=== PATIENT | male | born 1955 | race Caucasian/White ===

== ENCOUNTER 2021-11-05 08:13 | Outpatient (CLI) | payer MEDICARE, SELFPAY ==
--- NOTE | ~2021-11-05 | CT_ITS ---
EXAMINATION: CT foot LT wo con DATE: 11/05/2021 08:52 INDICATION: Subacute osteomyelitis, right foot and ankle. TECHNIQUE: Computed tomography (CT) of the right foot and ankle was performed without intravenous con trast. Automated exposure control and iterative reconstruction technique were employed. The dose-dorys th product was 450.98 mGy-cm. COMPARISON: Right foot and ankle radiographs 11/02/2011 FINDINGS: Pes planus and hindfoot valgus are noted. No acute fracture. There is an ulcer lateral to h ead of fifth metatarsal. There is an erosion of head of fifth metatarsal, consistent with osteomyelit is. There is severe osteoarthritis of tibiotalar joint, subtalar joint, and talonavicular joint with loose bodies. There is mild to moderate osteoarthritis of the other midfoot joints. There is severe o steoarthritis of first metatarsophalangeal joint and mild osteoarthritis of second metatarsophalangea l joint and many of the interphalangeal joints. There are enthesophytes at the posterior and plantar aspects of calcaneal tuberosity. IMPRESSION: 1. Osteomyelitis involving head of fifth metatarsal. 2. Polyarticular osteoarthritis. 3. Pes planus and hindfoot valgus. Reviewed, dictated and finalized at location A.
== END 2021-11-05 08:14 | disposition home or self-care (01) ==
PROVIDERS: PCP Internal Medicine; Visit Provider Internal Medicine
DX: J96.01 Acute respiratory failure with hypoxia (principal); E11.610 Type 2 diabetes mellitus with diabetic neuropathic arthropathy; E66.01 Morbid (severe) obesity due to excess calories; R41.0 Disorientation, unspecified; M19.072 Primary osteoarthritis, left ankle and foot
CPT/HCPCS: 73700

== ENCOUNTER 2022-06-18 07:21 | Outpatient (RCR) | payer MEDICARE, SELFPAY ==
[2022-04-23 09:30] VITALS: BMI 38.5
== END 2022-07-22 23:59 | disposition home or self-care (01) ==
LOC: ANHWOC 07:21
PROVIDERS: PCP Internal Medicine; Visit Provider Podiatrist Foot & Ankle Surgery
DX: E11.40 Type 2 diabetes mellitus with diabetic neuropathy, unspecified (principal); E11.59 Type 2 diabetes mellitus with other circulatory complications; I87.311 Chronic venous hypertension (idiopathic) with ulcer of right lower extremity
CPT/HCPCS: 99213; 99214; A9270; G0463

== ENCOUNTER 2022-10-23 10:26 | Inpatient (IN) | payer MEDICARE, SELFPAY ==
[2022-10-23] VITALS (22 sets, daily range): BP systolic 89–140; BP diastolic 57–112; PULSE 114–164; RESP 13–20; TEMP 36.4–38.2; O2SAT 96–100
--- NOTE | ~2022-10-23 | XR_ITS ---
XR chest 1V portable 10/23/2022 11:32 Indication: Shortness of breath and vomiting Procedure: AP portable chest Comparison: 12/10/2013 Findings: Borderline heart size. There are bilateral interstitial infiltrates. No pleural effusion or pneumothorax. No acute osseous abnormality. Impression: 1: Diffuse bilateral interstitial infiltrates which may represent mild edema or pneumonia. Reviewed, dictated and finalized at location B. R ENERGY ENGINEER Impression: 1: Diffuse bilateral interstitial infiltrates which may represent mild edema or pneumonia.
--- NOTE | 2022-10-23 10:38 | ECG_ITS ---
Measurements Intervals [place] Rate: 146 P: HI: 0 QRS: 17 QRSD: 97 T: 31 QT: 268 QTc: 418 Interpretive Statements ATRIAL FIBRILLATION WITH RAPID VENTRICULAR RESPONSE DELAYED PRECORDIAL R/S TRANSITION ABNORMAL ECG NO PREVIOUS ECG AVAILABLE FOR COMPARISON Electronically Signed On 10-23-2022 16:48:41 RETAIL SALES SPECIALIST by Jonn Figueredo D.O.
--- NOTE | 2022-10-23 10:56 | ED.GENADULT ---
HPI - General Adult General Chief complaint: Unspecified Stated complaint: weakness Time Seen by Provider: 10/23/22 10:32 History of Present Illness HPI narrative: 66-year-old male presenting to the emergency department for evaluation of not feeling well over the last 2 days. Patient does report intermittent headache and nausea with emesis. Patient is a very poor historian and is unsure of what his past medical history is. Patient states that he does not know any of his medications but that a nurse comes to the house to give him his meds. Patient also reports he has had increased lower extremity edema primarily on the right. Patient he has had multiple surgeries by Dr. Conner on the right ankle. Patient states he has been unable to bear weight for the last few weeks and has been bedbound. Patient states previously he was able to transfer to his scooter but has not been able to do that for the last 2 weeks. Patient also has skin breakdown under his pannus that he was aware of Patient denies any abdominal pain. Patient denies any chest pain or shortness of breath. Patient does not feel that his heart is racing. Patient does have current nausea. Related Data Home Medications Medication Instructions Recorded Confirmed atorvastatin 40 mg tablet 40 mg PO HS 02/13/20 10/23/22 bumetanide 2 mg tablet 1 mg PO BID 02/13/20 10/23/22 diclofenac sodium 75 mg 75 mg PO Q12H 02/13/20 10/23/22 tablet,delayed release dorzolamide 22.3 mg-timolol 6.8 1 drop ophthalmic (eye) Q12H 02/13/20 10/23/22 mg/mL eye drops esomeprazole magnesium 40 mg 40 mg PO DAILY 02/13/20 10/23/22 capsule,delayed release gabapentin 300 mg capsule 300 mg PO TID 02/13/20 10/23/22 insulin regular hum U-500 conc 500 25 unit subcut ONCE 02/13/20 04/25/21 unit/mL subcutaneous soln levothyroxine 112 mcg capsule 112 mcg PO DAILY 02/13/20 10/23/22 potassium chloride 20 mEq oral 20 meq PO DAILY 02/13/20 10/23/22 packet tamsulosin 0.4 mg capsule 0.4 mg PO DAILY 02/13/20 10/23/22 apixaban 5 mg tablet (Eliquis) 5 mg PO BID 04/23/22 10/23/22 brimonidine 0.2 % eye drops 1 drp EACH EYE Q12H 04/23/22 10/23/22 diltiazem HCl 30 mg tablet 30 mg PO TID 04/23/22 10/23/22 famotidine 20 mg tablet 20 mg PO BID 04/23/22 10/23/22 fluticasone propionate 220 2 puff inhalation Q12H 04/23/22 10/23/22 mcg/actuation HFA aerosol inhaler (Flovent HFA) pentoxifylline 400 mg 400 mg PO TID 04/23/22 10/23/22 tablet,extended release tramadol 50 mg tablet 50 mg PO TID PRN Pain 04/23/22 10/23/22 metoprolol succinate 50 mg 50 mg PO DAILY 10/23/22 10/23/22 tablet,extended release 24 hr Allergies Allergy/AdvReac Type Severity Reaction Status Date / Time morphine AdvReac Unknown CONFUSION Verified 09/03/22 08:39 Review of Systems Review of Systems: All systems reviewed & are unremarkable except as noted in HPI and below PMFSH Past Medical History Medical History (Updated 10/23/22 @ 18:30 by Olivia Teixeira NP) BMI greater than 40 BPH (benign prostatic hyperplasia) Chronic a-fib 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, managed as type 2 Glaucoma Left knee DJD Left knee pain Obstructive sleep apnea Pneumonia Right knee DJD Type 2 diabetes mellitus with diabetic neuropathy, unspecified Venous stasis of both lower extremities Vision abnormalities Surgical History Surgical History (Updated 10/23/22 @ 18:20 by Olivia Teixeira NP) H/O cataract extraction History of arthroplasty of left knee History of foot surgery History of skin graft Hx of cholecystectomy Family History Family History (Updated 10/23/22 @ 18:21 by Olivia Teixeira NP) Mother Breast cancer Dementia Father Diabetes mellitus Malignant neoplasm of prostate Dementia Other Family history of malignant neoplasm Social History Social History (Updated 10/23/22 @ 18:22 by Olivia Teixeira NP) Social History: the patient lives with his and they have no children. He is reti
[2022-10-23] MEDS: dilTIAZem HCl INJ 25 MG/5 ML VIAL 10 MG IV PUSH ×2 (10:57→14:46)
[2022-10-23] MEDS: dilTIAZem 100 MG/100 ML 100 MG/100 ML BAG IV CONT (10:58)
[2022-10-23] MEDS: ONDANSETRON INJ 4 MG/2 ML VIAL IV PUSH ×2 (11:01→17:38)
[2022-10-23 11:09] LABS: Basophils Percent Auto 0.2 % (0.2-1.2); Eosinophils Absolute Auto 0.1 K/mm3 (0-0.3); Eosinophils Percent Auto 0.9 % (0-4.4); Hematocrit 29.2 % (42.0-52.0); Hemoglobin 9.2 g/dL (14.0-18.0); Immature Granulocyte Absolute 0.06 K/mm3 (0.00-0.031); Immature Granulocyte Percent A 0.5 % (0-0.5); Lymphocytes Absolute Auto 0.99 K/mm3 (0.9-3.2); Mean Corpuscular HGB Conc 31.5 g/dl (32-36); Mean Corpuscular Hemoglobin 28.4 pg (26-34); Mean Corpuscular Volume 90.1 fl (80-100); Mean Platelet Volume 9.8 fl (7.4-10.4); Monocytes Absolute Auto 0.6 K/mm3 (0.1-0.6); Monocytes Percent Auto 5.3 % (2.6-8.5); Neutrophils Absolute Auto 9.3 K/mm3 (1.3-6.7); Neutrophils Percent Auto 84.1 % (45.5-73.1); Platelet Count Result 210 k/mm3 (150-375); Red Blood Count 3.24 M/mm3 (4.6-6.20); Red Cell Distribution Width 17.3 % (11.5-14.5)
[2022-10-23 11:15] LABS: Appearance Urine Clear (Clear); Bacteria Urine None Seen /hpf; Bilirubin Urine Negative (Negative); Blood Urine Negative (Negative); Color Urine Yellow (Yellow); Glucose Urine UA Negative (Negative); Ketones Urine 2+ mg/dL (Negative); Leukocyte Esterase Ur Trace LEU/UL (Negative); Nitrate Urine Negative (Negative); Non Pathogenic Casts 0-2; Protein Urine 2+ mg/dL (Negative); RBC Urine 0-2 /hpf (0-2); Specific Grav Ur 1.017 (1.001-1.035); Squamous Epithelial Cell Urine None seen /hpf (Few); WBC Urine 0-5 /hpf
[2022-10-23 11:20] LABS: Lactic Acid Reflex 1.3 mmol/L (0.7-2.0)
[2022-10-23 11:22] LABS: INR 1.3; Prothrombin Time 16.1 Seconds (11.1-14.7)
[2022-10-23 11:22] LABS: Add Urine Microscopic? YES
[2022-10-23 11:23] LABS: Partial Thromboplastin Time 38.6 SECONDS (22.3-36.8)
[2022-10-23 11:28] LABS: Alanine Aminotransferase 20 U/L (6-50); Albumin Level 3.9 g/dL (3.5-5.1); Alkaline Phosphatase 86 U/L (38-126); Anion Gap 8 mmol/L (8-16); Aspartate Amino Transferase 27 U/L (17-59); Bilirubin,Total 1.1 mg/dL (0.2-1.3); Blood Urea Nitrogen 10 mg/dL (9-20); Calcium 8.9 mg/dL (8.4-10.2); Carbon Dioxide 24 mmol/L (22-30); Chloride 99 mmol/L (98-107); Estimated CRCL calculation 110 ml/min; Estimated Glomerular Filt Rate > 60; Glucose 91 mg/dL (65-110); Sodium 131 mmol/L (137-145)
[2022-10-23 11:37] LABS: NT Pro B Type Natriuretic Pept 3020 pg/mL (19.9-100)
[2022-10-23] MEDS: fentaNYL CITRATE INJ (*CRX) 100 MCG/2 ML VIAL 50 MCG IV PUSH ×4 (12:33→21:28)
[2022-10-23] MEDS: FUROSEMIDE INJ 40 MG/4 ML VIAL IV PUSH ×2 (12:34→21:22)
--- NOTE | 2022-10-23 12:52 | PC.NURSE ---
pt refusing ultrasound. pt educated pt on the importance of it. pt still refusing.
[2022-10-23] MEDS: ceFAZolin 1 GM/NS 50 ML 1 GM/50 ML BAG IVPB ×2 (13:10→23:00)
--- NOTE | 2022-10-23 14:17 | PM.IMHP ---
H&P: HPI History of Present Illness Date/Time: 10/23/22 14:17 Chief Complaint: weakness Narrative: this is a 66-year-old male patient who has a history of insulin-dependent diabetes with an insulin pump, atrial fibrillation, lymphedema, hypothyroidism, and chronic atrial fibrillation on anticoagulation. The patient stated he has not been feeling very well over last 2 days. The patient stated that his lower extremities are redder than normal. He does have lymphedema to his lower extremities. I am trying to get history from the patient and he is referring to talk to his who is at home. He states that a nurse comes over and get some his medications so he does not really know when he is taking. The patient has had multiple surgeries to his right ankle and complains of discomfort to the right ankle as well as the right hip. The patient is not been able to bear weight for least the last few weeks and has been bed-bound. The patient is on Eliquis for his AFib. The patient typically is able to transfer to his scooter from his bed but has not been able to do so for the last 2 weeks. The patient has a severe fungal infection under his large pannus. His chest x-ray shows diffuse bilateral interstitial infiltrates which may represent mild edema or pneumonia. His white count 11.0. His H&H is 9.2 and 29.2. Which appears to be his baseline from previous labs from years ago. BNP is 3020. The patient is being admitted to inpatient on the date of service 10/23/2022 Review of Systems Review of Systems: see HPI All systems reviewed & are unremarkable except as noted in HPI and below Constitutional: Constitutional: Reports as per HPI and Reports no additional constitutional complaints Eyes: Eyes: Reports as per HPI and Reports no additional eye complaints ENT: Reports system reviewed and no additional complaints, except as documented and Reports Normal hearing present Cardiovascular: Cardiovascular: Reports no additional cardiovascular complaints Respiratory: Respiratory: Reports no additional respiratory complaints and Reports no additional respiratory complaints Gastrointestinal: Gastrointestinal: Reports as per HPI and Reports no additional gastrointestinal complaints Musculoskeletal: Musculoskeletal: Reports no additional musculoskeletal complaints Integumentary/Breasts: Skin/Breast: Reports system reviewed and no additional complaints, except as docu and Reports as per HPI Neurologic: Reports system reviewed and no additional complaints, except as documented, Reports as per HPI and Reports Normal hearing present Psychiatric: Psychiatric: Reports no additional psychiatric complaints and Reports as per HPI Endocrine: Endocrine: Reports no additional endocrine complaints Hematologic/Lymphatic: Hematologic/Lymphatic: Reports no additional hematologic/lymphatic complaints Allergic/Immunologic: Allergic/Immunologic: Reports no additional allergic/immunologic complaints [facility] Past Medical History Medical History (Updated 10/23/22 @ 18:30 by Olivia Teixeira NP) BMI greater than 40 BPH (benign prostatic hyperplasia) Chronic a-fib 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, managed as type 2 Glaucoma Left knee DJD Left knee pain Obstructive sleep apnea Pneumonia Right knee DJD Type 2 diabetes mellitus with diabetic neuropathy, unspecified Venous stasis of both lower extremities Vision abnormalities Surgical History Surgical History (Updated 10/23/22 @ 18:20 by Olivia Teixeira NP) H/O cataract extraction History of arthroplasty of left knee History of foot surgery History of skin graft Hx of cholecystectomy Family History Family History (Updated 10/23/22 @ 18:21 by Olivia Teixeira NP) Mother Breast cancer Dementia Father Diabetes mellitus Malignant neoplasm of prostate Dementia Other Family history of malignant neoplasm Social History Social History (Updated 10/23/22 @ 18:22 by Olivia Esteban
--- NOTE | 2022-10-23 15:00 | PC.NURSE ---
EDP Kamlesh made aware of pt's BP. paused Diltiazem at this time per EDP.
--- NOTE | 2022-10-23 15:16 | PC.NURSE ---
BP now at 130/63. EDP made aware. Diltiazem started again at 15mg/hr.
[2022-10-23 15:48] LABS: Glucose Point of Care 96 mg/dl (65-105)
--- NOTE | 2022-10-23 15:50 | ADMGEN ---
This patient, Suleiman Hoang, was admitted to IMU Room 206-01. Patient/family oriented to hospital policies and general routines including ID bracelet, bed and alarms, visiting hours, pain management, procedures, bathroom and other care routines, personal items, smoking policy, room service/diet, and visiting hours. Information on how to activate the Rapid Response Team has been discussed. Patient/Family are encouraged to report perceived risks to care and to ask questions if they do not understand what they are told or what they should do.
[2022-10-23 16:49] LABS: Glucose Point of Care 89 mg/dl (65-105)
[2022-10-23 19:32] LABS: Glucose Point of Care 114 mg/dl (65-105)
[2022-10-23] MEDS: dilTIAZem 100 MG/100 ML 100 MG/100 ML BAG 15 MG IV CONT (21:12)
[2022-10-23] MEDS: ALBUTEROL SULFATE NEB 2.5 MG/3 ML INH INHALATION (21:13)
[2022-10-23] MEDS: FLUTICASONE PROP 220 MCG (*SP) 12 GM INHALER 2 PUFF INHALATION (21:13)
[2022-10-23] MEDS: IPRATROPIUM BR 0.02% INH SOLN 0.5 MG/2.5 ML VIAL INHALATION (21:13)
[2022-10-23] MEDS: BRIMONIDINE TARTRATE 0.2% OP SOLN 5 ML BTL 1 DROP EACH EYE (21:18)
[2022-10-23] MEDS: DORZOLAMIDE/TIMOLOL OPHTH SOL 10 ML BOTTLE 1 DROP EACH EYE (21:19)
[2022-10-23] MEDS: DICLOFENAC SOD 75 MG TABLET.EC PO (21:20)
[2022-10-23] MEDS: GABAPENTIN 300 MG CAPSULE PO (21:21)
[2022-10-23] MEDS: PENTOXIFYLLINE 400 MG TABCR PO (21:21)
[2022-10-23] MEDS: ATORVASTATIN 40 MG TABLET PO (21:22)
[2022-10-23] MEDS: FAMOTIDINE 20 MG TABLET PO (21:22)
[2022-10-23] MEDS: DIGOXIN INJ 250 MCG/ML 2 ML AMP (*BKC) IV PUSH (21:24)
--- NOTE | 2022-10-23 21:53 | PCRCNOTE ---
pt stating that UPD gave him indigestion. RT informed pt that this is not normally a side effect of albuterol or ipatropium. pt stated well it is one for me.
[2022-10-24] VITALS (25 sets, daily range): BP systolic 107–144; BP diastolic 51–63; PULSE 76–126; RESP 16–22; TEMP 36.2–36.7; O2SAT 95–100
[2022-10-24] MEDS: METOPROLOL TARTRATE INJ 5 MG/5 ML VIAL IV PUSH (00:21)
[2022-10-24] MEDS: IPRATROPIUM BR 0.02% INH SOLN 0.5 MG/2.5 ML VIAL INHALATION ×4 (02:28→21:15)
[2022-10-24] MEDS: ALBUTEROL SULFATE NEB 2.5 MG/3 ML INH INHALATION ×4 (02:28→21:15)
[2022-10-24 04:31] LABS: Basophils Percent Auto 0.2 % (0.2-1.2); Eosinophils Absolute Auto 0.2 K/mm3 (0-0.3); Eosinophils Percent Auto 2.3 % (0-4.4); Hematocrit 29.4 % (42.0-52.0); Hemoglobin 9.2 g/dL (14.0-18.0); Immature Granulocyte Absolute 0.05 K/mm3 (0.00-0.031); Immature Granulocyte Percent A 0.6 % (0-0.5); Lymphocytes Absolute Auto 1.27 K/mm3 (0.9-3.2); Lymphocytes Percent Auto 15.1 % (18.3-44.2); Mean Corpuscular HGB Conc 31.3 g/dl (32-36); Mean Corpuscular Hemoglobin 28.6 pg (26-34); Mean Corpuscular Volume 91.3 fl (80-100); Mean Platelet Volume 9.3 fl (7.4-10.4); Monocytes Absolute Auto 0.6 K/mm3 (0.1-0.6); Monocytes Percent Auto 6.9 % (2.6-8.5); Neutrophils Absolute Auto 6.3 K/mm3 (1.3-6.7); Neutrophils Percent Auto 74.9 % (45.5-73.1); Platelet Count Result 184 k/mm3 (150-375); Red Blood Count 3.22 M/mm3 (4.6-6.20); Red Cell Distribution Width 17.3 % (11.5-14.5); White Blood Count 8.4 K/mm3 (4.5-10.0)
[2022-10-24 04:47] LABS: Alanine Aminotransferase 22 U/L (6-50); Albumin Level 3.7 g/dL (3.5-5.1); Alkaline Phosphatase 88 U/L (38-126); Anion Gap 8 mmol/L (8-16); Aspartate Amino Transferase 30 U/L (17-59); Bilirubin,Total 0.8 mg/dL (0.2-1.3); Blood Urea Nitrogen 16 mg/dL (9-20); Calcium 8.8 mg/dL (8.4-10.2); Carbon Dioxide 26 mmol/L (22-30); Chloride 97 mmol/L (98-107); Estimated CRCL calculation 91 ml/min; Estimated Glomerular Filt Rate > 60; Glucose 149 mg/dL (65-110); Lactic Acid Reflex 1.3 mmol/L (0.7-2.0); Lipase 33 U/L (23-300); Magnesium 1.9 mg/dL (1.6-2.3); Potassium 3.5 mmol/L (3.4-5.0); Sodium 131 mmol/L (137-145)
[2022-10-24] MEDS: dilTIAZem 100 MG/100 ML 100 MG/100 ML BAG 15 MG IV CONT (04:56)
[2022-10-24 04:58] LABS: Hemoglobin A1C 5.7 % (<5.7)
--- NOTE | 2022-10-24 05:59 | ECG_ITS ---
Measurements Intervals [place] Rate: 82 P: 21 RI: 186 QRS: 16 QRSD: 110 T: 31 QT: 374 QTc: 439 Interpretive Statements SINUS RHYTHM BASELINE ARTIFACT- I, II, III, AVR, AVL, AVF NORMAL ECG COMPARED TO ECG 10/23/2022 10:38:56 SINUS RHYTHM NOW PRESENT Electronically Signed On 10-24-2022 6:54:53 RETAIL RESET MERCHANDISER by Jonn Figueredo D.O.
[2022-10-24] MEDS: BRIMONIDINE TARTRATE 0.2% OP SOLN 5 ML BTL 1 DROP EACH EYE ×2 (06:29→17:19)
[2022-10-24] MEDS: DICLOFENAC SOD 75 MG TABLET.EC PO ×2 (06:30→17:20)
[2022-10-24] MEDS: ceFAZolin 1 GM/NS 50 ML 1 GM/50 ML BAG IVPB ×3 (06:30→21:29)
[2022-10-24] MEDS: LEVOTHYROXINE SODIUM 112 MCG TABLET PO (06:30)
[2022-10-24 08:24] LABS: Glucose Point of Care 178 mg/dl (65-105)
[2022-10-24] MEDS: DORZOLAMIDE/TIMOLOL OPHTH SOL 10 ML BOTTLE 1 DROP EACH EYE ×2 (08:41→21:25)
[2022-10-24] MEDS: APIXABAN 5 MG TABLET PO ×2 (08:42→17:18)
[2022-10-24] MEDS: METOPROLOL SUCCINATE EXT REL 50 MG TABCR PO (08:43)
[2022-10-24] MEDS: TAMSULOSIN HCL 0.4 MG CAPSULE PO (08:44)
[2022-10-24] MEDS: PENTOXIFYLLINE 400 MG TABCR PO ×3 (08:44→17:19)
[2022-10-24] MEDS: PANTOPRAZOLE 40 MG TABLET PO (08:44)
[2022-10-24] MEDS: GABAPENTIN 300 MG CAPSULE PO ×3 (08:44→17:18)
[2022-10-24] MEDS: POTASSIUM CHLORIDE 20 MEQ PACKET (FOR LIQUID) PO (08:44)
[2022-10-24] MEDS: FAMOTIDINE 20 MG TABLET PO ×2 (08:45→21:25)
[2022-10-24] MEDS: FUROSEMIDE INJ 40 MG/4 ML VIAL IV PUSH ×2 (08:45→21:26)
[2022-10-24] MEDS: FLUTICASONE PROP 220 MCG (*SP) 12 GM INHALER 2 PUFF INHALATION ×2 (09:10→21:15)
[2022-10-24] MEDS: EUCERIN CREAM 454 GM JAR 1 APPLIC TOPICAL (10:04)
--- NOTE | 2022-10-24 10:24 | PM.CNCAR ---
Assessment and Plan Assessment and plan (1) Paroxysmal atrial fibrillation: Code(s): I48.0 - Paroxysmal atrial fibrillation Status: Acute Assessment and Plan: Will DC diltiazem drip. Continue metoprolol. Restart short-acting diltiazem 30 mg p.o. t.i.d.. Continue anticoagulation with Eliquis. Will order 2D echocardiogram Doppler to establish ejection fraction. He is otherwise stable agree with treatment of his underlying infection with antibiotics per hospitalist. (2) Pneumonia: Code(s): J18.9 - Pneumonia, unspecified organism Status: Acute Assessment and Plan: On antibiotics (3) Obstructive sleep apnea: Code(s): G47.33 - Obstructive sleep apnea (adult) (pediatric) Status: Acute Assessment and Plan: CPAP use (4) Cellulitis: Qualifiers: Laterality: right Site of cellulitis: extremity Site of cellulitis of extremity: lower extremity Qualified Code(s): L03.115 - Cellulitis of right lower limb Code(s): L03.90 - Cellulitis, unspecified Status: Acute History of Present Illness History of Present Illness Consult date/time: 10/24/22 10:24 Requesting physician: Olivia Francis MEDICAL IMAGING TECHNOLOGIST Consult reason: atrial fibrillation Reason For Visit: Afib w RVR/Cellulitis/CHF Narrative: Date of service 10/24/2022 Reason consultation: Atrial fibrillation Requesting provider: Olivia francis History patient is a 66-year-old male has history of atrial fibrillation, diabetes, chronic anticoagulation came to the hospital because of weakness and some lower extremity redness. Reportedly had some lymphedema is right leg and he keeps referring to a short now Charcot foot involving the right side. He is essentially in mobile in cannot get himself mobilized yesterday and so he came to the hospital for further workup evaluation. He was found to be in atrial fibrillation with rapid ventricular response. Chest x-ray shows bilateral diffuse infiltrates consistent with edema or pneumonia. White count was elevated. He is being treated for combination of atrial fibrillation with rapid ventricular response as well as cellulitis/pneumonia. He denies any chest pain, shortness breath, syncope, presyncope, paroxysmal nocturnal dyspnea, orthopnea, palpitations or bleeding problems. He is now on diltiazem drip and has reverted back into sinus rhythm Review of Systems Review of Systems: All systems reviewed & are unremarkable except as noted in HPI and below Constitutional: Constitutional: Denies body ache(s) Eyes: Eyes: Denies blurry vision ENT: Reports Normal hearing present Cardiovascular: Cardiovascular: Denies chest pain and Reports pedal edema Respiratory: Respiratory: Denies chest congestion Gastrointestinal: Gastrointestinal: Denies abdominal pain Genitourinary: Genitourinary: Denies hematuria Musculoskeletal: Musculoskeletal: Denies back pain Integumentary/Breasts: Skin/Breast: Denies skin pain Neurologic: Denies confusion Psychiatric: Psychiatric: Denies anxiety Endocrine: Endocrine: Denies excessive sweating Hematologic/Lymphatic: Hematologic/Lymphatic: Denies easy bleeding Allergic/Immunologic: Allergic/Immunologic: Denies lip swelling PMFSH Past Medical History Medical History BMI greater than 40 BPH (benign prostatic hyperplasia) Chronic a-fib 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
--- NOTE | 2022-10-24 12:08 | PCOTNOTE ---
Spoke with hospitalist Dr. Kilgore who reports bedrest orders are ok to be removed at this time. Dr. Kilgore requested for RN to remove orders, will follow up with RN.
[2022-10-24] MEDS: INSULIN ASPART (*BKC) 100 UNITS/ML SUB-Q ×2 (12:09→17:23)
[2022-10-24] MEDS: dilTIAZem HCL 30 MG TABLET PO ×2 (12:18→21:25)
[2022-10-24 12:40] LABS: Glucose Point of Care 205 mg/dl (65-105)
--- NOTE | 2022-10-24 14:12 | PM.IMPN ---
Progress Note: A&P Assessment and Plan (1) Pneumonia: Code(s): J18.9 - Pneumonia, unspecified organism Status: Acute Assessment and Plan: his chest x-ray was read1: Diffuse bilateral interstitial infiltrates which may represent mild edema or pneumonia the patient is already on cefazolin for cellulitis add azithromycin sputum and blood cultures are pending nebulizer treatments (2) Atrial fibrillation with rapid ventricular response: Code(s): I48.91 - Unspecified atrial fibrillation Status: Acute Assessment and Plan: the patient was given IV Cardizem prn with parameters Resume his p.o. diltiazem continue with Eliquis Current patient has a sinus rhythm Patient denies history of AFib Patient has new onset AFib, unclear etiologies. Patient had sleeping study, no SILVIA was diagnosed Follow-up echocardiogram, TSH (3) BPH (benign prostatic hyperplasia): Code(s): N40.0 - Benign prostatic hyperplasia without lower urinary tract symptoms Status: Acute Assessment and Plan: continue with Flomax I helped assist the patient with his urinal and he has difficulty starting urination and has a low stream. he may need to follow-up with urology. (4) Obstructive sleep apnea: Code(s): G47.33 - Obstructive sleep apnea (adult) (pediatric) Status: Acute Assessment and Plan: (5) Venous stasis of both lower extremities: Code(s): I87.8 - Other specified disorders of veins Status: Acute Assessment and Plan: lower extremity redness and edema patient is also being treated for cellulitis with Ancef venous Dopplers have been ordered although the patient is on Eliquis. (6) Type 2 diabetes mellitus with diabetic neuropathy, unspecified: Qualifiers: Diabetes mellitus skilled nursing insulin use: with skilled nursing use Qualified Code(s): E11.40 - Type 2 diabetes mellitus with diabetic neuropathy, unspecified; Z79.4 - longterm (current) use of insulin Code(s): E11.40 - Type 2 diabetes mellitus with diabetic neuropathy, unspecified Status: Acute Assessment and Plan: Accu-Cheks AC and HS with sliding scale insulin and hypoglycemic protocol -check A1c - the patient has an insulin pump however his DEXAcom, cannot be accessed is his battery is and his phone. His insulin pump has been removed will just do Accu-Cheks AC and HS. (7) Glaucoma: Code(s): H40.9 - Unspecified glaucoma Status: Acute Assessment and Plan: Continue with eyedrops from home (8) CHF (congestive heart failure): Code(s): I50.9 - Heart failure, unspecified Status: Acute Assessment and Plan: Suspecting CHF echo has been ordered continue with IV Lasix (9) Cellulitis: Qualifiers: Laterality: right Site of cellulitis: extremity Site of cellulitis of extremity: lower extremity Qualified Code(s): L03.115 - Cellulitis of right lower limb Code(s): L03.90 - Cellulitis, unspecified Status: Acute Assessment and Plan: continue with Ancef add doxy check venous Dopplers although the patient is on Eliquis patient has chronic venous stasis Subjective Date/time seen: 10/24/22 14:12 Interval history: Patient feels better today, denies palpitation, chest pain. Shortness breath is improving Telemetry shows sinus rhythm now Exam Narrative: GENERAL: Pleasant, in no acute distress. Well-nourished. Morbid obesity - EYES: EOMI. Anicteric. - HENT: Moist mucous membranes. - LUNGS: Coarse breath sounds bilateral lungs, no wheezing, rhonchi, or rales. - CARDIOVASCULAR: Regular rate and rhythm. No murmur. No JVD. - ABDOMEN: Soft, non-tender and non-distended. No palpable masses. - EXTREMITIES: No edema. Peripheral pulses 2+. Non-tender. - NEUROLOGIC: No focal neurological deficits. CN II-XII grossly intact. - PSYCHIATRIC: Awake, Alert and oriented x 3. Appropriate mood
[2022-10-24] MEDS: ACETAMINOPHEN 325 MG TABLET 650 MG PO (14:43)
[2022-10-24 16:29] LABS: Glucose Point of Care 215 mg/dl (65-105)
[2022-10-24] MEDS: traMADol HCL (*CRX) 50 MG TABLET PO (17:15)
[2022-10-24] MEDS: DOXYCYCLINE 100 MG/NS 100 ML 100 MG/100 ML BAG IVPB (17:22)
[2022-10-24 19:48] LABS: Glucose Point of Care 313 mg/dl (65-105)
[2022-10-24] MEDS: ATORVASTATIN 40 MG TABLET PO (21:25)
[2022-10-24] MEDS: fentaNYL CITRATE INJ (*CRX) 100 MCG/2 ML VIAL 50 MCG IV PUSH (21:31)
[2022-10-25] VITALS (19 sets, daily range): BP systolic 111–136; BP diastolic 52–63; PULSE 70–103; RESP 16–20; TEMP 36.3–36.6; O2SAT 94–100
[2022-10-25] MEDS: dilTIAZem HCL 30 MG TABLET PO ×3 (05:54→20:07)
[2022-10-25] MEDS: ceFAZolin 1 GM/NS 50 ML 1 GM/50 ML BAG IVPB ×3 (05:54→21:25)
[2022-10-25] MEDS: BRIMONIDINE TARTRATE 0.2% OP SOLN 5 ML BTL 1 DROP EACH EYE ×2 (05:54→18:20)
[2022-10-25] MEDS: DICLOFENAC SOD 75 MG TABLET.EC PO ×2 (05:54→17:11)
[2022-10-25] MEDS: LEVOTHYROXINE SODIUM 112 MCG TABLET PO (05:54)
[2022-10-25] MEDS: ALBUTEROL SULFATE NEB 2.5 MG/3 ML INH INHALATION ×3 (07:33→20:30)
[2022-10-25] MEDS: IPRATROPIUM BR 0.02% INH SOLN 0.5 MG/2.5 ML VIAL INHALATION ×3 (07:33→20:30)
[2022-10-25] MEDS: FLUTICASONE PROP 220 MCG (*SP) 12 GM INHALER 2 PUFF INHALATION ×2 (07:34→20:31)
[2022-10-25 08:15] LABS: Glucose Point of Care 242 mg/dl (65-105)
[2022-10-25] MEDS: DOXYCYCLINE 100 MG/NS 100 ML 100 MG/100 ML BAG IVPB ×2 (08:21→20:06)
[2022-10-25] MEDS: INSULIN ASPART (*BKC) 100 UNITS/ML SUB-Q ×3 (08:22→16:36)
[2022-10-25] MEDS: POTASSIUM CHLORIDE 20 MEQ PACKET (FOR LIQUID) PO (08:24)
[2022-10-25] MEDS: APIXABAN 5 MG TABLET PO ×2 (08:24→17:11)
[2022-10-25] MEDS: GABAPENTIN 300 MG CAPSULE PO ×3 (08:24→17:12)
[2022-10-25] MEDS: FAMOTIDINE 20 MG TABLET PO ×2 (08:25→20:08)
[2022-10-25] MEDS: FUROSEMIDE INJ 40 MG/4 ML VIAL IV PUSH (08:25)
[2022-10-25] MEDS: PANTOPRAZOLE 40 MG TABLET PO (08:25)
[2022-10-25] MEDS: DORZOLAMIDE/TIMOLOL OPHTH SOL 10 ML BOTTLE 1 DROP EACH EYE ×2 (08:25→20:08)
[2022-10-25] MEDS: PENTOXIFYLLINE 400 MG TABCR PO ×3 (08:26→17:12)
[2022-10-25] MEDS: METOPROLOL SUCCINATE EXT REL 50 MG TABCR PO (08:26)
[2022-10-25] MEDS: TAMSULOSIN HCL 0.4 MG CAPSULE PO (08:26)
--- NOTE | 2022-10-25 08:35 | PM.PNCARD ---
Progress Note: A&P Assessment and Plan (1) Paroxysmal atrial fibrillation: Code(s): I48.0 - Paroxysmal atrial fibrillation Status: Acute Assessment and Plan: Will DC diltiazem drip. Continue metoprolol. Restart short-acting diltiazem 30 mg p.o. t.i.d.. Continue anticoagulation with Eliquis. Echo pending. He is otherwise stable agree with treatment of his underlying infection with antibiotics per hospitalist. Will reduce his furosemide down to 20 mg IV q.12 hours (2) Pneumonia: Code(s): J18.9 - Pneumonia, unspecified organism Status: Acute Assessment and Plan: On antibiotics (3) Obstructive sleep apnea: Code(s): G47.33 - Obstructive sleep apnea (adult) (pediatric) Status: Acute Assessment and Plan: CPAP use (4) Cellulitis: Qualifiers: Laterality: right Site of cellulitis: extremity Site of cellulitis of extremity: lower extremity Qualified Code(s): L03.115 - Cellulitis of right lower limb Code(s): L03.90 - Cellulitis, unspecified Status: Acute Subjective Date/time seen: 10/25/22 08:35 Interval history: 66-year-old admitted with cellulitis, possible pneumonia in atrial fibrillation with rapid ventricular response Date of service 10/25/2021: Feels well. No chest pain or shortness of breath today. Review of Systems Review of Systems: All systems reviewed & are unremarkable except as noted in HPI and below Constitutional: Constitutional: Denies body ache(s) and Denies excessive sweating Eyes: Eyes: Denies blurry vision ENT: Reports Normal hearing present and Denies lip swelling Cardiovascular: Cardiovascular: Denies chest pain and Reports pedal edema Respiratory: Respiratory: Denies chest congestion Gastrointestinal: Gastrointestinal: Denies abdominal pain Genitourinary: Genitourinary: Denies hematuria Musculoskeletal: Musculoskeletal: Denies back pain Integumentary/Breasts: Skin/Breast: Denies skin pain Neurologic: Reports Normal hearing present and Denies confusion Psychiatric: Psychiatric: Denies anxiety and Denies confusion Endocrine: Endocrine: Denies excessive sweating Hematologic/Lymphatic: Hematologic/Lymphatic: Denies easy bleeding Allergic/Immunologic: Allergic/Immunologic: Denies lip swelling Exam Narrative: Pleasant alert oriented appears stated age Const: General: comfortable and no acute distress; No confusion Orientation/consciousness: No confusion HENMT: Face/Nose/Sinus: Normal nares present Mouth: Yes moist mucous membranes Eyes: Sclera: sclerae normal Pupils: Equal, round and reactive pupils present EOM: EOMs intact bilaterally Neck: Neck: supple Thyroid: abnormal thyroid Chest: Other: No reproducible chest wall pain to palpation Resp: Effort & Inspection: normal respiratory effort Auscultation: clear to auscultation bilaterally Cardio: Rate: regular rate Rhythm: regular rhythm Heart sounds: no murmurs GI: Inspection: non-distended Skin: General skin exam: erythema and No lesion Lesions: no lesions noted Neuro: General: No gait normal and No confusion Cranial nerves: Yes Equal, round and reactive pupils present and Yes Normal hearing present Speech: normal speech Sensory Exam: normal sensation Extrem: General: edema Psych: Mental Status: mental status grossly normal Affect: normal affect Objective Data Vital Signs Vital Signs: Vital Signs - 24 hr 10/24/22 08:43 10/24/22 09:11 10/24/22 09:11 Temperature Pulse Rate 83 81 Respiratory Rate 18 Blood Pressure Pulse Oximetry 98 Oxygen Delivery Room Air Fraction of Inspired Oxygen 10/24/22 09:28 10/24/22 12:00 10/24/22 12:57 Temperature 36.6 C Pulse Rate 81 83 Respiratory Rate 18 18 Blood Pressure 125/57 L Pulse Oximetry 98 Oxygen Delivery Room Air Fraction of Inspired Oxygen 10/24/22 13:18 10/24/22 14:07 10/24/22 14:27 Temperature Pulse Rate 87 82 Re
[2022-10-25] MEDS: EUCERIN CREAM 454 GM JAR 1 APPLIC TOPICAL (08:44)
--- NOTE | 2022-10-25 10:13 | PM.IMPN ---
Progress Note: A&P Assessment and Plan (1) Pneumonia: Code(s): J18.9 - Pneumonia, unspecified organism Status: Acute Assessment and Plan: his chest x-ray was read1: Diffuse bilateral interstitial infiltrates which may represent mild edema or pneumonia the patient is already on cefazolin for cellulitis add doxycycline sputum and blood cultures are pending nebulizer treatments (2) Atrial fibrillation with rapid ventricular response: Code(s): I48.91 - Unspecified atrial fibrillation Status: Acute Assessment and Plan: the patient was given IV Cardizem prn with parameters, it is stopped Current patient has a sinus rhythm Patient denies history of AFib Patient has new onset AFib, unclear etiologies. Patient had sleeping study, no SILVIA was diagnosed Follow-up echocardiogram, TSH continue metoprolol.? Restart short-acting diltiazem 30 mg p.o. t.i.d..? Continue anticoagulation with Eliquis per Cardiology recommendation (3) BPH (benign prostatic hyperplasia): Code(s): N40.0 - Benign prostatic hyperplasia without lower urinary tract symptoms Status: Acute Assessment and Plan: continue with Flomax he may need to follow-up with urology. (4) Obstructive sleep apnea: Code(s): G47.33 - Obstructive sleep apnea (adult) (pediatric) Status: Acute Assessment and Plan: (5) Venous stasis of both lower extremities: Code(s): I87.8 - Other specified disorders of veins Status: Acute Assessment and Plan: lower extremity redness and edema patient is also being treated for cellulitis with Ancef venous Dopplers have been ordered although the patient is on Eliquis. (6) Type 2 diabetes mellitus with diabetic neuropathy, unspecified: Qualifiers: Diabetes mellitus prison insulin use: with prison use Qualified Code(s): E11.40 - Type 2 diabetes mellitus with diabetic neuropathy, unspecified; Z79.4 - care home (current) use of insulin Code(s): E11.40 - Type 2 diabetes mellitus with diabetic neuropathy, unspecified Status: Acute Assessment and Plan: Accu-Cheks AC and HS with sliding scale insulin and hypoglycemic protocol -check A1c - the patient has an insulin pump however his DEXAcom, cannot be accessed is his battery is and his phone. His insulin pump has been removed will just do Accu-Cheks AC and HS. (7) Glaucoma: Code(s): H40.9 - Unspecified glaucoma Status: Acute Assessment and Plan: Continue with eyedrops from home (8) CHF (congestive heart failure): Code(s): I50.9 - Heart failure, unspecified Status: Acute Assessment and Plan: Suspecting CHF echo has been ordered, pending continue with IV Lasix 20 mg b.i.d. per cardiology's recommendation (9) Cellulitis: Qualifiers: Laterality: right Site of cellulitis: extremity Site of cellulitis of extremity: lower extremity Qualified Code(s): L03.115 - Cellulitis of right lower limb Code(s): L03.90 - Cellulitis, unspecified Status: Acute Assessment and Plan: continue with Ancef add doxy check venous Dopplers although the patient is on Eliquis patient has chronic venous stasis Cellulitis is improving, Subjective Date/time seen: 10/25/22 10:13 Interval history: I saw examined patient today, patient feels better today, denies chest pain, shortness of breath, palpitation. No new issues events over the night Exam Narrative: GENERAL: Pleasant, in no acute distress. Well-nourished. Morbid obesity - EYES: EOMI. Anicteric. - HENT: Moist mucous membranes. - LUNGS: Coarse breath sounds bilateral lungs, no wheezing, rhonchi, or rales. - CARDIOVASCULAR: Regular rate and rhythm. No murmur. No JVD. - ABDOMEN: Soft, non-tender and non-distended. No palpable masses. - EXTREMITIES: No edema. Peripheral pulses 2+. Non-tender. - NEUROLOGIC: No focal neurological defici
[2022-10-25 12:02] LABS: Glucose Point of Care 278 mg/dl (65-105)
[2022-10-25 16:57] LABS: Glucose Point of Care 236 mg/dl (65-105)
[2022-10-25] MEDS: FUROSEMIDE INJ 40 MG/4 ML VIAL 20 MG IV PUSH (20:07)
[2022-10-25] MEDS: ATORVASTATIN 40 MG TABLET PO (20:08)
[2022-10-25] MEDS: traMADol HCL (*CRX) 50 MG TABLET PO (20:13)
[2022-10-25] MEDS: diphenhydrAMINE HCl CAP 25 MG CAPSULE PO (20:14)
[2022-10-25 20:25] LABS: Glucose Point of Care 328 mg/dl (65-105)
[2022-10-26] VITALS (13 sets, daily range): BP systolic 127–154; BP diastolic 55–67; PULSE 74–90; RESP 17–24; TEMP 36.2–36.8; O2SAT 96–100
--- NOTE | 2022-10-26 | ECHO_ITS ---
Patient Info Name: Suleiman Hoang Age: 66 years : 1955 Gender: Male Ht: 74 in Wt: 350 lbs BSA: 2.95 m2 HR: 81 bpm BP: 151 / 61 mmHg Heart Rhythm: Sinus Rhythm Exam Date: 10/26/2022 8:31 AM Exam Location: [facility] Pulmonary Patient Status: Inpatient Admit Date: 10/23/2022 Staff Ordering Physician: David Frank MD Factory Expert: Jose Hunt, [place], RT Attending Provider: Staci Kilgore MD Referring Physician: Monika COL[place]; Exam Type: CA echo doppler color flow Study Info Indications I48.1 - Persistent atrial fibrillation Complete two-dimensional, color flow and Doppler transthoracic echocardiogram is performed. Summary 1. Complete two-dimensional, color flow and Doppler transthoracic echocardiogram is performed. 2. Left ventricular chamber dimension is normal. 3. Left ventricular systolic function is normal, estimated at 60-65%. 4. There is mildly increased left ventricular wall thickness. 5. The left ventricular diastolic function is grade I diastolic dysfunction. 6. Right ventricular systolic function is normal. 7. No significant valvular disease. Left Ventricle Left ventricular chamber dimension is normal. Left ventricular systolic function is normal, estimated at 60-65%. There is mildly increased left ventricular wall thickness. The left ventricular diastolic function is grade I diastolic dysfunction. Right Ventricle Right ventricular chamber dimension is not well visualized. Right ventricular systolic function is normal. Left Atria Left atrial chamber dimension is normal. Right Atria Right atrial chamber dimension is normal. Atrial Septum Intact interatrial septum visualized by color flow imaging. Aortic Valve The aortic valve is trileaflet. There is no aortic valve stenosis. There is no aortic valve regurgitation. There is mild aortic valve calcification. Pulmonic Valve The pulmonic valve is not well visualized. Mitral Valve The mitral valve has normal leaflets. There is no mitral valve stenosis. There is trace mitral valve regurgitation. The mitral valve annulus is mildly calcified. Tricuspid Valve There is trace tricuspid valve regurgitation. Pericardium/Pleural The pericardium appears epicardial fat pad. There is no pericardial effusion. Inferior Vena Cava Normal inferior vena cava with >50% collapse upon inspiration consistent with normal right atrial pressure, 3 mmHg. Aorta The aortic root size at the sinus of Valsalva is normal. Left Ventricular Outflow Tract Name Value Normal LVOT 2D LVOT Diameter 2.3 cm LVOT Doppler LVOT Peak Gradient 3 mmHg LVOT Mean Gradient 2 mmHg LVOT VTI 21 cm LVOT VTI/AV VTI Ratio 0.6 LVOT Stroke Volume 85 ml LVOT CO 7.7 l/min LVOT CI 2.6 l/min/m2 Mitral Valve Name Value Normal -----
[2022-10-26] MEDS: DICLOFENAC SOD 75 MG TABLET.EC PO ×2 (05:19→17:12)
[2022-10-26] MEDS: ceFAZolin 1 GM/NS 50 ML 1 GM/50 ML BAG IVPB ×3 (05:19→21:21)
[2022-10-26] MEDS: dilTIAZem HCL 30 MG TABLET PO ×3 (05:19→22:15)
[2022-10-26] MEDS: LEVOTHYROXINE SODIUM 112 MCG TABLET PO (05:19)
[2022-10-26] MEDS: BRIMONIDINE TARTRATE 0.2% OP SOLN 5 ML BTL 1 DROP EACH EYE ×2 (05:19→17:12)
[2022-10-26] MEDS: APIXABAN 5 MG TABLET PO ×2 (08:08→17:12)
[2022-10-26] MEDS: DOXYCYCLINE 100 MG/NS 100 ML 100 MG/100 ML BAG IVPB ×2 (08:08→20:04)
[2022-10-26] MEDS: FUROSEMIDE INJ 40 MG/4 ML VIAL 20 MG IV PUSH ×2 (08:09→20:05)
[2022-10-26] MEDS: METOPROLOL SUCCINATE EXT REL 50 MG TABCR PO (08:09)
[2022-10-26] MEDS: PENTOXIFYLLINE 400 MG TABCR PO ×3 (08:09→17:12)
[2022-10-26] MEDS: PANTOPRAZOLE 40 MG TABLET PO (08:09)
[2022-10-26] MEDS: FAMOTIDINE 20 MG TABLET PO ×2 (08:09→20:05)
[2022-10-26] MEDS: DORZOLAMIDE/TIMOLOL OPHTH SOL 10 ML BOTTLE 1 DROP EACH EYE ×2 (08:09→20:05)
[2022-10-26] MEDS: GABAPENTIN 300 MG CAPSULE PO ×3 (08:09→17:12)
[2022-10-26] MEDS: TAMSULOSIN HCL 0.4 MG CAPSULE PO (08:10)
[2022-10-26] MEDS: POTASSIUM CHLORIDE 20 MEQ PACKET (FOR LIQUID) PO (08:10)
[2022-10-26] MEDS: EUCERIN CREAM 454 GM JAR 1 APPLIC TOPICAL (08:10)
[2022-10-26] MEDS: INSULIN ASPART (*BKC) 100 UNITS/ML SUB-Q ×3 (08:11→17:14)
[2022-10-26] MEDS: INSULIN ASPART (*BKC) 100 UNITS/ML 6 UNITS SUB-Q ×2 (08:11→12:59)
[2022-10-26 08:18] LABS: Glucose Point of Care 248 mg/dl (65-105)
[2022-10-26 08:31] LABS: Basophils Percent Auto 0.6 % (0.2-1.2); Eosinophils Absolute Auto 0.2 K/mm3 (0-0.3); Hemoglobin 9.1 g/dL (14.0-18.0); Immature Granulocyte Percent A 1.9 % (0-0.5); Mean Corpuscular HGB Conc 31.4 g/dl (32-36); Mean Corpuscular Hemoglobin 28.6 pg (26-34); Mean Corpuscular Volume 91.2 fl (80-100); Mean Platelet Volume 9.5 fl (7.4-10.4); Monocytes Absolute Auto 0.3 K/mm3 (0.1-0.6); Monocytes Percent Auto 4.9 % (2.6-8.5); Neutrophils Absolute Auto 3.8 K/mm3 (1.3-6.7); Neutrophils Percent Auto 72.6 % (45.5-73.1); Platelet Count Result 216 k/mm3 (150-375); Red Blood Count 3.18 M/mm3 (4.6-6.20); Red Cell Distribution Width 16.7 % (11.5-14.5); White Blood Count 5.3 K/mm3 (4.5-10.0)
[2022-10-26 08:41] LABS: Alanine Aminotransferase 26 U/L (6-50); Albumin Level 3.6 g/dL (3.5-5.1); Alkaline Phosphatase 90 U/L (38-126); Anion Gap 6 mmol/L (8-16); Aspartate Amino Transferase 27 U/L (17-59); Bilirubin,Total 0.4 mg/dL (0.2-1.3); Blood Urea Nitrogen 17 mg/dL (9-20); Calcium 8.5 mg/dL (8.4-10.2); Carbon Dioxide 30 mmol/L (22-30); Chloride 101 mmol/L (98-107); Estimated CRCL calculation 128 ml/min; Estimated Glomerular Filt Rate > 60; Glucose 253 mg/dL (65-110); Magnesium 1.9 mg/dL (1.6-2.3); Sodium 137 mmol/L (137-145)
[2022-10-26] MEDS: ALBUTEROL SULFATE NEB 2.5 MG/3 ML INH INHALATION ×3 (09:21→21:19)
[2022-10-26] MEDS: IPRATROPIUM BR 0.02% INH SOLN 0.5 MG/2.5 ML VIAL INHALATION ×3 (09:21→21:19)
[2022-10-26] MEDS: FLUTICASONE PROP 220 MCG (*SP) 12 GM INHALER 2 PUFF INHALATION ×2 (09:21→21:28)
[2022-10-26 11:40] LABS: Glucose Point of Care 253 mg/dl (65-105)
--- NOTE | 2022-10-26 14:07 | PCOTNOTE ---
Patient refused treatment this session due to stating, I'm ready to get out of here, I need to get home to assist my . Therapist verbalized, that he had therapy orders and if he would to get up and show his progression, I could ask the doctor for discharge orders. Patient verbalized, I'm not doing anything, I don't need any assistance, and I'll let the doctor know. I will be leaving soon .
[2022-10-26] MEDS: TOLNAFTATE 1% POWDER 45 GM BTL 1 APPLIC TOPICAL ×2 (14:17→20:06)
[2022-10-26] MEDS: SILVERGEL (ELTA) 45 ML 1 APPLIC TOPICAL (14:17)
--- NOTE | 2022-10-26 14:56 | PM.PNCARD ---
Progress Note: A&P Assessment and Plan (1) Paroxysmal atrial fibrillation: Code(s): I48.0 - Paroxysmal atrial fibrillation Status: Acute Assessment and Plan: In sinus rhythm. Continue metoprolol and diltiazem (can shift to long acting at discharge for dosing convenience). Continue a/c with apixaban. Echo showed normal LVSF, EF 60-65, grade I diastolic dysfunction. Somewhat difficult to assess volume status as he has chronic lower extremity swelling and pulmonary exam is difficult due to his body habitus. Would continue 20mg IV furosemide b.i.d. for now. Cardiology will sign off please do not hesitate to contact us with any questions (2) Pneumonia: Code(s): J18.9 - Pneumonia, unspecified organism Status: Acute (3) Obstructive sleep apnea: Code(s): G47.33 - Obstructive sleep apnea (adult) (pediatric) Status: Acute Assessment and Plan: Compliance with CPAP (4) Cellulitis: Qualifiers: Laterality: right Site of cellulitis: extremity Site of cellulitis of extremity: lower extremity Qualified Code(s): L03.115 - Cellulitis of right lower limb Code(s): L03.90 - Cellulitis, unspecified Status: Acute Assessment and Plan: On abx. Treatment per hospitalist. Subjective Date/time seen: 10/26/22 14:56 Cardiology follow up for atrial fibrillation He remains in sinus rhythm today. I am being told by the nursing staff that he wants to leave the hospital AMA. Review of Systems Review of Systems: All systems reviewed & are unremarkable except as noted in HPI and below Exam Const: General: comfortable, no acute distress, alert and awake Orientation/consciousness: patient oriented x3 Other: Morbidly obese HENMT: Head: normal to inspection Eyes: General: appearance normal, both eyes and all related structures Pupils: Equal, round and reactive pupils present Neck: Neck: normal visual inspection, supple and no JVD Carotids: normal carotid upstroke Resp: Effort & Inspection: normal respiratory effort Auscultation: clear to auscultation bilaterally Cardio: Rate: regular rate Rhythm: regular rhythm Heart sounds: S1 normal heart sound present, S2 normal heart sound present and no murmurs GI: Auscultation: normal bowel sounds Skin: General skin exam: normal color Neuro: General: patient oriented x3 Cranial nerves: Yes Equal, round and reactive pupils present Extrem: General: abnormal to inspection Psych: Appearance: grossly normal Mental Status: mental status grossly normal Objective Data Vital Signs Vital Signs: Vital Signs - 24 hr 10/25/22 16:00 10/25/22 16:00 10/25/22 20:00 Temperature 36.5 C Pulse Rate 81 81 81 Respiratory Rate 16 16 Blood Pressure 123/59 L Pulse Oximetry 100 100 Oxygen Delivery Room Air Fraction of Inspired Oxygen 21 10/25/22 20:00 10/25/22 20:31 10/25/22 20:37 Temperature 36.5 C Pulse Rate 87 85 85 Respiratory Rate 20 18 Blood Pressure 126/56 L Pulse Oximetry 98 97 Oxygen Delivery Room Air Fraction of Inspired Oxygen 10/25/22 20:40 10/25/22 20:00 10/25/22 23:05 Temperature Pulse Rate 80 88 82 Respiratory Rate 18 Blood Pressure Pulse Oximetry Oxygen Delivery Fraction of Inspired Oxygen 10/26/22 00:00 10/26/22 04:00 10/26/22 04:00 Temperature 36.6 C Pulse Rate 79 74 80 Respiratory Rate 20 Blood Pressure 151/61 H Pulse Oximetry 97 Oxygen Delivery Fraction of Inspired Oxygen 10/26/22 08:00 10/26/22 09:15 10/26/22 09:23 Temperature 36.8 C Pulse Rate 78 78 78 Respiratory Rate 17 18 Blood Pressure 127/63 Pulse Oximetry 99 96 Oxygen Delivery Room Air Fraction of Inspired Oxygen 10/26/22 09:41 10/26/22 08:00 10/26/22 12:00 Temperature Pulse Rate 81 82 88 Respiratory Rate 18 Blood Pressure Pulse Oximetry Oxygen Delivery Fraction of Inspired Oxygen 10/26/22 12:00 Temperature 36
--- NOTE | 2022-10-26 15:27 | PM.IMPN ---
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: with halfway use Qualified Code(s): E11.40 - Type 2 diabetes mellitus with diabetic neuropathy, unspecified; Z79.4 - moth exterminator (current) use of insulin Code(s): E11.40 - Type 2 diabetes mellitus with diabetic neuropathy, unspecified Status: Acute Plan 66-year-old male patient who has a history of insulin-dependent diabetes with an insulin pump, atrial fibrillation, lymphedema, hypothyroidism,presented with worsening redness of his lower extremity 1)lower Extremity Cellulitis: c/w Cefazolin, Doxycycline Elevate leg c/w IV lasix 2)New Onset Afibb with RVR: c/w Eliquis Rate controlled c/w Cardizem, metoprolol 3)PNA: c/w Ancef+doxycyline D/c Azitrhomycin 4)Diabetes Mellitus: Off insulin pump BG check TID AC and HS c/w SS high dose Add Scheduled meal time insulin Will add lantus as well 5)DVT ppx:ELiquis 6)Code:Full 7)Dispo:pending improvement Time Spent With Patient Time with patient: 25 - 35 minutes Subjective Date/time seen: 10/26/22 15:27 Interval history: patient upset, he wants to go home Review of Systems Review of Systems: All systems reviewed & are unremarkable except as noted in HPI and below Exam Narrative: GENERAL:? Pleasant,? in no acute distress. Well-nourished.? Morbid obesity - EYES: EOMI. Anicteric. - HENT: Moist mucous membranes. - LUNGS:? Coarse breath sounds bilateral lungs, no wheezing, rhonchi, or rales. - CARDIOVASCULAR: Regular rate and rhythm. No murmur. No JVD. - ABDOMEN: Soft, non-tender and non-distended. No palpable masses. - EXTREMITIES: redness+. - NEUROLOGIC: No focal neurological deficits. CN II-XII grossly intact. - PSYCHIATRIC: Awake, Alert and oriented x 3. Appropriate mood and affect. - SKIN: No rashes or lesions. Warm. - LYMPH: No cervical lymphadenopathy. Objective Data Vital Signs Vital Signs: Vital Signs - 24 hr 10/25/22 16:00 10/25/22 16:00 10/25/22 20:00 Temperature 97.7 F Pulse Rate 81 81 81 Respiratory Rate 16 16 Blood Pressure 123/59 L Pulse Oximetry 100 100 Oxygen Delivery Room Air Fraction of Inspired Oxygen 21 10/25/22 20:00 10/25/22 20:31 10/25/22 20:37 Temperature 97.7 F Pulse Rate 87 85 85 Respiratory Rate 20 18 Blood Pressure 126/56 L Pulse Oximetry 98 97 Oxygen Delivery Room Air Fraction of Inspired Oxygen 10/25/22 20:40 10/25/22 20:00 10/25/22 23:05 Temperature Pulse Rate 80 88 82 Respiratory Rate 18 Blood Pressure Pulse Oximetry Oxygen Delivery Fraction of Inspired Oxygen 10/26/22 00:00 10/26/22 04:00 10/26/22 04:00 Temperature 97.9 F Pulse Rate 79 74 80 Respiratory Rate 20 Blood Pressure 151/61 H Pulse Oximetry 97 Oxygen Delivery Fraction of Inspired Oxygen 10/26/22 08:00 10/26/22 09:15 10/26/22 09:23 Temperature 98.3 F Pulse Rate 78 78 78 Respiratory Rate 17 18 Blood Pressure 127/63 Pulse Oximetry 99 96 Oxygen Delivery Room Air Fraction of Inspired Oxygen 10/26/22 09:41 10/26/22 08:00 10/26/22 12:00 Temperature Pulse Rate 81 82 88 Respiratory Rate 18 Blood Pressure Pulse Oximetry Oxygen Delivery Fraction of Inspired Oxygen 10/26/22 12:00 Temperature 98.1 F Pulse Rate 90 Respiratory Rate 19 Blood Pressure 131/55 L Pulse Oximetry 100 Oxygen Delivery Fraction of Inspired Oxygen Intake/Output Intake/Output: Intake & Output 10/23/22 10/24/22 10/25/22 10/26/22 23:59 23:59 23:59 23:59 I
[2022-10-26 16:49] LABS: Glucose Point of Care 219 mg/dl (65-105)
[2022-10-26] MEDS: INSULIN ASPART (*BKC) 100 UNITS/ML 10 UNITS SUB-Q (17:14)
[2022-10-26] MEDS: INSULIN GLARGINE (*BKC) 100 UNITS/ML 15 UNITS SUB-Q (20:04)
[2022-10-26] MEDS: ATORVASTATIN 40 MG TABLET PO (20:05)
[2022-10-26 20:15] LABS: Glucose Point of Care 215 mg/dl (65-105)
[2022-10-26] MEDS: traMADol HCL (*CRX) 50 MG TABLET PO (20:15)
[2022-10-26] MEDS: diphenhydrAMINE HCl CAP 25 MG CAPSULE PO (20:16)
[2022-10-27] VITALS (9 sets, daily range): BP systolic 108–143; BP diastolic 60–70; PULSE 73–95; RESP 14–20; TEMP 35.7–36.4; O2SAT 98–100
--- NOTE | 2022-10-27 03:15 | PC.NURSE ---
This patient, Suleiman Hoang, was transferred to [[id number]] on 10/27/22 at 0324. Personal belongings sent with patient. Report given to [YESENIA Beasley]. Appropriate documentation sent with patient.
--- NOTE | 2022-10-27 04:08 | PC.NURSE ---
Pt arrived from [facility] @0345 and received report prior to arrival. Pt oriented to floor, repositioned, assessed, and made comfortable. Bedside table in reach and call light in hand. No needs stated at this time.
[2022-10-27] MEDS: BRIMONIDINE TARTRATE 0.2% OP SOLN 5 ML BTL 1 DROP EACH EYE (05:56)
[2022-10-27] MEDS: DICLOFENAC SOD 75 MG TABLET.EC PO (05:56)
[2022-10-27] MEDS: dilTIAZem HCL 30 MG TABLET PO (05:56)
[2022-10-27] MEDS: ceFAZolin 1 GM/NS 50 ML 1 GM/50 ML BAG IVPB (05:56)
[2022-10-27] MEDS: LEVOTHYROXINE SODIUM 112 MCG TABLET PO (05:56)
[2022-10-27] MEDS: traMADol HCL (*CRX) 50 MG TABLET PO (06:10)
[2022-10-27 06:11] LABS: Basophils Percent Auto 0.7 % (0.2-1.2); Eosinophils Absolute Auto 0.2 K/mm3 (0-0.3); Eosinophils Percent Auto 3.1 % (0-4.4); Hematocrit 29.8 % (42.0-52.0); Hemoglobin 9.3 g/dL (14.0-18.0); Immature Granulocyte Absolute 0.12 K/mm3 (0.00-0.031); Lymphocytes Absolute Auto 1.21 K/mm3 (0.9-3.2); Lymphocytes Percent Auto 19.7 % (18.3-44.2); Mean Corpuscular HGB Conc 31.2 g/dl (32-36); Mean Corpuscular Hemoglobin 28.7 pg (26-34); Mean Platelet Volume 9.7 fl (7.4-10.4); Monocytes Absolute Auto 0.3 K/mm3 (0.1-0.6); Monocytes Percent Auto 5.2 % (2.6-8.5); Neutrophils Absolute Auto 4.3 K/mm3 (1.3-6.7); Neutrophils Percent Auto 69.3 % (45.5-73.1); Platelet Count Result 225 k/mm3 (150-375); Red Blood Count 3.24 M/mm3 (4.6-6.20); Red Cell Distribution Width 16.8 % (11.5-14.5); White Blood Count 6.1 K/mm3 (4.5-10.0)
[2022-10-27 06:24] LABS: Alanine Aminotransferase 26 U/L (6-50); Albumin Level 3.7 g/dL (3.5-5.1); Alkaline Phosphatase 80 U/L (38-126); Anion Gap 7 mmol/L (8-16); Aspartate Amino Transferase 36 U/L (17-59); Bilirubin,Total 0.6 mg/dL (0.2-1.3); Blood Urea Nitrogen 14 mg/dL (9-20); Calcium 8.8 mg/dL (8.4-10.2); Carbon Dioxide 29 mmol/L (22-30); Chloride 101 mmol/L (98-107); Estimated CRCL calculation 145 ml/min; Estimated Glomerular Filt Rate > 60; Glucose 209 mg/dL (65-110); Potassium 4.4 mmol/L (3.4-5.0); Sodium 137 mmol/L (137-145)
[2022-10-27 07:52] LABS: Glucose Point of Care 198 mg/dl (65-105)
[2022-10-27] MEDS: DOXYCYCLINE 100 MG/NS 100 ML 100 MG/100 ML BAG IVPB (08:38)
[2022-10-27] MEDS: DORZOLAMIDE/TIMOLOL OPHTH SOL 10 ML BOTTLE 1 DROP EACH EYE (08:40)
[2022-10-27] MEDS: POTASSIUM CHLORIDE 20 MEQ PACKET (FOR LIQUID) PO (08:40)
[2022-10-27] MEDS: FUROSEMIDE INJ 40 MG/4 ML VIAL 20 MG IV PUSH (08:40)
[2022-10-27] MEDS: TAMSULOSIN HCL 0.4 MG CAPSULE PO (08:40)
[2022-10-27] MEDS: PENTOXIFYLLINE 400 MG TABCR PO (08:40)
[2022-10-27] MEDS: GABAPENTIN 300 MG CAPSULE PO (08:41)
[2022-10-27] MEDS: METOPROLOL SUCCINATE EXT REL 50 MG TABCR PO (08:41)
[2022-10-27] MEDS: FAMOTIDINE 20 MG TABLET PO (08:42)
[2022-10-27] MEDS: PANTOPRAZOLE 40 MG TABLET PO (08:42)
[2022-10-27] MEDS: APIXABAN 5 MG TABLET PO (08:42)
[2022-10-27] MEDS: TOLNAFTATE 1% POWDER 45 GM BTL 1 APPLIC TOPICAL (08:44)
[2022-10-27] MEDS: EUCERIN CREAM 454 GM JAR 1 APPLIC TOPICAL (08:44)
[2022-10-27] MEDS: SILVERGEL (ELTA) 45 ML 1 APPLIC TOPICAL (08:44)
[2022-10-27] MEDS: INSULIN ASPART (*BKC) 100 UNITS/ML 12 UNITS SUB-Q (08:47)
[2022-10-27] MEDS: IPRATROPIUM BR 0.02% INH SOLN 0.5 MG/2.5 ML VIAL INHALATION (09:03)
[2022-10-27] MEDS: ALBUTEROL SULFATE NEB 2.5 MG/3 ML INH INHALATION (09:03)
[2022-10-27] MEDS: FLUTICASONE PROP 220 MCG (*SP) 12 GM INHALER 2 PUFF INHALATION (09:13)
--- NOTE | 2022-10-27 10:05 | P.CDI_ITS ---
CDI Query Clarification Request Unknown if there is a relationship between celluliti <Yvonne Cleaning MD - Last Filed: 10/30/22 19:48> Clarified Diagnosis Clarified Diagnosis: Please clarify if there is a cause and effect relationship between cellulitis and Diabetes Mellitus. * There is not a relationship between cellulitis and Diabetes Mellitus. * There is a relationship between cellulitis and Diabetes Mellitus. * Unknown if there is a relationship between cellulitis and Diabetes Mellitus. <Veronique Kasper RN - Last Filed: 10/27/22 10:09>
--- NOTE | 2022-10-27 10:14 | P.CDI_ITS ---
CDI Query Clarification Request acute on chronic diastolic HF <Yvonne Cleaning MD - Last Filed: 10/30/22 19:48> Clarified Diagnosis Clarified Diagnosis: Elevated BNP on 10/23/22 lab work. CHF noted on the assessment and plan. Pt receiving Lasix IV. Bumex listed as a home medication. Edema noted in the documentation. Please specify type and acuity of heart failure if known. * Acute * Chronic * Acute on Chronic * Unknown * Systolic * Diastolic * Combined Systolic and Diastolic * Unknown <Veronique Kasper RN - Last Filed: 10/27/22 10:17>
--- NOTE | 2022-10-27 11:42 | PCOTNOTE ---
Attempted OT treatment, despite encouragement to participate and benefits of occupational therapy, patient refused, stating I do not want to do anything right now . Will follow.
[2022-10-27 11:46] LABS: Glucose Point of Care 179 mg/dl (65-105)
--- NOTE | 2022-10-27 12:12 | PM.DS ---
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: with [facility] use Qualified Code(s): E11.40 - Type 2 diabetes mellitus with diabetic neuropathy, unspecified; Z79.4 - correction (current) use of insulin Code(s): E11.40 - Type 2 diabetes mellitus with diabetic neuropathy, unspecified Status: Acute (3) Venous stasis of both lower extremities: Code(s): I87.8 - Other specified disorders of veins Status: Acute (4) Cellulitis: Qualifiers: Laterality: right Site of cellulitis: extremity Site of cellulitis of extremity: lower extremity Qualified Code(s): L03.115 - Cellulitis of right lower limb Code(s): L03.90 - Cellulitis, unspecified Status: Acute DS: Summary Hospital Course Reason for hospitalization: leg Cellulitis Hospital Course: 66-year-old male patient who has a history of insulin-dependent diabetes with an insulin pump, atrial fibrillation, lymphedema, hypothyroidism,presented with worsening redness of his lower extremity. treated with Cefzolin and doxycycline. Found to be in afibb, treated with metoprolol and cardizem, eliquis. was started back on insulin pump, discharged home in stable condition. Time Spent with Patient Time attestation: Total time spent providing and/or coordinating discharge services: Exam Narrative: GENERAL:? Pleasant,? in no acute distress. Well-nourished.? Morbid obesity - EYES: EOMI. Anicteric. - HENT: Moist mucous membranes. - LUNGS:? Coarse breath sounds bilateral lungs, no wheezing, rhonchi, or rales. - CARDIOVASCULAR: Regular rate and rhythm. No murmur. No JVD. - ABDOMEN: Soft, non-tender and non-distended. No palpable masses. - EXTREMITIES: redness+. - NEUROLOGIC: No focal neurological deficits. CN II-XII grossly intact. - PSYCHIATRIC: Awake, Alert and oriented x 3. Appropriate mood and affect. - SKIN: No rashes or lesions. Warm. - LYMPH: No cervical lymphadenopathy. DS: Data Data Completed and Pending Labs on day of discharge: Labs from last 24 hours 10/27/22 10/27/22 10/27/22 11:24 07:44 05:43 WBC RBC Hgb Hct MCV MCH MCHC RDW Plt Count MPV Immature Gran % (Auto) Neut % (Auto) Lymph % (Auto) [place] % (Auto) Eos % (Auto) Baso % (Auto) Lymph # (Auto) [place] # (Auto) Eos # (Auto) Baso # (Auto) Abs Immat Gran (auto) Absolute Neuts (auto) Absolute Nucleated RBC Nucleated RBC % Sodium 137 Potassium 4.4 Chloride 101 Carbon Dioxide 29 Anion Gap 7 L BUN 14 Creatinine 0.70 Estim Creat Clear Calc 145 Estimated GFR > 60 Glucose 209 H POC Capillary Glucose 179 H 198 H Calcium 8.8 Total Bilirubin 0.6 AST 36 ALT 26 Alkaline Phosphatase 80 Total Protein 8.0 Albumin 3.7 10/27/22 10/26/22 10/26/22 05:43 20:03 16:04 WBC 6.1 RBC 3.24 L Hgb 9.3 L Hct 29.8 L MCV 92.0 MCH 28.7 MCHC 31.2 L RDW 16.8 H Plt Count 225 MPV 9.7 Immature Gran % (Auto) 2.0 H Neut % (Auto) 69.3 Lymph % (Auto) 19.7 [place] % (Auto) 5.2 Eos % (Auto) 3.1 Baso % (Auto) 0.7 Lymph # (Auto) 1.21 [place] # (Auto) 0.3 Eos # (Auto) 0.2 Baso # (Auto) 0.0 Abs Immat Gran (auto) 0.12 H Absolute Neuts (auto) 4.3 Absolute Nucleated RBC 0.0 Nucleated RBC % 0.0 Sodium Potassium Chloride Carbon Dioxide Anion Gap BUN Creatinine Estim Creat Clear Calc Estimated GFR Glucose POC Capillary Glucose 215 H 219 H Calcium Total Bilirubin AST ALT Alkaline Phosphatase Total Protein Albumin Pr
--- NOTE | 2022-10-27 13:36 | PCPTNOTE ---
Attempted to see patient for PT, however patient refused due to anticipated discharge.
--- NOTE | 2022-10-27 17:23 | PC.NURSE ---
Pt discharged home and was transported by EMS. Pt had no complaints of pain and expressed no needs at that time. Pt was monitored for any changes in status.
== END 2022-10-27 15:00 | disposition home health service (06) | DRG 602 ==
LOC: ANHED 13:01 → ANHIMU 16:00 → ANH3MEDSUR 10-25 12:48 → ANHIMU 10-25 13:04 → ANH3MEDSUR 10-27 12:12 → ANHIMU 10-28 13:45
PROVIDERS: Nurse Practitioner; Admitting Provider Hospitalist; Emergency Provider Emergency Medicine; PCP Internal Medicine; Visit Provider Internal Medicine
DX: L03.115 Cellulitis of right lower limb (principal); J18.9 Pneumonia, unspecified organism; I48.0 Paroxysmal atrial fibrillation; I87.8 Other specified disorders of veins; E11.40 Type 2 diabetes mellitus with diabetic neuropathy, unspecified; N40.0 Benign prostatic hyperplasia without lower urinary tract symptoms; G47.33 Obstructive sleep apnea (adult) (pediatric); H40.9 Unspecified glaucoma; I50.9 Heart failure, unspecified; E03.9 Hypothyroidism, unspecified; Z79.01 Long term (current) use of anticoagulants; Z96.652 Presence of left artificial knee joint; Z88.5 Allergy status to narcotic agent
CPT/HCPCS: 36415; 71045; 80053; 81001; 82948; 83036; 83605; 83690; 83735; 83880; 84443; 85025; 85610; 85730; 87040; 93005; 93306; 94640; 96365; 96366; 96375; 96376; 97110; 97161; 97165; 97530; 99285; A9270; J0456; J0690; J1160; J1815; J1940; J2405; J3010; J7060

== ENCOUNTER 2023-01-26 11:47 | Observation (INO) | payer MEDICARE, SELFPAY ==
[2023-01-26] VITALS (19 sets, daily range): BP systolic 127–195; BP diastolic 48–75; PULSE 86–115; RESP 12–22; TEMP 36.1–37.4; O2SAT 97–100; BMI 55.2
--- NOTE | ~2023-01-26 | XR_ITS ---
EXAMINATION: XR chest 1V portable DATE: 01/26/2023 12:10 INDICATION: Weakness. TECHNIQUE: A single frontal view of the chest was obtained on 2 radiographs. COMPARISON: Chest single view 10/23/2022 FINDINGS: The chest demonstrates clear lungs without pneumonia, pleural effusion, or pneumothorax. Th e heart size is normal. IMPRESSION: 1. No acute cardiopulmonary disease. Reviewed, dictated and finalized at location A.
--- NOTE | ~2023-01-26 | XR_ITS ---
XR_[id number]_CR DATE: 01/27/2023 16:02 INDICATION: Left anterior knee pain. No injury. TECHNIQUE: Portable AP and crosstable lateral views COMPARISON: None FINDINGS: There is prominent tricompartment osteoarthritis, particularly severe at the patellofemoral compartment where there is extremely prominent particular spurring in addition to joint space narrow ing. There is loss of height of medial and to a lesser extent lateral compartment joint space. Osteopenia. No fracture or dislocation, periosteal reaction or bone destruction. Mild suprapatellar knee joint ef fusion. IMPRESSION: Tricompartment osteophytosis, particularly severe at the patellofemoral compartment Osteopenia No fracture or dislocation is detected. Mild joint effusion Reviewed, dictated and finalized at Location A. Reviewed, dictated and finalized at location [] IMPRESSION: Tricompartment osteophytosis, particularly severe at the patellofem oral compartment Osteopenia No fracture or dislocation is detected. Mild joint effusion
--- NOTE | 2023-01-26 11:52 | ECG_ITS ---
Measurements Intervals [place] Rate: 114 P: 52 FL: 181 QRS: 20 QRSD: 93 T: 34 QT: 312 QTc: 431 Interpretive Statements SINUS TACHYCARDIA MINIMAL ST DEPRESSION [0.025+ mV ST DEPRESSION] ABNORMAL RHYTHM ECG COMPARED TO ECG 10/24/2022 06:12:28 SINUS TACHYCARDIA NOW PRESENT Electronically Signed On 01-26-2023 14:17:36 CDT by Heather Madrid M.D.
--- NOTE | 2023-01-26 12:10 | PC.NURSE ---
Pt states that he attempted to get out of bed, but was unable to. States he called 911 because of the weakness. States he has been feeling weak for 'a while.' States he has a sore spot on his butt has started to become sore. Pt has neuropathy in his lower extremities. On pt's right lateral foot, pt has a wound that is wrapped at this time with kerlex. There is bloody red discharge on the bandage. Pt has bilateral lower extremity swelling and redness. Swelling and redness worse on the right leg.
[2023-01-26 12:20] LABS: Basophils Percent Auto 0.3 % (0.2-1.2); Eosinophils Absolute Auto 0.2 K/mm3 (0-0.3); Eosinophils Percent Auto 3.5 % (0-4.4); Hematocrit 25.3 % (42.0-52.0); Hemoglobin 7.9 g/dL (14.0-18.0); Immature Granulocyte Absolute 0.02 K/mm3 (0.00-0.031); Immature Granulocyte Percent A 0.3 % (0-0.5); Lymphocytes Absolute Auto 1.01 K/mm3 (0.9-3.2); Lymphocytes Percent Auto 16.7 % (18.3-44.2); Mean Corpuscular HGB Conc 31.2 g/dl (32-36); Mean Corpuscular Hemoglobin 27.3 pg (26-34); Mean Corpuscular Volume 87.5 fl (80-100); Monocytes Absolute Auto 0.4 K/mm3 (0.1-0.6); Monocytes Percent Auto 6.6 % (2.6-8.5); Neutrophils Absolute Auto 4.4 K/mm3 (1.3-6.7); Neutrophils Percent Auto 72.6 % (45.5-73.1); Platelet Count Result 206 k/mm3 (150-375); Red Blood Count 2.89 M/mm3 (4.6-6.20); Red Cell Distribution Width 18.6 % (11.5-14.5); White Blood Count 6.1 K/mm3 (4.5-10.0)
[2023-01-26 12:34] LABS: Alanine Aminotransferase 39 U/L (6-50); Alkaline Phosphatase 89 U/L (38-126); Anion Gap 10 mmol/L (8-16); Aspartate Amino Transferase 39 U/L (17-59); Bilirubin,Total 0.8 mg/dL (0.2-1.3); Blood Urea Nitrogen 21 mg/dL (9-20); Calcium 9.1 mg/dL (8.4-10.2); Carbon Dioxide 27 mmol/L (22-30); Chloride 98 mmol/L (98-107); Estimated CRCL calculation 102 ml/min; Estimated Glomerular Filt Rate > 60; Glucose 127 mg/dL (65-110); Lactic Acid Reflex 1.3 mmol/L (0.7-2.0); Potassium 4.1 mmol/L (3.4-5.0); Sodium 135 mmol/L (137-145)
--- NOTE | 2023-01-26 13:04 | ED.GENADULT ---
HPI - General Adult General Chief complaint: Weakness Stated complaint: weakness, unable to bear wt Time Seen by Provider: 01/26/23 12:39 History of Present Illness HPI narrative: 67-year-old male presented to the emergency department for evaluation of increased generalized weakness. Patient states he is normally bedbound but is able to transition to his scooter. Patient states that over the last few days he has had increased weakness, particularly worsening last night he had increased difficulty with transitioning. Patient does not know if his leg swelling is worsened. Patient denies any associated chest pain or shortness of breath. Patient denies any nausea vomiting or diarrhea. Patient denies any falls or injuries. Patient does live at home but states that he was afraid of falling and states his was not able to help him transition. Patient has history of chronic anemia, hyperlipidemia, obstructive sleep apnea, venous stasis of both lower extremities, type 2 diabetes, CHF, A-fib with RVR Related Data Home Medications Medication Instructions Recorded Confirmed atorvastatin 40 mg tablet 40 mg PO HS 02/13/20 01/26/23 diclofenac sodium 75 mg 75 mg PO DAILY 02/13/20 01/26/23 tablet,delayed release esomeprazole magnesium 40 mg 40 mg PO DAILY 02/13/20 01/26/23 capsule,delayed release gabapentin 300 mg capsule 600 mg PO TID 02/13/20 01/26/23 levothyroxine 112 mcg capsule 112 mcg PO DAILY 02/13/20 01/26/23 potassium chloride 20 mEq oral 20 meq PO DAILY 02/13/20 01/26/23 packet tamsulosin 0.4 mg capsule 0.4 mg PO DAILY 02/13/20 01/26/23 apixaban 5 mg tablet (Eliquis) 5 mg PO BID 04/23/22 01/26/23 brimonidine 0.2 % eye drops 1 drp EACH EYE Q12H 04/23/22 01/26/23 diltiazem HCl 30 mg tablet 30 mg PO TID 04/23/22 01/26/23 famotidine 20 mg tablet 20 mg PO BID 04/23/22 01/26/23 fluticasone propionate 220 2 puff inhalation Q12H 04/23/22 01/26/23 mcg/actuation HFA aerosol inhaler (Flovent HFA) pentoxifylline 400 mg 400 mg PO TID 04/23/22 01/26/23 tablet,extended release metoprolol succinate 50 mg 50 mg PO DAILY 10/23/22 01/26/23 tablet,extended release 24 hr multivit with minerals-iron 18 1 tablet PO DAILY 01/26/23 01/26/23 mg-folic ac 400 mcg-vit K 25 mcg tablet (Adults Multivitamin) vitamin B complex (B 1 tablet PO DAILY 01/26/23 01/26/23 Complex-Vitamin B12 tablet) Allergies Allergy/AdvReac Type Severity Reaction Status Date / Time morphine AdvReac Unknown CONFUSION Verified 01/26/23 12:08 Review of Systems Review of Systems: All systems reviewed & are unremarkable except as noted in HPI and below PMFSH Past Medical History Medical History (Updated 01/26/23 @ 18:20 by Olivia Teixeira NP) BMI greater than 40 BPH (benign prostatic hyperplasia) Chronic a-fib Chronic anemia 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, managed as type 2 Glaucoma Hyperlipidemia Left knee DJD Left knee pain Obstructive sleep apnea Pneumonia Right knee DJD Type 2 diabetes mellitus with diabetic neuropathy, unspecified Venous stasis of both lower extremities Vision abnormalities Surgical History Surgical History H/O cataract extraction History of arthroplasty of left knee History of foot surgery History of skin graft Hx of cholecystectomy Family History Family History Mother Breast cancer Dementia Father Diabetes mellitus Malignant neoplasm of prostate Dementia Other Family history of malignant neoplasm Social History Social History Social History: the patient lives with his and they have no children. He is retired from [employer]. Code status full code Smoking status: Never smoker Alcohol intake: never Substance use: never Substance use type: does not use Lack of Transportation: No Lack of Food: Never
[2023-01-26 13:17] LABS: Appearance Urine Clear (Clear); Bacteria Urine None Seen /hpf; Bilirubin Urine Negative (Negative); Blood Urine Negative (Negative); Color Urine Yellow (Yellow); Glucose Urine UA Negative (Negative); Ketones Urine 1+ mg/dL (Negative); Leukocyte Esterase Ur Negative LEU/UL (Negative); Nitrate Urine Negative (Negative); Non Pathogenic Casts 0-2; Protein Urine 1+ mg/dL (Negative); RBC Urine 0-2 /hpf (0-2); Specific Grav Ur 1.024 (1.001-1.035); Squamous Epithelial Cell Urine None seen /hpf (Few); Urobilinogen Urine 0.2 mg/dL (<2.0); WBC Urine 0-5 /hpf; pH Urine 5.5 (5.0-9.0)
--- NOTE | 2023-01-26 13:22 | PC.NURSE ---
Pt is c/o pain from a bed sore on his coccyx. RN with assistance is able to turn pt to his side and see blanching redness around his coccyx area. Pt is requesting for a barrier cream.
[2023-01-26 13:46] LABS: Add Urine Microscopic? YES
--- NOTE | 2023-01-26 13:50 | PC.NURSE ---
Pt is asking for his bag with his belongings that he brought with him from the ambulance. Staff helping check in states no bag was brought in with pt. RN calls [facility] dispatch to ensure the bag was not left in the ambulance. After talking with the EMS crew who brought pt in, dispatcher stated that a bag was never handed to EMS crew and that the belongings are left at his house.
--- NOTE | 2023-01-26 14:04 | PC.NURSE ---
Pt is refusing ultrasound to home theatre technician and RN. States he does not want to be pushed on and cause more pain. ERP alerted.
--- NOTE | 2023-01-26 14:08 | PM.IMHP ---
H&P: HPI History of Present Illness Date/Time: 01/26/23 14:08 Chief Complaint: Weakness Narrative: this is a 67-year-old male patient who has a history of obesity, hypertension, lymphedema, atrial fibrillation. The patient stated that he is normally bed-bound but does transfer to his scooter. The patient stated that he has had been more weak over the last several days. The patient has chronic lymphedema and has a large legs. The patient Had an ultrasound Doppler ordered of his lower extremity but declined because he was having too much pain. the patient was complaining of back pain. Patient denies any chest pain or shortness of breath. He denies any nausea vomiting or diarrhea. The patient has not had any falls. The patient lives at home with his but fears that he may fall due to his weakness. His H&H is 7.9 and 25.3. Which is lower than his baseline. His sodium was 135. Glucose 127 and 156. He was negative for influenza A/B RSV and COVID. Chest x-ray was read as no acute cardiopulmonary disease. The patient was ordered his routine pain medication. Chest x-ray was read as no acute cardiopulmonary disease. The patient is being admitted to observation status on the date of service of 01/26/2023 Review of Systems Review of Systems: All systems reviewed & are unremarkable except as noted in HPI and below Constitutional: Constitutional: Reports as per HPI and Reports no additional constitutional complaints Eyes: Eyes: Reports as per HPI and Reports no additional eye complaints ENT: Reports system reviewed and no additional complaints, except as documented and Reports Normal hearing present Cardiovascular: Cardiovascular: Reports no additional cardiovascular complaints Respiratory: Respiratory: Reports no additional respiratory complaints and Reports no additional respiratory complaints Gastrointestinal: Gastrointestinal: Reports as per HPI and Reports no additional gastrointestinal complaints Musculoskeletal: Musculoskeletal: Reports no additional musculoskeletal complaints Integumentary/Breasts: Skin/Breast: Reports system reviewed and no additional complaints, except as docu and Reports as per HPI Neurologic: Reports system reviewed and no additional complaints, except as documented, Reports as per HPI and Reports Normal hearing present Psychiatric: Psychiatric: Reports no additional psychiatric complaints and Reports as per HPI Endocrine: Endocrine: Reports no additional endocrine complaints Hematologic/Lymphatic: Hematologic/Lymphatic: Reports no additional hematologic/lymphatic complaints Allergic/Immunologic: Allergic/Immunologic: Reports no additional allergic/immunologic complaints [facility] Past Medical History Medical History (Updated 01/26/23 @ 18:20 by Olivia Teixeira NP) BMI greater than 40 BPH (benign prostatic hyperplasia) Chronic a-fib Chronic anemia 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, managed as type 2 Glaucoma Hyperlipidemia Left knee DJD Left knee pain Obstructive sleep apnea Pneumonia Right knee DJD Type 2 diabetes mellitus with diabetic neuropathy, unspecified Venous stasis of both lower extremities Vision abnormalities Surgical History Surgical History H/O cataract extraction History of arthroplasty of left knee History of foot surgery History of skin graft Hx of cholecystectomy Family History Family History Mother Breast cancer Dementia Father Diabetes mellitus Malignant neoplasm of prostate Dementia Other Family history of malignant neoplasm Social History Social History Social History: the patient lives with his and they have no children. He is retired from [email or web address]. Code status full code Smoking status: Never smoker Alcohol intake: never Substance use: never
[2023-01-26 14:31] LABS: Influenza A QL RT-PCR Negative (Negative); Influenza B QL RT-PCR Negative (Negative); RSV RNA, RT-PCR Negative (Negative); SARS-CoV-2 RNA PCR Negative (Negative)
[2023-01-26] MEDS: dilTIAZem HCL 30 MG TABLET PO (16:11)
[2023-01-26] MEDS: GABAPENTIN 300 MG CAPSULE PO (16:11)
--- NOTE | 2023-01-26 16:23 | ADMGEN ---
This patient, Suleiman Hoang, was admitted to [facility] Surg Room 317-01. Patient/family oriented to hospital policies and general routines including ID bracelet, bed and alarms, visiting hours, pain management, procedures, bathroom and other care routines, personal items, smoking policy, room service/diet, and visiting hours. Information on how to activate the Rapid Response Team has been discussed. Patient/Family are encouraged to report perceived risks to care and to ask questions if they do not understand what they are told or what they should do.
[2023-01-26 17:19] LABS: Glucose Point of Care 156 mg/dl (65-105)
[2023-01-26] MEDS: traMADol HCL (*CRX) 50 MG TABLET PO (18:12)
--- NOTE | 2023-01-26 18:57 | PC.NURSE ---
Patient unable to handle insulin pump. Olivia Teixeira [employer] made aware. Orders received for high dose sliding scale insulin TIDWM. Insulin pump removed from patient and placed on bedside table.
--- NOTE | 2023-01-26 19:06 | PC.NURSE ---
Photos taken of patient's wounds on bottom and right foot. Photos unable to be uploaded due to computer issues. Problem is currently being worked on.
--- NOTE | 2023-01-26 19:07 | PC.NURSE ---
Speciality bed ordered for patient.
[2023-01-26 20:04] LABS: Hematocrit 21.6 % (42.0-52.0)
[2023-01-26 20:07] LABS: Hemoglobin 6.7 g/dL (14.0-18.0)
[2023-01-26 20:11] LABS: Immature Reticulocyte Fraction 19.9 % (3.0-15.9); Reticulocyte Hemoglobin Conten 25.8 pg (28.2-35.7); Reticulocyte Percent 1.79 % (0.7-4.3); Reticulocytes Absolute 0.04 M/mm3 (0.02-0.1)
[2023-01-26 20:14] LABS: Hemoglobin A1C 6.5 % (<5.7)
[2023-01-26 20:20] LABS: Bilirubin,Total 0.6 mg/dL (0.2-1.3); Lactate Dehydrogenase 183 U/L (120-246)
[2023-01-26 20:27] LABS: Iron 32 ug/dL (49-181)
[2023-01-26 20:33] LABS: Transferrin 116 mg/dL (206-381)
[2023-01-26 20:37] LABS: Percent Iron Saturation 14 % (20-50)
[2023-01-26] MEDS: KETOROLAC 30 MG/ML VIAL (*BKC) IV PUSH (20:42)
[2023-01-26] MEDS: SODIUM CHLORIDE 0.9% IV 250 ML 30 ML IV CONT (20:49)
[2023-01-26 21:25] LABS: Folic Acid > 20.0 ng/mL (2.76->20)
[2023-01-26] MEDS: TOLNAFTATE 1% POWDER 45 GM BTL 1 APPLIC TOPICAL (22:55)
[2023-01-26] MEDS: fentaNYL CITRATE INJ (*CRX) 100 MCG/2 ML VIAL 25 MCG IV PUSH (23:27)
[2023-01-26] MEDS: BRIMONIDINE TARTRATE 0.2% OP SOLN 5 ML BTL 1 DROP EACH EYE (23:28)
[2023-01-26] MEDS: APIXABAN 5 MG TABLET PO (23:28)
[2023-01-26] MEDS: ATORVASTATIN 40 MG TABLET PO (23:28)
--- NOTE | 2023-01-26 23:35 | PCRCNOTE ---
pt refused use of hospital cpap/bipap unit and stated that he has not worn one in years; RN was present
[2023-01-27] VITALS (13 sets, daily range): BP systolic 123–143; BP diastolic 49–64; PULSE 72–89; RESP 14–18; TEMP 35.3–36.8; O2SAT 97–99; BMI 55.2
[2023-01-27] MEDS: fentaNYL CITRATE INJ (*CRX) 100 MCG/2 ML VIAL 25 MCG IV PUSH ×5 (04:38→23:20)
[2023-01-27] MEDS: LEVOTHYROXINE SODIUM 112 MCG TABLET PO (04:44)
[2023-01-27] MEDS: traMADol HCL (*CRX) 50 MG TABLET PO ×2 (05:57→19:44)
[2023-01-27 06:27] LABS: Basophils Percent Auto 0.2 % (0.2-1.2); Eosinophils Absolute Auto 0.2 K/mm3 (0-0.3); Eosinophils Percent Auto 5.4 % (0-4.4); Hematocrit 26.1 % (42.0-52.0); Immature Granulocyte Absolute 0.03 K/mm3 (0.00-0.031); Immature Granulocyte Percent A 0.7 % (0-0.5); Lymphocytes Absolute Auto 0.77 K/mm3 (0.9-3.2); Lymphocytes Percent Auto 18.7 % (18.3-44.2); Mean Corpuscular HGB Conc 30.7 g/dl (32-36); Mean Corpuscular Hemoglobin 26.5 pg (26-34); Mean Corpuscular Volume 86.4 fl (80-100); Mean Platelet Volume 9.4 fl (7.4-10.4); Monocytes Absolute Auto 0.3 K/mm3 (0.1-0.6); Monocytes Percent Auto 7.8 % (2.6-8.5); Neutrophils Absolute Auto 2.8 K/mm3 (1.3-6.7); Neutrophils Percent Auto 67.2 % (45.5-73.1); Platelet Count Result 189 k/mm3 (150-375); Red Blood Count 3.02 M/mm3 (4.6-6.20); Red Cell Distribution Width 18.5 % (11.5-14.5); White Blood Count 4.1 K/mm3 (4.5-10.0)
[2023-01-27 06:36] LABS: Lactic Acid Reflex 0.9 mmol/L (0.7-2.0)
[2023-01-27 06:45] LABS: Alanine Aminotransferase 38 U/L (6-50); Albumin Level 3.4 g/dL (3.5-5.1); Alkaline Phosphatase 80 U/L (38-126); Anion Gap 6 mmol/L (8-16); Aspartate Amino Transferase 39 U/L (17-59); Bilirubin,Total 0.9 mg/dL (0.2-1.3); Blood Urea Nitrogen 15 mg/dL (9-20); Calcium 8.3 mg/dL (8.4-10.2); Carbon Dioxide 27 mmol/L (22-30); Chloride 101 mmol/L (98-107); Estimated CRCL calculation 142 ml/min; Estimated Glomerular Filt Rate > 60; Glucose 189 mg/dL (65-110); Magnesium 1.8 mg/dL (1.6-2.3); Sodium 134 mmol/L (137-145)
[2023-01-27 07:30] LABS: Glucose Point of Care 204 mg/dl (65-105)
[2023-01-27] MEDS: FLUTICASONE PROP 220 MCG (*SP) 12 GM INHALER 2 PUFF INHALATION ×2 (08:12→20:12)
[2023-01-27] MEDS: GABAPENTIN 300 MG CAPSULE 600 MG PO ×3 (08:28→17:18)
[2023-01-27] MEDS: FAMOTIDINE 20 MG TABLET PO ×2 (08:28→17:18)
[2023-01-27] MEDS: dilTIAZem HCL 30 MG TABLET PO ×3 (08:28→17:18)
[2023-01-27] MEDS: VITAMIN B COMPLEX CAPSULE 1 CAP PO (08:29)
[2023-01-27] MEDS: METOPROLOL SUCCINATE EXT REL 50 MG TABCR PO (08:29)
[2023-01-27] MEDS: DICLOFENAC SOD 75 MG TABLET.EC PO (08:30)
[2023-01-27] MEDS: POTASSIUM CHLORIDE 20 MEQ PACKET (FOR LIQUID) PO (08:30)
[2023-01-27] MEDS: TAMSULOSIN HCL 0.4 MG CAPSULE PO (08:30)
[2023-01-27] MEDS: PENTOXIFYLLINE 400 MG TABCR PO ×3 (08:30→17:18)
[2023-01-27] MEDS: BRIMONIDINE TARTRATE 0.2% OP SOLN 5 ML BTL 1 DROP EACH EYE ×2 (08:32→19:46)
[2023-01-27] MEDS: INSULIN ASPART (*BKC) 100 UNITS/ML SUB-Q ×3 (08:32→17:19)
[2023-01-27] MEDS: TOLNAFTATE 1% POWDER 45 GM BTL 1 APPLIC TOPICAL ×2 (08:39→19:46)
--- NOTE | 2023-01-27 09:14 | PCOTNOTE ---
Attempted to see pt. for occupational therapy evaluation. Pt. declined to participate at this time due to LE pain and then stated I'm not getting out of this bed later either. I'm going home. Nursing aware.
[2023-01-27] MEDS: PANTOPRAZOLE SODIUM IV 40 MG VIAL IV PUSH ×2 (09:40→19:46)
[2023-01-27] MEDS: MULTIVITAMINS /C LUTEIN (CENTRUM SILVER) TABLET *BKC 1 TAB PO (09:40)
[2023-01-27] MEDS: SILVERGEL (ELTA) 45 ML 1 APPLIC TOPICAL (09:40)
--- NOTE | 2023-01-27 10:48 | PCCARD ---
patient refuse to do Echo.and notifiy patient nurse
[2023-01-27 11:27] LABS: Glucose Point of Care 246 mg/dl (65-105)
[2023-01-27 12:19] LABS: Hematocrit 25.7 % (42.0-52.0); Hemoglobin 8.2 g/dL (14.0-18.0)
--- NOTE | 2023-01-27 13:49 | PM.IMPN ---
Progress Note: A&P Assessment and Plan (1) Generalized weakness: Code(s): R53.1 - Weakness Status: Acute Assessment and Plan: According to the ED records patient presented to the hospital for evaluation of worsening weakness. Patient stated that he could no longer walk. Patient at baseline has very little mobility and transfers from chair to wheelchair otherwise bedbound echocardiogram revealing EF of 60 65%, grade 1 diastolic dysfunction and no significant valvular disease patient was admitted [facility] placement [facility] since he is at his baseline. Patient stated to me today that he came into the hospital because of left knee pain. Patient denies feeling overall weak. He was unable to move due to this left knee pain. Patient has refused most of his care while in the hospital. PT and OT consulted (2) Physical deconditioning: Code(s): R53.81 - Other malaise Status: Acute Assessment and Plan: PT OT evaluation with greatly be appreciated. thyroid levels normal echocardiogram as above patient was found to be anemic and received 2 units of PRBCs Will check his thyroid level. Patient as an H&H of 7.9 and 25.3 and repeat was hemoglobin of 6.7. He received 2 units of PRBCs. (3) Chronic anemia: Code(s): D64.9 - Anemia, unspecified Status: Acute Assessment and Plan: patient has a history of chronic anemia. On arrival patient's hemoglobin was 7.9. Repeat hemoglobin at 6.7 and he received 2 units of PRBCs on 01/26/2023 Repeat hemoglobin 8.0 Anemia labs revealing iron of 32, TIBC of 223,% saturation 14 and transferrin of 116. Normal TSH B12 and folate. Patient refusing stool sample. No signs of active bleeding. (4) Paroxysmal atrial fibrillation: Code(s): I48.0 - Paroxysmal atrial fibrillation Status: Acute Assessment and Plan: continue with metoprolol , Cardizem,and Eliquis (5) BPH (benign prostatic hyperplasia): Code(s): N40.0 - Benign prostatic hyperplasia without lower urinary tract symptoms Status: Acute Assessment and Plan: continue with tamsulosin (6) Obstructive sleep apnea: Code(s): G47.33 - Obstructive sleep apnea (adult) (pediatric) Status: Acute Assessment and Plan: continue with CPAP machine settings as per home (7) Venous stasis of both lower extremities: Code(s): I87.8 - Other specified disorders of veins Status: Acute Assessment and Plan: Patient refused venous Dopplers. Has chronic lymphedema and ulcers (8) Type 2 diabetes mellitus with diabetic neuropathy, unspecified: Qualifiers: Diabetes mellitus watermelon inspector insulin use: with watermelon inspector use Qualified Code(s): E11.40 - Type 2 diabetes mellitus with diabetic neuropathy, unspecified; Z79.4 - correction (current) use of insulin Code(s): E11.40 - Type 2 diabetes mellitus with diabetic neuropathy, unspecified Status: Acute Assessment and Plan: The patient has his own insulin pump and would like to continue with that. The patient has his Dexcom continuous glucose monitor on however he left his phone at home and would not be able to monitor his blood sugars. He is agreeable to allowing as to do Accu-Cheks AC and HS and he will cover himself with his insulin pump. hemoglobin A1c 6.5 (9) Glaucoma: Code(s): H40.9 - Unspecified glaucoma Status: Acute Assessment and Plan: Continue with home medications. (10) Hyperlipidemia: Code(s): E78.5 - Hyperlipidemia, unspecified Status: Acute Assessment and Plan: continue with atorvastatin Subjective Date/time seen: 01/27/23 13:49 Interval history: Patient lying in bed complaining of left knee pain. Patient has refused most of his care here at the hospital. He refused lower extremity Dopplers as well as some of his oral medications. When discussing the need for a knee x-ray patient act
--- NOTE | 2023-01-27 15:58 | PCCCNOTE ---
On 01/27/23, the student, [Marni Montesinos ], provided care and completed [facility] documentation on this patient. I have reviewed the student's documentation and agree with the findings.
[2023-01-27 16:16] LABS: IFOB Positive Control Positive; Immunochemical Fecal Occult Bl Positive (N)
[2023-01-27 16:16] LABS: Glucose Point of Care 223 mg/dl (65-105)
[2023-01-27] MEDS: ATORVASTATIN 40 MG TABLET PO (19:46)
[2023-01-27 20:58] LABS: Glucose Point of Care 260 mg/dl (65-105)
[2023-01-27] MEDS: MELATONIN 5 MG TABLET PO ×2 (21:50→23:20)
--- NOTE | 2023-01-27 22:50 | PC.NURSE ---
melatonin order 5 mg HS per HEAD GROWER Puneet, able to repeat x1 if ineffective
[2023-01-27 23:49] LABS: Glucose Point of Care 219 mg/dl (65-105)
[2023-01-28] MEDS: traMADol HCL (*CRX) 50 MG TABLET PO ×3 (01:28→16:17)
[2023-01-28] MEDS: LEVOTHYROXINE SODIUM 112 MCG TABLET PO (05:43)
[2023-01-28] MEDS: fentaNYL CITRATE INJ (*CRX) 100 MCG/2 ML VIAL 25 MCG IV PUSH ×3 (05:44→14:26)
[2023-01-28 06:00] VITALS: BP 149/62; PULSE 85; RESP 16; TEMP 36.2; O2SAT 96
[2023-01-28 06:50] LABS: Basophils Percent Auto 0.4 % (0.2-1.2); Eosinophils Absolute Auto 0.2 K/mm3 (0-0.3); Eosinophils Percent Auto 4.2 % (0-4.4); Hematocrit 28.2 % (42.0-52.0); Hemoglobin 8.7 g/dL (14.0-18.0); Immature Granulocyte Absolute 0.03 K/mm3 (0.00-0.031); Immature Granulocyte Percent A 0.7 % (0-0.5); Lymphocytes Percent Auto 15.6 % (18.3-44.2); Mean Corpuscular HGB Conc 30.9 g/dl (32-36); Mean Corpuscular Hemoglobin 27.1 pg (26-34); Mean Corpuscular Volume 87.9 fl (80-100); Mean Platelet Volume 9.6 fl (7.4-10.4); Monocytes Absolute Auto 0.3 K/mm3 (0.1-0.6); Monocytes Percent Auto 6.7 % (2.6-8.5); Neutrophils Absolute Auto 3.2 K/mm3 (1.3-6.7); Neutrophils Percent Auto 72.4 % (45.5-73.1); Platelet Count Result 227 k/mm3 (150-375); Red Blood Count 3.21 M/mm3 (4.6-6.20); Red Cell Distribution Width 18.7 % (11.5-14.5); White Blood Count 4.5 K/mm3 (4.5-10.0)
[2023-01-28 07:09] LABS: Alanine Aminotransferase 47 U/L (6-50); Albumin Level 3.6 g/dL (3.5-5.1); Alkaline Phosphatase 89 U/L (38-126); Anion Gap 7 mmol/L (8-16); Aspartate Amino Transferase 44 U/L (17-59); Bilirubin,Total 0.8 mg/dL (0.2-1.3); Blood Urea Nitrogen 12 mg/dL (9-20); Calcium 8.5 mg/dL (8.4-10.2); Carbon Dioxide 29 mmol/L (22-30); Chloride 97 mmol/L (98-107); Estimated CRCL calculation 142 ml/min; Estimated Glomerular Filt Rate > 60; Glucose 229 mg/dL (65-110); Potassium 4.3 mmol/L (3.4-5.0); Sodium 133 mmol/L (137-145)
[2023-01-28 07:40] LABS: Glucose Point of Care 235 mg/dl (65-105)
[2023-01-28] MEDS: BRIMONIDINE TARTRATE 0.2% OP SOLN 5 ML BTL 1 DROP EACH EYE (08:00)
[2023-01-28] MEDS: INSULIN ASPART (*BKC) 100 UNITS/ML SUB-Q ×3 (08:00→16:57)
[2023-01-28 08:01] VITALS: PULSE 70
[2023-01-28] MEDS: METOPROLOL SUCCINATE EXT REL 50 MG TABCR PO (08:01)
[2023-01-28] MEDS: POTASSIUM CHLORIDE 20 MEQ PACKET (FOR LIQUID) PO (08:01)
[2023-01-28] MEDS: dilTIAZem HCL 30 MG TABLET PO ×3 (08:01→16:16)
[2023-01-28] MEDS: DICLOFENAC SOD 75 MG TABLET.EC PO (08:01)
[2023-01-28] MEDS: TAMSULOSIN HCL 0.4 MG CAPSULE PO (08:02)
[2023-01-28] MEDS: FAMOTIDINE 20 MG TABLET PO ×2 (08:02→16:16)
[2023-01-28] MEDS: PENTOXIFYLLINE 400 MG TABCR PO ×3 (08:02→16:17)
[2023-01-28] MEDS: MULTIVITAMINS /C LUTEIN (CENTRUM SILVER) TABLET *BKC 1 TAB PO (08:02)
[2023-01-28] MEDS: GABAPENTIN 300 MG CAPSULE 600 MG PO ×3 (08:02→16:16)
[2023-01-28] MEDS: PANTOPRAZOLE SODIUM IV 40 MG VIAL IV PUSH (08:02)
[2023-01-28] MEDS: VITAMIN B COMPLEX CAPSULE 1 CAP PO (08:02)
[2023-01-28] MEDS: SILVERGEL (ELTA) 45 ML 1 APPLIC TOPICAL (08:03)
[2023-01-28] MEDS: TOLNAFTATE 1% POWDER 45 GM BTL 1 APPLIC TOPICAL (08:03)
[2023-01-28] MEDS: FLUTICASONE PROP 220 MCG (*SP) 12 GM INHALER 2 PUFF INHALATION (08:13)
--- NOTE | 2023-01-28 09:31 | PCOTNOTE ---
Attempted OT evaluation, despite education and encouragement to participate with therapy, patient reports does not want therapy in the hospital and would like us to not come into attempt therapy. Spoke with hospitalist Carrie Palomino who is agreeable to canceling therapy orders at this time.
--- NOTE | 2023-01-28 09:32 | PM.IMPN ---
Progress Note: A&P Assessment and Plan (1) Generalized weakness: Code(s): R53.1 - Weakness Status: Acute Assessment and Plan: According to the ED records patient presented to the hospital for evaluation of worsening weakness. Patient stated that he could no longer walk. Patient at baseline has very little mobility and transfers from chair to wheelchair otherwise bedbound echocardiogram revealing EF of 60 65%, grade 1 diastolic dysfunction and no significant valvular disease patient was admitted for placement to care home since he is at his baseline. Patient stated to me today that he came into the hospital because of left knee pain. Patient denies feeling overall weak. He was unable to move due to this left knee pain. Patient has refused most of his care while in the hospital. PT and OT consulted and pt refused them. (2) Physical deconditioning: Code(s): R53.81 - Other malaise Status: Acute Assessment and Plan: PT OT evaluation with greatly be appreciated. thyroid levels normal echocardiogram as above patient was found to be anemic and received 2 units of PRBCs Will check his thyroid level. Patient as an H&H of 7.9 and 25.3 and repeat was hemoglobin of 6.7. He received 2 units of PRBCs. (3) Chronic anemia: Code(s): D64.9 - Anemia, unspecified Status: Acute Assessment and Plan: patient has a history of chronic anemia. On arrival patient's hemoglobin was 7.9. Repeat hemoglobin at 6.7 and he received 2 units of PRBCs on 01/26/2023 Repeat hemoglobin 8.0 Anemia labs revealing iron of 32, TIBC of 223,% saturation 14 and transferrin of 116. Normal TSH B12 and folate. Occult stool positive and GI consulted. (4) Type 2 diabetes mellitus with diabetic neuropathy, unspecified: Qualifiers: Diabetes mellitus 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 service 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 insulin use: with 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 service 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 use Qualified Code(s): E11.40 - Type 2 diabetes mellitus with diabetic neuropathy, unspecified; Z79.4 - watermaster (current) use of insulin Code(s): E11.40 - Type 2 diabetes mellitus with diabetic neuropathy, unspecified Status: Acute Assessment and Plan: The patient has his own insulin pump and would like to continue with that. The patient has his Dexcom continuous glucose monitor on however he left his phone at home and would not be able to monitor his blood sugars. He is agreeable to allowing as to do Accu-Cheks AC and HS and he will cover himself with his insulin pump. hemoglobin A1c 6.5 (5) Paroxysmal atrial fibrillation: Code(s): I48.0 - Paroxysmal atrial fibrillation Status: Acute Assessment and Plan: continue with metoprolol , Cardizem,and Eliquis (6) BPH (benign prostatic hyperplasia): Code(s): N40.0 - Benign prostatic hyperplasia without lower urinary tract symptoms Status: Acute Assessment and Plan: continue with tamsulosin (7) Obstructive sleep apnea: Code(s): G47.33 - Obstructive sleep apnea (adult) (pediatric) Status: Acute Assessment and Plan: continue with CPAP machine settings as per home (8) Venous stasis of both lower extremities: Code(s): I87.8 - Other specified disorders of veins Status: Acute Assessment and Plan: Patient refused venous Dopplers. Has chronic lymphedema and ulcers Subjective Date/time seen: 01/28/23 09:32 Exam Narrative: GENERAL: Comfortable, no acute distress, morbid obesity HENMT: moist mucous membranes EYES: EOM intact b/l RESPIRATORY: clear to auscultation CARDIO: RRR GI: soft, nontender, bowel sounds present SKIN/EXTREMITIES: Bilateral lower extremity venous stasis, chronic lymphedema Objective Data Vital Signs Vital Signs: Vital Signs - 24 hr 01/27/23 14:00 01/27/23 20:12 01/27/23 21:28 Temperature 95.6 F L 97 F L Pulse Rate 72 78 76 Respiratory Rate 16 18 16 Blood Pressure 123/49 L 126/60 Pu
--- NOTE | 2023-01-28 09:34 | PCPTNOTE ---
Attempted PT evaluation, despite education and encouragement to participate with therapy, patient reports does not want therapy in the hospital and would like us to not come into attempt therapy. Spoke with hospitalist Carrie Palomino who is agreeable to canceling therapy orders at this time.
[2023-01-28 11:42] LABS: Glucose Point of Care 265 mg/dl (65-105)
--- NOTE | 2023-01-28 13:56 | P.DS_ITS ---
DS: Admitting Diagnosis Discharge Date 01/28/23 Admitting Diagnosis Left knee pain, placement DS: Discharge Diagnosis Discharge Diagnosis (1) Generalized weakness: Code(s): R53.1 - Weakness Status: Acute Assessment and Plan: According to the ED records patient presented to the hospital for evaluation of worsening weakness. Patient stated that he could no longer walk. Patient at baseline has very little mobility and transfers from chair to wheelchair otherwise bedbound * echocardiogram revealing EF of 60 65%, grade 1 diastolic dysfunction and no significant valvular disease * patient was admitted for placement to [facility] since he is at his baseline. * Patient stated to me today that he came into the hospital because of left knee pain. * Patient denies feeling overall weak. He was unable to move due to this left knee pain. * Patient has refused most of his care while in the hospital. * PT and OT consulted and pt refused them. (2) Physical deconditioning: Code(s): R53.81 - Other malaise Status: Acute Assessment and Plan: PT OT evaluation with greatly be appreciated. * thyroid levels normal * echocardiogram as above * patient was found to be anemic and received 2 units of PRBCs Will check his thyroid level. * Patient as an H&H of 7.9 and 25.3 and repeat was hemoglobin of 6.7. He received 2 units of PRBCs. (3) Chronic anemia: Code(s): D64.9 - Anemia, unspecified Status: Acute Assessment and Plan: patient has a history of chronic anemia. On arrival patient's hemoglobin was 7.9. * Repeat hemoglobin at 6.7 and he received 2 units of PRBCs on 01/26/2023 * Repeat hemoglobin 8.0 * Anemia labs revealing iron of 32, TIBC of 223,% saturation 14 and transferrin of 116. Normal TSH B12 and folate. * Occult stool positive and GI consulted. * Patient refused colonoscopy and/or EGD it would like to be discharged home. 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 The patient has his Dexcom continuous glucose monitor on however he left his phone at home and would not be able to monitor his blood sugars. * He is agreeable to allowing as to do Accu-Cheks AC and HS and he will cover himself with his insulin pump. * hemoglobin A1c 6.5 (5) Paroxysmal atrial fibrillation: Code(s): I48.0 - Paroxysmal atrial fibrillation Status: Acute Assessment and Plan: continue with metoprolol , Cardizem,and Eliquis (6) BPH (benign prostatic hyperplasia): Code(s): N40.0 - Benign prostatic hyperplasia without lower urinary tract symptoms Status: Acute Assessment and Plan: continue with tamsulosin (7) Obstructive sleep apnea: Code(s): G47.33 - Obstructive sleep apnea (adult) (pediatric) Status: Acute Assessment and Plan: continue with CPAP machine settings as per home (8) Venous stasis of both lower extremities: Code(s): I87.8 - Other specified disorders of veins Status: Acute Assessment and Plan: Patient refused v
--- NOTE | 2023-01-28 13:56 | PM.DS ---
DS: Admitting Diagnosis Discharge Date 01/28/23 Admitting Diagnosis Left knee pain, placement DS: Discharge Diagnosis Discharge Diagnosis (1) Generalized weakness: Code(s): R53.1 - Weakness Status: Acute Assessment and Plan: According to the ED records patient presented to the hospital for evaluation of worsening weakness. Patient stated that he could no longer walk. Patient at baseline has very little mobility and transfers from chair to wheelchair otherwise bedbound echocardiogram revealing EF of 60 65%, grade 1 diastolic dysfunction and no significant valvular disease patient was admitted for placement to [facility] since he is at his baseline. Patient stated to me today that he came into the hospital because of left knee pain. Patient denies feeling overall weak. He was unable to move due to this left knee pain. Patient has refused most of his care while in the hospital. PT and OT consulted and pt refused them. (2) Physical deconditioning: Code(s): R53.81 - Other malaise Status: Acute Assessment and Plan: PT OT evaluation with greatly be appreciated. thyroid levels normal echocardiogram as above patient was found to be anemic and received 2 units of PRBCs Will check his thyroid level. Patient as an H&H of 7.9 and 25.3 and repeat was hemoglobin of 6.7. He received 2 units of PRBCs. (3) Chronic anemia: Code(s): D64.9 - Anemia, unspecified Status: Acute Assessment and Plan: patient has a history of chronic anemia. On arrival patient's hemoglobin was 7.9. Repeat hemoglobin at 6.7 and he received 2 units of PRBCs on 01/26/2023 Repeat hemoglobin 8.0 Anemia labs revealing iron of 32, TIBC of 223,% saturation 14 and transferrin of 116. Normal TSH B12 and folate. Occult stool positive and GI consulted. Patient refused colonoscopy and/or EGD it would like to be discharged home. (4) Type 2 diabetes mellitus with diabetic neuropathy, unspecified: Qualifiers: Diabetes mellitus administrative services specialist insulin use: with residential use Qualified Code(s): E11.40 - Type 2 diabetes mellitus with diabetic neuropathy, unspecified; Z79.4 - radiographic technologist (current) use of insulin Code(s): E11.40 - Type 2 diabetes mellitus with diabetic neuropathy, unspecified Status: Acute Assessment and Plan: The patient has his own insulin pump and would like to continue with that. The patient has his Dexcom continuous glucose monitor on however he left his phone at home and would not be able to monitor his blood sugars. He is agreeable to allowing as to do Accu-Cheks AC and HS and he will cover himself with his insulin pump. hemoglobin A1c 6.5 (5) Paroxysmal atrial fibrillation: Code(s): I48.0 - Paroxysmal atrial fibrillation Status: Acute Assessment and Plan: continue with metoprolol , Cardizem,and Eliquis (6) BPH (benign prostatic hyperplasia): Code(s): N40.0 - Benign prostatic hyperplasia without lower urinary tract symptoms Status: Acute Assessment and Plan: continue with tamsulosin (7) Obstructive sleep apnea: Code(s): G47.33 - Obstructive sleep apnea (adult) (pediatric) Status: Acute Assessment and Plan: continue with CPAP machine settings as per home (8) Venous stasis of both lower extremities: Code(s): I87.8 - Other specified disorders of veins Status: Acute Assessment and Plan: Patient refused venous Dopplers. Has chronic lymphedema and ulcers DS: Summary Hospital Course Hospital Course: This is a 67-year-old male with a past medical history of obesity, hypertension, lymphedema and AFib the presented to the ED on 01/26/2023 due to increased weakness and unable to transfer from bed to scooter. Patient had chronic lymphedema and very large legs per refused ultrasound to the bilateral lower extremities. Patient did not have any injury or f
[2023-01-28 14:00] VITALS: BP 117/38; PULSE 70; RESP 18; TEMP 36.1; O2SAT 94
[2023-01-28 16:55] LABS: Glucose Point of Care 278 mg/dl (65-105)
--- NOTE | 2023-01-28 17:13 | WPDGICN ---
Assessment and Plan Assessment and plan (1) Acute on chronic anemia: Code(s): D64.9 - Anemia, unspecified Status: Acute Assessment and Plan: patient refused gi work up I told him that if he changes his mind, always can call office to set up endoscopic evaluation he required blood transfusion and now feeling better (2) Occult blood in stools: Code(s): R19.5 - Other fecal abnormalities Status: Acute Assessment and Plan: will need colonoscopy but refused (3) Generalized weakness: Code(s): R53.1 - Weakness Status: Acute (4) Venous stasis of both lower extremities: Code(s): I87.8 - Other specified disorders of veins Status: Acute (5) Type 2 diabetes mellitus with diabetic neuropathy, unspecified: Qualifiers: Diabetes mellitus prison insulin use: with prison use Qualified Code(s): E11.40 - Type 2 diabetes mellitus with diabetic neuropathy, unspecified; Z79.4 - medical terminologist (current) use of insulin Code(s): E11.40 - Type 2 diabetes mellitus with diabetic neuropathy, unspecified Status: Acute (6) Obesity, morbid, BMI 40.0-49.9: Code(s): E66.01 - Morbid (severe) obesity due to excess calories Status: Acute GI Consult Note Consult date/time: 01/28/23 17:13 Reason for consult: anemia, FOBT HPI: Suleiman Hoang is a 67 year old male with past medical history of obesity, hypertension, lymphedema and AFib who presented originall to the ED on 01/26/2023 due to increased weakness and unable to transfer from bed to txooter.? Patient had chronic lymphedema. He refuses to be placed into a rehab facility and/or [facility].? He was found to have an H&H of 6.7/21.6 and received 2 units of PRBCs, denies overt gib but had occult stool positive. He says that had colonoscopy about 7 years ago and he does not want to get any GI work up, he is eating regular diet, denies n/v or abdominal pain and actually is being discharged.? Review of Systems Constitutional: Constitutional: Reports weakness Eyes: Eyes: Denies blurry vision ENT: Reports Normal hearing present Cardiovascular: Cardiovascular: Denies chest pain Respiratory: Respiratory: Denies cough Gastrointestinal: Gastrointestinal: Denies abdominal pain Genitourinary: Genitourinary: Denies hematuria Musculoskeletal: Musculoskeletal: Denies neck pain Integumentary/Breasts: Skin/Breast: Denies rash Neurologic: Denies confusion Psychiatric: Psychiatric: Denies behavioral changes [facility] Past Medical History Medical History (Updated 01/28/23 @ 17:17 by Chandan Aquino MD) Acute on chronic anemia BMI greater than 40 BPH (benign prostatic hyperplasia) Chronic a-fib Chronic anemia 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, managed as type 2 Glaucoma Hyperlipidemia Left knee DJD Left knee pain Obesity, morbid, BMI 40.0-49.9 Obstructive sleep apnea Occult blood in stools Pneumonia Right knee DJD Type 2 diabetes mellitus with diabetic neuropathy, unspecified Venous stasis of both lower extremities Vision abnormalities Surgical History Surgical History H/O cataract extraction History of arthroplasty of left knee History of foot surgery History of skin graft Hx of cholecystectomy Family History Family History Mother Breast cancer Dementia Father Diabetes mellitus Malignant neoplasm of prostate Dementia Other Family history of malignant neoplasm Social History Social History Social History: the patient lives with his and they have no children. He is retired from [employer]. Code status full code Smoking status: Never smoker Alcohol intake: never Substance use: never Substance use type: does not use Lack of Transportation: No Lack of Food: Never True
[2023-01-30 19:52] LABS: Haptoglobin 414 mg/dL (43-212)
[2023-01-30 21:14] LABS: Albumin 2.3 g/dL (3.8-4.8); Alpha 1 Globulin 0.5 g/dL (0.2-0.3); Alpha 2 Globulin 1.1 g/dL (0.5-0.9); Beta 1 Globulin 0.6 g/dL (0.4-0.6); Gamma Globulin 1.4 g/dL (0.8-1.7); Protein, Total 6.5 g/dL (6.1-8.1)
[2023-02-01 20:14] LABS: Creatinine, Random Urine 93 mg/dL (20-320); Total Protein/Creatinine Ratio 269 mg/g creat (25-148)
[2023-02-03 20:53] LABS: Soluble Transferrin Receptor 1.75 mg/L (0.76-1.76)
== END 2023-01-28 19:01 | disposition home health service (06) ==
LOC: ANHED 12:39 → ANH3MEDSUR 15:18
PROVIDERS: Emergency Medicine; Internal Medicine Critical Care Medicine; Nurse Practitioner; Admitting Provider Student in an Organized Health Care Education/Training Program; Emergency Provider Emergency Medicine; PCP Internal Medicine; Visit Provider Internal Medicine
DX: R53.1 Weakness (principal); R53.81 Other malaise; D64.9 Anemia, unspecified; E11.40 Type 2 diabetes mellitus with diabetic neuropathy, unspecified; I48.0 Paroxysmal atrial fibrillation; N40.0 Benign prostatic hyperplasia without lower urinary tract symptoms; G47.33 Obstructive sleep apnea (adult) (pediatric); I87.8 Other specified disorders of veins; I50.9 Heart failure, unspecified; E78.5 Hyperlipidemia, unspecified; Z20.822 Contact with and (suspected) exposure to COVID-19; M25.762 Osteophyte, left knee; R00.0 Tachycardia, unspecified; R19.5 Other fecal abnormalities; R94.31 Abnormal electrocardiogram [ECG] [EKG]; E66.01 Morbid (severe) obesity due to excess calories; Z68.43 Body mass index [BMI] 50.0-59.9, adult; H40.9 Unspecified glaucoma; M17.12 Unilateral primary osteoarthritis, left knee; Z79.4 Long term (current) use of insulin; Z79.01 Long term (current) use of anticoagulants; Z79.51 Long term (current) use of inhaled steroids; Z79.899 Other long term (current) drug therapy
CPT/HCPCS: 36415; 36430; 71045; 73560; 80053; 81001; 82247; 82248; 82274; 82570; 82607; 82728; 82746; 82948; 83010; 83036; 83540; 83550; 83605; 83615; 83735; 84155; 84156; 84165; 84166; 84238; 84443; 84466; 85014; 85018; 85025; 85046; 86850; 86880; 86900; 86901; 86923; 87040; 87637; 93005; 94640; 96374; 96375; 96376; 99285; A9270; C9113; G0378; J1815; J1885; J3010; J7050; P9016

== ENCOUNTER 2023-05-25 15:46 | Outpatient (CLI) | payer MEDICARE, SELFPAY ==
[2023-05-25 16:33] LABS: Basophils Percent Auto 0.5 % (0.2-1.2); Eosinophils Absolute Auto 0.4 K/mm3 (0-0.3); Eosinophils Percent Auto 5.9 % (0-4.4); Hematocrit 32.1 % (42.0-52.0); Hemoglobin 10.2 g/dL (14.0-18.0); Immature Granulocyte Absolute 0.01 K/mm3 (0.00-0.031); Immature Granulocyte Percent A 0.2 % (0-0.5); Lymphocytes Absolute Auto 1.17 K/mm3 (0.9-3.2); Lymphocytes Percent Auto 17.7 % (18.3-44.2); Mean Corpuscular HGB Conc 31.8 g/dl (32-36); Mean Corpuscular Hemoglobin 30.1 pg (26-34); Mean Corpuscular Volume 94.7 fl (80-100); Mean Platelet Volume 10.1 fl (7.4-10.4); Monocytes Absolute Auto 0.3 K/mm3 (0.1-0.6); Monocytes Percent Auto 4.1 % (2.6-8.5); Neutrophils Absolute Auto 4.8 K/mm3 (1.3-6.7); Neutrophils Percent Auto 71.6 % (45.5-73.1); Platelet Count Result 160 k/mm3 (150-375); Red Blood Count 3.39 M/mm3 (4.6-6.20); Red Cell Distribution Width 16.7 % (11.5-14.5); White Blood Count 6.6 K/mm3 (4.5-10.0)
[2023-05-25 16:40] LABS: Hemoglobin A1C 6.7 % (<5.7)
[2023-05-25 17:01] LABS: Alanine Aminotransferase 20 U/L (6-50); Albumin Level 4.2 g/dL (3.5-5.1); Alkaline Phosphatase 72 U/L (38-126); Anion Gap 7 mmol/L (8-16); Aspartate Amino Transferase 25 U/L (17-59); Bilirubin,Total 0.6 mg/dL (0.2-1.3); Blood Urea Nitrogen 18 mg/dL (9-20); Calcium 9.4 mg/dL (8.4-10.2); Carbon Dioxide 28 mmol/L (22-30); Chloride 104 mmol/L (98-107); Cholesterol 132 mg/dL (0-200); Estimated Glomerular Filt Rate > 60; Glucose 156 mg/dL (65-110); HDL Direct 41 mg/dL; Potassium 3.3 mmol/L (3.4-5.0); Sodium 139 mmol/L (137-145); Triglycerides 166 mg/dL (<150)
[2023-05-25 17:15] LABS: LDL Cholesterol Direct 65 mg/dL
[2023-05-25 17:30] LABS: Free T4 Free Thyroxine 1.24 ng/mL (0.78-2.19); Vitamin D 25 Hydroxy 33.8 ng/mL
[2023-05-25 17:32] LABS: Thyroid Stimulating Hormone 0.099 uIU/mL (0.465-4.680)
[2023-05-25 18:08] LABS: Folic Acid > 20.0 ng/mL (2.76->20)
== END 2023-05-25 15:47 | disposition home or self-care (01) ==
PROVIDERS: PCP Internal Medicine; Visit Provider Internal Medicine
DX: E11.9 Type 2 diabetes mellitus without complications (principal); Z79.4 Long term (current) use of insulin; Z79.899 Other long term (current) drug therapy; E55.9 Vitamin D deficiency, unspecified; E78.5 Hyperlipidemia, unspecified; E03.9 Hypothyroidism, unspecified; E53.8 Deficiency of other specified B group vitamins; E78.2 Mixed hyperlipidemia
CPT/HCPCS: 36415; 80053; 80061; 82306; 82607; 82746; 83036; 84439; 84443; 85025

== ENCOUNTER 2023-06-10 12:20 | Outpatient (RCR) | payer MEDICARE, SELFPAY ==
[2023-06-10 13:00] VITALS: BMI 48.6
== END 2023-08-30 11:58 | disposition home or self-care (01) ==
LOC: ANHWOC 12:20
PROVIDERS: PCP Internal Medicine; Visit Provider Internal Medicine
DX: L89.90 Pressure ulcer of unspecified site, unspecified stage (principal)
CPT/HCPCS: 99213; A9270; G0463

== ENCOUNTER 2023-06-29 13:07 | Outpatient (NON) | payer MEDICARE, SELFPAY ==
[2023-06-29 13:54] LABS: Appearance Urine Clear (Clear); Bacteria Urine None Seen /hpf; Bilirubin Urine Negative (Negative); Blood Urine Negative (Negative); Color Urine Yellow (Yellow); Glucose Urine UA Negative (Negative); Hyaline Casts Urine Present /lpf; Ketones Urine Negative (Negative); Leukocyte Esterase Ur 1+ LEU/UL (Negative); Nitrate Urine Negative (Negative); Non Pathogenic Casts 0-2; Protein Urine Negative (Negative); RBC Urine 0-2 /hpf (0-2); Specific Grav Ur 1.013 (1.001-1.035); Squamous Epithelial Cell Urine None seen /hpf (Few); Urobilinogen Urine 0.2 mg/dL (<2.0); WBC Urine 0-5 /hpf
[2023-06-29 13:55] LABS: Add Urine Microscopic? YES
== END 2023-06-29 13:08 | disposition home or self-care (01) ==
PROVIDERS: PCP Internal Medicine; Visit Provider Internal Medicine
DX: Z79.899 Other long term (current) drug therapy (principal)
CPT/HCPCS: 81001

== ENCOUNTER 2023-10-28 12:39 | Outpatient (CLI) | payer MEDICARE, SELFPAY ==
--- NOTE | ~2023-10-28 | XR_ITS ---
EXAMINATION: XR sinus min 3V DATE: 10/28/2023 13:05 INDICATION: Chronic rhinitis. TECHNIQUE: 4 views of the paranasal sinuses were obtained. COMPARISON: None. FINDINGS: There is leftward deviation of the nasal septum. No fracture. The paranasal sinuses are jaspal ar. IMPRESSION: 1. Leftward deviation of the nasal septum. Reviewed, dictated and finalized at location E. NG ASSEMBLER SUPERVISOR
--- NOTE | ~2023-10-28 | XR_ITS ---
EXAMINATION: XR chest 2V DATE: 10/28/2023 13:05 INDICATION: Chronic cough TECHNIQUE: AP and lateral views of the chest are obtained. COMPARISON: 01/26/2023 FINDINGS: The lungs are free of acute opacities. No pleural effusion or pneumothorax. The cardiomedia stinal silhouette is normal. There is moderate thoracic spondylosis. 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 IMPRESSION: 1. No acute cardiopulmonary abnormality. Reviewed, dictated and finalized at location L. TOLOGY NURSE EDUCATOR
== END 2023-10-28 12:40 | disposition home or self-care (01) ==
LOC: ANHIMG 12:41
PROVIDERS: PCP Internal Medicine; Visit Provider Internal Medicine
DX: R05.3 Chronic cough (principal); J31.0 Chronic rhinitis; J34.2 Deviated nasal septum
CPT/HCPCS: 70220; 71046

== ENCOUNTER 2023-12-28 08:59 | Outpatient (CLI) | payer MEDICARE, SELFPAY ==
[2023-12-28 09:45] LABS: Basophils Percent Auto 0.4 % (0.2-1.2); Eosinophils Absolute Auto 0.5 K/mm3 (0-0.3); Eosinophils Percent Auto 8.8 % (0-4.4); Hematocrit 33.1 % (42.0-52.0); Hemoglobin 10.4 g/dL (14.0-18.0); Immature Granulocyte Absolute 0.02 K/mm3 (0.00-0.031); Immature Granulocyte Percent A 0.4 % (0-0.5); Lymphocytes Absolute Auto 1.03 K/mm3 (0.9-3.2); Lymphocytes Percent Auto 19.2 % (18.3-44.2); Mean Corpuscular HGB Conc 31.4 g/dl (32-36); Mean Corpuscular Hemoglobin 29.9 pg (26-34); Mean Corpuscular Volume 95.1 fl (80-100); Mean Platelet Volume 9.6 fl (7.4-10.4); Monocytes Absolute Auto 0.3 K/mm3 (0.1-0.6); Monocytes Percent Auto 5.6 % (2.6-8.5); Neutrophils Absolute Auto 3.5 K/mm3 (1.3-6.7); Neutrophils Percent Auto 65.6 % (45.5-73.1); Platelet Count Result 185 k/mm3 (150-375); Red Blood Count 3.48 M/mm3 (4.6-6.20); Red Cell Distribution Width 16.3 % (11.5-14.5); White Blood Count 5.4 K/mm3 (4.5-10.0)
[2023-12-28 09:56] LABS: Alanine Aminotransferase 28 U/L (6-50); Albumin Level 4.5 g/dL (3.5-5.1); Alkaline Phosphatase 66 U/L (38-126); Anion Gap 10 mmol/L (4-12); Aspartate Amino Transferase 32 U/L (17-59); Bilirubin,Total 0.6 mg/dL (0.2-1.3); Blood Urea Nitrogen 16 mg/dL (9-20); Calcium 9.7 mg/dL (8.4-10.2); Carbon Dioxide 24 mmol/L (22-30); Chloride 103 mmol/L (98-107); Cholesterol 191 mg/dL (0-200); Estimated Glomerular Filt Rate > 60; Glucose 123 mg/dL (65-110); HDL Direct 46 mg/dL; Potassium 4.2 mmol/L (3.4-5.0); Sodium 137 mmol/L (137-145); Triglycerides 239 mg/dL (<150)
[2023-12-28 10:04] LABS: Hemoglobin A1C 7.6 % (<5.7)
[2023-12-28 10:07] LABS: LDL Cholesterol Direct 115 mg/dL
[2023-12-28 10:19] LABS: Free T4 Free Thyroxine 1.14 ng/mL (0.78-2.19)
[2023-12-28 10:26] LABS: Thyroid Stimulating Hormone 0.073 uIU/mL (0.465-4.680)
== END 2023-12-28 09:00 | disposition home or self-care (01) ==
LOC: ANHLAB 09:03
PROVIDERS: PCP Internal Medicine; Visit Provider Internal Medicine
DX: E78.2 Mixed hyperlipidemia (principal); E03.9 Hypothyroidism, unspecified; I10 Essential (primary) hypertension; E11.40 Type 2 diabetes mellitus with diabetic neuropathy, unspecified
CPT/HCPCS: 36415; 80053; 80061; 83036; 84439; 84443; 85025

== ENCOUNTER 2024-05-16 10:00 | Outpatient (CLI) | payer MEDICARE, SELFPAY ==
[2024-05-16 11:15] LABS: Alanine Aminotransferase 30 U/L (6-50); Albumin Level 4.3 g/dL (3.5-5.1); Alkaline Phosphatase 69 U/L (38-126); Anion Gap 13 mmol/L (4-12); Aspartate Amino Transferase 38 U/L (17-59); Bilirubin,Total 0.8 mg/dL (0.2-1.3); Blood Urea Nitrogen 20 mg/dL (9-20); Calcium 9.8 mg/dL (8.4-10.2); Carbon Dioxide 27 mmol/L (22-30); Chloride 93 mmol/L (98-107); Cholesterol 150 mg/dL (0-200); Estimated Glomerular Filt Rate > 60; Glucose 289 mg/dL (65-110); HDL Direct 47 mg/dL; Potassium 4.5 mmol/L (3.4-5.0); Sodium 133 mmol/L (137-145); Triglycerides 225 mg/dL (<150)
[2024-05-16 11:26] LABS: LDL Cholesterol Direct 75 mg/dL
[2024-05-16 11:37] LABS: MALB Creatinine Ratio 10.1 mg/g (0-30); Microalbumin Urine Random 14.4 mg/L (0-16.7)
[2024-05-16 11:48] LABS: Vitamin D 25 Hydroxy 86.9 ng/mL
[2024-05-16 12:27] LABS: Hemoglobin A1C 8.5 % (<5.7)
== END 2024-05-16 10:01 | disposition home or self-care (01) ==
PROVIDERS: PCP Internal Medicine; Referring Provider Internal Medicine Endocrinology, Diabetes & Metabolism; Visit Provider Internal Medicine
DX: I10 Essential (primary) hypertension (principal); E55.9 Vitamin D deficiency, unspecified; E78.2 Mixed hyperlipidemia; E11.65 Type 2 diabetes mellitus with hyperglycemia
CPT/HCPCS: 36415; 80053; 80061; 82043; 82306; 83036

== ENCOUNTER 2024-06-01 12:22 | Outpatient (RCR) | payer MEDICARE, SELFPAY ==
[2024-06-01 13:55] VITALS: BMI 48.4
== END 2024-08-21 08:33 | disposition home or self-care (01) ==
LOC: ANHWOC 12:22
PROVIDERS: PCP Internal Medicine; Visit Provider Internal Medicine
DX: S31.809A Unspecified open wound of unspecified buttock, initial encounter (principal)
CPT/HCPCS: 99213; G0463

== ENCOUNTER 2024-07-12 16:19 | Outpatient (NON) | payer MEDICARE, SELFPAY ==
[2024-07-12 17:51] LABS: Add Urine Microscopic? YES; Appearance Urine Clear (Clear); Bacteria Urine None Seen /hpf; Bilirubin Urine Negative (Negative); Blood Urine 2+ (Negative); Color Urine Yellow (Yellow); Glucose Urine UA 3+ mg/dL (Negative); Ketones Urine Trace mg/dL (Negative); Leukocyte Esterase Ur Trace LEU/UL (Negative); Nitrate Urine Negative (Negative); Non Pathogenic Casts 0-2; Protein Urine Trace mg/dL (Negative); Specific Grav Ur 1.034 (1.001-1.035); Squamous Epithelial Cell Urine None Seen /hpf (Few); Urobilinogen Urine 0.2 mg/dL (<2.0)
== END 2024-07-12 16:20 | disposition home or self-care (01) ==
LOC: ANHLAB 16:20
PROVIDERS: PCP Internal Medicine; Visit Provider Internal Medicine
DX: N39.0 Urinary tract infection, site not specified (principal)
CPT/HCPCS: 81001; 87086

== ENCOUNTER 2024-11-06 09:16 | Emergency (ER) | payer MEDICARE, SELFPAY ==
[2024-11-06] VITALS (7 sets, daily range): BP systolic 125–152; BP diastolic 50–113; PULSE 86–96; RESP 16–20; TEMP 36.6; O2SAT 96–98
--- NOTE | ~2024-11-06 | XR_ITS ---
XR chest 1V portable Ordering provider: Alyssa Echevarria APRN History: 68 years Male with . cough . Comparison: October 28, 2023 FINDINGS: MEDIASTINUM: The cardiac silhouette is not enlarged. Congestive brando. LUNGS: No effusions or pneumothorax. Opacification in the left lung base is seen. Bilateral interstit ial changes suggestive of pneumonitis. OTHER: No free air under the diaphragm. Degenerative changes of the spine. IMPRESSION: Left basilar pneumonia. Bilateral interstitial pneumonitis. Reviewed, dictated and finalized at location A.
[2024-11-06] MEDS: IPRATROPIUM 0.5 MG/ALBUTEROL SULFATE 2.5 MG AMPUL.NEB 3 ML INHALATION (09:52)
[2024-11-06 10:01] LABS: Basophils Percent Auto 0.5 % (0.2-1.2); Eosinophils Percent Auto 1.4 % (0-4.4); Hematocrit 28.5 % (42.0-52.0); Hemoglobin 9.4 g/dL (14.0-18.0); Immature Granulocyte Absolute 0.02 K/mm3 (0.00-0.031); Immature Granulocyte Percent A 0.9 % (0-0.5); Lymphocytes Percent Auto 40.9 % (18.3-44.2); Mean Corpuscular Hemoglobin 29.2 pg (26-34); Mean Corpuscular Volume 88.5 fl (80-100); Mean Platelet Volume 9.1 fl (7.4-10.4); Monocytes Absolute Auto 0.4 K/mm3 (0.1-0.6); Monocytes Percent Auto 19.5 % (2.6-8.5); Neutrophils Absolute Auto 0.8 K/mm3 (1.3-6.7); Neutrophils Percent Auto 36.8 % (45.5-73.1); Platelet Count Result 219 k/mm3 (150-375); Red Blood Count 3.22 M/mm3 (4.6-6.20); Red Cell Distribution Width 14.8 % (11.5-14.5); White Blood Count 2.2 K/mm3 (4.5-10.0)
[2024-11-06 10:09] LABS: Influenza A QL RT-PCR Negative (Negative); Influenza B QL RT-PCR Negative (Negative); RSV RNA, RT-PCR Positive (Negative); SARS-CoV-2 RNA PCR Negative (Negative)
[2024-11-06 10:13] LABS: Alanine Aminotransferase 54 U/L (6-50); Albumin Level 3.8 g/dL (3.5-5.1); Alkaline Phosphatase 90 U/L (38-126); Anion Gap 7 mmol/L (4-12); Aspartate Amino Transferase 50 U/L (17-59); Bilirubin,Total 0.7 mg/dL (0.2-1.3); Blood Urea Nitrogen 17 mg/dL (9-20); Calcium 9.2 mg/dL (8.4-10.2); Carbon Dioxide 28 mmol/L (22-30); Chloride 98 mmol/L (98-107); Estimated CRCL calculation 109 ml/min; Estimated Glomerular Filt Rate > 60; Glucose 114 mg/dL (65-110); Potassium 4.5 mmol/L (3.4-5.0); Sodium 133 mmol/L (137-145)
[2024-11-06 10:23] LABS: Hypochromasia 1+; Ovalocytes 1+; Platelet Estimate Adequate (Adequate); Schistocytes None Seen
--- OUTSIDE RECORDS SUMMARY | 2024-11-06 10:44 | XMS_ITS | Encounter Summary ---
Author Organization [facility] Address [facility] [place] [address] Care Team Providers Care Laborer Vegetable Farm Name Role Phone Bri Mcclain MD Primary Care Provider [phone] Bri Mcclain MD Primary Care Provider [phone] Bri Mcclain MD Unavailable [phone] Regina Liu RN Unavailable [phone] Lencho Lopes MD Unavailable [phone] Abraham Dwyer DO Unavailable Sakina Zamarripa ARC CUTTER Unavailable Mindy Barragan ARC CUTTER Unavailable [phone] Kayla Judd RN Unavailable [phone] Kayla Judd RN Unavailable [phone] Mark Pierre MD Primary Care Provider [phone] None, Provider Primary Care Provider Unavaila ble Encounter Details Date Type Department Care Team (Late st Contact Info) Description 02/16/2014 Abstract [facility] CONVERSION [address] [place] [address] , Generic Conversion, Social History Tobacco Use Types Packs/Day Years Used Date Smoking Tobacco: Never Assessed Sex and Gender Information Value Date Recorded Sex Assigned at Male 09/22/2024 5:17 PM STUDIO HAND Legal Sex Male 6:34 PM CDT Gender Identity Not on file Sexual Orientation Straight 11/15/2020 1: 16 AM CDT documented as of this encounter Plan of Treatment Not on file documented as of this encounter Visit Diagnoses Not on filedocumented in this encounter Additional Health Concerns Infection Onset Date Last Indicated Resolved Time MRSA Comment:+ MRSA nares 11/14/2020 (KB) 07/07/21 +MRSA Blood 07/08/21 Nares (SB) 07/11/21 right ankle (SB) 03/08/23 nares (JK) 09/23/24 right pannus 06/04/2017 09/23/2024 C. difficile 12/31/2020 12/31/2020 07/09/2021 3:59 PM STUDIO HAND COVID-19 Rule Out 08/05/2021 08/06/2021 08/06/2021 11:00 AM STUDIO HAND COVID-19 Rule Out 08/22/2021 08/22/2021 08/22/2021 10:37 AM STUDIO HAND COVID-19 Rule Out 09/05/2021 09/05/2021 09/05/2021 7:59 AM STUDIO HAND COVID-19 Confirmed Comment:In collaboration with Dr. Goodwin patient cleared from COVID-19 isolation per [facility] guidelines (SB) 09/05/2021 09/05/2021 09/16/2021 10:57 AM STUDIO HAND documented as of this encounter Care Teams Laborer Vegetable Farm Relationship Specialty Start Date End Date Bri Mcclain MD PCP - General INTERNAL MEDICINE 06/08/18 12/30/20 Bri Mcclain MD PCP - General INTERNAL MEDICINE 12/31/20 10/12/22 [place] [address] [place] [address] PCP - General FAMILY PRACTICE 10/13/22 05/25/23 None, Provider, PCP - General UNKNOWN PHYSICIAN SPECIALTY 09/22/24 Bri Mcclain MD INTERNAL MEDICINE 12/31/20 Regina Liu RN [address] [place] [address] Traffic Signal Repairer (Ambulatory) REGISTERED NURSE 07/08/21 11/17/21 Lencho Lopes MD [address], [place] [address] [place] [id number] Physician INTERVENTIONAL CARDIOLOGY 08/07/21 Abraham Dwyer DO [address], [place] [address] [place] [id number] Consulting Physician INTERNAL MEDICINE 09/17/21 2 Sakina Zamarripa NP [address], [place] [address] [place] [address] Nurse Practitioner Nurse Practitioner Family 09/17/21 01/04/22 Mindy Barragan NP [address], [place] [address] [place] [address] Nurse Practitioner NURSE PRACTITIONER 09/17/21 01/04/22 Kayla Judd RN [address] [place] [address] Traffic Signal Repairer (Ambulatory) REGISTERED NURSE 11/10/21 11/17/21 Kayla Judd RN [address] [place] [address] Traffic Signal Repairer (Ambulatory) REGISTERED NURSE 11/18/21 01/28/22 documented as of this encounter
--- OUTSIDE RECORDS SUMMARY | 2024-11-06 10:44 | XMS_ITS | Encounter Summary ---
Author Organization [facility] Address [facility] [place] [address] Care Team Providers Care Freight Router Name Role Phone Bri Mcclain MD Primary Care Provider + [phone] Bri Mcclain MD Primary Care Provider + [phone] Bri Mcclain MD Unavailable [phone] Regina Liu RN Unavailable [phone] Lencho Lopes MD Unavailable [phone] Abraham Dwyer DO Unavailable Sakina Zamarripa SUPERVISOR POWDERED SUGAR Unavailable Mindy Barragan SUPERVISOR POWDERED SUGAR Unavailable [phone] Kayla Judd RN Unavailable [phone] Kayla Judd RN Unavailable [phone] Mark Pierre MD Primary Care Provider [phone] None, Provider Primary Care Provider Unavaila ble Reason for Visit * Reason Onset Date Comments Follow Up Call 11/28/2020 Encounter Details Date Type Department Care Team (Late st Contact Info) Description 11/28/2020 Telephone [facility] Med/Surg [address] [place] [address] Alida Becker RN Follow Up Call Social History Tobacco Use Types Packs/Day Years Used Date Smoking Tobacco: Never Smokeless Tobacco: Never Alcohol Use Standard Drinks/Week Comments No 0 (1 standard drink = 0.6 oz pur e alcohol) Humiliation, Afraid, Rape, and Kick questionnair e Answer Date Recorded Within the last year, have y ou been afraid of your partner or ex-partner? No 11/15/2020 Within the last year, have y ou been humiliated or emotionally abused in other ways by your partner or ex-partner? No Within the last year, have y ou been kicked, hit, slapped, or otherwise physically hurt by your partner or ex-partner? No 11/15/2020 Within the last year, have y ou been raped or forced to have any kind of sexual activity by your partner or ex-partner? No 11/15/2020 Social Connection and Isolat ion Panel [NHANES] Answer Date Recorded In a typical week, how many times do you talk on the phone with family, friends, or neighbors? More than three times a week 11/15/2020 How often do you get togethe r with friends or relatives? Once a week 11/15/2020 How often do you attend [facility] or congregation services? Patient declined 11/15/2020 Do you belong to any clubs o r organizations such as synagogue groups, unions, fraternal or athletic groups, or school groups? No 11/15/2020 How often do you attend meet ings of the clubs or organizations you belong to? Never 11/15/2020 Are you , , di vorced, , never , or living with a partner? 11/15/2020 AUDIT-C Answer Date Recorded Frequency of Alcohol Consumption Never 12/06/2018 Average Number of Drinks Not on file 019 Frequency of Binge Drinking Not on file 11/21 Overall Financial Resource Strain (CARDIA) Answe r Date Recorded How hard is it for you to pa y for the very basics like food, housing, medical care, and heating? Not hard at all 11/15/2020 PHQ-2 Answer Date Recorded PHQ-2 Score - If the patient scores above 3, please move on to questions 3-9 0 05/15/2020 [facility] [place] of Occupat ional Health - Occupational Stress Questionnaire Answer Date Recorded Do you feel stress - tense, restless, nervous, or anxious, or unable to sleep at night because your mind is troubled all the time - these days? Only a little 11/15/2020 Exercise Vital Sign Answer Date Recorde d On average, how many days pe r week do you engage in moderate to strenuous exercise (like a brisk walk)? Patient declined On average, how many minutes do you engage in exercise at this level? Patient declined 11/15/2020 Hunger Vital Sign Answer Date Recorded Within the past 12 months, y ou worried that your food would run out before you got the money to buy more. Never true 11/16/19 21 Within the past 12 months, t he food you bought just didn't last and you didn't have money to get more. Never true 11/15/2020 PRAPARE - Transportation Answer Date Re corded In the past 12 months, has l ack of transportation kept you from medical appointments or from getting medications? No 10/22 In the past 12 months, has l ack of transportation kept you from meetings, work, or from getting things needed for daily living? No 11/15/2020 Sex and Gender Information Value Date Recorded Sex Assigned at Male 09/22/2024 5:17 PM FEATHER CURLING MACHINE OPERATOR Legal Sex Male 6:34 PM CDT Gender Identity Not on file Sexual Orientation Straight 11/15/2020 1: 16 AM CDT COVID-19 Exposure Response Date Recorded In the last month, have you been in contact with someone who was confirmed or suspected to have Coronavirus / COVID-19? No / Unsure 11/17/2020 2:41 PM CDT documented as of this encounter Functional Status * RETIRED Are you deaf or do you have serious difficulty hearing Answer Date of Assessment Author Status No 11/27/2020 10:13 AM CDT Acti ve * RETIRED Are you blind or do you have serious difficulty seeing, even when wearing glasses? Answer Date of Assessment Author Status No 11/27/2020 10:13 AM CDT Acti ve * Do you have serious difficulty walking or climbing stairs? Answer Date of Assessment Author Status Yes 11/27/2020 10:13 AM CDT Alida Becker RN Active * Do you have difficulty dressing or bathing? Answer Date of Assessment Author Status Yes 11/27/2020 10:13 AM CDT Alida Becker RN Active * Because of a physical, mental, or emotional condition, do you have difficulty doing errands alone such as visiting a doctor's office or shopping? Answer Date of Assessment Author Status No 11/27/2020 10:13 AM CDT Alida Becker RN Active documented as of this encounter Mental Status * Because of a physical, mental, or emotional condition, do you have serious difficulty concentrating, remembering, or making decisions? Answer Entry Date Author Status No 11/27/2020 10:13 AM CDT Alida Becker RN Active documented in this encounter Progress Notes * Juanita Kim LPN - 12/21/2022 3:13 PM CDT Error documented in this encounter Plan of Treatment Not on file documented as of this encounter Visit Diagnoses Not on filedocumented in this encounter Additional Health Concerns Infection Onset Date Last Indicated Resolved Time MRSA Comment:+ MRSA nares 11/14/2020 (KB) 07/07/21 +MRSA Blood 07/08/21 Nares (SB) 07/11/21 right ankle (SB) 03/08/23 nares (JK) 09/23/24 right pannus 06/04/2017 09/23/2024 C. difficile 12/31/2020 12/31/2020 07/09/2021 3:59 PM FEATHER CURLING MACHINE OPERATOR COVID-19 Rule Out 08/05/2021 08/06/2021 08/06/2021 11:00 AM FEATHER CURLING MACHINE OPERATOR COVID-19 Rule Out 08/22/2021 08/22/2021 08/22/2021 10:37 AM FEATHER CURLING MACHINE OPERATOR COVID-19 Rule Out 09/05/2021 09/05/2021 09/05/2021 7:59 AM FEATHER CURLING MACHINE OPERATOR COVID-19 Confirmed Comment:In collaboration with Dr. Goodwin patient cleared from COVID-19 isolation per [facility] guidelines (SB) 09/05/2021 09/05/2021 09/16/2021 10:57 AM FEATHER CURLING MACHINE OPERATOR documented as of this encounter Care Teams Freight Router Relationship Specialty Start Date End Date Bri Mcclain MD PCP - General INTERNAL MEDICINE 06/08/18 12/30/20 Bri Mcclain MD PCP - General INTERNAL MEDICINE 12/31/20 10/12/22 [place] [address] [place] [address] PCP - General FAMILY PRACTICE 10/13/22 05/25/23 None, MD Shay PCP - General UNKNOWN PHYSICIAN SPECIALTY 09/22/24 Bri Mcclain MD INTERNAL MEDICINE 12/31/20 Regina Liu, RN [address] [place], [place] [id number] Manager Pharmaceutical (Ambulatory) REGISTERED NURSE 07/08/21 11/17/21 Lencho Lopes MD [address] [place] [address] [phone] Physician INTERVENTIONAL CARDIOLOGY 08/07/21 Abraham Dwyer DO [address] [place] [address] [id number] Consulting Physician INTERNAL MEDICINE 09/17/21 2 Sakina Zamarripa NP [address] [place] [address] [id number] Nurse Practitioner Nurse Practitioner Family 09/17/21 01/04/22 Mindy Barragan NP [address] [place] [address] [place] [address] Nurse Practitioner NURSE PRACTITIONER 09/17/21 01/04/22 Kayla Judd RN [address] [place] [address] Manager Pharmaceutical (Ambulatory) REGISTERED NURSE 11/10/21 11/17/21 Kayla Judd RN [address] [place] [address] Manager Pharmaceutical (Ambulatory) REGISTERED NURSE 11/18/21 01/28/22 documented as of this encounter
--- OUTSIDE RECORDS SUMMARY | 2024-11-06 10:44 | XMS_ITS | Continuity of Care Document ---
Author Organization [facility] Address [address] [place] [address] [address] [place] [address] Phone Care Team Providers Care Honey Grader And Blender Name Role Phone July De Los Santos Unavailable Unavailable Procedures Procedure Date Office/outpatient Visit, Est Post-op Follow-up Visit Laser Surgery Of Eye No Charge Screening Visit Office/outpatient Visit, Est Visual Field Examination(s) Office/outpatient Visit, Est Fundus Photography W/ Report Office/outpatient Visit, Est Visual Field Examination(s) Office/outpatient Visit, Est Fundus Photography W/ Report Office/outpatient Visit, Est Advance Directives Directive Yes / No Effective Date File Name No Information Encounters Encounter Description Practice Location Reason(s) For Visit Diagnoses Date Provider Providers Copied on Encounter Office/outpat ient Visit, Est [facility], [address] [place] [address] [address], [place], [place], [id number], [place] tel:[phone] SEC [facility] No Information 2-201 0 Magali Corrales [address] , [address], [place], [address], [place]. tel:[phone] [facility], [address], [place], [place], [address], [place] tel:[phone] [facility] No Information Ricco-0 1-201 0 Magali Corrales [address] , [address], [place], [place], [facility][note 2], [place]. tel:[phone] [facility], [address], [place], [place], [address], [place] tel:[phone] [facility] No Information December-0 4-201 0 Magali Corrales [address], [place], [place], [facility][note 2], [place]. tel:[phone] [facility], [address], [place], [place], [address], [place] tel:[phone] [facility] No Information 7-201 0 Magali Corrales [address], [place], [place], [facility][note 2], . tel:[phone] Office/outpat ient Visit, [facility], [address] [place] [address] [address], [place], [place], [address], [place] tel:[phone] [facility] No Information 6-201 0 Magali Corrales [address], [place], [place], [facility][note 2], [place]. tel:[phone] [facility], [address], [place], [place], [address], [place] tel:[phone] [facility] No Information 6-200 9 Magali Corrales [address], [place], [place], [facility][note 2], [place]. tel:[phone] Referring Provider: July Shane, [address], [place], [place], [facility][note 2]. tel:[phone] Office/outpat ient Visit, [facility], [address] [place] [address] [address], [place], [place], [address], [place] tel:[phone] [facility] No Information 9 Magali Mcdowell. [address], [place], [place], [facility][note 2], . tel:[phone] Referring Provider: July Shane, [address], [place], [place], [facility][note 2]. tel:[phone] Office/outpat ient Visit, [facility], [address] [place] [address] [address], [place], [place], [address], [place] tel:[phone] [facility] No Information 6 8 Magali Mcdowell. [address], [place], [place], [facility][note 2], [place]. tel:[phone] [facility], [address], [place], [place], [id number], [place] tel:[phone] [place] [address] No Information 8 Magali Mcdowell. [address] [facility] , [address], [place], [place], [facility][note 2], [place]. tel:[phone] Referring Provider: July Shane, [address], [place], [facility][note 2]. tel:[phone] Office/outpat ient Visit, [facility], [address] [place] [address] [address], [place], [place], [address], [place] tel:[phone] [place] [address] No Information 200 7 Magali Mcdowell. [address], [place], [place], [facility][note 2], [place]. tel:[phone] Referring Provider: July Shane, [address], [place], [facility][note 2]. tel:[phone] Office/outpat ient Visit, [facility], [address], [place], [place], [address], [place] tel:[phone] [facility] No Information 7 Magali Pradon. [address], [place], [address], [place]. tel:[phone] Family History Family Member Type Diagnosis Age At Onset No Information Payers Payer name Insurance type Covered libertarian ID Authorfranky tapia(s) [facility] CI [id number] Social History Type Description Quantity Date Captured Comments Sex Male Smoking Status No Information Chief Complaint And Reason For Visit No Information Reason For Referral Reason For Referral No Information History Of Present Illness Encounter Date Complaint History Of Prese nt Illness No Information Functional Status Date Functional Assessmen t No Information Instructions Date Instruction Additional Infor mation No Information Assessments Type Assessment Date No Information Patient Care Teams Name Effective Dates (start - stop) Status Members No Information
--- OUTSIDE RECORDS SUMMARY | 2024-11-06 10:45 | XMS_ITS ---
Author Organization [facility] Care Team Providers Care Trading Analyst Name Role Phone Mark Pierre Unavailable Unavailable Allergies and adverse reactions No Known Allergies Care Team Name Role Address Phone Organization Dates Mark Pierre [facility]CP [address] [place], [address], [place] (Office): : [facility] 02/05/2023 - 03/05/2023 Immunizations Immunization Status Vaccine Details Vaccine Code CodeSystem Brien e Notes Influenza cancelled Influenza, high-dose, split virus, quadrivalent, injectable, preservative free 197 CVX created date: 02/09/2023 consent date: 02/09/2023 TB 2 Step Mantoux Skin Test completed tuberculin skin test; unspecified formulation Mfg: matoux Given 0.1 ml Right Forearm intradermally Step 1 of Multi-step with next step required 98 CVX created date: 02/15/2023 consent date: 02/15/2023 administere d date: 02/15/2023 Prevnar 13 normal pneumococcal conjugate vaccine, 13 valent 133 CVX created date: 02/09/2023 consent date: 02/09/2023 Mental Status Section Date Assessment Total Score Description 03/05/2023 BIMS 15 cognitively int act CAM 0 No delirium ind icated PHQ-9 06 mild depression 02/12/2023 BIMS 15 cognitively int act CAM 0 No delirium ind icated PHQ-9 06 mild depression Problems Problem # Description Date of onset Resolved Date Code CodeSystem Concern Status 1 ANESTHESIA OF SKIN 02/06/[address] active 2 ARTHRITIS DUE TO OTHER BACTERIA, UNSPECIFIED ANKLE AND FOOT 02/06/[address] active 3 BENIGN PROSTATIC HYPERPLASIA WITH LOWER URINARY TRACT SYMPTOMS 02/06/[address] active 4 CELLULITIS OF RIGHT LOWER LIMB 02/06/[address] active 5 DEPENDENCE ON OTHER ENABLING MACHINES AND DEVICES 02/06/[address] active 6 ENDOCRINE DISORDER, UNSPECIFIED 02/06/[address] active 7 ESSENTIAL (PRIMARY) HYPERTENSION 02/06/[address] active 8 GASTRO-ESOPHAGEAL REFLUX DISEASE WITHOUT ESOPHAGITIS 02/06/[address] active 9 HEPATOMEGALY WITH SPLENOMEGALY, NOT ELSEWHERE CLASSIFIED 02/06/[address] active 10 HYPERLIPIDEMIA, UNSPECIFIED 02/06/[address] active 11 HYPOTHYROIDISM, UNSPECIFIED 02/06/[address] active 12 LOCALIZED EDEMA 02/06/[address] active 13 LUMBAGO WITH SCIATICA, UNSPECIFIED SIDE 02/06/[address] active 14 MORBID (SEVERE) OBESITY DUE TO EXCESS CALORIES 02/06/[address] active 15 NON-PRESSURE CHRONIC ULCER OF UNSPECIFIED PART OF UNSPECIFIED LOWER LEG WITH UNSPECIFIED SEVERITY 02/06/[address] active 16 OBSTRUCTIVE SLEEP APNEA (ADULT) (PEDIATRIC) 02/06/[address] active 17 OTHER CHRONIC OSTEOMYELITIS, RIGHT ANKLE AND FOOT 02/06/[address] active 18 OTHER CHRONIC PAIN 02/06/[address] active 19 OTHER INTERVERTEBRAL DISC DEGENERATION, LUMBOSACRAL REGION 02/06/[address] active 20 PAIN IN RIGHT ANKLE AND JOINTS OF RIGHT FOOT 02/06/[address] active 21 PAROXYSMAL ATRIAL FIBRILLATION 02/06/[address] active 22 PERSONAL HISTORY OF METHICILLIN RESISTANT STAPHYLOCOCCUS AUREUS INFECTION 02/06/[address] active 23 POLYOSTEOARTHRITI S, UNSPECIFIED 02/06/[address] active 24 TYPE 2 DIABETES MELLITUS WITH DIABETIC NEUROPATHIC ARTHROPATHY 02/06/[address] active 25 TYPE 2 DIABETES MELLITUS WITH OTHER SKIN ULCER 02/06/[address] active 26 UNSPECIFIED GLAUCOMA 02/06/[address] active 27 VENOUS INSUFFICIENCY (CHRONIC) (PERIPHERAL) 02/06/[address] active Reason for Referral No Reasons for Referral Entered Social History Social History Observation Description Start Date End Date Code Code System Current Smoking Status Tobacco smoking consumption unknown 462311462 SNOMED CT Sex Assigned At Male 1955 10586-6 [facility] Vital Signs Code Code System Vitals Name Values and Units Timing Information 2339-0 [facility] Blood Sugar Aeuhq=770.0 Units=mg/dL 03/05/2023 29892-3 [facility] O2 % BldC Oximetry Value=97.0 Units= % 03/05/2023 36459-6 [facility] Pain Level Value=0.0 03/05/2023 8462-4 [facility] Blood Pressure-Diastolic Value=76 Un its=mmHg 02/24/2023 8480-6 [facility] Blood Pressure-Systolic Apdij=676 Un its=mmHg 02/24/2023 9279-1 [facility] Respiratory Rate Value=18.0 Units=/m in 02/24/2023 8310-5 [facility] Body Temperature Value=98.4 Units= F 02/24/2023 8867-4 [facility] Heart rate Value=78.0 Units=/min 12/2022 55311-5 [facility] Weight Zozud=507.0 Units=Lbs 8302-2 [facility] Height Value=74.0 Units=Inches 02/05/2023
--- OUTSIDE RECORDS SUMMARY | 2024-11-06 10:45 | XMS_ITS ---
Author Organization [facility] Address [address] [facility] [address] [place] [address] Care Team Providers Care Assurance Senior Manager Name Role Phone Felix Jones Primary Care Provider Leon Washburn [phone] REASON FOR VISIT MEDTRONIC/DEXCOM ON PHONE Encounters Encounter Location Date Provider Diagnosis [facility] [address] [facility] [address] [place] [address] 10/26/2024 Leon Peoples Plan Of Treatment Next Appt Details Provider Name:Adeel carias, 02/13/2025 11:30:00 AM, [address], [place], [address], Progress Notes * DENA VARMA NDOB:1955 (68 yo M)Acc No.[id number]:10/26/2024 [facility] Patient: DENA VARGAS Jeison Provider: Joe Peoples MD :1955 A ge:68 Y S ex:Male Date:10/26/2024 Address:[employer] [address] [facility] Pcp:Felix Jones Subjective: * Chief Complaints: * 1 . MEDTRONIC/DEXCOM ON PHONE. Objective: * Vitals: Assessment: Plan: * Treatment: * Billing Information: * Visit Code: * Procedure Codes: * Electronic signature of Trenton Peoples MD on 11/06/2024 at 10:44 AM CDT Sign off status: Pending * Provider: Joe Peoples MD Date: 10/26/2024 Generated for Robert arnett/Anabell/Connor on: 0 11/06/2024 10:44 AM CDT
--- OUTSIDE RECORDS SUMMARY | 2024-11-06 10:45 | XMS_ITS | Encounter Summary ---
Author Organization [facility] Address [facility] [place] [address] Care Team Providers Care Supervisor Cooler Service Name Role Phone Bri Mcclain MD Primary Care Provider + [phone] Bri Mcclain MD Primary Care Provider + [phone] Bri Mcclain MD Unavailable [phone] Regina Liu RN Unavailable [phone] Lencho Lopes MD Unavailable [phone] Abraham Dwyer DO Unavailable Sakina Zamarripa INTERNET AND E BUSINESS PROJECT MANAGER Unavailable Mindy Barragan INTERNET AND E BUSINESS PROJECT MANAGER Unavailable [phone] Kayla Judd RN Unavailable [phone] Kayla Judd RN Unavailable [phone] Mark Pierre MD Primary Care Provider [phone] None, Provider Primary Care Provider Unavaila ble Encounter Details Date Type Department Care Team (Latest Contact Info) Description 05/15/2018 Abstract [facility] [place] [address] [place] [address] Social History Tobacco Use Types Packs/Day Years Used Date Smoking Tobacco: Never Assessed Sex and Gender Information Value Date Recorded Sex Assigned at Male 09/22/2024 5:17 PM [facility] Legal Sex Male 6:34 PM CDT Gender [...] C. difficile 12/31/2020 12/31/2020 07/09/2021 3:59 PM [facility] COVID-19 Rule Out 08/05/2021 08/06/2021 08/06/2021 11:00 AM [facility] COVID-19 Rule Out 08/22/2021 08/22/2021 08/22/2021 10:37 AM [facility] COVID-19 Rule Out 09/05/2021 09/05/2021 09/05/2021 7:59 AM [facility] COVID-19 Confirmed Comment:In collaboration with Dr. Goodwin patient cleared from COVID-19 isolation per [facility] guidelines ([place]) 09/05/2021 09/05/2021 09/16/2021 10:57 AM [facility] documented as of this encounter Care Teams Supervisor Cooler Service Relationship Specialty Start Date End Date Bri Mcclain MD PCP - General INTERNAL MEDICINE 06/08/18 12/30/20 Bri Mcclain MD PCP - General INTERNAL MEDICINE 12/31/20 10/12/22 [place] [address] [place] [address] PCP - General FAMILY PRACTICE 10/13/22 05/25/23 None, Provider, PCP - General UNKNOWN PHYSICIAN SPECIALTY 09/22/24 Bri Mcclain MD INTERNAL MEDICINE 12/31/20 Regina Liu, RN [address] [place] [address] Online Merchandiser (Ambulatory) REGISTERED NURSE 07/08/21 11/17/21 Lencho Lopes MD [address], [address] [id number] Physician INTERVENTIONAL CARDIOLOGY 08/07/21 Abraham Dwyer DO [address], [address] [address] Consulting Physician INTERNAL MEDICINE 09/17/21 2 Sakina Zamarripa NP [address], [address] [address] Nurse Practitioner Nurse Practitioner [facility] 09/17/21 01/04/22 Mindy Barragan NP [address], [address] [place] [address] [id number] Nurse Practitioner NURSE PRACTITIONER 09/17/21 01/04/22 Kayla Judd RN [address] [place], [place] [address] Online Merchandiser (Ambulatory) REGISTERED NURSE 11/10/21 11/17/21 Kayla Judd RN [address] [place] [address] Online Merchandiser (Ambulatory) REGISTERED NURSE 11/18/21 01/28/22 documented as of this encounter
--- OUTSIDE RECORDS SUMMARY | 2024-11-06 10:45 | XMS_ITS | Clinical Summary ---
Author Organization [facility] Address [address] [place] [address] Care Team Providers Care Senior Automation Engineer Name Role Phone Bri Mcclain MD Unavailable [phone] Lencho Lopes MD Unavailable [phone] None, Provider MD Primary Care Provider Unavaila ble Allergies No known active allergies Medications ferrous sulfate EC 324 (65 Fe) MG tabletIndicatio ns:Iron Deficiency Take 1 tablet (324 mg total) by mouth daily with breakfast. 90 tablet 2 Active multi vitamin/mineral s tabletIndicatio ns:Vitamin Deficiency Take 1 tablet by mouth daily. 90 tablet 2 Active vitamin B-12 500 MCG tabletIndicatio ns:Vitamin B Deficiency Take 1 tablet (500 mcg total) by mouth daily. 90 tablet 2 Active Insulin Syringe-Needle U-100 (INSULIN SYRINGE 1CC/31GX5/16 ) 31G X 5/16 1 ML MiscIndications :Diabetes Mellitus Use as directed with Lantus 100 each 3 2 Active brimonidine (ALPHAGAN) 0.2 % ophthalmic solutionIndicat ions:Glaucoma Place 1 drop into both eyes 2 (two) times a day. Indications: Glaucoma Active insulin regular, CONCENTRATED, (HUMULIN R) 500 UNIT/ML SolutionIndicat ions:Diabetes Mellitus Inject into the skin continuous. Indications: Diabetes Per insulin pump. U-500 insulin in pump. Fixed basal of 0.2 unit/hr (1 unit/hr) Carb ratio programmed as 1:9 and patient self calculates correctional Active tamsulosin (FLOMAX) 0.4 MG CapIndications: Urinary Retention TAKE 1 CAPSULE BY MOUTH DAILY 90 capsule 1 2 Active atorvastatin (LIPITOR) 40 MG tabletIndicatio ns:Hyperlipidem ia Take 1 tablet (40 mg total) by mouth nightly at bedtime. 90 tablet 1 2 Active dorzolamide-tash olol (COSOPT) 22.3-6.8 MG/ML SolutionIndicat ions:Glaucoma Place 1 drop into both eyes 2 (two) times daily. 20 mL 2 Active apixaban (ELIQUIS) 5 MG tabletIndicatio ns:Deep Vein Thrombosis Prophylaxis Take 1 tablet (5 mg total) by mouth 2 (two) times daily. 180 tablet 1 3 Active levothyroxine (SYNTHROID) 112 MCG tabletIndicatio ns:Hypothyroidi sm Take 1 tablet (112 mcg total) by mouth every morning. 90 tablet 1 3 Active famotidine (PEPCID) 20 MG tabletIndicatio ns:Gastroesopha geal reflux disease (GERD), poorly controlled Take 1 tablet (20 mg total) by mouth 2 (two) times daily. 180 tablet 1 3 Active dilTIAZem (CARDIZEM) 30 MG tabletIndicatio ns:Congestive Heart Failure Take 1 tablet (30 mg total) by mouth 3 (three) times daily. 270 tablet 1 3 Active acetaminophen (TYLENOL) 500 MG tabletIndicatio ns:Pain Take 2 tablets (1,000 mg total) by mouth every 6 (six) hours as needed. Indications: Pain 3 Active bimatoprost (LUMIGAN) 0.01 % SolutionIndicat ions:Eye and/or Vision Signs and Symptoms Place 1 drop into both eyes nightly at bedtime. 7.5 mL 1 3 Active metoprolol succinate ER (TOPROL-XL) 50 MG 24 hr tabletIndicatio ns:Atrial fibrillation, chronic (CMS/HCC HHS/HCC) TAKE 1 TABLET BY MOUTH DAILY. INDICATIONS: HIGH BLOOD PRESSURE DISORDER 90 tablet 3 Active traMADol (ULTRAM) 50 MG tablet Take 1 tablet (50 mg total) by mouth every 6 (six) hours as needed for Pain. 5 Active hydrOXYzine (ATARAX) 25 MG tablet Take 1 tablet (25 mg total) by mouth every 6 (six) hours as needed for Itching or Anxiety. 5 Active L-Methylfolate- B6-B12 (FOLTANX) 3-35-2 MG Tab Take 1 tablet by mouth daily. 4 Active potassium chloride CR (MICRO-K) 10 MEQ CR capsule Take 1 capsule (10 mEq total) by mouth daily. 5 Active MOUNJARO 2.5 MG/0.5ML injection Inject 2.5 mg into the skin every 7 days. 5 Active metFORMIN ER (GLUCOPHAGE-XR) 500 MG 24 hr tablet Take 2 tablets (1,000 mg total) by mouth 2 (two) times daily with meals. 4 Active Misc Natural Products (NEURIVA OR) Take 2 each by mouth daily. Active losartan (COZAAR) 25 MG tablet Take 1 tablet (25 mg total) by mouth daily. Active hydrALAZINE (APRESOLINE) 50 MG tablet Take 1 tablet (50 mg total) by mouth 3 (three) times daily. Active spironolactone (ALDACTONE) 25 MG tablet Take 1 tablet (25 mg total) by mouth 2 (two) times a day. Active calcium carbonate (TUMS) 500 MG chewable tablet Chew 2 tablets (1,000 mg total) by mouth 3 (three) times daily as needed for Heartburn. Active Active Problems Problem Noted Date Diagnosed Date Panniculitis 09/22/2024 Osteomyelitis ([facility]) 11/07/2021 Encephalopathy acute 07/28/2021 Delirium 07/28/2021 Subacute osteomyelitis of right foot ([facility]) 07/28/2021 Hyperglycemia due to diabetes mellitus ([facility]) 07/28/2021 Acute respiratory failure with hypoxia ([facility]) 07/28/2021 Sepsis ([facility]) 07/07/2021 Clostridium difficile colitis 12/31/2020 Scrotal infection 11/18/2020 Cellulitis 11/14/2020 Polyneuropathy associated with underlying diseas e ([facility]) 12/06/2018 Muscle strain, shoulder region 04/12/2018 Chronic osteomyelitis of right ankle ([facility]HCC) 10/02/2017 Overview (06/30/2018): Impression - [id number] Bri Mcclain: surgery 04/08, probe to bone then after surgial removal of hardware 08/28/17 Deep tiss Cx MRSA on vanc per PICC line & ID Dr Crenshaw. SILVIA on CPAP 08/09/2017 Edema of extremities 06/02/2017 MRSA infection 06/02/2017 Enlarged prostate with lower urinary tract sympt oms (LUTS) 10/13/2016 Charcot foot due to diabetes mellitus ([facility]) 09/05/2016 Numbness in both hands 07/08/2016 Chronic pain of right ankle 04/15/2016 Lumbago 12/10/2014 Hypothyroidism 10/10/2014 Generalized osteoarthritis of multiple sites Glaucoma, bilateral 09/17/2014 Hyperlipidemia 09/17/2014 Essential hypertension 09/17/2014 Testosterone deficiency 09/17/2014 Diabetic ulcer of lower extremity ([facility] HHS/H CC) 06/21/2014 Diabetic peripheral neuropathy ([facility]) 05/10/2014 Sciatica 02/14/2013 Encounters Date Type Department Care Team Description 09/23/2024 Travel 09/22/2024 5:05 PM [employer] TRA[employer] AND ACCESSORIES SALESPERSON - 09/27/2024 10:01 AM TOY TRAINS AND ACCESSORIES SALESPERSON Hospital Encounter [facility] [place] [address] Lianna Luis MD Malcolm, MD Nikki Tolbert Dominique C, MD Generalized Weakness; Wound Discharge Disposition: Snf Facility 09/22/2024 Travel from Last 3 Months Immunizations Name Administration Dates Next Due Fluzone High Dose - >Age 65 (Prefilled Syringe) 05/11/2019 Influenza (Generic) 06/26/2013,06/01/2012 Influenza Adult (Generic) 05/11/2019,04/12/2018, 08/18/2017 Pneumococcal (Pneumovax 23) 05/15/2018, 5 Pneumococcal (Prevnar 13) 12/06/2018 Shingrix 07/07/2018, 8,04/12/2018,2017 Td (Tenivac) preservative free 05/31/2018 Zoster (Zostavax) 64499 Unt/0.65Ml 07/07/2017,,07/02/2017 Family History Medical History Relation Comments Prostate Cancer Father Breast Cancer Mother Diabetes Mother Glaucoma Mother Heart Mother Relation Status Comments Father Alive Mother Social History Tobacco Use Types Packs/Day Years Used Date Smoking Tobacco: Former Smokeless Tobacco: Never Tobacco Cessation:Counseling Given: Not Answered Comments:years ago , couple ppd. Quit 40-50yrs ago Alcohol Use Standard Drinks/Week Comments No 0 (1 standard drink = 0.6 oz pur e alcohol) OASIS D0700: Social Isolation Answer Da te Recorded Frequency of experiencing loneliness or isolatio n Never 05/11/2023 OASIS A1250: Transportation Answer Date Recorded Lack of Transportation (Medical) Yes 05/11/2023 Lack of Transportation (Non-Medical) No 05/11/2023 Patient Unable or Declines to Respond No 05/11/2023 OASIS B1300: Health Literacy Answer Brien e Recorded Frequency of needing help to read materials from doctor or pharmacy Never 05/11/2023 [facility] Utilities Answer Date Recorded In the past 12 months has [facility] [employer], gas, oil, or water [employer] threatened to shut off services in your home? No 09/24/2024 Humiliation, Afraid, Rape, and Kick questionnair e Answer Date Recorded Within the last year, have y ou been afraid of your partner or ex-partner? No 09/24/2024 Within the last year, have y ou been humiliated or emotionally abused in other ways by your partner or ex-partner? No Within the last year, have y ou been kicked, hit, slapped, or otherwise physically hurt by your partner or ex-partner? No 09/24/2024 Within the last year, have y ou been raped or forced to have any kind of sexual activity by your partner or ex-partner? No 09/24/2024 Social Connection and Isolat ion Panel [NHANES] Answer Date Recorded In a typical week, how many times do you talk on the phone with family, friends, or neighbors? More than three times a week 11/15/2020 How often do you get togethe r with friends or relatives? Once a week 11/15/2020 How often do you attend chur ch or synagogue services? Patient declined 11/15/2020 Do you belong to any clubs o r organizations such as jain groups, unions, fraternal or athletic groups, or [...] care, and heating? Not hard at all 09/24/2024 PHQ-2 Answer Date Recorded PHQ-2 Score - If the patient scores above 3, please move on to questions 3-9 0 04/14/2022 [facility] - Occupational Stress Questionnaire Answer Date Recorded Do you feel stress - tense, restless, nervous, or anxious, or unable to sleep at night because your mind is troubled all the time - these days? Not at all 03/22/2023 Exercise Vital Sign Answer Date Recorde d On average, how many days pe r week do you engage in moderate to strenuous exercise (like a brisk walk)? 0 days 03/22/2023 On average, how many minutes do you engage in exercise at this level? 0 min 03/22/2023 Hunger Vital Sign Answer Date Recorded Within the past 12 months, y ou worried that your food would run out before you got the money to buy more. Never true 09/24/19 25 Within the past 12 months, t he food you bought just didn't last and you didn't have money to get more. Never true 09/24/2024 PRAPARE - Transportation Answer Date Re corded In the past 12 months, has l ack of transportation kept you from medical appointments or from getting medications? No 09/2024 In the past 12 months, has l ack of transportation kept you from meetings, work, or from getting things needed for daily living? No 09/24/2024 Housing Stability Vital Sign Answer Brien e Recorded In the last 12 months, was t here a time when you were not able to pay the mortgage or rent on time? No 03/22/2023 In the last 12 months, how many places have you lived? 1 03/22/2023 In the last 12 months, was t here a time when you did not have a steady place to sleep or slept in a halfway (including now)? No 03/22/2023 Housing Stability Vital Sign Answer Brien e Recorded In the last 12 months, was t here a time when you were not able to pay the mortgage or rent on time? No 09/24/2024 In the past 12 months, how m any times have you moved where you were living? 0 09/24/2024 At any time in the past 12 m [facility], were you homeless or living in a halfway (including now)? No 09/24/2024 Sex and Gender Information Value Date Recorded Sex Assigned at Male 09/22/2024 5:17 PM [employer] ACCESS[employer]IES SALESPERSON Legal Sex Male 6:34 PM CDT Gender Identity Not on file Sexual Orientation Straight 11/15/2020 1: 16 AM CDT Last Filed Vital Signs Vital Sign Reading Time Taken Comments Blood Pressure 124/53 09/27/2024 7:21 AM [employer] TRA[employer] ACCESS[employer]IES SALESPERSON Pulse 69 09/27/2024 7:21 AM [employer] TRA[employer] ACCESS[employer]IES SALESPERSON Temperature 36.2 C (97.2 F) 09/27/2024 7:21 AM [employer] TRA[employer] AND ACCESSORIES SALESPERSON Respiratory Rate 19 09/27/2024 7:21 AM TOY TRAINS AND ACCESSORIES SALESPERSON Oxygen Saturation 95% 09/27/2024 7:21 AM TO[employer] TRA[employer] AND ACCESSORIES SALESPERSON Inhaled Oxygen Concentration - - Weight 164.3 kg (362 lb 3.5 oz) 09/27/2024 4:10 AM [employer] TRA[employer] AND ACCESSORIES SALESPERSON Height 188 cm (6' 2 ) 09/22/2024 5:05 PM TO[employer] TRAINS AND ACCESSORIES SALESPERSON Body Mass Index 46.51 09/22/2024 5:05 PM TOY TRAINS AND ACCESSORIES SALESPERSON Plan of Treatment Health Maintenance Due Date Last Done Comments Kidney Health Evaluation 1955 RSV Immunization or 60+ Years (1 - Risk 60-74 years 1-dose series) 2013 DTaP, Tdap and Td Vaccines (1 - Tdap) 06/01/2018 05/31/2018 Annual Medicare Wellness Visit 2018 Diabetes: Retinopathy Eye Exam 09/02/2020 09/02/2018 Colorectal Cancer Screening FIT/FOBT (1 Year) 11/12/2022 11/12/2021 Pneumococcal Vaccine: 65+ Years (3 of 3 - PPSV23 or PCV20) 05/15/2023 12/06/2018, 05/15/2018, 05/06/2015 Lipid Panel 07/27/2023 07/27/2022, 10/22, 05/06/2020 Hemoglobin A1C 11/24/2023 05/25/2023, 01/22, 11/16/2021, Additional history exists COVID-19 Vaccine ( season) 2024 Influenza Adult (#1) 2024 05/11/2019, 05/11/2019, 04/12/2018, Additional history exists PHQ-2 (Phys[facility] [place]) 08/23/2024 Zoster Vaccines Completed 07/07/2018, 06/23, 04/12/2018, Additional history exists Hepatitis C Completed 08/18/2021, 1208/2020, 05/31/2018, Additional history exists AAA SCREENING Completed 09/22/2024, 02/20, 01/31/2023, Additional history exists Meningococcal B Vaccine Aged Out No l onger eligible based on patient's age to complete this topic Meningococcal Vaccine Aged Out No cristhian harleen eligible based on patient's age to complete this topic RSV Immunizations Under 20 Months Aged Out No longer eligible based on patient's age to complete this topic Goals Goal Patient Goal Type Associated Problems Recent Progress Patient-Stated? 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 [employer] Procedures Procedure Name Priority Date/Time Associated Diagnosis Comments BASIC METABOLIC PANEL Routine 09/27/2024 6:26 AM TOY TRAINS AND ACCESSORIES SALESPERSON POCT GLUCOSE - SAXENA DOCKED DEVICE Routine 09/26/2024 11:38 AM TOY TRA[employer] AND ACCESSORIES SALESPERSON BASIC METABOLIC PANEL Routine 09/26/2024 6:49 AM TOY TRAINS AND ACCESSORIES SALESPERSON CBC W/DIFF AUTOMATED Routine 09/26/2024 6:49 AM TOY TRAINS AND ACCESSORIES SALESPERSON POCT GLUCOSE - SAXENA DOCKED DEVICE Routine 09/26/2024 5:22 AM TOY TRAINS AND ACCESSORIES SALESPERSON POCT GLUCOSE - SAXENA DOCKED DEVICE Routine 09/25/2024 8:10 PM TOY TRAINS AND ACCESSORIES SALESPERSON POCT GLUCOSE - SAXENA DOCKED DEVICE Routine 09/25/2024 11:31 AM TOY TRAINS AND ACCESSORIES SALESPERSON BASIC METABOLIC PANEL Routine 09/25/2024 6:28 AM TOY TRAINS AND ACCESSORIES SALESPERSON CBC W/DIFF AUTOMATED Routine 09/25/2024 6:28 AM TOY TRAINS AND ACCESSORIES SALESPERSON POCT GLUCOSE - SAXENA DOCKED DEVICE Routine 09/25/2024 6:00 AM TOY TRAINS AND ACCESSORIES SALESPERSON POCT GLUCOSE - SAXENA DOCKED DEVICE Routine 09/24/2024 8:01 PM TOY TRAINS AND ACCESSORIES SALESPERSON POCT GLUCOSE - SAXENA DOCKED DEVICE Routine 09/24/2024 3:25 PM TOY TRAINS AND ACCESSORIES SALESPERSON POCT GLUCOSE - SAXENA DOCKED DEVICE Routine 09/24/2024 11:50 AM TOY TRAINS AND ACCESSORIES SALESPERSON BASIC METABOLIC PANEL Routine 09/24/2024 8:07 AM TOY TRAINS AND ACCESSORIES SALESPERSON CBC W/DIFF AUTOMATED Routine 09/24/2024 8:07 AM TOY TRAINS AND ACCESSORIES SALESPERSON POCT GLUCOSE - SAXENA DOCKED DEVICE Routine 09/24/2024 6:01 AM TOY TRAINS AND ACCESSORIES SALESPERSON POCT GLUCOSE - SAXENA DOCKED DEVICE Routine 09/23/2024 8:01 PM TOY TRA[employer] AND ACCESSORIES SALESPERSON POCT GLUCOSE - SAXENA DOCKED DEVICE Routine 09/23/2024 3:37 PM TOY TRAINS AND ACCESSORIES SALESPERSON CULTURE, WOUND, W/GRAM STAIN Routine 09/23/2024 12:59 PM TOY TRAINS AND ACCESSORIES SALESPERSON POCT GLUCOSE - SAXENA DOCKED DEVICE Routine 09/23/2024 11:37 AM TOY TRA[employer] AND ACCESSORIES SALESPERSON MAGNESIUM Routine 09/23/2024 6:36 AM TOY TRA[employer] AND ACCESSORIES SALESPERSON BASIC METABOLIC PANEL Routine 09/23/2024 6:36 AM TOY TRA[employer] AND ACCESSORIES SALESPERSON CBC W/DIFF AUTOMATED Routine 09/23/2024 6:36 AM TOY TRAINS AND ACCESSORIES SALESPERSON POCT GLUCOSE - SAXENA DOCKED DEVICE Routine 09/23/2024 5:46 AM TOY TRAINS AND ACCESSORIES SALESPERSON POCT GLUCOSE - SAXENA DOCKED DEVICE Routine 09/23/2024 12:19 AM TOY TRAINS AND ACCESSORIES SALESPERSON URINE BACTERIA CULTURE STAT 09/22/2024 8:50 PM TOY TRAINS AND ACCESSORIES SALESPERSON HC URINALYSIS AUTO W/O MICRO STAT 09/22/2024 8:11 PM TOY TRAINS AND ACCESSORIES SALESPERSON LACTIC ACID W REFLEX (SEPSIS) TIMED 09/22/2024 7:52 PM TOY TRAINS AND ACCESSORIES SALESPERSON CT ABD+PEL W CON STAT 09/22/2024 6:59 PM TOY TRAINS AND ACCESSORIES SALESPERSON THYROXINE, FREE (FT4) STAT 09/22/2024 5:38 PM TOY TRAINS AND ACCESSORIES SALESPERSON THYROID STIM HORMONE TSH STAT 09/22/2024 5:38 PM TOY TRAINS AND ACCESSORIES SALESPERSON TSH W/REFLEX STAT 09/22/2024 5:38 PM TOY TRAINS AND ACCESSORIES SALESPERSON LACTIC ACID W REFLEX (SEPSIS) STAT 09/22/2024 5:38 PM TOY TRAINS AND ACCESSORIES SALESPERSON COMPREHENSIVE METABOLIC PANEL STAT 09/22/2024 5:38 PM TOY TRAINS AND ACCESSORIES SALESPERSON CBC W/DIFF AUTOMATED STAT 09/22/2024 5:38 PM TOY TRAINS AND ACCESSORIES SALESPERSON ECG 12-LEAD Routine 09/22/2024 5:34 PM TOY TRAINS AND ACCESSORIES SALESPERSON XR CHEST PORTABLE STAT 09/22/2024 5:2 4 PM TOY TRAINS AND ACCESSORIES SALESPERSON OUTSIDE LAB (SCAN ORDER) Routine 05/25/2023 LIPID PANEL Routine 07/27/2022 3:46 PM [employer] TRA[employer] AND ACCESSORIES SALESPERSON Mixed hyperlipidemia OCCULT BLOOD, FECES Routine 11/12/2021 1 2:00 AM CDT HEPATITIS C ANTIBODY Routine 08/18/2021 7:04 PM TOY TRAINS AND ACCESSORIES SALESPERSON DILATED EYE EXAM (SCAN) Routine 09/02/2018 from Last 3 Months or Most Recently Relevant to Health Maintenance Results * (ABNORMAL) BASIC METABOLIC PANEL (09/27/2024 6:26 AM TO[employer] TRA[employer] ACCESSORIES SALESPERSON) Only the most recent of5 resultswithin the time period is included. GLUCOSE 183(H) 70 - 99 MG/DL 09/27/2024 7:12 AM [facility] BUN 12 7 - 18 MG/DL 09/27/2024 7:12 AM [facility] CREATININE S/P/B 0.89 0.7 - 1.3 MG/DL 09/27/2024 7:12 AM [facility] SODIUM S/P/B 136 136 - 145 MMOL/L 09/27/2024 7:12 AM [facility] POTASSIUM S/P/B 3.8 3.5 - 5.1 MMOL/L 09/27/2024 7:12 AM [facility] CHLORIDE S/P/B 106 97 - 115 MMOL/L 09/27/2024 7:12 AM [facility] CO2 23.0 21 - 32 MMOL/L 09/27/2024 7:12 AM [facility] CALCIUM S/P/B 9.2 8.5 - 10.1 MG/DL 09/27/2024 7:12 AM [facility] ANION GAP 7.0 2 - 10 MMOL/L 09/27/2024 7:12 AM [employer] SALESPERSON [facility] BUN CREATININE RATIO 13.5 6 - 26 09/27/2024 7:12 AM [employer] AND ACCESSORIES SALESPERSON [facility] GFR ESTIMATE >90 >90 ML/MIN/1.7 3 M2 09/27/2024 7:12 AM [employer] TRA[employer] AND ACCESSORIES SALESPERSON [facility] Comment: NOTE: eGFR is not calculated for patients <18 years of age or gender unknown. This is an estimated GFR calculation using the new CKD EPI creatinine equation without race and so does not require a correction factor for race. This estimated GFR should not be used for calculating drug doses. 09/27/2024 6:26 AM [employer] ACCESSORIES SALESPERSON us Juana Jordan MD LABORATORY Final Res ult [facility] [address] [place] [address], * (ABNORMAL) POCT glucose (09/26/2024 11:38 AM [employer] ACCESSORIES SALESPERSON) Only the most recent of14 resultswithin the time period is included. Pathologist [facility] GLUCOSE POC 171(H) 70 - 99 mg/dL 09/26/2024 11:45 AM [employer] AND ACCESSORIES SALESPERSON [facility] 09/26/2024 11:3 8 AM [employer] ACC[employer] SALESPERSON Juana Jordan MD POCT ORDERABLES - DEVICE Final Result [facility] [address] [place] [id number], [place] [phone] * (ABNORMAL) CBC W/DIFF AUTOMATED (09/26/2024 6:49 AM [employer] ACCESSORIES SALESPERSON) Only the most recent of5 resultswithin the time period is included. WBC 4.69 4.5 - 11.0 x10'3/uL 09/26/2024 7:23 AM [facility] RBC 3.33(L) 4.70 - 6.10 x10'6/uL 09/26/2024 7:23 AM [facility] HGB 10.0(L) 14.0 - 18.0 G/DL 09/26/2024 7:23 AM [facility] HCT 30.4(L) 43.0 - 54.0 % 09/26/2024 7:23 AM [facility] MCV 91.3 80.0 - 94.0 FL 09/26/2024 7:23 AM [facility] MCH 30.0 27.0 - 31.0 PG 09/26/2024 7:23 AM [facility] MCHC 32.9 32.0 - 36.0 G/DL 09/26/2024 7:23 AM [facility] RDW 15.0(H) 11.5 - 14.5 % 09/26/2024 7:23 AM [facility] PLT 181 130 - 400 x10'3/uL 09/26/2024 7:23 AM [facility] MPV 9.8 9.3 - 12.2 FL 09/26/2024 7:23 AM [facility] DIFFERENTIAL TYPE AUTOMATED DIFFERENTIAL 09/26/2024 7:23 AM [facility] NEUTROPHILS % 65.4 % 09/26/2024 7:23 AM [facility] LYMPHOCYTES % 20.3 % 09/26/2024 7:23 AM [facility] MONOCYTES % 7.5 % 09/26/2024 7:23 AM [facility] EOSINOPHILS 5.8 % 09/26/2024 7:23 AM [facility] BASOPHILS 0.4 % 09/26/2024 7:23 AM [facility] IMMATURE GRANS % 0.6 % 09/26/19 7:23 AM [facility] ABS. NEUTROPHILS 3.07 1.80 - 7.70 x10'3/uL 09/26/2024 7:23 AM [facility] ABS. LYMPHOCYTES 0.95(L) 1.00 - 4.80 x10'3/uL 09/26/2024 7:23 AM [facility] ABS. MONOCYTES 0.35 0.30 - 0.82 x10'3/uL 09/26/2024 7:23 AM [facility] ABS. EOSINOPHILS 0.27 0.04 - 0.54 x10'3/uL 09/26/2024 7:23 AM [facility] ABS. BASOPHILS 0.02 0.01 - 0.08 x10'3/uL 09/26/2024 7:23 AM [facility] ABS. IMMATURE GRANULOCYTES 0.03 0.00 - 0.49 x10'3/uL 09/26/2024 7:23 AM [facility] 09/26/2024 6:49 AM [employer] SALESPERSON Juana Jordan MD LABORATORY Final Res ult [facility] [address] [place] [address], * (ABNORMAL) CULTURE, WOUND, W/GRAM STAIN (09/23/2024 12:59 PM [employer] SALESPERSON) SPEC DESCRIPTION SITE: JOHNATHON MCKEON 09/23/2024 12:59 PM [facility] SPECIAL REQUESTS NO SPECIAL REQUEST 09/23/2024 12:59 PM [facility] GRAM STAIN RESULT NO WHITE BLOOD CELLS SEEN 09/23/2024 5:04 PM [facility] GRAM STAIN RESULT NO ORGANISMS SEEN 09/23/2024 5:04 PM [facility] CULTURE RESULT SPARSE GROWTH OF METHICILLIN RESISTANT STAPHYLOCOCCUS AUREUS FOLLOW ISOLATION PROTOCOL. (AA) 09/26/2024 8:24 AM [facility] CULTURE RESULT CALLED TO AND REPEATED BACK BY MATTHEW BARRIGA RN AT 0824 ON 09/26/24 STEVE 09/26/2024 8:24 AM [facility] SPECIMEN FROM UNSPECIFIED BODY SITE / Unknown 09/23/2024 12:59 PM [employer] SALESPERSON 09/23/2024 1:00 PM [employer] SALESPERSON Comment:JOHNATHON MCKEON Narrative Organism Antibiotic Method Susceptibility Methicillin resistant staphylococcus aureus CLINDAMYCIN DUNCAN (VITEK) <=0.25: Sensitive Methicillin resistant staphylococcus aureus ERYTHROMYCIN DUNCAN ([facility]ITEK) >=8: Resistant Methicillin resistant staphylococcus aureus OXACILLIN DUNCAN ([facility]) >=4: Resistant Methicillin resistant staphylococcus aureus TRIMETH-SULFAMETH. DUNCAN ([facility]ITE[facility]) >=320: Resistant Methicillin resistant staphylococcus aureus TETRACYCLINE DUNCAN ([facility]) <=1: Sensitive Methicillin resistant staphylococcus aureus VANCOMYCIN DUNCAN ([facility]ITEK) 1: Sensitive Juana Jordan MD MICROBIOLOGY - GENERAL OR DERABLES Final Result [facility] [address] [place] [address], [place] [phone] * (ABNORMAL) MAGNESIUM (09/23/2024 6:36 AM [employer] SALESPERSON) MAGNESIUM 1.3(L) 1.8 - 2.4 MG/DL 09/23/2024 9:00 AM [employer] TRA[employer] AND ACCESSORIES SALESPERSON [facility] 09/23/2024 6:36 AM [employer] TRA[employer] ACCESS[employer] SALESPERSON Juana Jordan MD LABORATORY Final Res ult [facility] [address] [place] [address], [place] [phone] * URINE BACTERIA CULTURE (09/22/2024 8:50 PM [employer] TRA[employer] ACCESSORIES SALESPERSON) SPEC DESCRIPTION URINE CLEAN CATCH 09/22/2024 8:50 PM [employer] TRA[employer] AND ACCESSORIES SALESPERSON [facility] SPECIAL REQUESTS NO SPECIAL REQUEST 09/22/2024 8:50 PM [employer] TRA[employer] ACCESSORIES SALESPERSON [facility] CULTURE RESULT NO GROWTH 2 DAYS 09/25/2024 7:57 AM [employer] ACCESSORIES SALESPERSON [facility] URINE SPECIMEN OBTAINED BY CLEAN CATCH PROCEDURE / Unknown 09/22/2024 8:50 PM [employer] ACC[employer] SALESPERSON 09/22/2024 9:47 PM [employer] ACC[employer] SALESPERSON Lianna Luis MD MICROBIOLOGY - GENERAL ORDERABL ES Final Result Performing Organization Address [facility]/ZIP Co de Phone Number [facility] [address] [place] [address], [place] [phone] * (ABNORMAL) URINALYSIS (09/22/2024 8:11 PM [employer] ACC[employer] SALESPERSON) SPECIMEN TYPE URINE CLEAN CATCH 09/22/2024 8:11 PM TO[employer] TRA[employer] AND ACCESSORIES SALESPERSON [facility] COLOR (U) LIGHT YELLOW 09/22/2024 8:33 PM [employer] ACCESSORIES SALESPERSON [facility] TRANSPARENCY CLEAR 09/22/2024 8:33 PM TO[employer] TRA[employer] ACCESSORIES SALESPERSON [facility] SPECIFIC GRAVITY (U) 1.028 1.001 - 1.030 09/22/2024 8:33 PM [employer] ACCESSORIES SALESPERSON [facility] U PH 5.5 5.0 - 9.0 09/22/2024 8:33 PM TOY TRA[employer] AND ACCESSORIES SALESPERSON [facility] LEUKOCYTES (U) 500(A) NEGATIVE 09/22/2024 8:33 PM TOY TRA[employer] AND ACCESSORIES SALESPERSON [facility] NITRITES NEGATIVE NEGATIVE 09/22/2024 8:33 PM [facility] PROTEIN RANDOM (U) NEGATIVE <30 MG/DL 09/22/2024 8:33 PM [employer] ACCESSORIES SALESPERSON [facility] GLUCOSE (U) NORMAL NORMAL MG/DL 09/22/2024 8:33 PM TOY TRA[employer] AND ACCESSORIES SALESPERSON [facility] KETONES MG/DL (U) NEGATIVE NEGATIVE MG/DL 09/22/2024 8:33 PM [employer] TRA[employer] ACCESSORIES SALESPERSON [facility] UROBILINOGEN NORMAL NORMAL MG/DL 09/22/2024 8:33 PM [facility] BILIRUBIN (U) NEGATIVE NEGATIVE MG/DL 09/22/2024 8:33 PM [employer] ACCESSORIES SALESPERSON [facility] BLOOD (U) 1+(A) NEGATIVE 09/22/2024 8:33 PM [employer] ACCESSORIES SALESPERSON [facility] MUCUS RARE /LPF 09/22/2024 8:33 PM [facility] WBC/HPF 11(H) <6 /HPF 09/22/2024 8:33 PM [employer] ACC[employer] SALESPERSON [facility] RBC/HPF 2 <6 /HPF 09/22/2024 8:33 PM [employer] ACCESSORIES SALESPERSON [facility] SQUAMOUS EPITHELIALS FEW /HPF 09/22/2024 8:33 PM [employer] ACCESSORIES SALESPERSON [facility] URINE SPECIMEN OBTAINED BY CLEAN CATCH PROCEDURE / Unknown 09/22/2024 8:11 PM [employer] SALESPERSON Kain Lee MD URINE ORDERABLES Final Result [facility] [address] [place] [address], [place] [phone] * LACTIC ACID W REFLEX (SEPSIS) (09/22/2024 7:52 PM [employer] ACCESS[employer]IES SALESPERSON) Only the most recent of2 resultswithin the time period is included. LACTIC ACID VENOUS 1.9 0.4 - 2.0 MMOL/L 09/22/2024 8:27 PM [employer] ACCESSORIES SALESPERSON [facility] 09/22/2024 7:52 PM [employer] ACCESS[employer] SALESPERSON Kain Lee MD LABORATORY Final R esult [facility] [address] [place] [address], [place] [phone] * CT ABD+PEL W IV CON ONLY (09/22/2024 6:59 PM [employer]ESS[employer] SALESPERSON) Anatomical Region Laterality Modality Abdomen Computed Tomogra phy 09/22/2024 7:03 PM [employer] ACC[employer] SALESPERSON Impressions 09/22/2024 7:11 PM [employer] TRA[employer] ACCESSORIES SALESPERSON IMPRESSION: 1. No CT evidence of bowel obstruction or acute appendicitis. 2. Moderate fecal burden within the colon, which can be seen with constipation. 3. CT findings suggestive of mesenteric panniculitis. 4. Status post cholecystectomy. 5. Hepatosplenomegaly of uncertain etiology. Of note, splenomegaly has progressed when compared to prior exam. Ordered By: LIANNA LUIS Interpreted By: Kira Jacobson MD, 09/22/2024 7:03 PM Narrative 09/22/2024 7:11 PM TO[employer] TRA[employer] ACCESSORIES SALESPERSON [facility] [address] [place], [place] [address] PROCEDURE: CT ABD+PEL W CON HISTORY: Abdominal pain. TECHNIQUE: Helical CT of the abdomen and pelvis was performed using non-ionic intravenous contrast. No oral contrast administered. A dose lowering technique was used for this procedure, which may include, but is not limited to, dose reduction technique, automated exposure control, the use of iterative reconstruction, and ALARA (As Low As Reasonably Achievable) / Image Gently techniques. COMPARISON: CT abdomen pelvis with contrast, 03/08/2023. FINDINGS CT ABDOMEN/PELVIS: Lower thorax: There is subsegmental atelectasis in the lower lobes. The heart is normal in size. Liver: The liver is enlarged measuring up to 17.4 cm in the critical dimension.. There is no intrahepatic mass. Diffuse hepatic steatosis. Biliary tree: The patient is post cholecystectomy. There is no biliary ductal dilatation. Spleen: The spleen is enlarged measuring up to 17.8 cm in the craniocaudal dimension, previously measuring up to 14.4 cm.. Pancreas: The pancreas is normal in size and enhances homogenously. Adrenal glands: The adrenal glands are normal in size and shape. Kidneys: There are bilateral symmetric nephrograms without hydronephrosis. There is a 9 mm nonobstructing right renal stone. Lymph nodes: Abdomen: There is no abdominal adenopathy. Pelvis: There is no pelvic adenopathy. Vasculature: There is no abdominal aortic aneurysm. Atherosclerotic calcification is seen. Peritoneum/mesentery/omentum: There is no free fluid or free air. CT findings suggestive of mesenteric panniculitis. GI tract: There is no bowel obstruction. There is a moderate fecal burden within the colon, which can seen with constipation. The appendix normal. Pelvic urogenital structures:The bladder is grossly unremarkable. The prostate is present. Body wall: There are degenerative changes in the spine. No aggressive osseous lesions identified. Thompson: (S/I) = series number / image number Procedure Note Kira Jacobson MD - 09/22/[address] [address] PROCEDURE: CT ABD+PEL W CON HISTORY: Abdominal pain. TECHNIQUE: Helical CT of the abdomen and pelvis was performed usingnon-ionic intravenous contrast. No oral contrast administered. A dose lowering technique was used for this procedure, which may include,but is not limited to, dose reduction technique, automated exposurecontrol, the use of iterative reconstruction, and ALARA (As Low AsReasonably Achievable) / Image Gently techniques. COMPARISON: CT abdomen pelvis with contrast, 03/08/2023. FINDINGS CT ABDOMEN/PELVIS: Lower thorax: There is subsegmental atelectasis in the lower lobes. Theheart is normal in size. Liver: The liver is enlarged measuring up to 17.4 cm in the criticaldimension.. There is no intrahepatic mass. Diffuse hepatic steatosis. Biliary tree: The patient is post cholecystectomy. There is no biliaryductal dilatation. Spleen: The spleen is enlarged measuring up to 17.8 cm in the craniocaudaldimension, previously measuring up to 14.4 cm.. Pancreas: The pancreas is normal in size and enhances homogenously. Adrenal glands: The adrenal glands are normal in size and shape. Kidneys: There are bilateral symmetric nephrograms withouthydronephrosis. There is a 9 mm nonobstructing right renal stone. Lymph nodes: Abdomen: There is no abdominal adenopathy. Pelvis: There is no pelvic adenopathy. Vasculature: There is no abdominal aortic aneurysm. Atheroscleroticcalcification is seen. Peritoneum/mesentery/omentum: There is no free fluid or free air. CTfindings suggestive of mesenteric panniculitis. GI tract: There is no bowel obstruction. There is a moderate fecal burdenwithin the colon, which can seen with constipation. The appendix normal. Pelvic urogenital structures:The bladder is grossly unremarkable. Theprostate is present. Body wall: There are degenerative changes in the spine. No aggressiveosseous lesions identified. Thompson: (S/I) = series number / image number IMPRESSION: 1. No CT evidence of bowel obstruction or acute appendicitis. 2. Moderate fecal burden within the colon, which can be seen withconstipation. 3. CT findings suggestive of mesenteric panniculitis. 4. Status post cholecystectomy. 5. Hepatosplenomegaly of uncertain etiology. Of note, splenomegaly hasprogressed when compared to prior exam. Ordered By: LIANNA LUIS Interpreted By: Kira Jacobson MD, 09/22/2024 7:03 PM us Lianna Luis MD CT Final Result * (ABNORMAL) TSH W/REFLEX (09/22/2024 5:38 PM [employer] SALESPERSON) TSH 4.360(H) 0.358 - 3.74 uIU/ML 09/22/2024 6:24 PM [employer] ACCESSORIES SALESPERSON [facility] Comment: HIGH DOSES OF BIOTIN MAY INTERFERE WITH THIS TEST RESULT. CORRELATION TO CLINICAL HISTORY AND PRESENTATION RECOMMENDED. 09/22/2024 5:38 PM [employer] ACCESS[employer] SALESPERSON Kain Lee MD LABORATORY Final R esult [facility] [address] [place] [address], [place] [phone] * (ABNORMAL) COMPREHENSIVE METABOLIC PANEL (09/22/2024 5:38 PM [employer] SALESPERSON) GLUCOSE 143(H) 70 - 99 MG/DL 09/22/2024 6:24 PM TO[employer] TRA[employer] AND ACCESSORIES SALESPERSON [facility] BUN 14 7 - 18 MG/DL 09/22/2024 6:24 PM [facility] CREATININE S/P/B 1.15 0.7 - 1.3 MG/DL 09/22/2024 6:24 PM [facility] SODIUM S/P/B 136 136 - 145 MMOL/L 09/22/2024 6:24 PM [facility] POTASSIUM S/P/B 3.1(L) 3.5 - 5.1 MMOL/L 09/22/2024 6:24 PM [facility] CHLORIDE S/P/B 101 97 - 115 MMOL/L 09/22/2024 6:24 PM [employer] ACCESSORIES SALESPERSON [facility] CO2 31.0 21 - 32 MMOL/L 09/22/2024 6:24 PM [facility] CALCIUM S/P/B 9.1 8.5 - 10.1 MG/DL 09/22/2024 6:24 PM [facility] BILIRUBIN TOTAL S/P/B 0.5 0.2 - 1.2 MG/DL 09/22/2024 6:24 PM [facility] Comment: THIS ASSAY IS NOT RECOMMENDED FOR PATIENTS UNDERGOING TREATMENT WITH ELTROMBOPAG DUE TO THE POTENTIAL FOR FALSELY ELEVATED RESULTS. TOTAL PROTEIN S/P/B 7.3 6.4 - 8.2 G/DL 09/22/2024 6:24 PM [facility] ALBUMIN S/P/B 2.9(L) 3.4 - 5.0 G/DL 09/22/2024 6:24 PM [facility] AST 41(H) 15 - 37 U/L 09/22/2024 6:24 PM [facility] ALT 30 16 - 60 U/L 09/22/2024 6:24 PM [facility] ALKALINE PHOSPHATASE S/P/B 62 50 - 136 U/L 09/22/2024 6:24 PM [facility] ANION GAP 4.0 2 - 10 MMOL/L 09/22/2024 6:24 PM [facility] BUN CREATININE RATIO 12.2 6 - 26 09/22/2024 6:24 PM [facility] A/G RATIO 0.7(L) 1.0 - 2.0 RATIO 09/22/2024 6:24 PM [facility] GFR ESTIMATE 68(L) >90 ML/MIN/1.7 3 M2 09/22/2024 6:24 PM [facility] Comment: NOTE: eGFR is not calculated for patients <18 years of age or gender unknown. This is an estimated GFR calculation using the new CKD EPI creatinine equation without race and so does not require a correction factor for race. This estimated GFR should not be used for calculating drug doses. 09/22/2024 5:38 PM TO[employer] TRA[employer] ACCESSORIES SALESPERSON Kain Lee MD LABORATORY Final R esult Performing Organization Address [facility] Co de Phone Number [facility] [address] [place] [address], * THYROXINE, FREE (FT4) (09/22/2024 5:38 PM TO[employer] TRA[employer] ACCESSORIES SALESPERSON) FREE T4 1.22 0.76 - 1.46 NG/DL 09/22/2024 6:18 PM [employer] TRA[employer] AND ACCESSORIES SALESPERSON [facility] 09/22/2024 5:38 PM [employer] TRA[employer] AND ACCESSORIES SALESPERSON Lianna Luis MD LABORATORY Final Result Performing Organization Address [facility] de Phone Number [facility] [address] [place] [address], * (ABNORMAL) THYROID STIM HORMONE TSH (09/22/2024 5:38 PM TO[employer] TRA[employer] ACCESSORIES SALESPERSON) TSH 4.270(H) 0.358 - 3.74 uIU/ML 09/22/2024 6:18 PM TOY TRAINS AND ACCESSORIES SALESPERSON [facility] Comment: HIGH DOSES OF BIOTIN MAY INTERFERE WITH THIS TEST RESULT. CORRELATION TO CLINICAL HISTORY AND PRESENTATION RECOMMENDED. 09/22/2024 5:38 PM [employer] TRA[employer] ACCESSORIES SALESPERSON Lianna Luis MD LABORATORY Final Result Performing Organization Address [facility] Co de Phone Number [facility] [address] [place] [address], * ECG 12 lead (09/22/2024 5:34 PM TO[employer] TRA[employer] ACCESSORIES SALESPERSON) 09/22/2024 5:34 PM TO[employer] TRAINS AND ACCESSORIES SALESPERSON Narrative [facility] - 09/23/2024 7:29 AM TOY TRAINS AND ACCESSORIES SALESPERSON [facility] Test Date: 2024-09-22 Pat Name: DENA HOANG Department: 41 Room: B442 Gender: Male Utilization Review Specialist: : [id number] Requested By: KAIN LEE Order Number: [id number] Reading MD: Mike Massey Measurements Intervals Bandy Rate: 107 P: 47 PA: 205 QRS: 16 QRSD: 103 T: 31 QT: 334 QTc: 447 Interpretive Statements SINUS TACHYCARDIA POSSIBLE ANTERIOR MYOCARDIAL INFARCTION [30 ms Q WAVE IN V3/V4, OR R < 0.2 mV IN V4], PROBABLY OLD ABNORMAL RHYTHM ECG Compared to ECG 03/21/2023 18:10:21 Myocardial infarct finding now present Sinus tachycardia now present TRAINS AND ACCESSORIES SALESPERSON Procedure Note Mike Massey MD - 09/23/2024 [facility] [address] [place] [address] Test Date: 2024-09-22 Pat Name: DENA HOANG Department: 41 Room: B442 Gender: Male Utilization Review Specialist: : [id number] Requested By: KAIN LEE Order Number: [id number] Reading MD: Mike Massey Measurements Intervals Bandy Rate: 107 P: 47 PA: 205 QRS: 16 QRSD: 103 T: 31 QT: 334 QTc: 447 Interpretive Statements SINUS TACHYCARDIA POSSIBLE ANTERIOR MYOCARDIAL INFARCTION [30 ms Q WAVE IN V3/V4, OR R < 0.2mV IN V4], PROBABLY OLD ABNORMAL RHYTHM ECG Compared to ECG 03/21/2023 18:10:21 Myocardial infarct finding now present Sinus tachycardia now present TRAINS AND ACCESSORIES SALESPERSON us Kain Lee MD ECG ORDERABLES Final R esult [facility] RAD * XR CHEST PORTABLE (09/22/2024 5:24 PM TO[employer] TRA[employer] ACCESSORIES SALESPERSON) Anatomical Region Laterality Modality Chest Radiographic Lexie ging 09/22/2024 5:56 PM TO[employer] TRA[employer] AND ACCESSORIES SALESPERSON Impressions 09/22/2024 6:01 PM TOY TRAINS AND ACCESSORIES SALESPERSON =====IMPRESSION:===== 1. Mild pulmonary vascular congestion. 2. No consolidation or effusion. Ordered By: KAIN LEE Interpreted By: Mando Saha MD, 09/22/2024 5:56 PM Narrative 09/22/2024 6:01 PM TOY TRA[employer] ACCESSORIES SALESPERSON [place] [address] Examination: Chest x-ray 1 view Exam date/time: 09/22/2024 5:15 PM Reason For Exam: Generalized weakness Comparison: 03/08/2023 Findings: Cardiac size is within normal limits. Pulmonary vessels are prominent and indistinct. Mild bilateral interstitial opacities, likely minimal edema. No acute airspace consolidation, pleural effusion or pneumothorax. Degenerative changes are noted. Procedure Note Mando Saha MD - 09/22/[address] [address] Examination: Chest x-ray 1 view Exam date/time: 09/22/2024 5:15 PM Reason For Exam: Generalized weakness Comparison: 03/08/2023 Findings: Cardiac size is within normal limits. Pulmonary vessels areprominent and indistinct. Mild bilateral interstitial opacities, likelyminimal edema. No acute airspace consolidation, pleural effusion orpneumothorax. Degenerative changes are noted. =====IMPRESSION:===== 1. Mild pulmonary vascular congestion. 2. No consolidation or effusion. Ordered By: KAIN LEE Interpreted By: Mando Saha MD, 09/22/2024 5:56 PM us Kain Lee MD GENERAL IMAGING Final R esult * OUTSIDE LAB (SCAN) (05/25/2023) HGB A1C 6.7 % HS ONBASE 05/25/2023 [facility] Scanned SCANNING Final Resu lt HS ONBASE * LIPID PANEL (07/27/2022 3:46 PM TO[employer] TRA[employer] ACCESSORIES SALESPERSON) CHOLESTEROL 154 <200.0 MG/DL 07/27/2022 8:11 PM [facility] TRIGLYCERIDES 97 <150 MG/DL 07/27/2022 8:11 PM [facility] HDL 52 >40.0 MG/DL 07/27/2022 8:11 PM [facility] LDL (CALCULATED) 83 <100 MG/DL 07/27/20 8:11 PM [facility] NON HDL CHOLESTEROL 102 <130 MG/DL 07/27 8:11 PM [facility] CHOL/HDL RATIO 3.0 0.0 - 4.5 07/27/2022 8:11 PM [facility] VLDL CALCULATION 19 5 - 55 MG/DL 07/27/2022 8:11 PM [facility] LIPID INTERPRETATION 07/27/2022 8:11 PM [facility] Comment: [facility] REPORT RECOMMENDATIONS: ADULT CHILD LOW RISK: CHOLESTEROL <200 <170 TRIGLYCERIDE <150 --- HDL >=60 --- LDL <100 <110 BORDERLINE: CHOLESTEROL 200-239 170-199 TRIGLYCERIDE 150-199 --- HDL 40-59 --- LDL 100-159 110-129 HIGH RISK: CHOLESTEROL >=240 >=200 TRIGLYCERIDE >=200 --- HDL <40 --- LDL >=160 >=130 07/27/2022 3:46 PM TO[employer] ACCESSORIES SALESPERSON Bri Mcclain MD LABORATORY Final Result Performing Organization Address City/[facility]/ZIP Co de Phone Number [facility] [address] [place] [address], [place] [phone] * OCCULT BLOOD, FECES (11/12/2021 12:00 AM CDT) OCCULT BLOOD FECAL NEGATIVE 11/12/2021 8:54 AM CDT [facility] STOOL SPECIMEN / Unknown 11/12/2021 Helen Gan MD BODY FLUIDS AND STOOLS ORDERABL ES Final Result Performing Organization Address [facility] Co de Phone Number [facility] [address] [place] [address], [place] [phone] * HEPATITIS C ANTIBODY (08/18/2021 7:04 PM [employer] ACCESSORIES SALESPERSON) HEPATITIS C AB NON-REACTI VE NON-REACT DAISHA 08/18/2021 8:36 PM TOY TRAINS AND ACCESSORIES SALESPERSON [facility] Comment: ANTIBODIES TO HCV NOT DETECTED. DOES NOT EXCLUDE THE POSSIBILITY OF EXPOSURE TO HCV. 08/18/2021 7:04 PM TOY TRA[employer] AND ACCESSORIES SALESPERSON us Velia PADRON LABORATORY Final Res ult Performing Organization Address City/[facility]/ZIP Co de Phone Number [facility] [address] [place] [address], [place] [phone] * DILATED EYE EXAM (09/02/2018) us Documents Scanned SCANNING Final Result from Last 3 Months or Most Recently Relevant to Health Maintenance Additional Health Concerns Infection Onset Date Last Indicated MRSA Comment:+ MRSA nares 11/14/2020 (KB) 07/07/21 +MRSA Blood 07/08/21 Nares (SB) 07/11/21 right ankle (SB) 03/08/23 nares (JK) 09/23/24 right pannus 06/04/2017 09/23/2024 Insurance MEDICARE [facility] Advance Directives * Full Code (Latest Code Status on File) Date Activated Date Inactivated Comments 09/22/2024 9:08 PM 09/27/2024 12:11 PM * Full Code Date Activated Date Inactivated Comments 03/29/2023 11:00 AM 09/22/2024 5:04 PM * Full Code Date Activated Date Inactivated Comments 03/21/2023 11:00 PM 03/23/2023 10:18 PM * Full Code Date Activated Date Inactivated Comments 03/19/2023 1:32 PM 03/19/2023 3:59 PM * Full Code Date Activated Date Inactivated Comments 03/18/2023 11:02 AM 03/19/2023 1:28 PM Care Teams Senior Automation Engineer Relationship Specialty Start Date End Date None, Provider, PCP - General UNKNOWN PHYSICIAN SPECIALTY 09/22/24 Bri Mcclain MD INTERNAL MEDICINE 12/31/20 Lencho Lopes MD [address] [address] Physician INTERVENTIONAL CARDIOLOGY 08/07/21
--- OUTSIDE RECORDS SUMMARY | 2024-11-06 10:45 | XMS_ITS ---
Author Organization [facility] Address [address] [address] Care Team Providers Care Systems Architect Name Role Phone GregFelix roa Primary Care Provider Leon Washburn Unavailable [phone] REASON FOR VISIT Pump not working Encounters Encounter Location Date Provider Diagnosis [facility] [address] [facility] [address] [place] [address] 11/01/2024 Leon Peoples Plan Of Treatment Next Appt Details Provider Name:Adeel carias, 02/13/2025 11:30:00 AM, [address], [facility] [address], [place], [address], Progress Notes * DENA VARMA NDOB:1955 (68 yo M)Acc No.[id number]:11/01/2024 Patient: Simon ENZO, DENA Mchugh :1955 A ge:68 Y S ex:Male Address:[facility] [place], [address] * true * Date: Generated for Printi ng/Faxing/eTransmitting on: 0 11/06/2024 10:44 AM CDT
--- OUTSIDE RECORDS SUMMARY | 2024-11-06 10:45 | XMS_ITS | Encounter Summary ---
Author Organization [facility] Address [facility] [place] [address] Care Team Providers Care Case Work Aide Name Role Phone Bri Mcclain MD Primary Care Provider + [phone] Bri Mcclain MD Primary Care Provider + [phone] Bri Mcclain MD Unavailable [phone] Regina Liu RN Unavailable [phone] Lencho Lopes MD Unavailable [phone] Abraham Dwyer DO Unavailable Sakina Zamarripa APPRENTICE PAINTER NECKTIES Unavailable Mindy Barragan APPRENTICE PAINTER NECKTIES Unavailable [phone] Kayla Judd RN Unavailable [phone] Kayla Judd RN Unavailable [phone] Mark Pierre MD Primary Care Provider [phone] None, Provider Primary Care Provider Unavaila ble Encounter Details Date Type Department Care Team (Late st Contact Info) Description 06/26/2017 Abstract [place] [address] , Generic Conversion, Social History Tobacco Use Types Packs/Day Years Used Date Smoking Tobacco: Never Assessed Sex and Gender Information Value Date Recorded Sex Assigned at Male 09/22/2024 5:17 PM MANAGER PEDIATRIC Legal Sex Male 6:34 PM CDT Gender [...] C. difficile 12/31/2020 12/31/2020 07/09/2021 3:59 PM MANAGER PEDIATRIC COVID-19 Rule Out 08/05/2021 08/06/2021 08/06/2021 11:00 AM MANAGER PEDIATRIC COVID-19 Rule Out 08/22/2021 08/22/2021 08/22/2021 10:37 AM MANAGER PEDIATRIC COVID-19 Rule Out 09/05/2021 09/05/2021 09/05/2021 7:59 AM MANAGER PEDIATRIC COVID-19 Confirmed Comment:In collaboration with Dr. Goodwin patient cleared from COVID-19 isolation per [facility] guidelines ([place]) 09/05/2021 09/05/2021 09/16/2021 10:57 AM MANAGER PEDIATRIC documented as of this encounter Care Teams Case Work Aide Relationship Specialty Start Date End Date Bri Mcclain MD PCP - General INTERNAL MEDICINE 06/08/18 12/30/20 Bri Mcclain MD PCP - General INTERNAL MEDICINE 12/31/20 10/12/22 [place] [address] [place] [address] PCP - General FAMILY PRACTICE 10/13/22 05/25/23 None, Provider, PCP - General UNKNOWN PHYSICIAN SPECIALTY 09/22/24 Bri Mcclain MD INTERNAL MEDICINE 12/31/20 Regina Liu, RN [address] [place] [address] Software Project Lead (Ambulatory) REGISTERED NURSE 07/08/21 11/17/21 Lencho Lopes MD [address], [place] [address] [place] [address] Physician INTERVENTIONAL CARDIOLOGY 08/07/21 Abraham Dwyer DO [address], [place] [address] [place] [address] Consulting Physician INTERNAL MEDICINE 09/17/21 2 Sakina Zamarripa NP [address], [place] [address] [place] [address] Nurse Practitioner Nurse Practitioner Family 09/17/21 01/04/22 Mindy Barragan NP [address], [place] [address] [place] [address] [id number] Nurse Practitioner NURSE PRACTITIONER 09/17/21 01/04/22 Kayla Judd RN [address] [place] [address] Software Project Lead (Ambulatory) REGISTERED NURSE 11/10/21 11/17/21 Kayla Judd RN [address] [place] [address] Software Project Lead (Ambulatory) REGISTERED NURSE 11/18/21 01/28/22 documented as of this encounter
--- OUTSIDE RECORDS SUMMARY | 2024-11-06 10:45 | XMS_ITS ---
Author Organization [facility] Address [address] [address] Care Team Providers Care Youth Specialist Name Role Phone Vickeyerica Felix Primary Care Provider Leon Washburn Unavailable [phone] Yaneth Rivas Unavailable [phone] Allergies Allergen (clinical drug ingredient) Drug/Non Drug Allergy documented on EMR Reaction Allergy Type Onset Date Status metformin metFORMIN HCl ER GI side effects Drug Allergy Active semaglutide Ozempic (0.25 or 0.5 MG/DOSE) abdominal pain Drug Allergy Active REASON FOR VISIT Medtronic/ Dexcom on phone, Diabetes Type II Medications Medication SIG (Take, Route, Frequency, Duration) Notes Start Date End Date Status OneTouch Verio w/Device to test blood sugars In Vitro Three times a day Active OneTouch Verio - as directed In Vitro Three times a day Active Losartan Potassium 25 MG 1 tab(s) orally once a day Active Pen Prospect 31G X 6 MM To inject insulin subcutaneously Five times a day Active Atorvastatin Calcium 80 MG 1 tab(s) orally once a day Active Media ArmorTouch Delica Lancets 33G - to test blood sugars by finger stick Three times a day Active Lantus SoloStar 100 UNIT/ML 45 units am and 20 units pm Subcutaneous daily 01/01/2022 Active Dexcom G6 Sensor - as directed Active HumuLIN R U-500 (CONCENTRATED) 500 UNIT/ML up to 350 units via insulin pump daily Active Dexcom G6 Transmitter - as directed by device every 90 days Active traMADol HCl 50 MG 1 tab Orally Once a day prn pain Active Mounjaro 5 MG/0.5ML 5 mg Subcutaneous on ce a week for 90 days new higher dose Active Dexcom G6 Patient Care Technician Instructor - as directed by device Active Tamsulosin HCl 0.4 MG Oral for 90 Days Active Spironolactone 25 MG 1 tablet Oral once daily Active Levothyroxine Sodium 112 MCG 1 tablet in the morning on an empty stomach Orally Once a day for 30 day(s) Active Esomeprazole Magnesium 40 MG 1 capsule Orally Once a day for 30 day(s) Active Potassium Chloride 10 MEQ 1 packet with food Orally Twice a day Active Famotidine 20 MG 1 tablet at bedtime as needed Orally Twice a day Active hydrALAZINE HCl 50 MG Oral Active Docusate Sodium 100 MG 1 capsule as need ed Orally Once a day Active dilTIAZem HCl 30 MG 1 tab Orally Three times a day Active Eliquis 5 MG 1 tablet Orally Twic e a day for 30 day(s) Active Metoprolol Tartrate 50 MG 1 tablet with food Orally Twice a day Active Bumetanide 2 MG 1 tab(s) orally once a day Active Vital Signs Height 73 in 11/01/2024 Blood pressure systolic 130 mm Hg 11/02/19 25 Blood pressure diastolic 78 mm Hg 025 Encounters Encounter Location Date Provider Diagnosis [facility] [address] [facility] [address] [place] [address] 11/01/2024 Yaneth Rivas Type 2 diabetes mellitus with hyperglycemia E11.65 ; Type 2 diabetes mellitus with diabetic polyneuropathy E11.42 ; Essential (primary) hypertension I10 ; Mixed hyperlipidemia E78.2 ; Charcot's arthropathy associated with type 2 diabetes mellitus E11.610 ; Morbid (severe) obesity due to excess calories E66.01 ; 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 TBD 4.8 u/day, bolus: 16-17 unitsBG target 100-100, 6 hours. - - - - - - - - - - - - - - -Dexcom Clarity- - - - - - - - - - - - - - -Dena Hoang Date of : 1955 Generated at: Nov 01, 2024 9:27 AM CDT Reporting period: WedSep 11, 2024 - WedNov 01, 2024- - - - - - - - - - - - - - -Glucose Details Average glucose: 193 mg/dL GMI: 7.9% Standard deviation: 58 mg/dL Coefficient of Variation: 30.4%- - - - - - - - - - - - - - -Time in Range Very High: 16% High: 44% In Range: 39% Low: 1% Very Low: <1% Target [id number] mg/dL - - - - - - - - - - - - - - -Sensor usage Days with data: Time active: 93% Avg. calibrations per day: 0.0- - - - - - - - - - - - - - -Insulin (daily averages) Long-acting / Fast-acting ratio: 0% / 100% Long-acting / Fast-acting ratio: 0.0 units / 0.1 units Total daily dose: 0.1 units/day # Fast-acting doses/day: 1.0 doses/day - - - - - - - - - - - - - - - Old records reviewed Apr 2024: Advised to take insulin 1 hr before meals. Has PP hyperglycemia. Dexcom reviewed GMI 9.9 Increase Bolus 15 units AC Start Metformin 1-4 tabs a day as tolerated Aug 2024: did not tolerate Ozempic or Metformin due to GI side effects,discuss ed increase bolus to 20 units for some meals try Mounjaro if covered he is eating too much and too many processed carbs discussed healthy diet in detail, given handouts as well he is getting steroid shots every 3 months in knees October 2024: Reviewed Dexcom, 60 day GMI is better at 7.9% pp hyperglycemia sometimes hypoglycemia in middle of night due to give too much for late night bolus Increase Mounjaro 5 mg weekly No changes to pump settings 11/01/2024 Type 2 diabetes mellitus with diabetic polyneuropathy (ICD-10 - E11.42) Stable, foot care instructions given 11/01/2024 Essential (primary) hypertension (ICD-10 - I10) controlled. 2 g sodium diet. Blood pressure goal less than 130/80. 11/01/2024 Mixed hyperlipidemia (ICD-10 - E78.2) COntrolled. LDL goal < 100. 11/01/2024 Charcot's arthropathy associated with type 2 diabetes mellitus (ICD-10 - E11.610) s/p surgery for Charcots foot 11/01/2024 Morbid (severe) obesity due to excess calories (ICD-10 - E66.01) Patient was advised to take to take 500-1000 fewer calories every day to lose 1 pound per week. 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 (ICD-10 - Z79.4) 11/01/2024 Insulin pump status (ICD-10 - Z96.41) Medtronic 11/01/2024 BMI 45.0-49.9, adult (ICD-10 - Z68.42) 11/01/2024 Hypogonadism male (ICD-10 - E29.1) Plan Of Treatment Medication Medication Name Sig Start Date Stop Date Notes OneTouch Verio w/Device to test blood madsen gars In Vitro Three times a day OneTouch Verio - as directed In Vitro Three times a day Losartan Potassium 25 MG 1 tab(s) orally once a day Pen Prospect 31G X 6 MM To inject insulin subcutaneously Five times a day Atorvastatin Calcium 80 MG 1 tab(s) orally once a day OneTouch Delica Lancets 33G - to test blood sugars by finger stick Three times a day Lantus SoloStar 100 UNIT/ML 45 units am and 20 units pm Subcutaneous daily 01/01/2022 Dexcom G6 Sensor - as directed HumuLIN R U-500 (CONCENTRATED) 500 UNIT/ML up to 350 units via insulin pump daily Dexcom G6 Transmitter - as directed by brittani gutierrez every 90 days Mounjaro 5 MG/0.5ML 5 mg Subcutaneous on a week for 90 days new higher dose Dexcom G6 Patient Care Technician Instructor - as directed by device Metoprolol Tartrate 50 MG 1 tablet with food Orally Twice a day Treatment Notes Assessment Notes Type 2 diabetes mellitus with hyperglyce tasha October 2024:U500 in pump, Basal 12 am 0.2 u/hr. TBD 4.8 u/day, bolus: 16-17 unitsBG target 100-100, 6 hours. - - - - - - - - - - - - - - -Dexcom Clarity- - - - - - - - - - - - - - -Dena Hoang Date of : 1955 Generated at: Nov 01, 2024 9:27 AM CDT Reporting period: WedSep 11, 2024 - WedNov 01, 2024- - - - - - - - - - - - - - -Glucose Details Average glucose: 193 mg/dL GMI: 7.9% Standard deviation: 58 mg/dL Coefficient of Variation: 30.4%- - - - - - - - - - - - - - -Time in Range Very High: 16% High: 44% In Range: 39% Low: 1% Very Low: <1% Target [id number] mg/dL - - - - - - - - - - - - - - -Sensor usage Days with data: Time active: 93% Avg. calibrations per day: 0.0- - - - - - - - - - - - - - -Insulin (daily averages) Long-acting / Fast-acting ratio: 0% / 100% Long-acting / Fast-acting ratio: 0.0 units / 0.1 units Total daily dose: 0.1 units/day # Fast-acting doses/day: 1.0 doses/day - - - - - - - - - - - - - - - Next Appt Details Follow Up: 2-3 months, , R jennifer: DMFU, medtronic/dexcom Provider Name:Adeel carias, 02/13/2025 11:30:00 AM, [address] , [address], [address], Progress Notes * DENA HOANG NDOB:1955 (68 yo M)Acc No.[id number]:11/01/2024 [facility] Patient: DENA VARAGS Jeison Provider: Danielle Rivas PA-C :1955 A ge:68 Y S ex:Male Date:11/01/2024 Address:[facility] [address], [place], [id number] Pcp:Felix Jones Subjective: * Chief Complaints: * M edtronic/ Dexcom on phoneDiabetes Type II * HPI: I nterim History: Stable. Denies : Tests/Studies:. Denies : Consultations. Denies : Hospitalizations. Denies : Emergency Department visits. Denies : Medication changes. Denies : History since last visit. Denies : Changes in PMH S alley 0 09/06/24. D iabetes: c/o Diabetes D uration 2 0-30 yrs C urrent Treatment I nsulin, Insulin Pump October 2024:Mounjaro 2.5 mg weekly, [id number] in pump, Basal 12 am 0.2 u/hr. TBD 4.8 u/day,Bolus: 5-15 unitsBG target 100, 6 hours S ensor D excom S MBG 4 x a day I nsulin Pump Y es P ump M edtronic T otal Basal 2 8 E ating Schedule 2 meal D iabetic Complication N europathy H ospital admission for Hyperglycemia and DKA?No E xercise N o H ypoglycemia N o W ork Schedule N ot Working D iabetes ID Bracelet N o D o you check BS before Driving N o E ducation Barriers N one D M management complicated by N oncompliance with Diet, Noncomplaince with Exercise W eight Change S table S tatin therapy A trovastatin 40mg/day A utonomic Neuropathy: Denies : abdominal fullness. Denies : nausea. Denies : vomiting. Denies : urinary problems. Denies : sexual difficulty. Denies : night sweats. Denies : cold feet. Denies : leg swelling. Denies : dizziness. R egistry: FLU Vaccine S tatus N ot received Pneumonia Vaccine D ate 2 015 S tatus R eceived Smoking D ate Assessed 0 12-24-2015 S tatus N ever * ROS: R OS: As in HPI. All other systems negative (see attached history form in progress notes) y es. * Medical History: * Surgical History: G all bladder Neck Back SX L and right * Hospitalization/Major Diagno stic Procedure: s tomach and c diff sepsis also had covid 05/2021-01/2022 * Family History: F ather: diagnosed with CONDITN [facility]. unknown. * Social History: T obacco Use: T obacco Use . * Medications: T akingAtorvastatin Calcium 80 MG Tablet 1 tab(s) orally once a day Bumetanide 2 MG Tablet 1 tab(s) orally once a day Dexcom G6 Patient Care Technician Instructor - Device as directed by device Dexcom G6 Sensor - Miscellaneous as directed Dexcom G6 Transmitter - Miscellaneous as directed by device every 90 days dilTIAZem HCl 30 MG Tablet 1 tab Orally Three times a day Docusate Sodium 100 MG Capsule 1 capsule as needed Orally Once a day Eliquis 5 MG Tablet 1 tablet Orally Twice a day Esomeprazole Magnesium 40 MG Capsule Delayed Release 1 capsule Orally Once a day Famotidine 20 MG Tablet 1 tablet at bedtime as needed Orally Twice a day HumuLIN R U-500 (CONCENTRATED) 500 UNIT/ML Solution up to 350 units via insulin pump daily hydrALAZINE HCl 50 MG Tablet Oral Lantus SoloStar 100 UNIT/ML Solution Pen-injector 45 units am and 20 units pm Subcutaneous daily Levothyroxine Sodium 112 MCG Tablet 1 tablet in the morning on an empty stomach Orally Once a day Losartan Potassium 25 MG Tablet 1 tab(s) orally once a day Metoprolol Tartrate 50 MG Tablet 1 tablet with food Orally Twice a day Mounjaro 2.5 MG/0.5ML Solution Pen-injector 2.5 mg Subcutaneous once a week OneTouch Delica Lancets 33G - Miscellaneous to test blood sugars by finger stick Three times a day OneTouch Verio - Strip as directed In Vitro Three times a day OneTouch Verio w/Device Kit to test blood sugars In Vitro Three times a day Pen Prospect 31G X 6 MM Miscellaneous To inject insulin subcutaneously Five times a day Potassium Chloride 10 MEQ Packet 1 packet with food Orally Twice a day Spironolactone 25 MG Tablet 1 tablet Oral once daily Tamsulosin HCl 0.4 MG Capsule Oral traMADol HCl 50 MG Tablet 1 tab Orally Once a day prn pain Medication List reviewed and reconciled with the patientTaking Atorvastatin Calcium 80 MG Tablet 1 tab(s) orally once a day Taking Bumetanide 2 MG Tablet 1 tab(s) orally once a day Taking Dexcom G6 Patient Care Technician Instructor - Device as directed by device Taking Dexcom G6 Sensor - Miscellaneous as directed Taking Dexcom G6 Transmitter - Miscellaneous as directed by device every 90 days Taking dilTIAZem HCl 30 MG Tablet 1 tab Orally Three times a day Taking Docusate Sodium 100 MG Capsule 1 capsule as needed Orally Once a day Taking Eliquis 5 MG Tablet 1 tablet Orally Twice a day Taking Esomeprazole Magnesium 40 MG Capsule Delayed Release 1 capsule Orally Once a day Taking Famotidine 20 MG Tablet 1 tablet at bedtime as needed Orally Twice a day Taking HumuLIN R U-500 (CONCENTRATED) 500 UNIT/ML Solution up to 350 units via insulin pump daily Taking hydrALAZINE HCl 50 MG Tablet Oral Taking Lantus SoloStar 100 UNIT/ML Solution Pen-injector 45 units am and 20 units pm Subcutaneous daily Taking Levothyroxine Sodium 112 MCG Tablet 1 tablet in the morning on an empty stomach Orally Once a day Taking Losartan Potassium 25 MG Tablet 1 tab(s) orally once a day Taking Metoprolol Tartrate 50 MG Tablet 1 tablet with food Orally Twice a day Taking Mounjaro 2.5 MG/0.5ML Solution Pen-injector 2.5 mg Subcutaneous once a week Taking Wochit Delica Lancets 33G - Miscellaneous to test blood sugars by finger stick Three times a day Taking OneTouch Verio - Strip as directed In Vitro Three times a day Taking Wochit Verio w/Device Kit to test blood sugars In Vitro Three times a day Taking Pen Prospect 31G X 6 MM Miscellaneous To inject insulin subcutaneously Five times a day Taking Potassium Chloride 10 MEQ Packet 1 packet with food Orally Twice a day Taking Spironolactone 25 MG Tablet 1 tablet Oral once daily Taking Tamsulosin HCl 0.4 MG Capsule Oral Taking traMADol HCl 50 MG Tablet 1 tab Orally Once a day prn pain Medication List reviewed and reconciled with the patient * Allergies: O zempic (0.25 or 0.5 MG/DOSE): abdominal pain - Side EffectsmetFORMIN HCl ER: GI side effects - Side Effectsno[Allergies Verified] Objective: * Vitals: W t: Not Taken - Declined by Patient, BMI: Not Taken - Declined by Patient, Ht: 73 in, BP:130/78mm Hg, HR: 78 /min. * Examination: G eneral Examination: General Appearance: W ell developed and well- nourished, NAD. Skin: N o rash or skin lesions. HEENT: R t eye blind,. Oral Cavity N ormal, moist mucus membranes. Neck, Thyroid : S upple, no thyromegaly, no lymphadenopathy, no JVD, no carotid bruit. Heart: R RR, normal S1S2, no murmur, rub, or gallop. Lungs: C lear to auscultation bilaterally, no wheezes, rhonchi, or rales. Abdomen: S oft, NT/ND, BS present, no guarding or rebound, no masses palpated, no hepatosplenomegaly. Extremities: N o clubbing, cyanosis, or edema, pulses 2+ bilaterally. Neurologic Exam: N on-focal exam, CN's II-XII grossly intact. Diabetic Foot Exam V isual Inspection E xam Performed : Yes D ate: 0 11/01/2024 N ails N ormal S kin N ormal P ulses N ormal V ibration R educed M onofilament N ormal F ootwear Evaluation Performed Y es I mages 0 11/01/2024 right foot swollen s/p 3 surgeriesleft foot missing 1 toe s/p amputation Opthamology Referral R etinal Screening Performed: Y es F indings of Diabetic Eye Exam: n o retinopathy S pecialty of provider who performed eye exam?Quebracho Tanner P kay Performed: N o D iabetic Retinopathy Screening Y es P rocedure Performed Y es D ate 0 -2024 Advised to check yearly, W earing a left knee brace and a right leg brace for walking, using a wheel chair. * Physical Examination: Assessment: * Assessment: 1. T ype 2 diabetes mellitus with hyperglycemia - E11.65 (Primary) 2 . T ype 2 diabetes mellitus with diabetic polyneuropathy - E11.42 3 . E ssential (primary) hypertension - I10 4 . M ixed hyperlipidemia - E78.2 5 . Charcot's arthropathy associated with type 2 diabetes mellitus - E11.610 6 . M orbid (severe) obesity due to excess calories - E66.01 7 . L la term (current) use of insulin - Z79.4 8 . I nsulin pump status - Z96.41 9 . BMI 45.0-49.9, adult - Z68.42 1 0. H ypogonadism male - E29.1 ? Plan: * Treatment: 2. T ype 2 diabetes mellitus with diabetic polyneuropathy Clinical Notes:Stable, foot care instructions given 3. E ssential (primary) hypertension Continue Losartan Potassium Tablet, 25 MG, 1 tab(s), orally, once a day; C ontinue Metoprolol Tartrate Tablet, 50 MG, 1 tablet with food, Orally, Twice a day. Clinical Notes: controlled. 2 g sodium diet. Blood pressure goal less than 130/80. 4. M ixed hyperlipidemia Continue Atorvastatin Calcium Tablet, 80 MG, 1 tab(s), orally, once a day. Clinical Notes:COntrolled. LDL goal < 100. 5. C harcot's arthropathy associated with type 2 diabetes mellitus Clinical Notes:s/p surgery for Charcots foot 6. M orbid (severe) obesity due to excess calories Clinical Notes:Patient was advised to take to take 500-1000 fewer calories every day to lose 1 pound per week. 7. I nsulin pump status Clinical Notes:Medtronic * Procedure Codes: * Preventive Medicine: Counseling: C suzanne BMI Management Y es Above Normal BMI Follow-up D ietary management education, guidance, and counseling Below Normal BMI Follow-up L ifestyle education regarding diet B P Management: PHYSICAL ACTIVITY RECOMMENDATION: R ecommendation to exercise WEIGHT REDUCTION RECOMMENDATION: T arget weight discussed PRE-HYPERTENSIVE FOLLOW-UP PLAN: F ollow-up 1 week FIRST HYPERTENSIVE BP READING FOLLOW-UP PLAN: F ollow-up 1 week LIFESTYLE RECOMMENDATION: H ypertension education * Follow Up: 2 -3 months, (Reason: DMFU, medtronic/dexcom) * Billing Information: * Visit Code: [id number] Office Visit with Modifier. Modifiers: [id number] [facility]. * Procedure Codes: Care Plan Details* * Sign off status: Completed true * Provider: Danielle Rivas PA-C Date: 0 11/01/2024 Generated for Robert arnett/Anabell/eTransmitting on: 0 11/06/2024 10:44 AM CDT History and Physical Notes * HPI (History of Present Illness) Category Sub-Category Detail Notes Category Not es Interim History Tests/Studies: Consultations Hospitalizations Emergency Department visits Changes in PMH Since 09/06/24 History since last visit Medication changes Diabetes Diabetes Duration: 20-30 yrs Current Treatment: Insulin, Insulin Pump October 2024: Mounjaro 2.5 mg weekly, tolerating U500 in pump, Basal 12 am 0.2 u/hr. TBD 4.8 u/day, Bolus: 5-15 units BG target 100, 6 hours Sensor: Dexcom SMB x a day Insulin Pump: Yes Pump: Medtronic Total Basal: 28 Eating Schedule: 2 meal Diabetic Complication: Neuropathy Hospital admission for Hyper glycemia and DKA: No Exercise: No Hypoglycemia: No Work Schedule: Not Working Diabetes ID Bracelet: No Do you check BS before Driving: No Education Barriers: None DM management complicated by : Noncompliance with Diet, Noncomplaince with Exercise Weight Change: Stable Statin therapy: Atrovastatin 40mg/day Autonomic Neuropathy abdominal fullness nausea vomiting urinary problems sexual difficulty night sweats cold feet leg swelling dizziness Registry FLU Vaccine Status: Not received Pneumonia Vaccine Date: 2014 Status: Received Smoking Date Assessed: 12-24-2015 Status: Never Examination Category Sub-Category Detail Notes Category Not es General Examination HEENT: Rt eye blind, Wearin g a left knee brace and a right leg brace for walking, using a wheel chair Neck, Thyroid : Supple, no thyromega ly, no lymphadenopathy, no JVD, no carotid bruit Heart: RRR, normal S1S2, no murmur, rub, or gallop Lungs: Clear to auscultatio n bilaterally, no wheezes, rhonchi, or rales Abdomen: Soft, NT/ND, BS pres ent, no guarding or rebound, no masses palpated, no hepatosplenomegaly Extremities: No clubbing, cyanosi s, or edema, pulses 2+ bilaterally General Appearance: Well developed and w ell- nourished, NAD Skin: No rash or skin lesi ons Neurologic Exam: Non-focal exam, CN's II-XII grossly intact Oral Cavity Normal, moist mucus membranes Diabetic Foot Exam Visual Inspection: Exam Perfo rmed : Yes Date:: 11/01/2024 Nails: Normal Skin: Normal Pulses: Normal Vibration: Reduced Monofilament: Normal Footwear Evaluation Performed: Yes Images: 11/01/2024 right foot swollen s/p 3 surgeries left foot missing 1 toe s/p amputation Opthamology Referral Retinal Screening Performed :: Yes Findings of Diabetic Eye Exam:: no retin opathy Specialty of provider who pe rformed eye exam: Quebracho Tanner Procedure Performed:: No Diabetic Retinopathy Screening: Yes Procedure Performed: Yes Date: Advised to check jo-ann wade
--- NOTE | 2024-11-06 11:59 | ED_ITS ---
HPI - General Adult General Chief complaint: Upper Respiratory Infection Stated complaint: Cough Time Seen by Provider: 11/06/24 09:29 History of Present Illness HPI narrative: Patient is a 68-year-old male who presents to the ER with cough ongoing for several weeks. Nonproductive. Increased dyspnea and low O2 today. No fevers. Patient lives in a care facility some multiple people are sick around him. Related Data Home Medications ?Medication ?Instructions ?Recorded ?Confirmed ?Last Taken ?Type multivit with minerals-iron 18 1 tablet PO DAILY 01/26/23 06/01/24 Unknown History mg-folic ac 400 mcg-vit K 25 mcg tablet (Adults Multivitamin) acetaminophen 500 mg capsule 500 mg PO Q6H PRN Pain, Moderate 05/25/23 06/01/24 Unknown History bimatoprost 0.01 % eye drops 1 drp EACH EYE DAILY 05/25/23 06/01/24 Unknown History blood-glucose meter (OneTouch 05/25/23 06/01/24 Unknown History Verio Flex Meter) insulin syringe-needle U-100 1 mL 05/25/23 06/01/24 Unknown History 31 gauge x 5/16 (BD Insulin Syringe Ultra-Fine) docusate sodium 100 mg capsule 100 mg PO BID PRN Constipation 10/28/23 06/01/24 Unknown History losartan 25 mg tablet 25 mg PO DAILY 10/29/23 06/01/24 Unknown History blood-glucose sensor (Dexcom G6 06/08/24 Unknown History Sensor device) insulin glargine 100 unit/mL (3 See Rx Instructions .Route .COMPLEX 06/08/24 Unknown History mL) subcutaneous pen (Lantus Solostar U-100 Insulin) insulin regular hum U-500 conc 500 350 unit subcut .via insulin pump 06/08/24 Unknown History unit/mL subcutaneous soln (Humulin QD R U-500 (Concentrated) Insulin) lancets 33 gauge 06/08/24 Unknown History semaglutide 1 mg/dose (2 mg/1.5 0.5 mg subcut WEEKLY 06/08/24 Unknown History mL) subcutaneous pen injector Allergies Allergy/AdvReac Type Severity Reaction Status Date / Time metformin Allergy Mild Rash Verified 11/06/24 09:22 morphine AdvReac Unknown CONFUSION Verified 11/06/24 09:22 Review of Systems 2 Review of Systems: All systems reviewed & are unremarkable except as noted in HPI and below Constitutional: Constitutional: Reports no additional constitutional complaints ENT: Reports system reviewed and no additional complaints, except as documented Cardiovascular: Cardiovascular: Reports no additional cardiovascular complaints Respiratory: Respiratory: Reports no additional respiratory complaints [facility] Past Medical History Medical History (Updated 11/06/24 @ 12:31 by Morris Orlando MD) Unsteady gait Venous stasis Follow up Chronic cough Vitamin D deficiency Encounter for Medicare annual wellness exam Hypokalemia Impaired functional mobility, balance, gait, and endurance Epistaxis DJD (degenerative joint disease), multiple sites Morbid obesity DJD (degenerative joint disease) Lymphedema Mild reactive airways disease PVD (peripheral vascular disease) Pedal edema Rash Essential hypertension Hypothyroidism (acquired) Decubitus ulcer Hypersomnolence Encounter to establish care On long-term drug therapy Postoperative wound dehiscence Pain due to internal orthopedic prosthetic devices, implants and grafts, initial encounter (08/26/17) Non-pressure chronic ulcer of other part of right foot limited to breakdown of skin Right foot pain Other chronic pain Fungal infection right foot Obesity, morbid, BMI 40.0-49.9 Occult blood in stools Acute on chronic anemia Chronic anemia Hyperlipidemia Pneumonia BPH (benign prostatic hyperplasia) Obstructive sleep apnea Glaucoma Chronic a-fib Right knee DJD Left knee DJD Type 2 diabetes mellitus with diabetic neuropathy, unspecified Venous stasis of both lower extremities BMI greater than 40 Degenerative joint disease of knee Vision abnormalities Diabetes 1.5, managed as type 2 Left knee pain Surgical History Surgical History History of skin graft History of arthroplasty of left knee Hx of cholecystectomy H/O cataract extraction History of foot surgery Family History Family History Mother Breast cancer Dementia Father Diabetes mellitus Malignant neoplasm of prostate Dementia Other Family history of malignant neoplasm Social History Social History Social History: the patient lives with his and they have no children. He is retired from [employer]. Code status full code Smoking status: Never smoker Alcohol intake: never Substance use: never Substance use type: does not use Lack of Transportation: No Lack of Food: Never True Current Housing: I Have Housing Concerned About Future Housing: Decline to Answer Difficulty Paying Gas/Electric Bills: Decline to Answer Difficulty Paying for Meds: Decline to Answer Currently Unemployed: Decline to Answer Education: Decline to Answer Difficulty w/ Childcare or Family Care: Decline to Answer Gender identity (if verbalized by the patient): Male Spiritual care concerns: No Exam 2 Narrative: GENERAL: Chronically ill-appearing, morbidly obese, and in no acute distress. HEAD: Normocephalic, atraumatic. ENT: Mucous membranes moist. CHEST: Right-sided rhonchi and wheezing, very faint rhonchi on the left. No respiratory distress. HEART: Regular rate and rhythm. Normal peripheral pulses. ABDOMEN: Soft, nontender, nondistended. EXTREMITIES: Normal range of motion. 1+ edema. SKIN: Warm, dry, no rash. NEURO: Alert and oriented x3. PSYCH: Normal mood and affect. Course Course Emergency Course: Patient had wheezing that cleared with breathing treatment. He is on room air and is not hypoxic. He feels well enough to go home will honor that request. Those likely atelectasis or viral pneumonia will place him on oral antibiotics out of caution. We will also give him albuterol for the facility. Vital Signs Vital signs: Vital Signs Temperature 97.8 F 11/06/24 09:17 Pulse Rate 94 11/06/24 09:17 Respiratory Rate 16 11/06/24 09:17 Blood Pressure 152/113 H 11/06/24 09:17 Pulse Oximetry 98 11/06/24 09:17 Oxygen Delivery Room Air 11/06/24 09:17 Temperature 97.8 F 11/06/24 09:17 Pulse Rate 90 11/06/24 11:10 Respiratory Rate 20 11/06/24 11:10 Blood Pressure 143/66 H 11/06/24 11:10 Pulse Oximetry 98 11/06/24 11:10 Oxygen Delivery Room Air 11/06/24 09:52 Fraction of Inspired Oxygen 21 11/06/24 09:52 Medical Decision Making Vital Signs Vital Signs: Vital Signs Temperature 97.8 F 11/06/24 09:17 Pulse Rate 94 11/06/24 09:17 Respiratory Rate 16 11/06/24 09:17 Blood Pressure 152/113 H 11/06/24 09:17 Pulse Oximetry 98 11/06/24 09:17 Oxygen Delivery Room Air 11/06/24 09:17 Temperature 97.8 F 11/06/24 09:17 Pulse Rate 90 11/06/24 11:10 Respiratory Rate 20 11/06/24 11:10 Blood Pressure 143/66 H 11/06/24 11:10 Pulse Oximetry 98 11/06/24 11:10 Oxygen Delivery Room Air 11/06/24 09:52 Fraction of Inspired Oxygen 21 11/06/24 09:52 Lab Data 11/06/24 09:56 11/06/24 09:56 Labs: Lab Results 11/06/24 11/06/24 Range/Units 09:22 09:56 WBC 2.2 L (4.5-10.0) K/mm3 RBC 3.22 L (4.6-6.20) M/mm3 Hgb 9.4 L (14.0-18.0) g/dL Hct 28.5 L (42.0-52.0) % MCV 88.5 (80-100) fl MCH 29.2 (26-34) pg MCHC 33.0 (32-36) g/dl RDW 14.8 H (11.5-14.5) % Plt Count 219 (150-375) k/mm3 MPV 9.1 (7.4-10.4) fl Immature Gran % (Auto) 0.9 H (0-0.5) % Neut % (Auto) 36.8 L (45.5-73.1) % Lymph % (Auto) 40.9 (18.3-44.2) % Baca % (Auto) 19.5 H (2.6-8.5) % Eos % (Auto) 1.4 (0-4.4) % Baso % (Auto) 0.5 (0.2-1.2) % Lymph # (Auto) 0.90 (0.9-3.2) K/mm3 Baca # (Auto) 0.4 (0.1-0.6) K/mm3 Eos # (Auto) 0.0 (0-0.3) K/mm3 Baso # (Auto) 0.0 (0.0-0.1) K/mm3 Abs Immat Gran (auto) 0.02 (0.00-0.031) K/mm3 Absolute Neuts (auto) 0.8 L (1.3-6.7) K/mm3 Absolute Nucleated RBC 0.000 (0.0-0.012) K/mm3 Band Neutrophils % Not Reportable Nucleated RBC % 0.0 (0.0-0.2) % Platelet Estimate Adequate (Adequate) Hypochromasia 1+ Ovalocytes 1+ Schistocytes None seen Sodium 133 L (137-145) mmol/L Potassium 4.5 (3.4-5.0) mmol/L Chloride 98 (98-107) mmol/L Carbon Dioxide 28 (22-30) mmol/L Anion Gap 7 (4-12) mmol/L BUN 17 (9-20) mg/dL Creatinine 0.89 (0.7-1.3) mg/dL Estim Creat Clear Calc 109 ml/min Estimated GFR > 60 (59 - ) Glucose 114 H (65-110) mg/dL Calcium 9.2 (8.4-10.2) mg/dL Total Bilirubin 0.7 (0.2-1.3) mg/dL AST 50 (17-59) U/L ALT 54 H (6-50) U/L Alkaline Phosphatase 90 (38-126) U/L Total Protein 8.0 (6.3-8.2) g/dL Albumin 3.8 (3.5-5.1) g/dL Influenza A (RT-PCR) Negative (Negative) Influenza B (RT-PCR) Negative (Negative) RSV (RT-PCR) Positive A (Negative) SARS-CoV-2 RNA (RT-PCR) Negative (Negative) Discharge Plan Discharge Clinical Impression: Pneumonia, Respiratory syncytial virus (RSV) Patient Disposition: Home, Self-Care Condition: Stable Instructions: Pneumonia (ED), RSV (Respiratory Syncytial Virus) Infection (ED) Additional Instructions: Please return to the emergency department if you develop severe and persistent chest pain, difficulty breathing, dizziness, leg swelling or if you are coughing up blood as these can be signs of a medical emergency. Please call your doctor for a follow up appointment to determine the need for further testing. Patient Language: Hungarian Prescriptions: New azithromycin 250 mg tablet See Rx Instructions .ROUTE .COMPLEX Qty: 6 0RF Rx Instructions: take 500 mg today (day 1), then 250 mg for 4 days (days 2-5) albuterol sulfate 90 mcg/actuation HFA aerosol inhaler 2 puff inhalation QID PRN (Reason: shortness of breath or wheezing) Qty: 8.5 0RF amoxicillin-pot clavulanate 875-125 mg tablet 1 tablet PO Q12H Qty: 10 0RF No Action acetaminophen 500 mg capsule 500 mg PO Q6H PRN (Reason: Pain, Moderate) bimatoprost 0.01 % drops 1 drp EACH EYE DAILY (DME) insulin syringe-needle U-100 [BD Insulin Syringe Ultra-Fine] 1 mL 31 gauge x 5/16 syringe See Rx Instructions .Route Rx Instructions: As directed (DME) blood-glucose meter [[employer] Verio Flex meter] [facility] See Rx Instructions .Route Rx Instructions: As directed nystatin-triamcinolone 100,000-0.1 unit/g-% cream 1 applic topical TID Qty: 60 5RF cyclobenzaprine 5 mg tablet 5 mg PO Q12H Qty: 30 0RF docusate sodium 100 mg capsule 100 mg PO BID PRN (Reason: Constipation) nystatin 100,000 unit/gram powder 1 applic topical TID Qty: 60 3RF Adults Multivitamin 18 mg iron-400 mcg-25 mcg Tablet 1 tablet PO DAILY cholecalciferol (vitamin D3) 50 mcg (2,000 unit) capsule 50 mcg PO DAILY Qty: 30 2RF bumetanide 2 mg tablet 2 mg PO BID Qty: 180 0RF fluticasone propionate 220 mcg/actuation HFA aerosol inhaler 2 puff INHALATION Q12H Qty: 12 2RF losartan 25 mg tablet 25 mg PO DAILY brimonidine 0.2 % drops 1 drp EACH EYE Q12H Qty: 5 0RF dorzolamide-timolol 22.3-6.8 mg/mL drops 1 drp EACH EYE Q12H Qty: 10 0RF Rx Instructions: 30 day supply (DME) Wheelchair XL See Rx Instructions .Route .MEDSUPPLY Qty: 1 0RF Rx Instructions: As directed atorvastatin 40 mg tablet 40 mg PO DAILY Qty: 90 0RF tamsulosin 0.4 mg capsule See Rx Instructions .ROUTE .COMPLEX Qty: 90 1RF Dose Instruction: Take 1 capsule by mouth once daily Rx Instructions: Take 1 capsule by mouth once daily Eliquis 5 mg tablet 5 mg PO BID Qty: 180 2RF (DME) Electric Wheel Chair See Rx Instructions .Route .MEDSUPPLY Qty: 1 0RF Rx Instructions: Electric Wheel Chair for Indoor Use spironolactone 25 mg tablet See Rx Instructions .ROUTE .COMPLEX Qty: 60 2RF Dose Instruction: Take 1 tablet by mouth twice daily Rx Instructions: Take 1 tablet by mouth twice daily hydralazine 50 mg tablet 50 mg PO TID Qty: 90 4RF metoprolol succinate 50 mg tablet extended release 24 hr See Rx Instructions .ROUTE .COMPLEX Qty: 90 0RF Dose Instruction: Take 1 tablet by mouth once daily Rx Instructions: Take 1 tablet by mouth once daily levothyroxine 112 mcg tablet See Rx Instructions .ROUTE .COMPLEX Qty: 30 2RF Dose Instruction: Take 1 tablet by mouth once daily Rx Instructions: Take 1 tablet by mouth once daily (DME) [employer] G6 Sensor Device See Rx Instructions .ROUTE Rx Instructions: As directed Humulin R U-500 (Conc) Insulin 500 unit/mL solution 350 unit subcut .via insulin pump QD insulin glargine [Lantus Solostar U-100 Insulin] 100 unit/mL (3 mL) insulin pen See Rx Instructions .ROUTE .COMPLEX Rx Instructions: 45 units in the am and 20 units in the pm daily; semaglutide 1 mg/dose (2 mg/1.5 mL) pen injector 0.5 mg SUBCUT WEEKLY (DME) lancets 33 gauge misc See Rx Instructions .ROUTE Patient Comments: One Touch Delica Rx Instructions: As directed benzonatate 200 mg capsule 200 mg PO TID PRN (Reason: cough) Qty: 50 0RF diltiazem HCl 30 mg tablet See Rx Instructions .ROUTE .COMPLEX Qty: 90 1RF Dose Instruction: TAKE 1 TABLET BY MOUTH THREE TIMES DAILY Rx Instructions: TAKE 1 TABLET BY MOUTH THREE TIMES DAILY potassium chloride 10 mEq capsule, extended release See Rx Instructions .ROUTE .COMPLEX Qty: 90 0RF Dose Instruction: Take 1 capsule by mouth once daily Rx Instructions: Take 1 capsule by mouth once daily famotidine 20 mg tablet See Rx Instructions .ROUTE .COMPLEX Qty: 90 0RF Dose Instruction: Take 1 tablet by mouth twice daily Rx Instructions: Take 1 tablet by mouth twice daily hydroxyzine HCl 25 mg tablet See Rx Instructions .ROUTE .COMPLEX Qty: 90 0RF Dose Instruction: TAKE 1 TABLET BY MOUTH 4 TIMES DAILY NEEDED FOR ITCHING Rx Instructions: TAKE 1 TABLET BY MOUTH 4 TIMES DAILY NEEDED FOR ITCHING IRON 65MG TAB See Rx Instructions .ROUTE .COMPLEX Qty: 90 1RF Dose Instruction: Take 1 tablet by mouth once daily Rx Instructions: Take 1 tablet by mouth once daily gabapentin 100 mg capsule 100 mg PO TID Qty: 90 3RF tramadol 50 mg tablet 50 mg PO QID PRN (Reason: pain) Qty: 60 0RF ciprofloxacin-dexamethasone 0.3-0.1 % drops,suspension 4 drp otic (ear) Q12H Qty: 7.5 0RF cefuroxime axetil 500 mg tablet 500 mg PO Q12H Qty: 20 0RF Follow-up/Referrals: Felix Jones MD [Primary Care Provider] - 1 Week
--- NOTE | 2024-11-06 12:09 | PC.NURSE ---
Gave pt crackers and peanut butter, turkey sandwhich, and apple juice. Also requesting something for his headache - Gave pt an ice bag for his head
--- NOTE | 2024-11-06 14:05 | PC.NURSE ---
Report given to [facility] by this RN. All questions answered. [facility] to transport pt. back to [facility].
== END 2024-11-06 14:11 ==
PROVIDERS: Registered Nurse; Emergency Provider Emergency Medicine; PCP Internal Medicine
DX: J18.9 Pneumonia, unspecified organism (principal); B97.4 Respiratory syncytial virus as the cause of diseases classified elsewhere; Z20.822 Contact with and (suspected) exposure to COVID-19; I10 Essential (primary) hypertension; I48.20 Chronic atrial fibrillation, unspecified; J45.909 Unspecified asthma, uncomplicated; E11.39 Type 2 diabetes mellitus with other diabetic ophthalmic complication; H42 Glaucoma in diseases classified elsewhere; E11.40 Type 2 diabetes mellitus with diabetic neuropathy, unspecified; E55.9 Vitamin D deficiency, unspecified; E66.01 Morbid (severe) obesity due to excess calories; Z68.42 Body mass index [BMI] 45.0-49.9, adult; E03.9 Hypothyroidism, unspecified; D64.9 Anemia, unspecified; M17.0 Bilateral primary osteoarthritis of knee; G47.33 Obstructive sleep apnea (adult) (pediatric); Z96.652 Presence of left artificial knee joint; Z90.49 Acquired absence of other specified parts of digestive tract; Z98.49 Cataract extraction status, unspecified eye; Z79.85 Long-term (current) use of injectable non-insulin antidiabetic drugs; Z79.4 Long term (current) use of insulin; Z79.899 Other long term (current) drug therapy; Z79.01 Long term (current) use of anticoagulants
CPT/HCPCS: 36415; 71045; 80053; 85025; 87637; 94640; 99283

== ENCOUNTER 2024-11-06 19:23 | Emergency (ER) | payer MEDICARE, SELFPAY ==
[2024-11-06 19:31] VITALS: BP 141/75; PULSE 118; RESP 20; TEMP 37.1; O2SAT 99
[2024-11-06 19:40] VITALS: RESP 24
--- OUTSIDE RECORDS SUMMARY | 2024-11-06 19:59 | XMS_ITS | Encounter Summary ---
Author Organization [facility] Address [facility] access hospital[address] [place] [address] Care Team Providers Care Patternmaker Plaster Name Role Phone Bri Mcclain MD Primary Care Provider + [phone] Bri Mcclain MD Primary Care Provider + [phone] Bri Mcclain MD Unavailable [phone] Regina Liu RN Unavailable [phone] Lencho Lopes MD Unavailable [phone] Abraham Dwyer DO Unavailable Sakina Zamarripa PLASTICS PATTERNMAKER Unavailable Mindy Barragan PLASTICS PATTERNMAKER Unavailable [phone] Kayla Judd RN Unavailable [phone] Kayla Judd RN Unavailable [phone] Mark Pierre MD Primary Care Provider [phone] None, Provider Primary Care Provider Unavaila ble Reason for Visit * Reason Onset Date Comments Follow Up Call 11/28/2020 Encounter Details Date Type Department Care Team (Late st Contact Info) Description 11/28/2020 Telephone [facility] Med/Surg [address] [place] [address] Alida Becker RN Follow Up [...] week 11/15/2020 How often do you attend [facility] or mu-ism services? Patient declined 11/15/2020 Do you belong to any clubs o r organizations such as religion groups, unions, fraternal or athletic groups, or [...] move on to questions 3-9 0 05/15/2020 [facility] [place] of Occupat ional Health - Occupational Stress [...] Sex Assigned at Male 09/22/2024 5:17 PM DIRECTOR OF EXHIBITS Legal Sex Male 6:34 PM CDT Gender [...] C. difficile 12/31/2020 12/31/2020 07/09/2021 3:59 PM DIRECTOR OF EXHIBITS COVID-19 Rule Out 08/05/2021 08/06/2021 08/06/2021 11:00 AM DIRECTOR OF EXHIBITS COVID-19 Rule Out 08/22/2021 08/22/2021 08/22/2021 10:37 AM DIRECTOR OF EXHIBITS COVID-19 Rule Out 09/05/2021 09/05/2021 09/05/2021 7:59 AM DIRECTOR OF EXHIBITS COVID-19 Confirmed Comment:In collaboration with Dr. Goodwin patient cleared from COVID-[address] [facility] guidelines ([place]) 09/05/2021 09/05/2021 09/16/2021 10:57 AM DIRECTOR OF EXHIBITS documented as of this encounter Care Teams Patternmaker Plaster Relationship Specialty Start Date End Date Bri Mcclain MD PCP - General INTERNAL MEDICINE 06/08/18 12/30/20 Bri Mcclain MD PCP - General INTERNAL MEDICINE 12/31/20 10/12/22 [place] [address] [place] [address] PCP - General FAMILY PRACTICE 10/13/22 05/25/23 None, MD Shay PCP - General UNKNOWN PHYSICIAN SPECIALTY 09/22/24 Bri Mcclain MD INTERNAL MEDICINE 12/31/20 Regina Liu, RN [address] [place], [place] [id number] Technical Services Rep (Ambulatory) REGISTERED NURSE 07/08/21 11/17/21 Lencho Lopes MD [address] [place] [address] [id number] Physician INTERVENTIONAL CARDIOLOGY 08/07/21 Abraham Dwyer DO [address] [place] [address] [id number] Consulting Physician INTERNAL MEDICINE 09/17/21 2 Sakina Zamarripa NP [address] [place] [address] [id number] Nurse Practitioner Nurse Practitioner Family 09/17/21 01/04/22 Mindy Barragan NP [address] [place] [address] [place] [address] Nurse Practitioner NURSE PRACTITIONER 09/17/21 01/04/22 Kayla Judd RN [address] [place] [address] Technical Services Rep (Ambulatory) REGISTERED NURSE 11/10/21 11/17/21 Kayla Judd RN [address] [place] [address] Technical Services Rep (Ambulatory) REGISTERED NURSE 11/18/21 01/28/22 documented as of this encounter
--- OUTSIDE RECORDS SUMMARY | 2024-11-06 19:59 | XMS_ITS | Encounter Summary ---
Author Organization [facility] Address [facility] [place] [address] Care Team Providers Care Mold Maker Name Role Phone Bri Mcclain MD Primary Care Provider + [phone] Bri Mcclain MD Primary Care Provider + [phone] Bri Mcclain MD Unavailable [phone] Regina Liu RN Unavailable [phone] Lencho Lopes MD Unavailable [phone] Abraham Dwyer DO Unavailable Sakina Zamarripa DISTRIBUTION SYSTEMS SUPERINTENDENT Unavailable Mindy Barragan DISTRIBUTION SYSTEMS SUPERINTENDENT Unavailable [phone] Kayla Judd RN Unavailable [phone] Kayla Judd RN Unavailable [phone] Mark Pierre MD Primary Care Provider [phone] None, Provider Primary Care Provider Unavaila ble Encounter Details Date Type Department Care Team (Late st Contact Info) Description 06/26/2017 [place] [address] , Generic Conversion, Social History Tobacco Use Types Packs/Day Years Used Date Smoking Tobacco: Never Assessed Sex and Gender Information Value Date Recorded Sex Assigned at Male 09/22/2024 5:17 PM AUTOMOTIVE MECHANIC Legal Sex Male 6:34 PM CDT Gender [...] C. difficile 12/31/2020 12/31/2020 07/09/2021 3:59 PM AUTOMOTIVE MECHANIC COVID-19 Rule Out 08/05/2021 08/06/2021 08/06/2021 11:00 AM AUTOMOTIVE MECHANIC COVID-19 Rule Out 08/22/2021 08/22/2021 08/22/2021 10:37 AM AUTOMOTIVE MECHANIC COVID-19 Rule Out 09/05/2021 09/05/2021 09/05/2021 7:59 AM AUTOMOTIVE MECHANIC COVID-19 Confirmed Comment:In collaboration with Dr. Goodwin patient cleared from COVID-19 isolation per [facility] guidelines ([place]) 09/05/2021 09/05/2021 09/16/2021 10:57 AM AUTOMOTIVE MECHANIC documented as of this encounter Care Teams Mold Maker Relationship Specialty Start Date End Date Bri Mcclain MD PCP - General INTERNAL MEDICINE 06/08/18 12/30/20 Bri Mcclain MD PCP - General INTERNAL MEDICINE 12/31/20 10/12/22 [place] [address] [place] [address] PCP - General FAMILY PRACTICE 10/13/22 05/25/23 None, Provider, PCP - General UNKNOWN PHYSICIAN SPECIALTY 09/22/24 Bri Mcclain MD INTERNAL MEDICINE 12/31/20 Regina Liu, RN [address] [place] [address] Food Service Aide (Ambulatory) REGISTERED NURSE 07/08/21 11/17/21 Lencho Lopes MD [address], [place] [address] [place] [address] Physician INTERVENTIONAL CARDIOLOGY 08/07/21 Abraham Dwyer DO [address], [place] [address] [place] [address] Consulting Physician INTERNAL MEDICINE 09/17/21 2 Sakina Zamarripa NP [address], [place] [address] [place] [address] Nurse Practitioner Nurse Practitioner Family 09/17/21 01/04/22 Mindy Barragan NP [address], [place] [address] [place] [address] [id number] Nurse Practitioner NURSE PRACTITIONER 09/17/21 01/04/22 Kayla Judd RN [address] [place] [address] Food Service Aide (Ambulatory) REGISTERED NURSE 11/10/21 11/17/21 Kayla Judd RN [address] [place] [address] Food Service Aide (Ambulatory) REGISTERED NURSE 11/18/21 01/28/22 documented as of this encounter
--- OUTSIDE RECORDS SUMMARY | 2024-11-06 19:59 | XMS_ITS | Encounter Summary ---
Author Organization [facility] Address [facility] [place] [address] Care Team Providers Care Design Maker Name Role Phone Bri Mcclain MD Primary Care Provider + [phone] Bri Mcclain MD Primary Care Provider + [phone] Bri Mcclain MD Unavailable [phone] Regina Liu RN Unavailable [phone] Lencho Lopes MD Unavailable [phone] Abraham Dwyer DO Unavailable Sakina Zamarripa STILL TENDER Unavailable Mindy Barragan STILL TENDER Unavailable [phone] Kayla Judd RN Unavailable [phone] Kayla Judd RN Unavailable [phone] Mark Pierre MD Primary Care Provider [phone] None, Provider Primary Care Provider Unavaila ble Encounter Details Date Type Department Care Team (Late st Contact Info) Description 02/16/2014 Abstract [facility] CONVERSION [address] [place] [address] , Generic Conversion, Social History Tobacco Use Types Packs/Day Years Used Date Smoking Tobacco: Never Assessed Sex and Gender Information Value Date Recorded Sex Assigned at Male 09/22/2024 5:17 PM OFFBEARER SEWER PIPE Legal Sex Male 6:34 PM CDT Gender [...] C. difficile 12/31/2020 12/31/2020 07/09/2021 3:59 PM OFFBEARER SEWER PIPE COVID-19 Rule Out 08/05/2021 08/06/2021 08/06/2021 11:00 AM OFFBEARER SEWER PIPE COVID-19 Rule Out 08/22/2021 08/22/2021 08/22/2021 10:37 AM OFFBEARER SEWER PIPE COVID-19 Rule Out 09/05/2021 09/05/2021 09/05/2021 7:59 AM OFFBEARER SEWER PIPE COVID-19 Confirmed Comment:In collaboration with Dr. Goodwin patient cleared from COVID-19 isolation per [facility] guidelines ([place]) 09/05/2021 09/05/2021 09/16/2021 10:57 AM OFFBEARER SEWER PIPE documented as of this encounter Care Teams Design Maker Relationship Specialty Start Date End Date Bri Mcclain MD PCP - General INTERNAL MEDICINE 06/08/18 12/30/20 Bri Mcclain MD PCP - General INTERNAL MEDICINE 12/31/20 10/12/22 [place] [address] [place] [address] PCP - General FAMILY PRACTICE 10/13/22 05/25/23 None, Provider, PCP - General UNKNOWN PHYSICIAN SPECIALTY 09/22/24 Bri Mcclain MD INTERNAL MEDICINE 12/31/20 Regina Liu RN [address] [place] [address] Computer Assembler (Ambulatory) REGISTERED NURSE 07/08/21 11/17/21 Lencho Lopes MD [address], [place] [address] [place] [address] Physician INTERVENTIONAL CARDIOLOGY 08/07/21 Abraham Dwyer DO [address], [place] [address] [place] [address] Consulting Physician INTERNAL MEDICINE 09/17/21 2 Sakina Zamarripa NP [address], [place] [address] [place] [address] Nurse Practitioner Nurse Practitioner Family 09/17/21 01/04/22 Mindy Barragan NP [address], [place] [address] [place] [address] Nurse Practitioner NURSE PRACTITIONER 09/17/21 01/04/22 Kayla Judd RN [address] [place] [address] Computer Assembler (Ambulatory) REGISTERED NURSE 11/10/21 11/17/21 Kayla Judd RN [address] [place] [address] Computer Assembler (Ambulatory) REGISTERED NURSE 11/18/21 01/28/22 documented as of this encounter
--- OUTSIDE RECORDS SUMMARY | 2024-11-06 19:59 | XMS_ITS ---
Author Organization [facility] Care Team Providers Care Frame Cleaner Name Role Phone Mark Pierre Unavailable Unavailable Allergies and adverse reactions No Known Allergies Care Team Name Role Address Phone Organization Dates Mark Pierre PCP [address] [place], [address], [place] (Office): : [facility] 02/05/2023 - 03/05/2023 Immunizations Immunization [...] Concern Status 1 ANESTHESIA OF SKIN 02/06/[address] active 2 ARTHRITIS DUE TO OTHER BACTERIA, UNSPECIFIED ANKLE AND FOOT 02/06/[address] active 3 BENIGN PROSTATIC HYPERPLASIA WITH LOWER URINARY TRACT SYMPTOMS 02/06/[address] active 4 CELLULITIS OF RIGHT LOWER LIMB 02/06/[id number] active 5 DEPENDENCE ON OTHER ENABLING MACHINES AND DEVICES 02/06/[address] active 6 ENDOCRINE DISORDER, UNSPECIFIED 02/06/[address] active 7 ESSENTIAL (PRIMARY) HYPERTENSION 02/06/[address] active 8 GASTRO-ESOPHAGEAL REFLUX DISEASE WITHOUT ESOPHAGITIS 02/06/[address] active 9 HEPATOMEGALY WITH SPLENOMEGALY, NOT ELSEWHERE CLASSIFIED 02/06/[address] active 10 HYPERLIPIDEMIA, UNSPECIFIED 02/06/[address] active 11 HYPOTHYROIDISM, UNSPECIFIED 02/06/[address] active 12 LOCALIZED EDEMA 02/06/[address] active 13 LUMBAGO WITH SCIATICA, UNSPECIFIED SIDE 02/06/[address] active 14 MORBID (SEVERE) OBESITY DUE TO EXCESS CALORIES 02/06/[address] active 15 NON-PRESSURE CHRONIC ULCER OF UNSPECIFIED PART OF UNSPECIFIED LOWER LEG WITH UNSPECIFIED SEVERITY 02/06/[id number] active 16 OBSTRUCTIVE SLEEP APNEA (ADULT) (PEDIATRIC) 02/06/[address] active 17 OTHER CHRONIC OSTEOMYELITIS, RIGHT ANKLE AND FOOT 02/06/[address] active 18 OTHER CHRONIC PAIN 02/06/[address] active 19 OTHER INTERVERTEBRAL DISC DEGENERATION, LUMBOSACRAL REGION 02/06/[address] active 20 PAIN IN RIGHT ANKLE AND JOINTS OF RIGHT FOOT 02/06/[address] active 21 PAROXYSMAL ATRIAL FIBRILLATION 02/06/[address] active 22 PERSONAL HISTORY OF METHICILLIN RESISTANT STAPHYLOCOCCUS AUREUS INFECTION 02/06/[address] active 23 POLYOSTEOARTHRITI S, UNSPECIFIED 02/06/[address] active 24 TYPE 2 DIABETES MELLITUS WITH DIABETIC NEUROPATHIC ARTHROPATHY 02/06/[address] active 25 TYPE 2 DIABETES MELLITUS WITH OTHER SKIN ULCER 02/06/[address] active 26 UNSPECIFIED GLAUCOMA 02/06/[address] active 27 VENOUS INSUFFICIENCY (CHRONIC) (PERIPHERAL) 02/06/[address] active Reason for Referral No Reasons for Referral Entered Social History Social History Observation Description Start Date End Date Code Code System Current Smoking Status Tobacco smoking consumption unknown 516933921 SNOMED CT Sex Assigned At Male 1955 20415-4 [facility] Vital Signs Code Code System Vitals Name Values and Units Timing Information 2339-0 [facility] Blood Sugar Jjihg=864.0 Units=mg/dL 03/05/2023 29017-3 [facility] O2 % BldC Oximetry Value=97.0 Units= % 03/05/2023 28381-8 [facility] Pain Level Value=0.0 03/05/2023 8462-4 [facility] Blood Pressure-Diastolic Value=76 Un its=mmHg 02/24/2023 8480-6 [facility] Blood Pressure-Systolic Ikwyn=346 Un its=mmHg 02/24/2023 9279-1 [facility] Respiratory Rate Value=18.0 Units=/m in 02/24/2023 8310-5 [facility] Body Temperature Value=98.4 Units= F 02/24/2023 8867-4 [facility] Heart rate Value=78.0 Units=/min 12/2022 98754-3 [facility] Weight Mxcce=479.0 Units=Lbs 8302-2 [facility] Height Value=74.0 Units=Inches 02/05/2023
--- OUTSIDE RECORDS SUMMARY | 2024-11-06 19:59 | XMS_ITS | Patient Health Record ---
Author Organization [facility] Address [address] [address] Care Team Providers Care Drapery Hanger Name Role Phone QuanFelix virgen Primary Care Provider UnavailLeon Hoff Unavailable [phone] Yaneth Rivas Unavailable [phone] Adeel Farias Unavailable [phone] Shantal Mercado Unavailable [phone] Allergies Allergen (clinical drug ingredient) Drug/Non Drug Allergy documented on EMR Reaction Allergy Type Onset Date Status metformin metFORMIN HCl ER GI side effects Drug Allergy Active semaglutide Ozempic (0.25 or 0.5 MG/DOSE) abdominal pain Drug Allergy Active Results Component Value Reference Range Notes Hemoglobin A1C Reviewed date:02/07/2024 10:07:01 AM Interpretation:8.6 Performing Lab:[facility], [facility], [address] [place], [address] Keven Glynn MD Notes/Report: PATIENT UNABLE TO VOID; ADVISED TO RETURN FOR COLLECTION. NON-FASTING; NON-FASTING; NON-FASTING Received Date: [id number] HEMOGLOBIN A1c 8.6 <5.7 % of total Hgb For someone without known diabetes, a hemoglobin A1c value of 6.5% or greater indicates that they may have diabetes and this should be confirmed with a follow-up test. For someone with known diabetes, a value <7% indicates that their diabetes is well controlled and a value greater than or equal to 7% indicates suboptimal control. A1c targets should be individualized based on duration of diabetes, age, comorbid conditions, and other considerations. Currently, no consensus exists regarding use of hemoglobin A1c for diagnosis of diabetes for children. This test was performed on the Madeleine brenda c503 platform. Effective 11/08/23, a change in test platforms from the Liriano Teacher Instrumental to the Madeleine brenda c503 may have shifted HbA1c results compared to historical results. Based on laboratory validation testing conducted at [facility] the Madeleine platform relative to the Liriano platform had an average increase in HbA1c value of < or = 0.3%. This difference is within accepted variability established by the National Glycohemoglobin Standardization Program. Note that not all individuals will have had a shift in their results and direct comparisons between historical and current results for testing conducted on different platforms is not recommended. Hemoglobin A1C Reviewed date:02/07/2024 10:07:01 AM Interpretation:8.6 Performing Lab:[facility] [place], [address] [place], [address] Keven Glynn MD Notes/Report: Received Date: [id number] NON-FASTING; NON-FASTING; NON-FASTING PATIENT UNABLE TO VOID; ADVISED TO RETURN FOR COLLECTION. HEMOGLOBIN A1c 8.6 <5.7 % of total Hgb For someone without known diabetes, a hemoglobin A1c value of 6.5% or greater indicates that they may have diabetes and this should be confirmed with a follow-up test. For someone with known diabetes, a value <7% indicates that their diabetes is well controlled and a value greater than or equal to 7% indicates suboptimal control. A1c targets should be individualized based on duration of diabetes, age, comorbid conditions, and other considerations. Currently, no consensus exists regarding use of hemoglobin A1c for diagnosis of diabetes for children. This test was performed on the Madeleine brenda c503 platform. Effective 11/08/23, a change in test platforms from the Liriano Teacher Instrumental to the Madeleine brenda c503 may have shifted HbA1c results compared to historical results. Based on laboratory validation testing conducted at [facility] ([employer] the Madeleine platform relative to the Liriano platform had an average increase in HbA1c value of < or = 0.3%. This difference is within accepted variability established by the National Glycohemoglobin Standardization Program. Note that not all individuals will have had a shift in their results and direct comparisons between historical and current results for testing conducted on different platforms is not recommended. LDL, Direct Reviewed date:02/04/2024 01:56:42 PM Interpretation:96, improved Performing Lab:[place] [facility] [place], [address] [place], [address] Keven Glynn MD Notes/Report: Received Date: [id number] NON-FASTING; NON-FASTING; NON-FASTING PATIENT UNABLE TO VOID; ADVISED TO RETURN FOR COLLECTION. DIRECT LDL 96 <100 mg/dL Greatly elevated Triglycerides values (>1200 mg/dL) interfere with the dLDL assay. Desirable range <100 mg/dL for primary prevention; <70 mg/dL for patients with CHD or diabetic patients with > or = 2 CHD risk factors. LDL, Direct Reviewed date:02/04/2024 01:56:42 PM Interpretation:96, improved Performing Lab:[facility], [address] [place], [address] Keven Glynn MD Notes/Report: Received Date: [id number] NON-FASTING; NON-FASTING; NON-FASTING PATIENT UNABLE TO VOID; ADVISED TO RETURN FOR COLLECTION. DIRECT LDL 96 <100 mg/dL Greatly elevated Triglycerides values (>1200 mg/dL) interfere with the dLDL assay. Desirable range <100 mg/dL for primary prevention; <70 mg/dL for patients with CHD or diabetic patients with > or = 2 CHD risk factors. Hemoglobin A1C Reviewed date:05/17/2024 02:06:41 PM Interpretation:8.5 Performing Lab: Notes/Report: 8.5 HEMOGLOBIN A1c 8.5 Hemoglobin A1C Reviewed date:05/17/2024 02:06:41 PM Interpretation:8.5 Performing Lab: Notes/Report: 8.5 HEMOGLOBIN A1c 8.5 MICROALBUMIN, RANDOM URINE ( W/CREATININE) Reviewed date:05/17/2024 01:02:14 PM Interpretation:Normal Performing Lab: Notes/Report: Normal Microalbumin, Urine 14.4 Microalb/Creat Ratio 10.1 Creatinine, Urine 143.0 Lipid Panel, Fasting Reviewed date:05/17/2024 12:16:21 PM Interpretation:Stable Performing Lab: Notes/Report: Stable HDL Direct 47 DIRECT LDL 75 CHOLESTEROL, TOTAL 150 TRIGLYCERIDES 225 Lipid Panel, Fasting Reviewed date:05/17/2024 12:16:21 PM Interpretation:Stable Performing Lab: Notes/Report: Stable HDL Direct 47 DIRECT LDL 75 CHOLESTEROL, TOTAL 150 TRIGLYCERIDES 225 CMP (Comp Metabolic Panel) Reviewed date:05/17/2024 12:16:33 PM Interpretation:Stable Performing Lab: Notes/Report: Stable CREATININE 0.90 eGFR NON-AFR. INDONESIAN >60 SODIUM 133 POTASSIUM 4.5 ALT 30 AST 38 CALCIUM 9.8 GLUCOSE 289 ALKALINE PHOSPHATASE 69 VITAMIN D, 25-OH (TOTAL D2/D 3) Reviewed date:05/17/2024 12:16:48 PM Interpretation:Normal Performing Lab: Notes/Report: Normal 25-Hydroxy, Vitamin D 86.9 CBC (H/H, RBC, INDICES, WBC, PLT) Reviewed date:09/07/2024 08:38:12 AM Interpretation:mild chronic anemia Performing Lab:[facility], [address] [place], [address] Keven Glynn MD Notes/Report: Received Date: [id number] NON-FASTING; NON-FASTING; NON-FASTING; NON-FASTING; NON-FAST PATIENT UNABLE TO VOID; ADVISED TO RETURN FOR COLLECTION. WHITE BLOOD CELL COUNT 4.7 3.8-10.8 Thousand/ uL RED BLOOD CELL COUNT 3.54 4.20-5.80 Million/uL HEMOGLOBIN 11.0 13.2-17.1 g/dL HEMATOCRIT 33.9 38.5-50.0 % MCV 95.8 80.0-100.0 fL MCH 31.1 27.0-33.0 pg MCHC 32.4 32.0-36.0 g/dL For adults, a slight decrease in the calculated MCHC value (in the range of 30 to 32 g/dL) is most likely not clinically significant; however, it should be interpreted with caution in correlation with other red cell parameters and the patient's clinical condition. RDW 14.4 11.0-15.0 % PLATELET COUNT 185 140-400 Thousand/uL MPV 11.0 7.5-12.5 fL CMP (Comp Metabolic Panel) Reviewed date:09/07/2024 08:36:28 AM Interpretation:AST 47 Performing Lab:[facility], [address] [place], [address] Keven Glynn MD Notes/Report: Received Date: NON-FASTING; NON-FASTING; NON-FASTING; NON-FASTING; NON-FAST PATIENT UNABLE TO VOID; ADVISED TO RETURN FOR COLLECTION. GLUCOSE 218 65-99 mg/dL Fasting reference interval For someone without known diabetes, a glucose value >125 mg/dL indicates that they may have diabetes and this should be confirmed with a follow-up test. UREA NITROGEN (BUN) 13 7-25 mg/dL CREATININE 0.84 0.70-1.28 mg/dL EGFR 94 > OR = 60 mL/min/1.73m2 BUN/CREATININE RATIO SEE NOTE: 6-22 (calc) Not Reported: BUN and Creatinine are within reference range. SODIUM 136 135-146 mmol/L POTASSIUM 3.8 3.5-5.3 mmol/L CHLORIDE 99 98-110 mmol/L Greatly elevated Triglycerides values (>1200 mg/dL) interfere with the dLDL assay. CARBON DIOXIDE 28 20-32 mmol/L CALCIUM 10.3 8.6-10.3 mg/dL PROTEIN, TOTAL 7.0 6.1-8.1 g/dL ALBUMIN 3.8 3.6-5.1 g/dL GLOBULIN 3.2 1.9-3.7 g/dL (calc) ALBUMIN/GLOBULIN RATIO 1.2 1.0-2.5 (calc) BILIRUBIN, TOTAL 0.6 0.2-1.2 mg/dL ALKALINE PHOSPHATASE 68 35-144 U/L AST 47 10-35 U/L ALT 35 9-46 U/L LDL, Direct Reviewed date:09/07/2024 08:38:12 AM Interpretation:80 Performing Lab:[facility], [address] [place], [address] Keven Glynn MD Notes/Report: Received Date: NON-FASTING; NON-FASTING; NON-FASTING; NON-FASTING; NON-FAST PATIENT UNABLE TO VOID; ADVISED TO RETURN FOR COLLECTION. DIRECT LDL 80 <100 mg/dL Desirable range <100 mg/dL for primary prevention; <70 mg/dL for patients with CHD or diabetic patients with > or = 2 CHD risk factors. LDL, Direct Reviewed date:09/07/2024 08:38:12 AM Interpretation:80 Performing Lab:[facility], [address] [place], [address] Keven Glynn MD Notes/Report: Received Date: [id number] NON-FASTING; NON-FASTING; NON-FASTING; NON-FASTING; NON-FAST PATIENT UNABLE TO VOID; ADVISED TO RETURN FOR COLLECTION. DIRECT LDL 80 <100 mg/dL Desirable range <100 mg/dL for primary prevention; <70 mg/dL for patients with CHD or diabetic patients with > or = 2 CHD risk factors. Hemoglobin A1C Reviewed date:09/07/2024 09:36:40 AM Interpretation:9.8 Performing Lab:[facility], [address] [place], [address] Keven Glynn MD Notes/Report: Received Date: [id number] NON-FASTING; NON-FASTING; NON-FASTING; NON-FASTING; NON-FAST PATIENT UNABLE TO VOID; ADVISED TO RETURN FOR COLLECTION. HEMOGLOBIN A1c 9.8 <5.7 % of total Hgb For someone without known diabetes, a hemoglobin A1c value of 6.5% or greater indicates that they may have diabetes and this should be confirmed with a follow-up test. For someone with known diabetes, a value <7% indicates that their diabetes is well controlled and a value greater than or equal to 7% indicates suboptimal control. A1c targets should be individualized based on duration of diabetes, age, comorbid conditions, and other considerations. Currently, no consensus exists regarding use of hemoglobin A1c for diagnosis of diabetes for children. Hemoglobin A1C Reviewed date:09/07/2024 09:36:40 AM Interpretation:9.8 Performing Lab:[facility], [address] [place], [address] Keven Glynn MD Notes/Report: Received Date: [id number] NON-FASTING; NON-FASTING; NON-FASTING; NON-FASTING; NON-FAST PATIENT UNABLE TO VOID; ADVISED TO RETURN FOR COLLECTION. HEMOGLOBIN A1c 9.8 <5.7 % of total Hgb For someone without known diabetes, a hemoglobin A1c value of 6.5% or greater indicates that they may have diabetes and this should be confirmed with a follow-up test. For someone with known diabetes, a value <7% indicates that their diabetes is well controlled and a value greater than or equal to 7% indicates suboptimal control. A1c targets should be individualized based on duration of diabetes, age, comorbid conditions, and other considerations. Currently, no consensus exists regarding use of hemoglobin A1c for diagnosis of diabetes for children. 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 - as directed by device Active Potassium Chloride 10 MEQ 1 packet with food Orally Twice a day Active Metoprolol Tartrate 50 MG 1 tablet with food Orally Twice a day Active Bumetanide 2 MG 1 tab(s) orally once a day Active Tamsulosin HCl 0.4 MG Oral for 90 Days Active Spironolactone 25 MG 1 tablet Oral once daily Active Penzata Delica Lancets 33G - to test blood sugars by finger stick Three times a day Active Lantus SoloStar 100 UNIT/ML 45 units am and 20 units pm Subcutaneous daily 01/01/2022 Active Levothyroxine Sodium 112 MCG 1 tablet in the morning on an empty stomach Orally Once a day for 30 day(s) Active traMADol HCl 50 MG 1 tab Orally Once a day prn pain Active Penzata Verio w/Device to test blood sugars In Vitro Three times a day Active Damai.cnuch Verio - as directed In Vitro Three times a day Active Losartan Potassium 25 MG 1 tab(s) orally once a day Active Pen [place] 31G X 6 MM To inject insulin subcutaneously Five times a day Active Atorvastatin Calcium 80 MG 1 tab(s) orally once a day Active Docusate Sodium 100 MG 1 capsule as need ed Orally Once a day Active dilTIAZem HCl 30 MG 1 tab Orally Three times a day Active Esomeprazole Magnesium 40 MG 1 capsule Orally Once a day for 30 day(s) Active Eliquis 5 MG 1 tablet Orally Twic e a day for 30 day(s) Active Dexcom G6 Sensor - as directed Active Famotidine 20 MG 1 tablet at bedtime as needed Orally Twice a day Active HumuLIN R U-500 (CONCENTRATED) 500 UNIT/ML up to 350 units via insulin pump daily Active Dexcom G6 Transmitter - as directed by device every 90 days Active hydrALAZINE HCl 50 MG Oral Active Immunizations Vaccine Route Administration Date Status Comme nts Pneumovax 23 IM Intramuscular 05/06/2015 Administered Social History Tobacco Use: Social History Observation Description Date Details (start date - stop date) Never Smoker NA - NA Tobacco Control (Standard) Question Answer Notes Tobacco use: Nonsmoker Problems Problem Type SNOMED Code ICD Code Onset Dates Problem Status W/U Status Risk Notes Problem Hyperglycemia due to type 2 diabetes mellitus (061318804068968) Type 2 diabetes mellitus with hyperglycemia (E11.65) Active confirmed Problem Mixed hyperlipidemia (012084733) Mixed hyperlipidemia (E78.2) Active confirmed Problem Polyneuropathy due to type 2 diabetes mellitus (036506560) Type 2 diabetes mellitus with diabetic polyneuropathy (E11.42) Active confirmed Problem Essential hypertension (17621341) Essential (primary) hypertension (I10) Active confirmed Problem Morbid obesity (931743427) Morbid (severe) obesity due to excess calories (E66.01) Active confirmed Problem Long-term current use of insulin (725154142) MCFP (current) use of insulin (Z79.4) Active confirmed Problem 995863574 BMI 45.0-49.9, adult (Z68.42) Active confirmed Problem 590592073 Insulin pump status (Z96.41) Active confirmed Problem 290239401 Charcot's arthropathy associated with type 2 diabetes mellitus (E11.610) Active confirmed Problem 94089922 Hypogonadism mal e (E29.1) Active confirmed Vital Signs Blood pressure diastolic 78 mm Hg 11/01/2024 Height 73 in 11/01/2024 Blood pressure systolic 130 mm Hg 11/01/2024 Weight 344 lbs 02/03/2024 BMI 45.38 kg/m2 02/03/2024 Encounters Encounter Location Date Provider Diagnosis [facility] [address] [facility] [address] [place] [address] 02/03/2024 Leon Peoples Type 2 diabetes mellitus with hyperglycemia E11.65 ; Type 2 diabetes mellitus with diabetic polyneuropathy E11.42 ; Essential (primary) hypertension I10 ; Mixed hyperlipidemia E78.2 ; Charcot's arthropathy associated with type 2 diabetes mellitus E11.610 ; Morbid (severe) obesity due to excess calories E66.01 ; MCFP (current) use of insulin Z79.4 ; Insulin pump status Z96.41 ; BMI 45.0-49.9, adult Z68.42 and Hypogonadism male E29.1 [facility] [address] [address] 05/15/2024 Leon Peoples Type 2 diabetes mellitus with hyperglycemia E11.65 ; Type 2 diabetes mellitus with diabetic polyneuropathy E11.42 ; Essential (primary) hypertension I10 ; Mixed hyperlipidemia E78.2 ; Charcot's arthropathy associated with type 2 diabetes mellitus E11.610 ; Morbid (severe) obesity due to excess calories E66.01 ; 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0-49.9, adult Z68.42 and Hypogonadism male E29.1 [facility] [address] [address] 11/01/2024 Yaneth Naceanceno Type 2 diabetes mellitus with hyperglycemia E11.65 ; Type 2 diabetes mellitus with diabetic polyneuropathy E11.42 ; Essential (primary) hypertension I10 ; Mixed hyperlipidemia E78.2 ; Charcot's arthropathy associated with type 2 diabetes mellitus E11.610 ; Morbid (severe) obesity due to excess calories E66.01 ; MCFP (current) use of insulin Z79.4 ; Insulin pump status Z96.41 ; BMI 45.0-49.9, adult Z68.42 and Hypogonadism male E29.1 [facility] [address] [address] 11/08/2023 Leon Peoples Type 2 diabetes mellitus with hyperglycemia E11.65 [facility] [address] [address] 12/21/2023 Leon Raju [facility] [address] [address] 12/21/2023 Leon Raju [facility] [address] [facility] [address] 12/21/2023 Leon Raju Type 2 diabetes mellitus with hyperglycemia E11.65 [facility] [address] [facility] [address] 02/03/2024 Leon Raju Type 2 diabetes mellitus with hyperglycemia E11.65 [facility] [address] [facility] [address] [address] 02/04/2024 Leon Raju Mixed hyperlipidemia E78.2 [facility] [address] [facility] [address] [address] 05/15/2024 Leon Raju Type 2 diabetes mellitus with hyperglycemia E11.65 [facility] [address] [address] 05/24/2024 Leon Raju [facility] [address] [facility] [address] [address] 06/06/2024 Leon Raju [facility] [address] [facility] [address] [address] 09/06/2024 Leon Raju [facility] [address] [facility] [address] [address] 09/07/2024 Leon Raju [facility] [address] [facility] [address] [address] 10/11/2024 Leon Raju Type 2 diabetes mellitus with hyperglycemia E11.65 [facility] [address] [facility] [address] [address] 11/01/2024 Leon Raju Assessments Encounter Date Diagnosis (ICD Code) Assessment Notes Treatment Notes Treatment Clinical Notes Section Notes 11/08/2023 Type 2 diabetes mellitus with hyperglycemia (ICD-10 - E11.65) 12/21/2023 Type 2 diabetes mellitus with hyperglycemia (ICD-10 - E11.65) 02/03/2024 Type 2 diabetes mellitus with hyperglycemia (ICD-10 - E11.65) 02/03/2024 Type 2 diabetes mellitus with hyperglycemia (ICD-10 - E11.65) January 2024: U500 in pump, Basal 12 am 0.2 u/hr. TBD 4.8 u/day, bolus: bf 10-11BG target 100-100, 6 hours.Ozempic 50 clicks Ozempic 10 clicks once a week for 3-4 weeks, 20 clicks once a week for 3-4 weeks, 0.25 clicks for 3-4 weeks, 0.5 mg for 3-4 weeks. Side effects: GERD, Nausea, Pancreatitis, Diarrhea, Bloating informed. Dexco m Clarity --Dena Salcido of : [id number] ed at: Feb 03, 2024 2:54 PM CDTReporting period: [place] January 16, 2024 - [place] Jan 29, 2024 G lucose DetailsAverage glucose: 267 mg/dLStandard deviation: 50 mg/dLGMI: 9.7% T niesha in RangeVery High: 68%High: 26%In Range: 6%Low: 0%Very Low: 0% Target Fuzzx90-120 mg/dL CGM DetailsSensor usage: 100%Days with CGM data: Old records reviewed January 2024: Advised to take insulin 1 hr before meals. Has PP hyperglycemia. Dexcom reviewed 02/04/2024 Mixed hyperlipidemia (ICD-10 - E78.2) 05/15/2024 Type 2 diabetes mellitus with hyperglycemia (ICD-10 - E11.65) Apr 2024: U500 in pump, Basal 12 am 0.2 u/hr. TBD 4.8 u/day, bolus: Change to 15BG target 100-100, 6 hours.Ozempic 50 clicks Ozempic 10 clicks once a week for 3-4 weeks, 20 clicks once a week for 3-4 weeks, 0.25 clicks for 3-4 weeks, 0.5 mg for 3-4 weeks. Side effects: GERD, Nausea, Pancreatitis, Diarrhea, Bloating informed. - - - - - - - - - - - - - - -Dexcom Clarity- - - - - - - - - - - - - - -Dena Salcido of : [id number] ed at: Wed, May 15, 2024 5:33 PM CDTReporting period: WedFeb 11, 2024 - WedMay 10, 2024- - - - - - - - - - - - - - -Glucose DetailsAverage glucose: 255 mg/dLStandard deviation: 64 mg/dLGMI: 9.4%- - - - - - - - - - - - - - -Time in RangeVery High: 52%High: 35%In Range: 13%Low: 0%Very Low: 0% Target Juvrn15-138 mg/dL - - - - - - - - - - - - - - -CGM DetailsSensor usage: 100%Days with CGM data: 90/ Old records reviewed Apr 2024: Advised to take insulin 1 hr before meals. Has PP hyperglycemia. Dexcom reviewed GMI 9.9 Increase Bolus 15 units AC Start Metformin 1-4 tabs a day as tolerated 05/15/2024 Type 2 diabetes mellitus with hyperglycemia (ICD-10 - E11.65) 09/06/2024 Type 2 diabetes mellitus with hyperglycemia (ICD-10 - E11.65) Aug 2024:U500 in pump, Basal 12 am 0.2 u/hr. TBD 4.8 u/day, bolus: 16-17 unitsBG target 100-100, 6 hours. - - - - - - - - - - - - - - -Dexcom Clarity- - - - - - - - - - - - - - -Dena Montgomeryte of : [id number] ed at: Sep 06, 2024 3:00 PM CSTReporting period: WedJun 04, 2024 - WedSep 01, 2024- - - - - - - - - - - - - - -Glucose DetailsAverage glucose: 314 mg/dLStandard deviation: 85 mg/dLGMI: 10.8%- - - - - - - - - - - - - - -Time in RangeVery High: 78%High: 12%In Range: 10%Low: 0%Very Low: <1%Target Bifav73-541 mg/dL - - - - - - - - - - - - - - -CGM DetailsSensor usage: 94%Days with CGM data: Old records reviewed Apr 2024: Advised to take insulin 1 hr before meals. Has PP hyperglycemia. Dexcom reviewed GMI 9.9 Increase Bolus 15 units AC Start Metformin 1-4 tabs a day as tolerated Aug 2024: did not tolerate Ozempic or Metformin due to GI side effects,discuss ed increase bolus to 20 units for some meals try Lisa if covered he is eating too much and too many processed carbs discussed healthy diet in detail, given handouts as well he is getting steroid shots every 3 months in knees 10/11/2024 Type 2 diabetes mellitus with hyperglycemia (ICD-10 - E11.65) 11/01/2024 Type 2 diabetes mellitus with hyperglycemia [...] 39% Low: 1% Very Low: <1% Target Dgahc60-438 mg/dL - - - - - - [...] - E11.42) Stable, foot care instructions given 09/06/2024 Type 2 diabetes mellitus with diabetic polyneuropathy (ICD-10 - E11.42) Stable, foot care instructions given 05/15/2024 Type 2 diabetes mellitus with diabetic polyneuropathy (ICD-10 - E11.42) Stable, foot care instructions given 02/03/2024 Type 2 diabetes mellitus with diabetic polyneuropathy (ICD-10 - E11.42) Stable, foot care instructions given 02/03/2024 Essential (primary) hypertension (ICD-10 - I10) controlled. 2 g sodium diet. Blood pressure goal less than 130/80. 05/15/2024 Essential (primary) hypertension (ICD-10 - I10) controlled. 2 g sodium diet. Blood pressure goal less than 130/80. 09/06/2024 Essential (primary) hypertension (ICD-10 - I10) controlled. 2 g sodium diet. Blood pressure goal less than 130/80. 11/01/2024 Essential (primary) hypertension (ICD-10 - I10) controlled. 2 g sodium diet. Blood pressure goal less than 130/80. 11/01/2024 Mixed hyperlipidemia (ICD-10 - E78.2) COntrolled. LDL goal < 100. 09/06/2024 Mixed hyperlipidemia (ICD-10 - E78.2) COntrolled. LDL goal < 100. 05/15/2024 Mixed hyperlipidemia (ICD-10 - E78.2) COntrolled. LDL goal < 100. 02/03/2024 Mixed hyperlipidemia (ICD-10 - E78.2) COntrolled. LDL goal < 100. 02/03/2024 Charcot's arthropathy associated with type 2 diabetes mellitus (ICD-10 - E11.610) Patient scheduled to have surgery for Charcots foot. 05/15/2024 Charcot's arthropathy associated with type 2 diabetes mellitus (ICD-10 - E11.610) Patient scheduled to have surgery for Charcots foot. 11/01/2024 Charcot's arthropathy associated with type 2 diabetes mellitus (ICD-10 - E11.610) s/p surgery for Charcots foot 09/06/2024 Charcot's arthropathy associated with type 2 diabetes mellitus (ICD-10 - E11.610) s/p surgery for Charcots foot 11/01/2024 Morbid (severe) obesity due to excess calories (ICD-10 - E66.01) Patient was advised to take to take 500-1000 fewer calories every day to lose 1 pound per week. 09/06/2024 Morbid (severe) obesity due to excess calories (ICD-10 - E66.01) Patient was advised to take to take 500-1000 fewer calories every day to lose 1 pound per week. 05/15/2024 Morbid (severe) obesity due to excess calories (ICD-10 - E66.01) Patient was advised to take to take 500-1000 fewer calories every day to lose 1 pound per week. [Advised to lose five to 10% of her current weight to achieve health benefits]., February 2017 plan: Wt loss of 40 #s Wants to lose another 100#s 02/03/2024 Morbid (severe) obesity due to excess calories (ICD-10 - E66.01) Patient was advised to take to take 500-1000 fewer calories every day to lose 1 pound per week. [Advised to lose five to 10% of her current weight to achieve health benefits]., February 2017 plan: Wt loss of 40 #s Wants to lose another 100#s 02/03/2024 [facility] (current) use of insulin (ICD-10 - Z79.4) 05/15/2024 [facility] (current) use of insulin (ICD-10 - Z79.4) 09/06/2024 [facility] (current) use of insulin (ICD-10 - Z79.4) 11/01/2024 [facility] (current) use of insulin (ICD-10 - Z79.4) 09/06/2024 Insulin pump status (ICD-10 - Z96.41) [employer] 11/01/2024 Insulin pump status (ICD-10 - Z96.41) [employer] 05/15/2024 Insulin pump status (ICD-10 - Z96.41) [employer] 02/03/2024 Insulin pump status (ICD-10 - Z96.41) [employer] 02/03/2024 BMI 45.0-49.9, adult (ICD-10 - Z68.42) 05/15/2024 BMI 45.0-49.9, adult (ICD-10 - Z68.42) 09/06/2024 BMI 45.0-49.9, adult (ICD-10 - Z68.42) 11/01/2024 BMI 45.0-49.9, adult (ICD-10 - Z68.42) 09/06/2024 Hypogonadism male (ICD-10 - E29.1) 11/01/2024 Hypogonadism male (ICD-10 - E29.1) 05/15/2024 Hypogonadism male (ICD-10 - E29.1) 02/03/2024 Hypogonadism male (ICD-10 - E29.1) Plan Of Treatment Pending Test Test Name Order Date MICROALBUMIN, RANDOM URINE (W/CREATININE ) 09/06/2024 Next Appt Details Provider Name:Adeel carias, 02/13/2025 11:30:00 AM, [id number], [facility] [address], [place], [address], Insurance Providers Payer Name Payer Address Payer Phone Subscriber Number Group Number Insured Name Patient Relationship to Insured Coverage Start Date Coverage End Date MEDICARE [place] [address] [address] [place] [address] [phone] [id number] DENA HOANG Self - patient is the insured 7 [facility] [address] [place] [address] [id number] DENA HOANG Self - patient is the insured 7 Medical (General) History Medical History History ICD Code T2DM Insulin Pump Glaucoma Messed up leg Surgical History Surgery Date(Month/Year) Gall bladder Neck Back SX L and right Hospitalization History Reason Date(Month/Year) sepsis also had covid 05/2021-01/2022 stomach and c diff
--- OUTSIDE RECORDS SUMMARY | 2024-11-06 19:59 | XMS_ITS | Encounter Summary ---
Author Organization [facility] Address [facility] [place] [address] Care Team Providers Care Document Imaging Manager Name Role Phone Bri Mcclain MD Primary Care Provider + [phone] Bri Mcclain MD Primary Care Provider + [phone] Bri Mcclain MD Unavailable [phone] Regina Liu RN Unavailable [phone] Lencho Lopes MD Unavailable [phone] Abraham Dwyer DO Unavailable Sakina Zamarripa FLEET OPERATIONS MANAGER Unavailable Mindy Barragan FLEET OPERATIONS MANAGER Unavailable [phone] Kayla Judd RN Unavailable [phone] Kyala Judd RN Unavailable [phone] Mark Pierre MD Primary Care Provider [phone] None, Provider Primary Care Provider Unavaila ble Encounter Details Date Type Department Care Team (Latest Contact Info) Description 05/15/2018 Abstract [facility] [place] [address] [place] [address] Social History Tobacco Use Types Packs/Day Years Used Date Smoking Tobacco: Never Assessed Sex and Gender Information Value Date Recorded Sex Assigned at Male 09/22/2024 5:17 PM [employer] Legal Sex Male 6:34 PM CDT Gender [...] C. difficile 12/31/2020 12/31/2020 07/09/2021 3:59 PM [employer] COVID-19 Rule Out 08/05/2021 08/06/2021 08/06/2021 11:00 AM [employer] COVID-19 Rule Out 08/22/2021 08/22/2021 08/22/2021 10:37 AM [employer]ANT COVID-19 Rule Out 09/05/2021 09/05/2021 09/05/2021 7:59 AM [employer]ANT COVID-19 Confirmed Comment:In collaboration with Dr. Goodwin patient cleared from COVID-19 isolation per [facility] guidelines ([place]) 09/05/2021 09/05/2021 09/16/2021 10:57 AM [employer]ANT documented as of this encounter Care Teams Document Imaging Manager Relationship Specialty Start Date End Date Bri Mcclain MD PCP - General INTERNAL MEDICINE 06/08/18 12/30/20 Bri Mcclain MD PCP - General INTERNAL MEDICINE 12/31/20 10/12/22 [place] [address] [place] [address] PCP - General FAMILY PRACTICE 10/13/22 05/25/23 None, Provider, PCP - General UNKNOWN PHYSICIAN SPECIALTY 09/22/24 Bri Mcclain MD INTERNAL MEDICINE 12/31/20 Regina Liu, RN [address] [place] [address] Cleaner Assistant (Ambulatory) REGISTERED NURSE 07/08/21 11/17/21 Lencho Lopes MD [address], [place] [address] [id number] Physician INTERVENTIONAL CARDIOLOGY 08/07/21 Abraham Dwyer DO [address], [place] [address] [id number] Consulting Physician INTERNAL MEDICINE 09/17/21 2 Sakina Zamarripa NP [address], [place] [address] [address] Nurse Practitioner Nurse Practitioner [facility] 09/17/21 01/04/22 Mindy Barragan NP [address], [place] [address] [place] [address] [id number] Nurse Practitioner NURSE PRACTITIONER 09/17/21 01/04/22 Kayla Judd RN [address] [place], [place] [address] Cleaner Assistant (Ambulatory) REGISTERED NURSE 11/10/21 11/17/21 Kayla Judd RN [address] [place] [address] Cleaner Assistant (Ambulatory) REGISTERED NURSE 11/18/21 01/28/22 documented as of this encounter
--- OUTSIDE RECORDS SUMMARY | 2024-11-06 20:00 | XMS_ITS | Clinical Summary ---
Author Organization [facility] Address [address] [place] [address] Care Team Providers Care Stoper Name Role Phone Bri Mcclain MD Unavailable [phone] Lencho Lopes MD Unavailable [phone] None, Provider MD Primary Care Provider Unavaila [...] Noted Date Diagnosed Date Panniculitis 09/22/2024 Osteomyelitis ([facility]) 11/07/2021 Encephalopathy acute 07/28/2021 Delirium 07/28/2021 Subacute osteomyelitis of right foot ([facility]) 07/28/2021 Hyperglycemia due to diabetes mellitus ([facility]) 07/28/2021 Acute respiratory failure with hypoxia ([facility]) 07/28/2021 Sepsis (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 SILVIA on CPAP 08/09/2017 Edema of extremities 06/02/2017 MRSA infection 06/02/2017 Enlarged prostate with lower urinary tract sympt oms (LUTS) 10/13/2016 Charcot foot due to diabetes mellitus ([facility]) 09/05/2016 Numbness in both hands 07/08/2016 Chronic pain of right ankle 04/15/2016 Lumbago 12/10/2014 Hypothyroidism 10/10/2014 Generalized osteoarthritis of multiple sites Glaucoma, bilateral 09/17/2014 Hyperlipidemia 09/17/2014 Essential hypertension 09/17/2014 Testosterone deficiency 09/17/2014 Diabetic ulcer of lower extremity ([facility]) 06/21/2014 Diabetic peripheral neuropathy ([facility]) 05/10/2014 Sciatica 02/14/2013 Encounters Date Type Department Care Team Description 09/23/2024 Travel 09/22/2024 5:05 PM RAILROAD SIGNAL AND SWITCH OPERATOR - 09/27/2024 10:01 AM RAILROAD SIGNAL AND SWITCH OPERATOR Hospital Encounter [facility] [place] [address] [place] [address] Lianna Luis MD Malcolm, MD Nikki Tolbert Dominique C, MD Generalized Weakness; Wound Discharge Disposition: [facility] Facility 09/22/2024 Travel from Last 3 Months Immunizations Name Administration Dates Next Due Fluzone High Dose - >Age 65 (Prefilled Syringe) 05/11/2019 Influenza (Generic) 06/26/2013,06/01/2012 Influenza Adult (Generic) 05/11/2019,04/12/2018, 08/18/2017 Pneumococcal (Pneumovax 23) 05/15/2018, 5 Pneumococcal (Prevnar 13) 12/06/2018 Shingrix 07/07/2018, 8,04/12/2018,2017 Td (Tenivac) preservative free 05/31/2018 Zoster (Zostavax) 44161 Unt/0.65Ml 07/07/2017,,07/02/2017 Family History Medical History Relation [...] materials from doctor or pharmacy Never 05/11/2023 [facility] Utilities Answer Date Recorded In the past 12 months has [facility] [employer], gas, oil, or water [employer] threatened to shut off services in your [...] often do you attend chur ch or orthodox services? Patient declined 11/15/2020 Do you belong to any clubs o r organizations such as mormon groups, unions, fraternal or athletic groups, or [...] move on to questions 3-9 0 04/14/2022 [facility] - Occupational Stress [...] any time in the past 12 m [facility], were you homeless or living in a halfway (including now)? No 09/24/2024 Sex and Gender Information Value Date Recorded Sex Assigned at Male 09/22/2024 5:17 PM RAILROAD SIGNAL AND SWITCH OPERATOR Legal Sex Male 6:34 PM CDT Gender Identity Not on file Sexual Orientation Straight 11/15/2020 1: 16 AM CDT Last Filed Vital Signs Vital Sign Reading Time Taken Comments Blood Pressure 124/53 09/27/2024 7:21 AM RAILROAD SIGNAL AND SWITCH OPERATOR Pulse 69 09/27/2024 7:21 AM RAILROAD SIGNAL AND SWITCH OPERATOR Temperature 36.2 C (97.2 F) 09/27/2024 7:21 AM RAILROAD SIGNAL AND SWITCH OPERATOR Respiratory Rate 19 09/27/2024 7:21 AM RAILROAD SIGNAL AND SWITCH OPERATOR Oxygen Saturation 95% 09/27/2024 7:21 AM RAILROAD SIGNAL AND SWITCH OPERATOR Inhaled Oxygen Concentration - - Weight 164.3 kg (362 lb 3.5 oz) 09/27/2024 4:10 AM RAILROAD SIGNAL AND SWITCH OPERATOR Height 188 cm (6' 2 ) 09/22/2024 5:05 PM RAILROAD SIGNAL AND SWITCH OPERATOR Body Mass Index 46.51 09/22/2024 5:05 PM RAILROAD SIGNAL AND SWITCH OPERATOR Plan of Treatment Health Maintenance Due Date [...] 05/11/2019, 04/12/2018, Additional history exists PHQ-2 (Physician [employer]) 08/23/2024 Zoster Vaccines Completed 07/07/2018, 06/23, 04/12/2018, [...] care transitions and discharge planning Lifestyle No Aminta Blackwood, ELECTRICAL ENGINEER Procedures Procedure Name Priority Date/Time Associated Diagnosis Comments BASIC METABOLIC PANEL Routine 09/27/2024 6:26 AM RAILROAD SIGNAL AND SWITCH OPERATOR POCT GLUCOSE - SAXENA DOCKED DEVICE Routine 09/26/2024 11:38 AM RAILROAD SIGNAL AND SWITCH OPERATOR BASIC METABOLIC PANEL Routine 09/26/2024 6:49 AM RAILROAD SIGNAL AND SWITCH OPERATOR CBC W/DIFF AUTOMATED Routine 09/26/2024 6:49 AM RAILROAD SIGNAL AND SWITCH OPERATOR POCT GLUCOSE - SAXENA DOCKED DEVICE Routine 09/26/2024 5:22 AM RAILROAD SIGNAL AND SWITCH OPERATOR POCT GLUCOSE - SAXENA DOCKED DEVICE Routine 09/25/2024 8:10 PM RAILROAD SIGNAL AND SWITCH OPERATOR POCT GLUCOSE - SAXENA DOCKED DEVICE Routine 09/25/2024 11:31 AM RAILROAD SIGNAL AND SWITCH OPERATOR BASIC METABOLIC PANEL Routine 09/25/2024 6:28 AM RAILROAD SIGNAL AND SWITCH OPERATOR CBC W/DIFF AUTOMATED Routine 09/25/2024 6:28 AM RAILROAD SIGNAL AND SWITCH OPERATOR POCT GLUCOSE - SAXENA DOCKED DEVICE Routine 09/25/2024 6:00 AM RAILROAD SIGNAL AND SWITCH OPERATOR POCT GLUCOSE - SAXENA DOCKED DEVICE Routine 09/24/2024 8:01 PM RAILROAD SIGNAL AND SWITCH OPERATOR POCT GLUCOSE - SAXENA DOCKED DEVICE Routine 09/24/2024 3:25 PM RAILROAD SIGNAL AND SWITCH OPERATOR POCT GLUCOSE - SAXENA DOCKED DEVICE Routine 09/24/2024 11:50 AM RAILROAD SIGNAL AND SWITCH OPERATOR BASIC METABOLIC PANEL Routine 09/24/2024 8:07 AM RAILROAD SIGNAL AND SWITCH OPERATOR CBC W/DIFF AUTOMATED Routine 09/24/2024 8:07 AM RAILROAD SIGNAL AND SWITCH OPERATOR POCT GLUCOSE - SAXENA DOCKED DEVICE Routine 09/24/2024 6:01 AM RAILROAD SIGNAL AND SWITCH OPERATOR POCT GLUCOSE - SAXENA DOCKED DEVICE Routine 09/23/2024 8:01 PM RAILROAD SIGNAL AND SWITCH OPERATOR POCT GLUCOSE - SAXENA DOCKED DEVICE Routine 09/23/2024 3:37 PM RAILROAD SIGNAL AND SWITCH OPERATOR CULTURE, WOUND, W/GRAM STAIN Routine 09/23/2024 12:59 PM RAILROAD SIGNAL AND SWITCH OPERATOR POCT GLUCOSE - SAXENA DOCKED DEVICE Routine 09/23/2024 11:37 AM RAILROAD SIGNAL AND SWITCH OPERATOR MAGNESIUM Routine 09/23/2024 6:36 AM RAILROAD SIGNAL AND SWITCH OPERATOR BASIC METABOLIC PANEL Routine 09/23/2024 6:36 AM RAILROAD SIGNAL AND SWITCH OPERATOR CBC W/DIFF AUTOMATED Routine 09/23/2024 6:36 AM RAILROAD SIGNAL AND SWITCH OPERATOR POCT GLUCOSE - SAXENA DOCKED DEVICE Routine 09/23/2024 5:46 AM RAILROAD SIGNAL AND SWITCH OPERATOR POCT GLUCOSE - SAXENA DOCKED DEVICE Routine 09/23/2024 12:19 AM RAILROAD SIGNAL AND SWITCH OPERATOR URINE BACTERIA CULTURE STAT 09/22/2024 8:50 PM RAILROAD SIGNAL AND SWITCH OPERATOR HC URINALYSIS AUTO W/O MICRO STAT 09/22/2024 8:11 PM RAILROAD SIGNAL AND SWITCH OPERATOR LACTIC ACID W REFLEX (SEPSIS) TIMED 09/22/2024 7:52 PM RAILROAD SIGNAL AND SWITCH OPERATOR CT ABD+PEL W CON STAT 09/22/2024 6:59 PM RAILROAD SIGNAL AND SWITCH OPERATOR THYROXINE, FREE (FT4) STAT 09/22/2024 5:38 PM RAILROAD SIGNAL AND SWITCH OPERATOR THYROID STIM HORMONE TSH STAT 09/22/2024 5:38 PM RAILROAD SIGNAL AND SWITCH OPERATOR TSH W/REFLEX STAT 09/22/2024 5:38 PM RAILROAD SIGNAL AND SWITCH OPERATOR LACTIC ACID W REFLEX (SEPSIS) STAT 09/22/2024 5:38 PM RAILROAD SIGNAL AND SWITCH OPERATOR COMPREHENSIVE METABOLIC PANEL STAT 09/22/2024 5:38 PM RAILROAD SIGNAL AND SWITCH OPERATOR CBC W/DIFF AUTOMATED STAT 09/22/2024 5:38 PM RAILROAD SIGNAL AND SWITCH OPERATOR ECG 12-LEAD Routine 09/22/2024 5:34 PM RAILROAD SIGNAL AND SWITCH OPERATOR XR CHEST PORTABLE STAT 09/22/2024 5:2 4 PM RAILROAD SIGNAL AND SWITCH OPERATOR OUTSIDE LAB (SCAN ORDER) Routine 05/25/2023 LIPID PANEL Routine 07/27/2022 3:46 PM RAILROAD SIGNAL AND SWITCH OPERATOR Mixed hyperlipidemia OCCULT BLOOD, FECES Routine 11/12/2021 1 2:00 AM CDT HEPATITIS C ANTIBODY Routine 08/18/2021 7:04 PM RAILROAD SIGNAL AND SWITCH OPERATOR DILATED EYE EXAM (SCAN) Routine 09/02/2018 from Last 3 Months or Most Recently Relevant to Health Maintenance Results * (ABNORMAL) BASIC METABOLIC PANEL (09/27/2024 6:26 AM RAILROAD SIGNAL AND SWITCH OPERATOR) Only the most recent of5 resultswithin the time period is included. GLUCOSE 183(H) 70 - 99 MG/DL 09/27/2024 7:12 AM [facility] BUN 12 7 - 18 MG/DL 09/27/2024 7:12 AM [facility] CREATININE S/P/B 0.89 0.7 - 1.3 MG/DL 09/27/2024 7:12 AM [facility] SODIUM S/P/B 136 136 - 145 MMOL/L 09/27/2024 7:12 AM [facility] POTASSIUM S/P/B 3.8 3.5 - 5.1 MMOL/L 09/27/2024 7:12 AM [facility] CHLORIDE S/P/B 106 97 - 115 MMOL/L 09/27/2024 7:12 AM [facility] CO2 23.0 21 - 32 MMOL/L 09/27/2024 7:12 AM [facility] CALCIUM S/P/B 9.2 8.5 - 10.1 MG/DL 09/27/2024 7:12 AM [facility] ANION GAP 7.0 2 - 10 MMOL/L 09/27/2024 7:12 AM RAILROAD SIGNAL AND SWITCH OPERATOR [facility] BUN CREATININE RATIO 13.5 6 - 26 09/27/2024 7:12 AM RAILROAD SIGNAL AND SWITCH OPERATOR [facility] GFR ESTIMATE >90 >90 ML/MIN/1.7 3 M2 09/27/2024 7:12 AM RAILROAD SIGNAL AND SWITCH OPERATOR [facility] Comment: NOTE: eGFR is not calculated for patients <18 years of age or gender unknown. This is an estimated GFR calculation using the new CKD EPI creatinine equation without race and so does not require a correction factor for race. This estimated GFR should not be used for calculating drug doses. 09/27/2024 6:26 AM RAILROAD SIGNAL AND SWITCH OPERATOR us Juana Jordan MD LABORATORY Final Res ult [facility] [address] [place] [address], * (ABNORMAL) POCT glucose (09/26/2024 11:38 AM RAILROAD SIGNAL AND SWITCH OPERATOR) Only the most recent of14 resultswithin the time period is included. Pathologist [facility] [place] GLUCOSE POC 171(H) 70 - 99 mg/dL 09/26/2024 11:45 AM RAILROAD SIGNAL AND SWITCH OPERATOR [facility] 09/26/2024 11:3 8 AM RAILROAD SIGNAL AND SWITCH OPERATOR Juana Jordan MD POCT ORDERABLES - DEVICE Final Result [facility] [address] [place] [id number], [place] [phone] * (ABNORMAL) CBC W/DIFF AUTOMATED (09/26/2024 6:49 AM RAILROAD SIGNAL AND SWITCH OPERATOR) Only the most recent of5 resultswithin the time period is included. WBC 4.69 4.5 - 11.0 x10'3/uL 09/26/2024 7:23 AM [facility] RBC 3.33(L) 4.70 - 6.10 x10'6/uL 09/26/2024 7:23 AM [facility] HGB 10.0(L) 14.0 - 18.0 G/DL 09/26/2024 7:23 AM [facility] HCT 30.4(L) 43.0 - 54.0 % 09/26/2024 7:23 AM [facility] MCV 91.3 80.0 - 94.0 FL 09/26/2024 7:23 AM [facility] MCH 30.0 27.0 - 31.0 PG 09/26/2024 7:23 AM [facility] MCHC 32.9 32.0 - 36.0 G/DL 09/26/2024 7:23 AM [facility] RDW 15.0(H) 11.5 - 14.5 % 09/26/2024 7:23 AM [facility] PLT 181 130 - 400 x10'3/uL 09/26/2024 7:23 AM [facility] MPV 9.8 9.3 - 12.2 FL 09/26/2024 7:23 AM [facility] DIFFERENTIAL TYPE AUTOMATED DIFFERENTIAL 09/26/2024 7:23 AM [facility] NEUTROPHILS % 65.4 % 09/26/2024 7:23 AM [facility] LYMPHOCYTES % 20.3 % 09/26/2024 7:23 AM [facility] MONOCYTES % 7.5 % 09/26/2024 7:23 AM [facility] EOSINOPHILS 5.8 % 09/26/2024 7:23 AM [facility] BASOPHILS 0.4 % 09/26/2024 7:23 AM [facility] IMMATURE GRANS % 0.6 % 09/26/19 7:23 AM [facility] ABS. NEUTROPHILS 3.07 1.80 - 7.70 x10'3/uL 09/26/2024 7:23 AM [facility] ABS. LYMPHOCYTES 0.95(L) 1.00 - 4.80 x10'3/uL 09/26/2024 7:23 AM [facility] ABS. MONOCYTES 0.35 0.30 - 0.82 x10'3/uL 09/26/2024 7:23 AM [facility] ABS. EOSINOPHILS 0.27 0.04 - 0.54 x10'3/uL 09/26/2024 7:23 AM [facility] ABS. BASOPHILS 0.02 0.01 - 0.08 x10'3/uL 09/26/2024 7:23 AM [facility] ABS. IMMATURE GRANULOCYTES 0.03 0.00 - 0.49 x10'3/uL 09/26/2024 7:23 AM [facility] 09/26/2024 6:49 AM RAILROAD SIGNAL AND SWITCH OPERATOR Juana Jordan MD LABORATORY Final Res ult [facility] [address] [place] [address], * (ABNORMAL) CULTURE, WOUND, W/GRAM STAIN (09/23/2024 12:59 PM RAILROAD SIGNAL AND SWITCH OPERATOR) SPEC DESCRIPTION SITE: JOHNATHON MCKEON 09/23/2024 12:59 PM [facility] SPECIAL REQUESTS NO SPECIAL REQUEST 09/23/2024 12:59 PM [facility] GRAM STAIN RESULT NO WHITE BLOOD CELLS SEEN 09/23/2024 5:04 PM [facility] GRAM STAIN RESULT NO ORGANISMS SEEN 09/23/2024 5:04 PM [facility] CULTURE RESULT SPARSE GROWTH OF METHICILLIN RESISTANT STAPHYLOCOCCUS AUREUS FOLLOW ISOLATION PROTOCOL. (AA) 09/26/2024 8:24 AM [facility] CULTURE RESULT CALLED TO AND REPEATED BACK BY MATTHEW BARRIGA RN AT 0824 ON 09/26/24 STEVE 09/26/2024 8:24 AM [facility] SPECIMEN FROM UNSPECIFIED BODY SITE / Unknown 09/23/2024 12:59 PM RAILROAD SIGNAL AND SWITCH OPERATOR 09/23/2024 1:00 PM RAILROAD SIGNAL AND SWITCH OPERATOR Comment:JOHNATHON MCKEON Narrative Organism Antibiotic Method Susceptibility [...] MICROBIOLOGY - GENERAL OR DERABLES Final Result [facility] [address] [place] [address], [place] [phone] * (ABNORMAL) MAGNESIUM (09/23/2024 6:36 AM RAILROAD SIGNAL AND SWITCH OPERATOR) MAGNESIUM 1.3(L) 1.8 - 2.4 MG/DL 09/23/2024 9:00 AM RAILROAD SIGNAL AND SWITCH OPERATOR [facility] 09/23/2024 6:36 AM RAILROAD SIGNAL AND SWITCH OPERATOR Juana Jordan MD LABORATORY Final Res ult [facility] [address] [place] [address], [place] [phone] * URINE BACTERIA CULTURE (09/22/2024 8:50 PM RAILROAD SIGNAL AND SWITCH OPERATOR) SPEC DESCRIPTION URINE CLEAN CATCH 09/22/2024 8:50 PM RAILROAD SIGNAL AND SWITCH OPERATOR [facility] SPECIAL REQUESTS NO SPECIAL REQUEST 09/22/2024 8:50 PM RAILROAD SIGNAL AND SWITCH OPERATOR [facility] CULTURE RESULT NO GROWTH 2 DAYS 09/25/2024 7:57 AM RAILROAD SIGNAL AND SWITCH OPERATOR [facility] URINE SPECIMEN OBTAINED BY CLEAN CATCH PROCEDURE / Unknown 09/22/2024 8:50 PM RAILROAD SIGNAL AND SWITCH OPERATOR 09/22/2024 9:47 PM RAILROAD SIGNAL AND SWITCH OPERATOR Lianna Luis MD MICROBIOLOGY - GENERAL ORDERABL ES Final Result Performing Organization Address [facility]/ZIP Co de Phone Number [facility] [address] [place] [address], [place] [phone] * (ABNORMAL) URINALYSIS (09/22/2024 8:11 PM RAILROAD SIGNAL AND SWITCH OPERATOR) SPECIMEN TYPE URINE CLEAN CATCH 09/22/2024 8:11 PM RAILROAD SIGNAL AND SWITCH OPERATOR [facility] COLOR (U) LIGHT YELLOW 09/22/2024 8:33 PM RAILROAD SIGNAL AND SWITCH OPERATOR [facility] TRANSPARENCY CLEAR 09/22/2024 8:33 PM RAILROAD SIGNAL AND SWITCH OPERATOR [facility] SPECIFIC GRAVITY (U) 1.028 1.001 - 1.030 09/22/2024 8:33 PM RAILROAD SIGNAL AND SWITCH OPERATOR [facility] U PH 5.5 5.0 - 9.0 09/22/2024 8:33 PM RAILROAD SIGNAL AND SWITCH OPERATOR [facility] LEUKOCYTES (U) 500(A) NEGATIVE 09/22/2024 8:33 PM RAILROAD SIGNAL AND SWITCH OPERATOR [facility] NITRITES NEGATIVE NEGATIVE 09/22/2024 8:33 PM [facility] PROTEIN RANDOM (U) NEGATIVE <30 MG/DL 09/22/2024 8:33 PM RAILROAD SIGNAL AND SWITCH OPERATOR [facility] GLUCOSE (U) NORMAL NORMAL MG/DL 09/22/2024 8:33 PM RAILROAD SIGNAL AND SWITCH OPERATOR [facility] KETONES MG/DL (U) NEGATIVE NEGATIVE MG/DL 09/22/2024 8:33 PM RAILROAD SIGNAL AND SWITCH OPERATOR [facility] UROBILINOGEN NORMAL NORMAL MG/DL 09/22/2024 8:33 PM [facility] BILIRUBIN (U) NEGATIVE NEGATIVE MG/DL 09/22/2024 8:33 PM RAILROAD SIGNAL AND SWITCH OPERATOR [facility] BLOOD (U) 1+(A) NEGATIVE 09/22/2024 8:33 PM RAILROAD SIGNAL AND SWITCH OPERATOR [facility] MUCUS RARE /LPF 09/22/2024 8:33 PM [facility] WBC/HPF 11(H) <6 /HPF 09/22/2024 8:33 PM RAILROAD SIGNAL AND SWITCH OPERATOR [facility] RBC/HPF 2 <6 /HPF 09/22/2024 8:33 PM RAILROAD SIGNAL AND SWITCH OPERATOR [facility] SQUAMOUS EPITHELIALS FEW /HPF 09/22/2024 8:33 PM RAILROAD SIGNAL AND SWITCH OPERATOR [facility] URINE SPECIMEN OBTAINED BY CLEAN CATCH PROCEDURE / Unknown 09/22/2024 8:11 PM RAILROAD SIGNAL AND SWITCH OPERATOR Kain Lee MD URINE ORDERABLES Final Result [facility] [address] [place] [address], [place] [phone] * LACTIC ACID W REFLEX (SEPSIS) (09/22/2024 7:52 PM RAILROAD SIGNAL AND SWITCH OPERATOR) Only the most recent of2 resultswithin the time period is included. LACTIC ACID VENOUS 1.9 0.4 - 2.0 MMOL/L 09/22/2024 8:27 PM RAILROAD SIGNAL AND SWITCH OPERATOR [facility] 09/22/2024 7:52 PM RAILROAD SIGNAL AND SWITCH OPERATOR Kain Lee MD LABORATORY Final R esult [facility] [address] [place] [address], [place] [phone] * CT ABD+PEL W IV CON ONLY (09/22/2024 6:59 PM RAILROAD SIGNAL AND SWITCH OPERATOR) Anatomical Region Laterality Modality Abdomen Computed Tomogra phy 09/22/2024 7:03 PM RAILROAD SIGNAL AND SWITCH OPERATOR Impressions 09/22/2024 7:11 PM RAILROAD SIGNAL AND SWITCH OPERATOR IMPRESSION: 1. No CT evidence of bowel [...] 09/22/2024 7:03 PM Narrative 09/22/2024 7:11 PM RAILROAD SIGNAL AND SWITCH OPERATOR [facility] [address] [place], [place] [address] PROCEDURE: CT ABD+PEL W CON HISTORY: Abdominal [...] Procedure Note Kira Jacobson MD - 09/22/[address] [address] PROCEDURE: CT ABD+PEL W CON HISTORY: Abdominal [...] * (ABNORMAL) TSH W/REFLEX (09/22/2024 5:38 PM RAILROAD SIGNAL AND SWITCH OPERATOR) TSH 4.360(H) 0.358 - 3.74 uIU/ML 09/22/2024 6:24 PM RAILROAD SIGNAL AND SWITCH OPERATOR [facility] Comment: HIGH DOSES OF BIOTIN MAY INTERFERE WITH THIS TEST RESULT. CORRELATION TO CLINICAL HISTORY AND PRESENTATION RECOMMENDED. 09/22/2024 5:38 PM RAILROAD SIGNAL AND SWITCH OPERATOR Kain Lee MD LABORATORY Final R esult [facility] [address] [place] [address], [place] [phone] * (ABNORMAL) COMPREHENSIVE METABOLIC PANEL (09/22/2024 5:38 PM RAILROAD SIGNAL AND SWITCH OPERATOR) GLUCOSE 143(H) 70 - 99 MG/DL 09/22/2024 6:24 PM RAILROAD SIGNAL AND SWITCH OPERATOR [facility] BUN 14 7 - 18 MG/DL 09/22/2024 6:24 PM [facility] CREATININE S/P/B 1.15 0.7 - 1.3 MG/DL 09/22/2024 6:24 PM [facility] SODIUM S/P/B 136 136 - 145 MMOL/L 09/22/2024 6:24 PM [facility] POTASSIUM S/P/B 3.1(L) 3.5 - 5.1 MMOL/L 09/22/2024 6:24 PM [facility] CHLORIDE S/P/B 101 97 - 115 MMOL/L 09/22/2024 6:24 PM RAILROAD SIGNAL AND SWITCH OPERATOR [facility] CO2 31.0 21 - 32 MMOL/L 09/22/2024 6:24 PM [facility] CALCIUM S/P/B 9.1 8.5 - 10.1 MG/DL 09/22/2024 6:24 PM [facility] BILIRUBIN TOTAL S/P/B 0.5 0.2 - 1.2 MG/DL 09/22/2024 6:24 PM [facility] Comment: THIS ASSAY IS NOT RECOMMENDED FOR PATIENTS UNDERGOING TREATMENT WITH ELTROMBOPAG DUE TO THE POTENTIAL FOR FALSELY ELEVATED RESULTS. TOTAL PROTEIN S/P/B 7.3 6.4 - 8.2 G/DL 09/22/2024 6:24 PM [facility] ALBUMIN S/P/B 2.9(L) 3.4 - 5.0 G/DL 09/22/2024 6:24 PM [facility] AST 41(H) 15 - 37 U/L 09/22/2024 6:24 PM [facility] ALT 30 16 - 60 U/L 09/22/2024 6:24 PM [facility] ALKALINE PHOSPHATASE S/P/B 62 50 - 136 U/L 09/22/2024 6:24 PM [facility] ANION GAP 4.0 2 - 10 MMOL/L 09/22/2024 6:24 PM [facility] BUN CREATININE RATIO 12.2 6 - 26 09/22/2024 6:24 PM [facility] A/G RATIO 0.7(L) 1.0 - 2.0 RATIO 09/22/2024 6:24 PM [facility] GFR ESTIMATE 68(L) >90 ML/MIN/1.7 3 M2 09/22/2024 6:24 PM [facility] Comment: NOTE: eGFR is not calculated for patients <18 years of age or gender unknown. This is an estimated GFR calculation using the new CKD EPI creatinine equation without race and so does not require a correction factor for race. This estimated GFR should not be used for calculating drug doses. 09/22/2024 5:38 PM [employer] Kain Lee MD LABORATORY Final R esult Performing Organization Address [facility] Co de Phone Number [facility] [address] [place] [address], * THYROXINE, FREE (FT4) (09/22/2024 5:38 PM [employer] SW[employer] OPERATOR) FREE T4 1.22 0.76 - 1.46 NG/DL 09/22/2024 6:18 PM [employer] SW[employer] OPERATOR [facility] 09/22/2024 5:38 PM [employer] SW[employer] OPERATOR Lianna Luis MD LABORATORY Final Result Performing Organization Address [facility] de Phone Number [facility] [address] [place] [address], * (ABNORMAL) THYROID STIM HORMONE TSH (09/22/2024 5:38 PM [employer] SW[employer] OPERATOR) TSH 4.270(H) 0.358 - 3.74 uIU/ML 09/22/2024 6:18 PM [employer] SW[employer] OPERATOR [facility] Comment: HIGH DOSES OF BIOTIN MAY INTERFERE WITH THIS TEST RESULT. CORRELATION TO CLINICAL HISTORY AND PRESENTATION RECOMMENDED. 09/22/2024 5:38 PM [employer] SW[employer] OPERATOR Lianna Luis MD LABORATORY Final Result Performing Organization Address [facility] Co de Phone Number [facility] [address] [place] [address], * ECG 12 lead (09/22/2024 5:34 PM [employer]NAL [employer] SWITCH OPERATOR) 09/22/2024 5:34 PM [employer] SWITCH OPERATOR Narrative [facility] - 09/23/2024 7:29 AM RAILROAD SIGNAL AND SWITCH OPERATOR [facility] [address] Test Date: 2024-09-22 Pat Name: DENA HOANG Department: 41 Room: B442 Gender: Male Post Acute Care Nurse Practitioner: : 1955 Requested By: KAIN LEE Order Number: [id number] Reading MD: Mike Massey Measurements Intervals Marcy Rate: 107 P: 47 MS: 205 QRS: 16 QRSD: 103 T: 31 QT: 334 QTc: 447 Interpretive Statements SINUS TACHYCARDIA POSSIBLE ANTERIOR MYOCARDIAL INFARCTION [30 ms Q WAVE IN V3/V4, OR R < 0.2 mV IN V4], PROBABLY OLD ABNORMAL RHYTHM ECG Compared to ECG 03/21/2023 18:10:21 Myocardial infarct finding now present Sinus tachycardia now present ROAD SIGNAL AND SWITCH OPERATOR Procedure Note Mike Massey MD - 09/23/2024 [facility] [address] [place] [address] Test Date: 2024-09-22 Pat Name: DENA HOANG Department: 41 Room: B442 Gender: Male Post Acute Care Nurse Practitioner: : 1955 Requested By: KAIN LEE Order Number: [id number] Reading MD: Mike Massey Measurements Intervals Marcy Rate: 107 P: 47 MS: 205 QRS: 16 QRSD: 103 T: 31 QT: 334 QTc: 447 Interpretive Statements SINUS TACHYCARDIA POSSIBLE ANTERIOR MYOCARDIAL INFARCTION [30 ms Q WAVE IN V3/V4, OR R < 0.2mV IN V4], PROBABLY OLD ABNORMAL RHYTHM ECG Compared to ECG 03/21/2023 18:10:21 Myocardial infarct finding now present Sinus tachycardia now present ROAD SIGNAL AND SWITCH OPERATOR us Kain Lee MD ECG ORDERABLES Final R esult [facility] ([facility]) RAD * XR CHEST PORTABLE (09/22/2024 5:24 PM RAILROAD SIGNAL AND SWITCH OPERATOR) Anatomical Region Laterality Modality Chest Radiographic Lexie ging 09/22/2024 5:56 PM RAILROAD SIGNAL AND SWITCH OPERATOR Impressions 09/22/2024 6:01 PM RAILROAD SIGNAL AND SWITCH OPERATOR =====IMPRESSION:===== 1. Mild pulmonary vascular congestion. 2. No consolidation or effusion. Ordered By: KAIN LEE Interpreted By: Mando Saha MD, 09/22/2024 5:56 PM Narrative 09/22/2024 6:01 PM RAILROAD SIGNAL AND SWITCH OPERATOR [place] [address] Examination: Chest x-ray 1 view Exam date/time: 09/22/2024 5:15 PM Reason For Exam: Generalized weakness Comparison: 03/08/2023 Findings: Cardiac size is within normal limits. Pulmonary vessels are prominent and indistinct. Mild bilateral interstitial opacities, likely minimal edema. No acute airspace consolidation, pleural effusion or pneumothorax. Degenerative changes are noted. Procedure Note Mando Saha MD - 09/22/[address] [address] Examination: Chest x-ray 1 view Exam date/time: [...] ONBASE * LIPID PANEL (07/27/2022 3:46 PM RAILROAD SIGNAL AND SWITCH OPERATOR) CHOLESTEROL 154 <200.0 MG/DL 07/27/2022 8:11 PM [facility] TRIGLYCERIDES 97 <150 MG/DL 07/27/2022 8:11 PM [facility] HDL 52 >40.0 MG/DL 07/27/2022 8:11 PM [facility] LDL (CALCULATED) 83 <100 MG/DL 07/27/20 8:11 PM [facility] NON HDL CHOLESTEROL 102 <130 MG/DL 07/27 8:11 PM [facility] CHOL/HDL RATIO 3.0 0.0 - 4.5 07/27/2022 8:11 PM [facility] VLDL CALCULATION 19 5 - 55 MG/DL 07/27/2022 8:11 PM [facility] LIPID INTERPRETATION 07/27/2022 8:11 PM [facility] Comment: [facility] CONCENSUS REPORT RECOMMENDATIONS: ADULT CHILD LOW RISK: CHOLESTEROL <200 <170 TRIGLYCERIDE <150 --- HDL >=60 --- LDL <100 <110 BORDERLINE: CHOLESTEROL 200-239 170-199 TRIGLYCERIDE 150-199 --- HDL 40-59 --- LDL 100-159 110-129 HIGH RISK: CHOLESTEROL >=240 >=200 TRIGLYCERIDE >=200 --- HDL <40 --- LDL >=160 >=130 07/27/2022 3:46 PM RAILROAD SIGNAL AND SWITCH OPERATOR Bri Mcclain MD LABORATORY Final Result Performing Organization Address City/[facility]/ZIP Co de Phone Number [facility] [address] [place] [address], [place] [phone] * OCCULT BLOOD, FECES (11/12/2021 12:00 AM CDT) OCCULT BLOOD FECAL NEGATIVE 11/12/2021 8:54 AM CDT [facility] STOOL SPECIMEN / Unknown 11/12/2021 Helen Gan MD BODY FLUIDS AND STOOLS ORDERABL ES Final Result Performing Organization Address [facility] Co de Phone Number [facility] [address] [place] [address], [place] [phone] * HEPATITIS C ANTIBODY (08/18/2021 7:04 PM 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 DOES NOT EXCLUDE THE POSSIBILITY OF EXPOSURE TO HCV. 08/18/2021 7:04 PM RAILROAD SIGNAL AND SWITCH OPERATOR us Velia PADRON LABORATORY Final Res ult Performing Organization Address City/[facility]/ZIP Co de Phone Number [facility] [address] [place] [address], [place] [phone] * DILATED EYE EXAM (09/02/2018) us Documents Scanned SCANNING Final Result from Last 3 Months or Most Recently Relevant to Health Maintenance Additional Health Concerns Infection Onset Date Last Indicated MRSA Comment:+ MRSA nares 11/14/2020 (KB) 07/07/21 +MRSA Blood 07/08/21 Nares (SB) 07/11/21 right ankle (SB) 03/08/23 nares (JK) 09/23/24 right pannus 06/04/2017 09/23/2024 Insurance MEDICARE [facility] Advance Directives * Full Code (Latest Code [...] 11:02 AM 03/19/2023 1:28 PM Care Teams Stoper Relationship Specialty Start Date End Date None, Provider, PCP - General UNKNOWN PHYSICIAN SPECIALTY 09/22/24 Bri Mcclain MD INTERNAL MEDICINE 12/31/20 Lencho Lopes MD [address] [address] Physician INTERVENTIONAL CARDIOLOGY 08/07/21
--- OUTSIDE RECORDS SUMMARY | 2024-11-06 20:00 | XMS_ITS | Continuity of Care Document ---
Author Organization [facility] Address [id number] [place] [address] [address] [place] [address] Phone Care Team Providers Care Insurance Verification Representative Name Role Phone July De Los Santos [...] Copied on Encounter Office/outpat ient Visit, Est [facility], [address] [place] [address] [address], [place], [place], [id number], [place] tel:[phone] [facility] No Information 2-201 0 Magali Corrales [address] , [address], [place], [address], [place]. tel:[phone] [facility], [address], [place], [place], [address], [place] tel:[phone] SEC [facility] No Information Ricco-0 1-201 0 Magali Corrales [address] , [address], [place], [place], [facility], [place]. tel:[phone] [facility] Eye [facility], [address], [place], [place], [address], [place] tel:[phone] [facility] No Information December-0 4-201 0 Magali Corrales [address] , [address], [place], [facility], [place]. tel:[phone] [facility] Eye [facility], [address], [place], [place], [address], [place] tel:[phone] [facility] No Information 7-201 0 Magali Corrales [address] , [address], [place], [facility], . tel:[phone] Office/outpat ient Visit, [facility], [address] [place] [address] [address], [place], [place], [address], [place] tel:[phone] [facility] No Information 6-201 0 Magali Corrales [address] , [address], [place], [facility], [place]. tel:[phone] [facility], [address], [place], [place], [address], [place] tel:[phone] [facility] No Information 6-200 9 Magali Cor[address]es [address] , [address], [place], [facility], [place]. tel:[phone] Referring Provider: July Shane, [address], [place], [facility]. tel:[phone] Office/outpat ient Visit, [facility], [address] [place] [address] [address], [place], [place], [address], [place] tel:[phone] [facility] No Information 9 Magali Mcdowell. [address] , [address], [place], [facility], . tel:[phone] Referring Provider: July Shane, [address], [place], [facility]. tel:[phone] Office/outpat ient Visit, [facility], [address] [place] [address] [address], [place], [place], [address], [place] tel:[phone] [facility] No Information 6 8 Magali M[address]owell. [address] , [address], [place], [facility], [place]. tel:[phone] [facility], [address], [place], [place], [address], [place] tel:[phone] [place] [address] No Information 8 Mag[address] M[address]owell. [address] [facility] , [address], [place], [facility], [place]. tel:[phone] Referring Provider: July Shane, [address], [place], [facility]. tel:[phone] Office/outpat ient Visit, [facility], [address] [place] [address] [address], [place], [place], [address], [place] tel:[phone] [place] [address] No Information 200 [address] M[address]. [address] , [address], [place], [facility], [place]. tel:[phone] Referring Provider: July Shane, [address], [place], [facility]. tel:[phone] Office/outpat ient Visit, [facility], [address], [place], [place], [address], [place] tel:[phone] [facility] No Information 7 [address] , [address], [place], [address], [place]. tel:[phone] Family History Family Member Type Diagnosis Age At Onset No Information Payers Payer name Insurance type Covered green party ID Authorfranky tapia(s) [facility] CI [id number] Social History Type Description Quantity Date Captured [...]
[2024-11-06 20:04] LABS: Basophils Percent Auto 0.8 % (0.2-1.2); Eosinophils Percent Auto 1.5 % (0-4.4); Hematocrit 29.4 % (42.0-52.0); Hemoglobin 9.7 g/dL (14.0-18.0); Immature Granulocyte Absolute 0.02 K/mm3 (0.00-0.031); Immature Granulocyte Percent A 0.8 % (0-0.5); Lymphocytes Absolute Auto 0.87 K/mm3 (0.9-3.2); Lymphocytes Percent Auto 33.6 % (18.3-44.2); Mean Corpuscular Volume 87.8 fl (80-100); Mean Platelet Volume 9.7 fl (7.4-10.4); Monocytes Absolute Auto 0.4 K/mm3 (0.1-0.6); Monocytes Percent Auto 16.2 % (2.6-8.5); Neutrophils Absolute Auto 1.2 K/mm3 (1.3-6.7); Neutrophils Percent Auto 47.1 % (45.5-73.1); Platelet Count Result 232 k/mm3 (150-375); Red Blood Count 3.35 M/mm3 (4.6-6.20); Red Cell Distribution Width 14.6 % (11.5-14.5); White Blood Count 2.6 K/mm3 (4.5-10.0)
--- NOTE | 2024-11-06 20:07 | ED.GENADULT ---
HPI - General Adult General Chief complaint: Recheck/Abnormal Lab/Rx Stated complaint: RSV+ TODAY, TOOK ABX X 1, NOT FEELING BETTER Time Seen by Provider: 11/06/24 19:45 History of Present Illness HPI narrative: Patient 68-year-old gentleman presents emergency department with chief complaint of not feeling well. Patient reports that he was diagnosed with RSV and pneumonia earlier today was given prescriptions for antibiotics and inhaler and has not started them yet at the facility where he is resident. The patient reports he called his primary doctor disease feeling bad and was told to come back to the emergency department. Related Data Home Medications ?Medication ?Instructions ?Recorded ?Confirmed ?Last Taken ?Type multivit with minerals-iron 18 1 tablet PO DAILY 01/26/23 06/01/24 Unknown History mg-folic ac 400 mcg-vit K 25 mcg tablet (Adults Multivitamin) acetaminophen 500 mg capsule 500 mg PO Q6H PRN Pain, Moderate 05/25/23 06/01/24 Unknown History bimatoprost 0.01 % eye drops 1 drp EACH EYE DAILY 05/25/23 06/01/24 Unknown History blood-glucose meter (OneTouch 05/25/23 06/01/24 Unknown History Verio Flex Meter) insulin syringe-needle U-100 1 mL 05/25/23 06/01/24 Unknown History 31 gauge x 5/16 (BD Insulin Syringe Ultra-Fine) docusate sodium 100 mg capsule 100 mg PO BID PRN Constipation 10/28/23 06/01/24 Unknown History losartan 25 mg tablet 25 mg PO DAILY 10/29/23 06/01/24 Unknown History blood-glucose sensor (Dexcom G6 06/08/24 Unknown History Sensor device) insulin glargine 100 unit/mL (3 See Rx Instructions .Route .COMPLEX 06/08/24 Unknown History mL) subcutaneous pen (Lantus Solostar U-100 Insulin) insulin regular hum U-500 conc 500 350 unit subcut .via insulin pump 06/08/24 Unknown History unit/mL subcutaneous soln (Humulin QD R U-500 (Concentrated) Insulin) lancets 33 gauge 06/08/24 Unknown History semaglutide 1 mg/dose (2 mg/1.5 0.5 mg subcut WEEKLY 06/08/24 Unknown History mL) subcutaneous pen injector Allergies Allergy/AdvReac Type Severity Reaction Status Date / Time metformin Allergy Mild Rash Verified 11/06/24 09:22 morphine AdvReac Unknown CONFUSION Verified 11/06/24 09:22 Review of Systems Review of Systems: A 10 system review of systems was completed on the patient and is negative except for what is stated in the HPI. Nursing and ancillary documentation was reviewed. 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 Postoperative wound dehiscence Pain due to internal orthopedic prosthetic devices, implants and grafts, initial encounter (08/26/17) Non-pressure chronic ulcer of other part of right foot limited to breakdown of skin Right foot pain Other chronic pain Fungal infection right foot Obesity, morbid, BMI 40.0-49.9 Occult blood in stools Acute on chronic anemia Chronic anemia Hyperlipidemia Pneumonia BPH (benign prostatic hyperplasia) Obstructive sleep apnea Glaucoma Chronic a-fib Right knee DJD Left knee DJD Type 2 diabetes mellitus with diabetic neuropathy, unspecified Venous stasis of both lower extremities BMI greater than 40 Degenerative joint disease of knee Vision abnormalities Diabetes 1.5, managed as type 2 Left knee pain Surgical History Surgical History History of skin graft History of arthroplasty of left knee Hx of cholecystectomy H/O cataract extraction History of foot surgery Family History Family History Mother Breast cancer Dementia Father Diabetes mellitus Malignant neoplasm of prostate Dementia Other Family history of malignant neoplasm Social History Social History Social History: the patient lives with his and they have no children. He is retired from [employer]. Code status full code Smoking status: Never smoker Alcohol intake: never Substance use: never Substance use type: does not use Lack of Transportation: No Lack of Food: Never True Current Housing: I Have Housing Concerned About Future Housing: Decline to Answer Difficulty Paying Gas/Electric Bills: Decline to Answer Difficulty Paying for Meds: Decline to Answer Currently Unemployed: Decline to Answer Education: Decline to Answer Difficulty w/ Childcare or Family Care: Decline to Answer Gender identity (if verbalized by the patient): Male Spiritual care concerns: No Exam Narrative: GENERAL: Well-appearing, well-nourished, and in no acute distress. HEAD: Normocephalic, atraumatic. EYES: PERRLA and EOMI. ENT: Nares clear, no rhinorrhea or epistaxis. Mucous membranes moist. NECK: Supple. CHEST: Scattered rhonchi to auscultation. No respiratory distress. HEART: Regular rate and rhythm. No murmur heard. Normal peripheral pulses. ABDOMEN: Soft, nontender, nondistended, normal active bowel sounds. EXTREMITIES: Normal range of motion. No edema. SKIN: Warm, dry, no rash. NEURO: No focal deficits. Alert and oriented x3. PSYCH: Normal mood and affect. Course Vital Signs Vital signs: Vital Signs Temperature 37.1 C 11/06/24 19:31 Pulse Rate 118 H 11/06/24 19:31 Respiratory Rate 20 11/06/24 19:31 Blood Pressure 141/75 H 11/06/24 19:31 Pulse Oximetry 99 11/06/24 19:31 Oxygen Delivery Nasal Cannula 11/06/24 19:31 Oxygen Flow Rate 2 11/06/24 19:31 Temperature 37.1 C 11/06/24 19:31 Pulse Rate 118 H 11/06/24 19:31 Respiratory Rate 24 H 11/06/24 19:40 Blood Pressure 141/75 H 11/06/24 19:31 Pulse Oximetry 99 11/06/24 19:31 Oxygen Delivery Nasal Cannula 11/06/24 19:31 Oxygen Flow Rate 2 11/06/24 19:40 Medical Decision Making MDM Narrative Medical decision making narrative: The patient was just diagnosed with RSV and pneumonia. The patient is not hypoxic is not showing signs of respiratory failure vitals are otherwise stable. At this time the patient does not meet admission criteria. The patient will be given a dose of the antibiotics in the emergency department today given a breathing treatment in the emergency department and plan will be to discharge the patient back to his facility Vital Signs Vital Signs: Vital Signs Temperature 37.1 C 11/06/24 19:31 Pulse Rate 118 H 11/06/24 19:31 Respiratory Rate 20 11/06/24 19:31 Blood Pressure 141/75 H 11/06/24 19:31 Pulse Oximetry 99 11/06/24 19:31 Oxygen Delivery Nasal Cannula 11/06/24 19:31 Oxygen Flow Rate 2 11/06/24 19:31 Temperature 37.1 C 11/06/24 19:31 Pulse Rate 118 H 11/06/24 19:31 Respiratory Rate 24 H 11/06/24 19:40 Blood Pressure 141/75 H 11/06/24 19:31 Pulse Oximetry 99 11/06/24 19:31 Oxygen Delivery Nasal Cannula 11/06/24 19:31 Oxygen Flow Rate 2 11/06/24 19:40 Lab Data 11/06/24 19:46 11/06/24 19:46 Labs: Lab Results 11/06/24 Range/Units 19:46 WBC 2.6 L (4.5-10.0) K/mm3 RBC 3.35 L (4.6-6.20) M/mm3 Hgb 9.7 L (14.0-18.0) g/dL Hct 29.4 L (42.0-52.0) % MCV 87.8 (80-100) fl MCH 29.0 (26-34) pg MCHC 33.0 (32-36) g/dl RDW 14.6 H (11.5-14.5) % Plt Count 232 (150-375) k/mm3 MPV 9.7 (7.4-10.4) fl Immature Gran % (Auto) 0.8 H (0-0.5) % Neut % (Auto) 47.1 (45.5-73.1) % Lymph % (Auto) 33.6 (18.3-44.2) % Mcdonough % (Auto) 16.2 H (2.6-8.5) % Eos % (Auto) 1.5 (0-4.4) % Baso % (Auto) 0.8 (0.2-1.2) % Lymph # (Auto) 0.87 L (0.9-3.2) K/mm3 Mcdonough # (Auto) 0.4 (0.1-0.6) K/mm3 Eos # (Auto) 0.0 (0-0.3) K/mm3 Baso # (Auto) 0.0 (0.0-0.1) K/mm3 Abs Immat Gran (auto) 0.02 (0.00-0.031) K/mm3 Absolute Neuts (auto) 1.2 L (1.3-6.7) K/mm3 Absolute Nucleated RBC 0.000 (0.0-0.012) K/mm3 Nucleated RBC % 0.0 (0.0-0.2) % Sodium Pending Potassium Pending Chloride Pending Carbon Dioxide Pending Anion Gap Pending BUN Pending Creatinine Pending Estim Creat Clear Calc Pending Estimated GFR Pending Glucose Pending Calcium Pending Total Bilirubin Pending AST Pending ALT Pending Alkaline Phosphatase Pending Total Protein Pending Albumin Pending Influenza A (RT-PCR) Pending Influenza B (RT-PCR) Pending RSV (RT-PCR) Pending SARS-CoV-2 RNA (RT-PCR) Pending Discharge Plan Discharge Clinical Impression: Respiratory syncytial virus (RSV), Pneumonia Patient Disposition: [facility] Living Condition: Stable Instructions: Antibiotic Form, Pneumonia (ED), RSV (Respiratory Syncytial Virus) Infection (ED) Patient Language: Mexican Prescriptions: No Action acetaminophen 500 mg capsule 500 mg PO Q6H PRN (Reason: Pain, Moderate) bimatoprost 0.01 % drops 1 drp EACH EYE DAILY (DME) insulin syringe-needle U-100 [BD Insulin Syringe Ultra-Fine] 1 mL 31 gauge x 5/16 syringe See Rx Instructions .Route Rx Instructions: As directed (DME) blood-glucose meter [OneTouch Verio Flex meter] [facility] See Rx Instructions .Route Rx Instructions: As directed nystatin-triamcinolone 100,000-0.1 unit/g-% cream 1 applic topical TID Qty: 60 5RF cyclobenzaprine 5 mg tablet 5 mg PO Q12H Qty: 30 0RF docusate sodium 100 mg capsule 100 mg PO BID PRN (Reason: Constipation) nystatin 100,000 unit/gram powder 1 applic topical TID Qty: 60 3RF Adults Multivitamin 18 mg iron-400 mcg-25 mcg Tablet 1 tablet PO DAILY azithromycin 250 mg tablet See Rx Instructions .ROUTE .COMPLEX Qty: 6 0RF Rx Instructions: take 500 mg today (day 1), then 250 mg for 4 days (days 2-5) albuterol sulfate 90 mcg/actuation HFA aerosol inhaler 2 puff inhalation QID PRN (Reason: shortness of breath or wheezing) Qty: 8.5 0RF amoxicillin-pot clavulanate 875-125 mg tablet 1 tablet PO Q12H Qty: 10 0RF cholecalciferol (vitamin D3) 50 mcg (2,000 unit) capsule 50 mcg PO DAILY Qty: 30 2RF bumetanide 2 mg tablet 2 mg PO BID Qty: 180 0RF fluticasone propionate 220 mcg/actuation HFA aerosol inhaler 2 puff INHALATION Q12H Qty: 12 2RF losartan 25 mg tablet 25 mg PO DAILY brimonidine 0.2 % drops 1 drp EACH EYE Q12H Qty: 5 0RF dorzolamide-timolol 22.3-6.8 mg/mL drops 1 drp EACH EYE Q12H Qty: 10 0RF Rx Instructions: 30 day supply (DME) Wheelchair XL See Rx Instructions .Route .MEDSUPPLY Qty: 1 0RF Rx Instructions: As directed atorvastatin 40 mg tablet 40 mg PO DAILY Qty: 90 0RF tamsulosin 0.4 mg capsule See Rx Instructions .ROUTE .COMPLEX Qty: 90 1RF Dose Instruction: Take 1 capsule by mouth once daily Rx Instructions: Take 1 capsule by mouth once daily Eliquis 5 mg tablet 5 mg PO BID Qty: 180 2RF (DME) Electric Wheel Chair See Rx Instructions .Route .MEDSUPPLY Qty: 1 0RF Rx Instructions: Electric Wheel Chair for Indoor Use spironolactone 25 mg tablet See Rx Instructions .ROUTE .COMPLEX Qty: 60 2RF Dose Instruction: Take 1 tablet by mouth twice daily Rx Instructions: Take 1 tablet by mouth twice daily hydralazine 50 mg tablet 50 mg PO TID Qty: 90 4RF metoprolol succinate 50 mg tablet extended release 24 hr See Rx Instructions .ROUTE .COMPLEX Qty: 90 0RF Dose Instruction: Take 1 tablet by mouth once daily Rx Instructions: Take 1 tablet by mouth once daily levothyroxine 112 mcg tablet See Rx Instructions .ROUTE .COMPLEX Qty: 30 2RF Dose Instruction: Take 1 tablet by mouth once daily Rx Instructions: Take 1 tablet by mouth once daily (DME) Dexcom G6 Sensor Device See Rx Instructions .ROUTE Rx Instructions: As directed Humulin R U-500 (Conc) Insulin 500 unit/mL solution 350 unit subcut .via insulin pump QD insulin glargine [Lantus Solostar U-100 Insulin] 100 unit/mL (3 mL) insulin pen See Rx Instructions .ROUTE .COMPLEX Rx Instructions: 45 units in the am and 20 units in the pm daily; semaglutide 1 mg/dose (2 mg/1.5 mL) pen injector 0.5 mg SUBCUT WEEKLY (DME) lancets 33 gauge misc See Rx Instructions .ROUTE Patient Comments: One Touch Delica Rx Instructions: As directed benzonatate 200 mg capsule 200 mg PO TID PRN (Reason: cough) Qty: 50 0RF diltiazem HCl 30 mg tablet See Rx Instructions .ROUTE .COMPLEX Qty: 90 1RF Dose Instruction: TAKE 1 TABLET BY MOUTH THREE TIMES DAILY Rx Instructions: TAKE 1 TABLET BY MOUTH THREE TIMES DAILY potassium chloride 10 mEq capsule, extended release See Rx Instructions .ROUTE .COMPLEX Qty: 90 0RF Dose Instruction: Take 1 capsule by mouth once daily Rx Instructions: Take 1 capsule by mouth once daily famotidine 20 mg tablet See Rx Instructions .ROUTE .COMPLEX Qty: 90 0RF Dose Instruction: Take 1 tablet by mouth twice daily Rx Instructions: Take 1 tablet by mouth twice daily hydroxyzine HCl 25 mg tablet See Rx Instructions .ROUTE .COMPLEX Qty: 90 0RF Dose Instruction: TAKE 1 TABLET BY MOUTH 4 TIMES DAILY NEEDED FOR ITCHING Rx Instructions: TAKE 1 TABLET BY MOUTH 4 TIMES DAILY NEEDED FOR ITCHING IRON 65MG TAB See Rx Instructions .ROUTE .COMPLEX Qty: 90 1RF Dose Instruction: Take 1 tablet by mouth once daily Rx Instructions: Take 1 tablet by mouth once daily gabapentin 100 mg capsule 100 mg PO TID Qty: 90 3RF tramadol 50 mg tablet 50 mg PO QID PRN (Reason: pain) Qty: 60 0RF ciprofloxacin-dexamethasone 0.3-0.1 % drops,suspension 4 drp otic (ear) Q12H Qty: 7.5 0RF cefuroxime axetil 500 mg tablet 500 mg PO Q12H Qty: 20 0RF Follow-up/Referrals: Felix Jones MD [Primary Care Provider] -
[2024-11-06] MEDS: AZITHROMYCIN 250 MG TABLET 500 MG PO (20:10)
[2024-11-06] MEDS: AMOXICILLIN/CLAVULANATE K 875-125 MG TAB 1 TABLET PO (20:10)
[2024-11-06 20:15] LABS: Alanine Aminotransferase 53 U/L (6-50); Albumin Level 3.8 g/dL (3.5-5.1); Alkaline Phosphatase 92 U/L (38-126); Anion Gap 9 mmol/L (4-12); Aspartate Amino Transferase 45 U/L (17-59); Bilirubin,Total 0.7 mg/dL (0.2-1.3); Blood Urea Nitrogen 16 mg/dL (9-20); Calcium 9.3 mg/dL (8.4-10.2); Carbon Dioxide 25 mmol/L (22-30); Chloride 97 mmol/L (98-107); Estimated CRCL calculation 118 ml/min; Estimated Glomerular Filt Rate > 60; Glucose 190 mg/dL (65-110); Potassium 4.4 mmol/L (3.4-5.0); Sodium 131 mmol/L (137-145)
[2024-11-06] MEDS: IPRATROPIUM 0.5 MG/ALBUTEROL SULFATE 2.5 MG AMPUL.NEB 3 ML INHALATION (20:16)
[2024-11-06 20:17] VITALS: PULSE 101; RESP 23
[2024-11-06 20:23] VITALS: PULSE 104; RESP 17
[2024-11-06 20:41] LABS: Influenza A QL RT-PCR Negative (Negative); Influenza B QL RT-PCR Negative (Negative); RSV RNA, RT-PCR Negative (Negative); SARS-CoV-2 RNA PCR Negative (Negative)
--- NOTE | 2024-11-06 20:49 | PC.NURSE ---
Attempted to call report to [facility] @2049 with no answer.
--- NOTE | 2024-11-06 21:08 | PC.NURSE ---
Report given to Adeola PATTERSON at [facility].
[2024-11-06 21:53] VITALS: PULSE 109; RESP 20; O2SAT 96
== END 2024-11-06 21:56 ==
PROVIDERS: Emergency Provider Emergency Medicine; PCP Internal Medicine
DX: J18.9 Pneumonia, unspecified organism (principal); B97.4 Respiratory syncytial virus as the cause of diseases classified elsewhere; I10 Essential (primary) hypertension; I48.20 Chronic atrial fibrillation, unspecified; J45.909 Unspecified asthma, uncomplicated; E11.39 Type 2 diabetes mellitus with other diabetic ophthalmic complication; H42 Glaucoma in diseases classified elsewhere; E11.40 Type 2 diabetes mellitus with diabetic neuropathy, unspecified; E55.9 Vitamin D deficiency, unspecified; E03.9 Hypothyroidism, unspecified; E66.01 Morbid (severe) obesity due to excess calories; Z68.42 Body mass index [BMI] 45.0-49.9, adult; D64.9 Anemia, unspecified; M17.0 Bilateral primary osteoarthritis of knee; G47.33 Obstructive sleep apnea (adult) (pediatric); Z96.652 Presence of left artificial knee joint; Z90.49 Acquired absence of other specified parts of digestive tract; Z98.49 Cataract extraction status, unspecified eye; Z79.85 Long-term (current) use of injectable non-insulin antidiabetic drugs; Z79.4 Long term (current) use of insulin; Z79.899 Other long term (current) drug therapy; Z79.01 Long term (current) use of anticoagulants
CPT/HCPCS: 36415; 80053; 85025; 87637; 94640; 99283; A9270

== ENCOUNTER 2025-02-13 17:26 | Emergency (ER) | payer MEDICARE, SELFPAY ==
[2025-02-13 17:40] VITALS: BP 133/53; PULSE 76; RESP 16; TEMP 37.2; O2SAT 99
[2025-02-13 18:05] LABS: Basophils Percent Auto 0.3 % (0.2-1.2); Eosinophils Absolute Auto 0.2 K/mm3 (0-0.3); Eosinophils Percent Auto 2.8 % (0-4.4); Hematocrit 32.8 % (42.0-52.0); Hemoglobin 10.4 g/dL (14.0-18.0); Immature Granulocyte Absolute 0.03 K/mm3 (0.00-0.031); Immature Granulocyte Percent A 0.4 % (0-0.5); Lymphocytes Absolute Auto 1.13 K/mm3 (0.9-3.2); Lymphocytes Percent Auto 14.6 % (18.3-44.2); Mean Corpuscular HGB Conc 31.7 g/dl (32-36); Mean Corpuscular Hemoglobin 29.4 pg (26-34); Mean Corpuscular Volume 92.7 fl (80-100); Mean Platelet Volume 10.4 fl (7.4-10.4); Monocytes Absolute Auto 0.4 K/mm3 (0.1-0.6); Monocytes Percent Auto 5.2 % (2.6-8.5); Neutrophils Absolute Auto 5.9 K/mm3 (1.3-6.7); Neutrophils Percent Auto 76.7 % (45.5-73.1); Platelet Count Result 196 k/mm3 (150-375); Red Blood Count 3.54 M/mm3 (4.6-6.20); Red Cell Distribution Width 15.6 % (11.5-14.5); White Blood Count 7.7 K/mm3 (4.5-10.0)
[2025-02-13 18:20] LABS: Alanine Aminotransferase 18 U/L (6-50); Albumin Level 4.1 g/dL (3.5-5.1); Alkaline Phosphatase 78 U/L (38-126); Anion Gap 10 mmol/L (4-12); Aspartate Amino Transferase 25 U/L (17-59); Bilirubin,Total 0.7 mg/dL (0.2-1.3); Blood Urea Nitrogen 20 mg/dL (9-20); Calcium 9.5 mg/dL (8.4-10.2); Carbon Dioxide 24 mmol/L (22-30); Chloride 100 mmol/L (98-107); Estimated CRCL calculation 108 ml/min; Estimated Glomerular Filt Rate > 60; Glucose 240 mg/dL (65-110); Potassium 4.5 mmol/L (3.4-5.0); Sodium 134 mmol/L (137-145); Total Protein 7.6 g/dL (6.3-8.2)
[2025-02-13 18:21] LABS: Lactic Acid Reflex 2.1 mmol/L (0.7-2.0)
--- NOTE | 2025-02-13 19:07 | ED.GENADULT ---
HPI - General Adult General Chief complaint: Skin/Abscess/Foreign Body <Jesu Walker MD - Last Filed: 02/13/25 19:13> Stated complaint: wounds <Jesu Walker MD - Last Filed: 02/13/25 19:13> Time Seen by Provider: 02/13/25 17:34 <Jesu Walker MD - Last Filed: 02/13/25 19:13> Source: patient <Jesu Walker MD - Last Filed: 02/13/25 19:13> Mode of arrival: EMS <Jesu Walker MD - Last Filed: 02/13/25 19:13> Limitations: no limitations <Jesu Walker MD - Last Filed: 02/13/25 19:13> History of Present Illness HPI narrative: 69-year-old with a history of hypertension , diabetes, morbid obesity, bed ridden was brought in by EMS from [facility] for wound evaluation. 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 He denies having any fever or chills no history of nausea or vomiting. <Jesu Walker MD - Last Filed: 02/13/25 19:13> Onset (ago): unknown <Jesu Walker MD - Last Filed: 02/13/25 19:13> Location: genitals and lower extremity <Jesu Walker MD - Last Filed: 02/13/25 19:13> Radiation: non-radiation <Jesu Walker MD - Last Filed: 02/13/25 19:13> Severity: moderate <Jesu Walker MD - Last Filed: 02/13/25 19:13> Pain Consistency: constant <Jesu Walker MD - Last Filed: 02/13/25 19:13> Related Data Home medications: Home Medications ?Medication ?Instructions ?Recorded ?Confirmed ?Last Taken ?Type multivit with minerals-iron 18 1 tablet PO DAILY 01/26/23 01/26/25 Unknown History mg-folic ac 400 mcg-vit K 25 mcg tablet (Adults Multivitamin) acetaminophen 500 mg capsule 500 mg PO Q6H PRN Pain, Moderate 05/25/23 01/26/25 Unknown History bimatoprost 0.01 % eye drops 1 p EACH EYE DAILY 05/25/23 01/26/25 Unknown History blood-glucose meter (OneTouch 05/25/23 01/26/25 Unknown History Verio Flex Meter) insulin syringe-needle U-100 1 mL 05/25/23 01/26/25 Unknown History 31 gauge x 5/16 (BD Insulin Syringe Ultra-Fine) docusate sodium 100 mg capsule 100 mg PO BID PRN Constipation 10/28/23 01/26/25 Unknown History losartan 25 mg tablet 25 mg PO DAILY 10/29/23 01/26/25 Unknown History blood-glucose sensor (Dexcom G6 06/08/24 01/26/25 Unknown History Sensor device) insulin glargine 100 unit/mL (3 See Rx Instructions .Route .COMPLEX 06/08/24 01/26/25 Unknown History mL) subcutaneous pen (Lantus Solostar U-100 Insulin) insulin regular hum U-500 conc 500 350 unit subcut .via insulin pump 06/08/24 01/26/25 Unknown History unit/mL subcutaneous soln (Humulin QD R U-500 (Concentrated) Insulin) lancets 33 gauge 06/08/24 01/26/25 Unknown History <Jesu Walker MD - Last Filed: 02/13/25 19:13> Allergies/adverse reactions: Allergies Allergy/AdvReac Type Severity Reaction Status Date / Time metformin Allergy Mild Rash Verified 01/23/25 13:07 morphine AdvReac Unknown CONFUSION Verified 01/23/25 13:07 <Jesu Walker MD - Last Filed: 02/13/25 19:13> [facility] Past Medical History Medical History: Medical History (Updated 02/14/25 @ 00:00 by Background Daemon) Encounter for routine adult health examination without abnormal findings Iron deficiency anemia Unsteady gait Venous stasis Follow up Chronic cough Vitamin D deficiency Encounter for Medicare annual wellness exam Hypokalemia Impaired functional mobility, balance, gait, and endurance Epistaxis DJD (degenerative joint disease), multiple sites Morbid obesity DJD (degenerative joint disease) Lymphedema Mild reactive airways disease PVD (peripheral vascular disease) Pedal edema Rash Essential hypertension Hypothyroidism (acquired) Decubitus ulcer Hypersomnolence Encounter to establish care 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 Postoperative wound dehiscence Pain due to internal orthopedic prosthetic devices, implants and grafts, initial encounter (08/26/17) Non-pressure chronic ulcer of other part of right foot limited to breakdown of skin Right foot pain Other chronic pain Fungal infection right foot Obesity, morbid, BMI 40.0-49.9 Occult blood in stools Acute on chronic anemia Chronic anemia Hyperlipidemia Pneumonia BPH (benign prostatic hyperplasia) Obstructive sleep apnea Glaucoma Chronic a-fib Right knee DJD Left knee DJD Type 2 diabetes mellitus with diabetic neuropathy, unspecified Venous stasis of both lower extremities BMI greater than 40 Degenerative joint disease of knee Vision abnormalities Diabetes 1.5, managed as type 2 Left knee pain <Jesu Walker MD - Last Filed: 02/13/25 19:13> Surgical History Surgical History: Surgical History History of skin graft History of arthroplasty of left knee Hx of cholecystectomy H/O cataract extraction History of foot surgery <Jesu Walker MD - Last Filed: 02/13/25 19:13> Family History Family History: Family History Mother Breast cancer Dementia Father Diabetes mellitus Malignant neoplasm of prostate Dementia Other Family history of malignant neoplasm <Jesu Walker MD - Last Filed: 02/13/25 19:13> Social History Social History: Social History Social History: the patient lives with his and they have no children. He is retired from [employer]. Code status full code Smoking status: Never smoker Alcohol intake: never Substance use: never Substance use type: does not use Lack of Transportation: No Lack of Food: Never True Current Housing: I Have Housing Concerned About Future Housing: Decline to Answer Difficulty Paying Gas/Electric Bills: Decline to Answer Difficulty Paying for Meds: Decline to Answer Currently Unemployed: Decline to Answer Education: Decline to Answer Difficulty w/ Childcare or Family Care: Decline to Answer Gender identity (if verbalized by the patient): Male Spiritual care concerns: No <Jesu Walekr MD - Last Filed: 02/13/25 19:13> Exam Narrative: GENERAL: Well-appearing, well-nourished, and in no acute distress. HEAD: Normocephalic, atraumatic. EYES: PERRLA and EOMI. ENT: Nares clear, no rhinorrhea or epistaxis. Mucous membranes moist. NECK: Supple. CHEST: Clear to auscultation. No respiratory distress. HEART: Regular rate and rhythm. No murmur heard. Normal peripheral pulses. ABDOMEN: Soft, nontender, nondistended, normal active bowel sounds.Morbidly obese EXTREMITIES: Normal range of motion. No edema. SKIN: Warm, dry, no rash.has rash in the groin ,erythematous, skin is excoriated. NEURO: No focal deficits. Alert and oriented x3. PSYCH: Normal mood and affect. <Jesu Walker MD - Last Filed: 02/13/25 19:13> Course Vital Signs Vital signs: Vital Signs Temperature 98.9 F 02/13/25 17:40 Pulse Rate 76 02/13/25 17:40 Respiratory Rate 16 02/13/25 17:40 Blood Pressure 133/53 L 02/13/25 17:40 Pulse Oximetry 99 02/13/25 17:40 Temperature 98.9 F 02/13/25 17:40 Pulse Rate 70 02/13/25 22:17 Respiratory Rate 16 02/13/25 22:17 Blood Pressure 151/72 H 02/13/25 22:17 Pulse Oximetry 99 02/13/25 22:17 <Jesu Walker MD - Last Filed: 02/13/25 19:13> Vital Signs Temperature 98.9 F 02/13/25 17:40 Pulse Rate 76 02/13/25 17:40 Respiratory Rate 16 02/13/25 17:40 Blood Pressure 133/53 L 02/13/25 17:40 Pulse Oximetry 99 02/13/25 17:40 Temperature 98.9 F 02/13/25 17:40 Pulse Rate 70 02/13/25 22:17 Respiratory Rate 16 02/13/25 22:17 Blood Pressure 151/72 H 02/13/25 22:17 Pulse Oximetry 99 02/13/25 22:17 <Feng Whitlock MD - Last Filed: 02/14/25 00:53> Medical Decision Making MDM Narrative Medical decision making narrative: 69-year-old male presents emergency department for evaluation for skin infection of the groin. Patient care was signed out to be by a the day shift doctor. Plan at sign-out was anticipated disposition pending the patient's UA and discharging the patient with nystatin powder for his suspected Deirdre infection. Patient is currently afebrile with no leukocytosis and hemoglobin of 10.4. No significant abnormalities on the patient's CMP patient is diabetic does have a glucose of 240 and mildly elevated lactic acid of 2.1. <Feng Whitlock MD - Last Filed: 02/14/25 00:53> Differential Diagnosis Differential Diagnosis: Deirdre, cellulitis, sepsis, hyperglycemia <Feng Whitlock MD - Last Filed: 02/14/25 00:53> Vital Signs Vital Signs: Vital Signs Temperature 98.9 F 02/13/25 17:40 Pulse Rate 76 02/13/25 17:40 Respiratory Rate 16 02/13/25 17:40 Blood Pressure 133/53 L 02/13/25 17:40 Pulse Oximetry 99 02/13/25 17:40 Temperature 98.9 F 02/13/25 17:40 Pulse Rate 70 02/13/25 22:17 Respiratory Rate 16 02/13/25 22:17 Blood Pressure 151/72 H 02/13/25 22:17 Pulse Oximetry 99 02/13/25 22:17 <Jesu Walker MD - Last Filed: 02/13/25 19:13> Vital Signs Temperature 98.9 F 02/13/25 17:40 Pulse Rate 76 02/13/25 17:40 Respiratory Rate 16 02/13/25 17:40 Blood Pressure 133/53 L 02/13/25 17:40 Pulse Oximetry 99 02/13/25 17:40 Temperature 98.9 F 02/13/25 17:40 Pulse Rate 70 02/13/25 22:17 Respiratory Rate 16 02/13/25 22:17 Blood Pressure 151/72 H 02/13/25 22:17 Pulse Oximetry 99 02/13/25 22:17 <Feng Whitlock MD - Last Filed: 02/14/25 00:53> Lab Data Result diagrams: 02/13/25 17:56 02/13/25 17:56 <Jesu Walker MD - Last Filed: 02/13/25 19:13> Labs: Lab Results 02/13/25 02/13/25 Range/Units 17:56 18:57 WBC 7.7 (4.5-10.0) K/mm3 RBC 3.54 L (4.6-6.20) M/mm3 Hgb 10.4 L (14.0-18.0) g/dL Hct 32.8 L (42.0-52.0) % MCV 92.7 (80-100) fl MCH 29.4 (26-34) pg MCHC 31.7 L (32-36) g/dl RDW 15.6 H (11.5-14.5) % Plt Count 196 (150-375) k/mm3 MPV 10.4 (7.4-10.4) fl Immature Gran % (Auto) 0.4 (0-0.5) % Neut % (Auto) 76.7 H (45.5-73.1) % Lymph % (Auto) 14.6 L (18.3-44.2) % Lasalle % (Auto) 5.2 (2.6-8.5) % Eos % (Auto) 2.8 (0-4.4) % Baso % (Auto) 0.3 (0.2-1.2) % Lymph # (Auto) 1.13 (0.9-3.2) K/mm3 [place]alle # (Auto) 0.4 (0.1-0.6) K/mm3 Eos # (Auto) 0.2 (0-0.3) K/mm3 Baso # (Auto) 0.0 (0.0-0.1) K/mm3 Abs Immat Gran (auto) 0.03 (0.00-0.031) K/mm3 Absolute Neuts (auto) 5.9 (1.3-6.7) K/mm3 Absolute Nucleated RBC 0.000 (0.0-0.012) K/mm3 Nucleated RBC % 0.0 (0.0-0.2) % Sodium 134 L (137-145) mmol/L Potassium 4.5 (3.4-5.0) mmol/L Chloride 100 (98-107) mmol/L Carbon Dioxide 24 (22-30) mmol/L Anion Gap 10 (4-12) mmol/L BUN 20 (9-20) mg/dL Creatinine 0.89 (0.7-1.3) mg/dL Estim Creat Clear Calc 108 ml/min Estimated GFR > 60 (59 - ) Glucose 240 H (65-110) mg/dL Lactic Acid 2.1 H (0.7-2.0) mmol/L Calcium 9.5 (8.4-10.2) mg/dL Total Bilirubin 0.7 (0.2-1.3) mg/dL AST 25 (17-59) U/L ALT 18 (6-50) U/L Alkaline Phosphatase 78 (38-126) U/L Total Protein 7.6 (6.3-8.2) g/dL Albumin 4.1 (3.5-5.1) g/dL Urine Color Yellow (Yellow) Urine Appearance Clear (Clear) Urine pH 5.5 (5.0-9.0) Ur Specific [place] 1.013 (1.001-1.035) Urine Protein Negative (Negative) mg/dL Urine Glucose (UA) Trace H (Negative) mg/dL Urine Ketones Negative (Negative) mg/dL Ur Blood (Man) Negative (Negative) Urine Nitrate Negative (Negative) Urine Bilirubin Negative (Negative) Urine Urobilinogen 1.0 (<2.0) mg/dL Leukocyte Esterase Rfl Negative (Negative) ZAIDA/UL <Jesu Walker MD - Last Filed: 02/13/25 19:13> Lab Results 02/13/25 02/13/25 Range/Units 17:56 18:57 WBC 7.7 (4.5-10.0) K/mm3 RBC 3.54 L (4.6-6.20) M/mm3 Hgb 10.4 L (14.0-18.0) g/dL Hct 32.8 L (42.0-52.0) % MCV 92.7 (80-100) fl MCH 29.4 (26-34) pg MCHC 31.7 L (32-36) g/dl RDW 15.6 H (11.5-14.5) % Plt Count 196 (150-375) k/mm3 MPV 10.4 (7.4-10.4) fl Immature Gran % (Auto) 0.4 (0-0.5) % Neut % (Auto) 76.7 H (45.5-73.1) % Lymph % (Auto) 14.6 L (18.3-44.2) % Lasalle % (Auto) 5.2 (2.6-8.5) % Eos % (Auto) 2.8 (0-4.4) % Baso % (Auto) 0.3 (0.2-1.2) % Lymph # (Auto) 1.13 (0.9-3.2) K/mm3 Lasalle # (Auto) 0.4 (0.1-0.6) K/mm3 Eos # (Auto) 0.2 (0-0.3) K/mm3 Baso # (Auto) 0.0 (0.0-0.1) K/mm3 Abs Immat Gran (auto) 0.03 (0.00-0.031) K/mm3 Absolute Neuts (auto) 5.9 (1.3-6.7) K/mm3 Absolute Nucleated RBC 0.000 (0.0-0.012) K/mm3 Nucleated RBC % 0.0 (0.0-0.2) % Sodium 134 L (137-145) mmol/L Potassium 4.5 (3.4-5.0) mmol/L Chloride 100 (98-107) mmol/L Carbon Dioxide 24 (22-30) mmol/L Anion Gap 10 (4-12) mmol/L BUN 20 (9-20) mg/dL Creatinine 0.89 (0.7-1.3) mg/dL Estim Creat Clear Calc 108 ml/min Estimated GFR > 60 (59 - ) Glucose 240 H (65-110) mg/dL Lactic Acid 2.1 H (0.7-2.0) mmol/L Calcium 9.5 (8.4-10.2) mg/dL Total Bilirubin 0.7 (0.2-1.3) mg/dL AST 25 (17-59) U/L ALT 18 (6-50) U/L Alkaline Phosphatase 78 (38-126) U/L Total Protein 7.6 (6.3-8.2) g/dL Albumin 4.1 (3.5-5.1) g/dL Urine Color Yellow (Yellow) Urine Appearance Clear (Clear) Urine pH 5.5 (5.0-9.0) Ur Specific [place] 1.013 (1.001-1.035) Urine Protein Negative (Negative) mg/dL Urine Glucose (UA) Trace H (Negative) mg/dL Urine Ketones Negative (Negative) mg/dL Ur Blood (Man) Negative (Negative) Urine Nitrate Negative (Negative) Urine Bilirubin Negative (Negative) Urine Urobilinogen 1.0 (<2.0) mg/dL Leukocyte Esterase Rfl Negative (Negative) ZAIDA/UL <Feng Whitlock MD - Last Filed: 02/14/25 00:53> Discharge Plan Discharge Clinical Impression: Deirdre rash of groin <Jesu Walker MD - Last Filed: 02/13/25 19:13> Patient Disposition: [facility] <Jesu Walker MD - Last Filed: 02/13/25 19:13> Condition: Stable <Jesu Walker MD - Last Filed: 02/13/25 19:13> Instructions: Antibiotic Form <Jesu aWlker MD - Last Filed: 02/13/25 19:13> Additional Instructions: Nystatin powder as directed. Have close follow-up with your primary care physician for outpatient follow-up to ensure response of the rash to the medication. <Jesu Walker MD - Last Filed: 02/13/25 19:13> Patient Language: Bengali <Jesu Walker MD - Last Filed: 02/13/25 19:13> Prescriptions: New nystatin 100,000 unit/gram powder 1 applic topical BID Qty: 30 0RF No Action acetaminophen 500 mg capsule 500 mg PO Q6H PRN (Reason: Pain, Moderate) bimatoprost 0.01 % drops 1 drp EACH EYE DAILY (DME) insulin syringe-needle U-100 [BD Insulin Syringe Ultra-Fine] 1 mL 31 gauge x 5/16 syringe See Rx Instructions .Route Rx Instructions: As directed (DME) blood-glucose meter [OneTouch Verio Flex meter[place] [facility] [place] Rx Instructions .Route Rx Instructions: As directed nystatin-triamcinolone 100,000-0.1 unit/g-% cream 1 applic topical TID Qty: 60 5RF metoprolol succinate 50 mg tablet extended release 24 hr 75 mg .ROUTE .COMPLEX Qty: 145 1RF Rx Instructions: Take 1 tab in the AM and 1/2 tab in the PM by oral route. Please D/C the Diltiazem spironolactone 25 mg tablet See Rx Instructions .ROUTE .COMPLEX Qty: 90 1RF Dose Instruction: Take 1 tablet by mouth twice daily Rx Instructions: Take 1 tablet by mouth once daily baclofen 10 mg tablet 10 mg PO TID PRN (Reason: muscle spasm) Qty: 90 1RF Rx Instructions: Please D/C the Cyclobenzaprine docusate sodium 100 mg capsule 100 mg PO BID PRN (Reason: Constipation) nystatin 100,000 unit/gram powder 1 applic topical TID Qty: 60 3RF Adults Multivitamin 18 mg iron-400 mcg-25 mcg Tablet 1 tablet PO DAILY albuterol sulfate 90 mcg/actuation HFA aerosol inhaler 2 puff inhalation QID PRN (Reason: shortness of breath or wheezing) Qty: 8.5 0RF cholecalciferol (vitamin D3) 50 mcg (2,000 unit) capsule 50 mcg PO DAILY Qty: 30 2RF bumetanide 2 mg tablet 2 mg PO BID Qty: 180 0RF fluticasone propionate 220 mcg/actuation HFA aerosol inhaler 2 puff INHALATION Q12H Qty: 12 2RF losartan 25 mg tablet 25 mg PO DAILY brimonidine 0.2 % drops 1 drp EACH EYE Q12H Qty: 5 0RF dorzolamide-timolol 22.3-6.8 mg/mL drops 1 drp EACH EYE Q12H Qty: 10 0RF Rx Instructions: 30 day supply (DME) Wheelchair XL See Rx Instructions .Route .MEDSUPPLY Qty: 1 0RF Rx Instructions: As directed atorvastatin 40 mg tablet 40 mg PO DAILY Qty: 90 0RF tamsulosin 0.4 mg capsule See Rx Instructions .ROUTE .COMPLEX Qty: 90 1RF Dose Instruction: Take 1 capsule by mouth once daily Rx Instructions: Take 1 capsule by mouth once daily Eliquis 5 mg tablet 5 mg PO BID Qty: 180 2RF (DME) Electric Wheel Chair See Rx Instructions .Route .MEDSUPPLY Qty: 1 0RF Rx Instructions: Electric Wheel Chair for Indoor Use hydralazine 50 mg tablet 50 mg PO TID Qty: 90 4RF levothyroxine 112 mcg tablet See Rx Instructions .ROUTE .COMPLEX Qty: 30 2RF Dose Instruction: Take 1 tablet by mouth once daily Rx Instructions: Take 1 tablet by mouth once daily (DME) DexRocket.La G6 Sensor Device See Rx Instructions .Route Rx Instructions: As directed Humulin R U-500 (Conc) Insulin 500 unit/mL solution 350 unit subcut .via insulin pump QD insulin glargine [Lantus Solostar U-100 Insulin] 100 unit/mL (3 mL) insulin pen See Rx Instructions .ROUTE .COMPLEX Rx Instructions: 45 units in the am and 20 units in the pm daily; (DME) lancets 33 gauge misc See Rx Instructions .Route Patient Comments: One Touch Delica Rx Instructions: As directed benzonatate 200 mg capsule 200 mg PO TID PRN (Reason: cough) Qty: 50 0RF potassium chloride 10 mEq capsule, extended release See Rx Instructions .ROUTE .COMPLEX Qty: 90 0RF Dose Instruction: Take 1 capsule by mouth once daily Rx Instructions: Take 1 capsule by mouth once daily famotidine 20 mg tablet See Rx Instructions .ROUTE .COMPLEX Qty: 90 0RF Dose Instruction: Take 1 tablet by mouth twice daily Rx Instructions: Take 1 tablet by mouth twice daily hydroxyzine HCl 25 mg tablet See Rx Instructions .ROUTE .COMPLEX Qty: 90 0RF Dose Instruction: TAKE 1 TABLET BY MOUTH 4 TIMES DAILY NEEDED FOR ITCHING Rx Instructions: TAKE 1 TABLET BY MOUTH 4 TIMES DAILY NEEDED FOR ITCHING IRON 65MG TAB See Rx Instructions .ROUTE .COMPLEX Qty: 90 1RF Dose Instruction: Take 1 tablet by mouth once daily Rx Instructions: Take 1 tablet by mouth once daily gabapentin 100 mg capsule 100 mg PO TID Qty: 90 3RF tramadol 50 mg tablet 50 mg PO QID PRN (Reason: pain) Qty: 60 0RF lidocaine 4 % cream 1 applic topical QID PRN (Reason: pain) Qty: 119 0RF <Jesu Walker MD - Last Filed: 02/13/25 19:13> Follow-up/Referrals: Felix Jones MD [Primary Care Provider] - <Jesu Walker MD - Last Filed: 02/13/25 19:13>
[2025-02-13 19:24] LABS: Add Urine Microscopic? NO; Appearance Urine Clear (Clear); Bilirubin Urine Negative (Negative); Blood Urine Negative (Negative); Color Urine Yellow (Yellow); Glucose Urine UA Trace mg/dL (Negative); Ketones Urine Negative (Negative); Leukocyte Esterase Ur Negative LEU/UL (Negative); Nitrate Urine Negative (Negative); Protein Urine Negative (Negative); Specific Grav Ur 1.013 (1.001-1.035); pH Urine 5.5 (5.0-9.0)
[2025-02-13 20:01] LABS: Reflex Lactic Acid Yes or No Add Lactic
--- NOTE | 2025-02-13 20:30 | PC.NURSE ---
Report attempted to [facility] with no answer.
[2025-02-13 21:00] VITALS: BP 116/83; PULSE 83; RESP 18; O2SAT 96
--- NOTE | 2025-02-13 21:43 | PC.NURSE ---
Report called to Jud at [facility]. All questions answered.
[2025-02-13 22:17] VITALS: BP 151/72; PULSE 70; RESP 16; O2SAT 99
--- NOTE | 2025-02-13 22:17 | PC.NURSE ---
Report given to [facility] med who is transporting pt. back to [facility].
== END 2025-02-13 22:19 ==
PROVIDERS: Emergency Provider Family Medicine; PCP Internal Medicine
DX: B37.2 Candidiasis of skin and nail (principal); I10 Essential (primary) hypertension; E13.51 Other specified diabetes mellitus with diabetic peripheral angiopathy without gangrene; I73.9 Peripheral vascular disease, unspecified; E13.40 Other specified diabetes mellitus with diabetic neuropathy, unspecified; I89.0 Lymphedema, not elsewhere classified; E55.9 Vitamin D deficiency, unspecified; E03.9 Hypothyroidism, unspecified; E78.5 Hyperlipidemia, unspecified; E66.01 Morbid (severe) obesity due to excess calories; Z68.42 Body mass index [BMI] 45.0-49.9, adult; J45.909 Unspecified asthma, uncomplicated; D50.9 Iron deficiency anemia, unspecified; M19.90 Unspecified osteoarthritis, unspecified site; Z74.01 Bed confinement status; Z87.01 Personal history of pneumonia (recurrent); Z96.652 Presence of left artificial knee joint; Z90.49 Acquired absence of other specified parts of digestive tract; Z98.49 Cataract extraction status, unspecified eye; Z79.01 Long term (current) use of anticoagulants; Z79.4 Long term (current) use of insulin; Z79.899 Other long term (current) drug therapy
CPT/HCPCS: 36415; 80053; 81003; 83605; 85025; 87040; 99283

== ENCOUNTER 2025-02-23 18:26 | Emergency (ER) | payer MEDICARE, SELFPAY ==
--- NOTE | ~2025-02-23 | XR_ITS ---
XR hip RT 2V w AP pelvis Ordering provider: Gilbert Schreiber MD History: . nontraumatic hip pain . Comparison: None. FINDINGS: BONES: Lucency is projected over the right acetabulum which may indicate a fracture or may be artifac ts. CT evaluation advised. HIP JOINT SPACES: Bilateral hip osteoarthritic changes. SACROILIAC JOINT SPACES/LUMBAR SPINE: The sacroiliac joint spaces shows bilateral sacroiliacs. Mild d egenerative changes of the visualized lower lumbar spine. PUBIC SYMPHYSIS: Normal. SOFT TISSUES: Normal. IMPRESSION: Lucencies projected over the right acetabulum in one of the uterus. Otherwise, No acute osseous abnor mality pelvis and right hip. CT evaluation advised. Reviewed, dictated and finalized at location A. IMPRESSION: Lucencies projected over the right acetabulum in one of the uterus. Otherwise, No acute osseous abnormality pelvis and right hip. CT evaluation advised.
--- NOTE | ~2025-02-23 | CT_ITS ---
Procedure: CT hip RT wo con Ordering provider: Gilbert Schreiber MD History: . nontraumatic pain, abd xray . Comparison: None. Technique: Thin slice axial CT of the No IV contrast was given. Sagittal and coronal reformatted imag es were also obtained and reviewed. Radiation reduction technique utilized.The dose-length product wa s 1218.39 mGy-cm. Findings: BONES: No evidence of fractures seen. JOINT SPACES: Bilateral mild to moderate hip osteoarthritic changes. Bilateral sacroiliitis. Multilev el degenerative disc disease. SOFT TISSUES: Atherosclerotic changes of the aorta. Visualized bowel and urinary bladder are unremark able. Right inguinal lymph node is seen measuring 1.6 cm. Bilateral fat containing inguinal hernias. IMPRESSION: No evidence of fractures seen. Reviewed, dictated and finalized at location A.
[2025-02-23 18:30] VITALS: BP 100/50; PULSE 97; RESP 20; TEMP 36.7; O2SAT 98
--- NOTE | 2025-02-23 19:20 | ED.EXTPRO ---
HPI - Extremity Problem General Chief complaint: Extremity Problem,Nontraumatic Stated complaint: R hip pain/nontraumatic Time Seen by Provider: 02/23/25 19:05 History of Present Illness HPI Narrative: 69-year-old male with history of diabetes, hypertension, hyperlipidemia, muscle spasms. He is debilitated and nonambulatory resides at a senior living facility. He presents emergency department with 3 days of right hip pain radiating down the side and back of his right hip and feels like pins and needles sensations. Denies any falls or injuries. Never had pain like this before. Does have a history of Charcot arthropathy of the right foot as well. Is at nursing facility for rehabilitation. No other associated symptoms such as loss of sensation, new incontinence, midline back pain, advised to use the extremity. He is able to flex and extend at the hip on the right side but causes pain with certain positions. States has been going on for 3 days and the pain medicines he is getting at the nursing facility are not helping him. He called ambulance today. Related Data Home Medications ?Medication ?Instructions ?Recorded ?Confirmed ?Last Taken ?Type multivit with minerals-iron 18 1 tablet PO DAILY 01/26/23 01/26/25 Unknown History mg-folic ac 400 mcg-vit K 25 mcg tablet (Adults Multivitamin) bimatoprost 0.01 % eye drops 1 drp EACH EYE DAILY 05/25/23 01/26/25 Unknown History blood-glucose meter (OneTouch 05/25/23 01/26/25 Unknown History Verio Flex Meter) insulin syringe-needle U-100 1 mL 05/25/23 01/26/25 Unknown History 31 gauge x 5/16 (BD Insulin Syringe Ultra-Fine) docusate sodium 100 mg capsule 100 mg PO BID PRN Constipation 10/28/23 01/26/25 Unknown History losartan 25 mg tablet 25 mg PO DAILY 10/29/23 01/26/25 Unknown History blood-glucose sensor (Dexcom G6 06/08/24 01/26/25 Unknown History Sensor device) insulin regular hum U-500 conc 500 350 unit subcut .via insulin pump 06/08/24 01/26/25 Unknown History unit/mL subcutaneous soln (Humulin QD R U-500 (Concentrated) Insulin) lancets 33 gauge 06/08/24 01/26/25 Unknown History acetaminophen 500 mg capsule 500 mg PO Q6H Pain, Moderate 02/20/25 Unknown History Allergies Allergy/AdvReac Type Severity Reaction Status Date / Time metformin Allergy Mild Rash Verified 02/23/25 18:37 morphine AdvReac Unknown CONFUSION Verified 02/23/25 18:37 [facility] Past Medical History Medical History (Updated 02/24/25 @ 00:00 by Reynaldo Velasquez) Right shoulder pain Muscle spasm UTI (urinary tract infection) Prostate cancer screening Encounter for routine adult health examination without abnormal findings Iron deficiency anemia Unsteady gait Venous stasis Follow up Chronic cough Vitamin D deficiency Encounter for Medicare annual wellness exam Hypokalemia Impaired functional mobility, balance, gait, and endurance Epistaxis DJD (degenerative joint disease), multiple sites Morbid obesity DJD (degenerative joint disease) Lymphedema Mild reactive airways disease PVD (peripheral vascular disease) Pedal edema Rash Essential hypertension Hypothyroidism (acquired) Decubitus ulcer Hypersomnolence Encounter to establish care On buttermaker drug therapy Postoperative wound dehiscence Pain due to internal orthopedic prosthetic devices, implants and grafts, initial encounter (08/26/17) Non-pressure chronic ulcer of other part of right foot limited to breakdown of skin Right foot pain Other chronic pain Fungal infection right foot Obesity, morbid, BMI 40.0-49.9 Occult blood in stools Acute on chronic anemia Chronic anemia Hyperlipidemia Pneumonia BPH (benign prostatic hyperplasia) Obstructive sleep apnea Glaucoma Chronic a-fib Right knee DJD Left knee DJD Type 2 diabetes mellitus with diabetic neuropathy, unspecified Venous stasis of both lower extremities BMI greater than 40 Degenerative joint disease of knee Vision abnormalities Diabetes 1.5, managed as type 2 Left knee pain Surgical History Surgical History History of skin graft History of arthroplasty of left knee Hx of cholecystectomy H/O cataract extraction History of foot surgery Family History Family History Mother Breast cancer Dementia Father Diabetes mellitus Malignant neoplasm of prostate Dementia Other Family history of malignant neoplasm Social History Social History Social History: the patient lives with his and they have no children. He is retired from [employer]. Code status full code Smoking status: Never smoker Alcohol intake: never Substance use: never Substance use type: does not use Lack of Transportation: No Lack of Food: Never True Current Housing: I Have Housing Concerned About Future Housing: Decline to Answer Difficulty Paying Gas/Electric Bills: Decline to Answer Difficulty Paying for Meds: Decline to Answer Currently Unemployed: Decline to Answer Education: Decline to Answer Difficulty w/ Childcare or Family Care: Decline to Answer Gender identity (if verbalized by the patient): Male Spiritual care concerns: No Course Vital Signs Vital signs: Vital Signs Temperature 36.7 C 02/23/25 18:30 Pulse Rate 97 02/23/25 18:30 Respiratory Rate 20 02/23/25 18:30 Blood Pressure 100/50 L 02/23/25 18:30 Pulse Oximetry 98 02/23/25 18:30 Oxygen Delivery Room Air 02/23/25 18:30 Temperature 36.7 C 02/23/25 18:30 Pulse Rate 90 02/23/25 19:23 Respiratory Rate 20 02/23/25 18:30 Blood Pressure 136/71 02/23/25 19:23 Pulse Oximetry 98 02/23/25 19:23 Oxygen Delivery Room Air 02/23/25 18:30 MDM - Extremity (Nontraumatic) MDM Narrative Medical decision making narrative: 69-year-old male with history of diabetes, hypertension, hyperlipidemia, muscle spasms. He is debilitated and nonambulatory resides at a senior living facility. He presents emergency department with 3 days of right hip pain radiating down the side and back of his right hip and feels like pins and needles sensations. Denies any falls or injuries. Never had pain like this before. Does have a history of Charcot arthropathy of the right foot as well. Is at nursing facility for rehabilitation. No other associated symptoms such as loss of sensation, new incontinence, midline back pain, advised to use the extremity. He is able to flex and extend at the hip on the right side but causes pain with certain positions. States has been going on for 3 days and the pain medicines he is getting at the nursing facility are not helping him. He called ambulance today. Patient's examination reveals morbid obesity, Charcot deformity of the right foot, full range of motion at the hip and knee on the right side without any traumatic injuries or findings. Pain reproducible straight leg raise of the right side. Pain localized to the right lateral aspect of the hip and posterior aspect of the right hip radiating down the side and back consistent with potential sciatic nerve irritation, piriformis syndrome, hip fracture less likely hip dislocation. X-rays with multiple views of the right hip and pelvis were obtained he was given Dilaudid and Robaxin for pain control. Will evaluate after pain control. X-ray showed some artifactual findings so a CT scan without contrast was ordered which shows no fractures or dislocations. Pain is controlled after improvement with dilaudid. Laboratory studies obtained unremarkable. He can be safely discharged back to his senior living facility and will be sent home with some pain control medications. Encouraged to follow-up with regular doctor. Lab Data 02/23/25 20:46 02/23/25 20:47 Labs: Lab Results 02/23/25 02/23/25 02/23/25 Range/Units 20:25 20:46 20:47 WBC 7.5 (4.5-10.0) K/mm3 RBC 3.22 L (4.6-6.20) M/mm3 Hgb 9.2 L (14.0-18.0) g/dL Hct 28.9 L (42.0-52.0) % MCV 89.8 (80-100) fl MCH 28.6 (26-34) pg MCHC 31.8 L (32-36) g/dl RDW 15.5 H (11.5-14.5) % Plt Count 195 (150-375) k/mm3 MPV 9.1 (7.4-10.4) fl Immature Gran % (Auto) 0.4 (0-0.5) % Neut % (Auto) 68.9 (45.5-73.1) % Lymph % (Auto) 20.7 (18.3-44.2) % [place] % (Auto) 5.6 (2.6-8.5) % Eos % (Auto) 4.0 (0-4.4) % Baso % (Auto) 0.4 (0.2-1.2) % Lymph # (Auto) 1.55 (0.9-3.2) K/mm3 [place] # (Auto) 0.4 (0.1-0.6) K/mm3 Eos # (Auto) 0.3 (0-0.3) K/mm3 Baso # (Auto) 0.0 (0.0-0.1) K/mm3 Abs Immat Gran (auto) 0.03 (0.00-0.031) K/mm3 Absolute Neuts (auto) 5.2 (1.3-6.7) K/mm3 Absolute Nucleated RBC 0.000 (0.0-0.012) K/mm3 Nucleated RBC % 0.0 (0.0-0.2) % PT 14.8 H (11.1-14.7) Seconds INR 1.1 APTT 30.5 (22.3-36.8) Seconds Sodium 136 L (137-145) mmol/L Potassium 3.4 (3.4-5.0) mmol/L Chloride 99 (98-107) mmol/L Carbon Dioxide 28 (22-30) mmol/L Anion Gap 9 (4-12) mmol/L BUN 32 H D (9-20) mg/dL Creatinine 1.10 (0.7-1.3) mg/dL Estim Creat Clear Calc 90 ml/min Estimated GFR > 60 (59 - ) Glucose 119 H (65-110) mg/dL POC Capillary Glucose 126 H (65-105) mg/dl Calcium 9.0 (8.4-10.2) mg/dL Total Bilirubin 0.4 (0.2-1.3) mg/dL AST 25 (17-59) U/L ALT 16 (6-50) U/L Alkaline Phosphatase 66 (38-126) U/L Total Protein 7.0 (6.3-8.2) g/dL Albumin 3.7 (3.5-5.1) g/dL Blood Type A Positive Antibody Screen Negative Discharge Plan Discharge Clinical Impression: Acute pain of right hip, Sciatica, right side Patient Disposition: Home Condition: Stable Instructions: Antibiotic Form, Sciatica (ED), Hip Pain (ED), Lower Back Exercises (ED), Hip Impingement (ED) Additional Instructions: Your CT scan shows nothing wrong with the bony structures or the soft tissues around her hip and back. Your symptoms could be a compression of the nerve structures in the back of the right hip and potentially even related to sciatic nerve irritation with the description of your pain. We will treat this with pain control medications and topical anti-inflammatories. We will send you home with prescriptions for them and encouraged to follow-up with your primary care provider and orthopedic doctor about the hip pain. Return with any emergent concerns. Patient Language: Telugu Prescriptions: New tramadol 50 mg tablet 50 mg PO Q6H PRN (Reason: pain) Qty: 14 0RF diclofenac sodium 1 % gel 2 g topical QID Qty: 50 0RF Rx Instructions: apply to single elbow, wrist or hand; for hand includes palm/fingers/back of hand No Action bimatoprost 0.01 % drops 1 drp EACH EYE DAILY (DME) insulin syringe-needle U-100 [BD Insulin Syringe Ultra-Fine] 1 mL 31 gauge x 5/16 syringe See Rx Instructions .Route Rx Instructions: As directed (DME) blood-glucose meter [[employer] Verio Flex meter] [facility] See Rx Instructions .Route Rx Instructions: As directed nystatin-triamcinolone 100,000-0.1 unit/g-% cream 1 applic topical TID Qty: 60 5RF metoprolol succinate 50 mg tablet extended release 24 hr 75 mg .ROUTE .COMPLEX Qty: 145 1RF Rx Instructions: Take 1 tab in the AM and 1/2 tab in the PM by oral route. Please D/C the Diltiazem spironolactone 25 mg tablet See Rx Instructions .ROUTE .COMPLEX Qty: 90 1RF Dose Instruction: Take 1 tablet by mouth twice daily Rx Instructions: Take 1 tablet by mouth once daily docusate sodium 100 mg capsule 100 mg PO BID PRN (Reason: Constipation) nystatin 100,000 unit/gram powder 1 applic topical TID Qty: 60 3RF acetaminophen 500 mg capsule 500 mg PO Q6H baclofen 15 mg tablet 15 mg PO QHS Qty: 90 1RF Rx Instructions: Please D/C the Baclofen 10mg. Thank you (DME) [facility] See Rx Instructions .Route Qty: 144 5RF Rx Instructions: As directed Adults Multivitamin 18 mg iron-400 mcg-25 mcg Tablet 1 tablet PO DAILY nystatin 100,000 unit/gram powder 1 applic topical BID Qty: 30 0RF cholecalciferol (vitamin D3) 50 mcg (2,000 unit) capsule 50 mcg PO DAILY Qty: 30 2RF bumetanide 2 mg tablet 2 mg PO BID Qty: 180 0RF fluticasone propionate 220 mcg/actuation HFA aerosol inhaler 2 puff INHALATION Q12H Qty: 12 2RF losartan 25 mg tablet 25 mg PO DAILY brimonidine 0.2 % drops 1 drp EACH EYE Q12H Qty: 5 0RF dorzolamide-timolol 22.3-6.8 mg/mL drops 1 drp EACH EYE Q12H Qty: 10 0RF Rx Instructions: 30 day supply (DME) Wheelchair XL See Rx Instructions .Route .MEDSUPPLY Qty: 1 0RF Rx Instructions: As directed atorvastatin 40 mg tablet 40 mg PO DAILY Qty: 90 0RF tamsulosin 0.4 mg capsule See Rx Instructions .ROUTE .COMPLEX Qty: 90 1RF Dose Instruction: Take 1 capsule by mouth once daily Rx Instructions: Take 1 capsule by mouth once daily Eliquis 5 mg tablet 5 mg PO BID Qty: 180 2RF (DME) Electric Wheel Chair See Rx Instructions .Route .MEDSUPPLY Qty: 1 0RF Rx Instructions: Electric Wheel Chair for Indoor Use hydralazine 50 mg tablet 50 mg PO TID Qty: 90 4RF levothyroxine 112 mcg tablet See Rx Instructions .ROUTE .COMPLEX Qty: 30 2RF Dose Instruction: Take 1 tablet by mouth once daily Rx Instructions: Take 1 tablet by mouth once daily (DME) HAUL G6 Sensor Device See Rx Instructions .Route Rx Instructions: As directed Humulin R U-500 (Conc) Insulin 500 unit/mL solution 350 unit subcut .via insulin pump QD (DME) lancets 33 gauge misc See Rx Instructions .Route Patient Comments: One Touch Delica Rx Instructions: As directed benzonatate 200 mg capsule 200 mg PO TID PRN (Reason: cough) Qty: 50 0RF potassium chloride 10 mEq capsule, extended release See Rx Instructions .ROUTE .COMPLEX Qty: 90 0RF Dose Instruction: Take 1 capsule by mouth once daily Rx Instructions: Take 1 capsule by mouth once daily famotidine 20 mg tablet See Rx Instructions .ROUTE .COMPLEX Qty: 90 0RF Dose Instruction: Take 1 tablet by mouth twice daily Rx Instructions: Take 1 tablet by mouth twice daily hydroxyzine HCl 25 mg tablet See Rx Instructions .ROUTE .COMPLEX Qty: 90 0RF Dose Instruction: TAKE 1 TABLET BY MOUTH 4 TIMES DAILY NEEDED FOR ITCHING Rx Instructions: TAKE 1 TABLET BY MOUTH 4 TIMES DAILY NEEDED FOR ITCHING gabapentin 100 mg capsule 100 mg PO TID Qty: 90 3RF tramadol 50 mg tablet 50 mg PO QID PRN (Reason: pain) Qty: 60 0RF lidocaine 4 % cream 1 applic topical QID PRN (Reason: pain) Qty: 119 0RF Follow-up/Referrals: Saul Conner MD [Physician] - 2 Weeks (Right hip pain) Felix Jones MD [Primary Care Provider] - Time of Disposition: 21:48
[2025-02-23 19:23] VITALS: BP 136/71; PULSE 90; O2SAT 98
--- NOTE | 2025-02-23 19:24 | PC.NURSE ---
Assumed care of patient after receiving bedside report from YESENIA Millard @ [phone]
[2025-02-23] MEDS: HYDROmorphone HCL INJ (*CRX) 2 MG/ML VIAL 1 MG IM (19:31)
--- NOTE | 2025-02-23 20:26 | PC.NURSE ---
Patient called requesting to have BS checked. EDP stated this was okay. BS checked at bedside : 126
--- OUTSIDE RECORDS SUMMARY | 2025-02-23 20:35 | XMS_ITS | Clinical Summary ---
Author Organization [facility] Address [facility] [place] [address] Care Team Providers Care Hr Leader Name Role Phone Bri Mcclain MD Unavailable [phone] Lencho Lopes MD Unavailable [phone] None, Provider MD Primary Care Provider Unavaila [...] 2 Active Insulin Syringe-Needle U-100 (INSULIN SYRINGE 1CC/31GX5/16) 31G X 5/16 1 ML MiscIndications :Diabetes [...] Noted Date Diagnosed Date Panniculitis 09/22/2024 Osteomyelitis ([facility]) 11/07/2021 Encephalopathy acute 07/28/2021 Delirium 07/28/2021 Subacute osteomyelitis of right foot ([facility]) 07/28/2021 Hyperglycemia due to diabetes mellitus ([facility]) 07/28/2021 Acute respiratory failure with hypoxia ([facility]) 07/28/2021 Sepsis ([facility]) 07/07/2021 Clostridium difficile colitis 12/31/2020 Scrotal infection 11/18/2020 Cellulitis 11/14/2020 Polyneuropathy associated with underlying diseas e ([facility]) 12/06/2018 Muscle strain, shoulder region 04/12/2018 Chronic osteomyelitis of right ankle ([facility]) 10/02/2017 Overview (06/30/2018): Impression - [id number] Bri Mcclain: surgery 04/08, probe to bone then after surgial removal of hardware 08/28/17 Deep tiss Cx MRSA on vanc per PICC line & ID Dr Crenshaw. SILVIA on CPAP 08/09/2017 Edema of extremities 06/02/2017 MRSA infection 06/02/2017 Enlarged prostate with lower urinary tract sympt oms (LUTS) 10/13/2016 Charcot foot due to diabetes mellitus ([facility]) 09/05/2016 Numbness in both hands 07/08/2016 Chronic pain of right ankle 04/15/2016 Lumbago 12/10/2014 Hypothyroidism 10/10/2014 Generalized osteoarthritis of multiple sites Glaucoma, bilateral 09/17/2014 Hyperlipidemia 09/17/2014 Essential hypertension 09/17/2014 Testosterone deficiency 09/17/2014 Diabetic ulcer of lower extremity ([facility]/ [facility]) 06/21/2014 Diabetic peripheral neuropathy ([facility]) 05/10/2014 Sciatica 02/14/2013 Immunizations Immunization Administration Dates Next Due Fluzone High Dose - >Age 65 (Prefilled Syringe) 05/11/2019 Influenza (Generic) 06/26/2013,06/01/2012 Influenza Adult (Generic) 05/11/2019,04/12/2018, 08/18/2017 Pneumococcal (Pneumovax 23) 05/15/2018, 5 Pneumococcal (Prevnar 13) 12/06/2018 Shingrix 07/07/2018, 8,04/12/2018,2017 Td (Tenivac) preservative free 05/31/2018 Zoster (Zostavax) 80915 Unt/0.65Ml 07/07/2017,,07/02/2017 Family History Medical History Relation [...] materials from doctor or pharmacy Never 05/11/2023 [facility] Utilities Answer Date Recorded In the past 12 months has e [employer], oil, or water [employer] threatened to shut off services in your [...] often do you attend chur ch or islam services? Patient declined 11/15/2020 Do you belong to any clubs o r organizations such as judaism groups, unions, fraternal or athletic groups, or [...] move on to questions 3-9 0 04/14/2022 [facility] - [...] place to sleep or slept in a chcf (including now)? No 03/22/2023 Housing Stability Vital Sign Answer Brien e Recorded In the last 12 months, was t here a time when you were not able to pay the mortgage or rent on time? No 09/24/2024 In the past 12 months, how m any times have you moved where you were living? 0 09/24/2024 At any time in the past 12 m [facility], were you homeless or living in a chcf (including now)? No 09/24/2024 Sex and Gender Information Value Date Recorded Sex Assigned at Male 09/22/2024 5:17 PM [facility]ER Legal Sex Male 6:34 PM CDT Gender Identity Not on file Sexual Orientation Straight 11/15/2020 1: 16 AM CDT Last Filed Vital Signs Vital Sign Reading Time Taken Comments Blood Pressure 124/53 09/27/2024 7:21 AM KEYPUNCHER Pulse 69 09/27/2024 7:21 AM KEYPUNCHER Temperature 36.2 C (97.2 F) 09/27/2024 7:21 AM KEYPUNCHER Respiratory Rate 19 09/27/2024 7:21 AM KEYPUNCHER Oxygen Saturation 95% 09/27/2024 7:21 AM KEYPUNCHER Inhaled Oxygen Concentration - - Weight 164.3 kg (362 lb 3.5 oz) 09/27/2024 4:10 AM KEYPUNCHER Height 188 cm (6' 2) 09/22/2024 5:05 PM [facility]YP[facility]CHER Body Mass Index 46.51 09/22/2024 5:05 PM KEYPUNCHER Plan of Treatment Health Maintenance Due Date Last Done Comments Colorectal Cancer Screening Colonoscopy (10 Years) 1955 Kidney Health Evaluation 1955 RSV Immunization or 60+ Years (1 - Risk 60-74 years 1-dose series) 2013 DTaP, Tdap and Td Vaccines (1 - Tdap) 06/01/2018 05/31/2018 Annual Medicare Wellness Visit 2018 Diabetes: Retinopathy Eye Exam 09/02/2020 09/02/2018 Lipid Panel 07/27/2023 07/27/2022, 10/22, 05/06/2020 Hemoglobin A1C 11/24/2023 05/25/2023, 01/22, 11/16/2021, Additional history exists Pneumococcal Vaccine: 50+ Years (3 of 3 - PCV20 or PCV21) 12/07/2023 12/06/2018, 05/15/2018, 05/06/2015 COVID-19 Vaccine ( season) 2024 PHQ-2 (Physician [place]) 08/23/2024 Zoster Vaccines Completed 07/07/2018, 06/23, 04/12/2018, Additional history exists Hepatitis C Completed 08/18/2021, 08/2020, 05/31/2018, Additional history exists Colorectal Cancer Screening FIT/FOBT (1 Year) Discontinued 11/12/2021 AAA SCREENING Completed 09/22/2024, 02/20, 01/31/2023, Additional [...] and discharge planning Lifestyle No Aminta Blackwood, RISK ASSESSMENT ANALYST Procedures Procedure Name Priority Date/Time Associated Diagnosis Comments CT ABD+PEL W CON STAT 09/22/2024 6:59 PM [facility] OUTSIDE LAB (SCAN ORDER) Routine 05/25/2023 LIPID PANEL Routine 07/27/2022 3:46 PM KEYPUNCHER Mixed hyperlipidemia OCCULT BLOOD, FECES Routine 11/12/2021 12:00 AM CDT HEPATITIS C ANTIBODY Routine 08/18/2021 7:04 PM [facility]ER DILATED EYE EXAM (SCAN) Routine 09/02/2018 from Last 3 Months or Most Recently Relevant to Health Maintenance Results * CT ABD+PEL W IV CON ONLY (09/22/2024 6:59 PM KEYPUNCHER) Anatomical Region Laterality Modality Abdomen Computed Tomogra phy 09/22/2024 7:03 PM KEYP[facility]CHER Impressions 09/22/2024 7:11 PM [facility]ER IMPRESSION: 1. No CT evidence of bowel [...] 09/22/2024 7:03 PM Narrative 09/22/2024 7:11 PM KEYPUNCHER [address] [address] PROCEDURE: CT ABD+PEL W CON HISTORY: Abdominal [...] Procedure Note Kira Jacobson MD - 09/22/[address] [address] PROCEDURE: CT ABD+PEL W CON HISTORY: Abdominal [...] By: Kira Jacobson MD, 09/22/2024 7:03 PM Lianna Luis MD CT Final Result * OUTSIDE LAB (SCAN) (05/25/2023) HGB A1C 6.7 % HS ONBASE 05/25/2023 [facility] Scanned SCANNING Final Resu lt HS ONBASE * LIPID PANEL (07/27/2022 3:46 PM KEYPUNCHER) CHOLESTEROL 154 <200.0 MG/DL 07/27/2022 8:11 PM [facility]ER [facility] TRIGLYCERIDES 97 <150 MG/DL 07/27/2022 8:11 PM [facility]CHER [facility] HDL 52 >40.0 MG/DL 07/27/2022 8:11 PM KEYPUNCHER [facility] LDL (CALCULATED) 83 <100 MG/DL 07/27/20 8:11 PM KEYPUNCHER [facility] NON HDL CHOLESTEROL 102 <130 MG/DL 07/27 8:11 PM [facility] CHOL/HDL RATIO 3.0 0.0 - 4.5 07/27/2022 8:11 PM [facility] VLDL CALCULATION 19 5 - 55 MG/DL 07/27/2022 8:11 PM [facility] LIPID INTERPRETATION 07/27/2022 8:11 PM [facility] Comment: [facility] CONCENSUS REPORT RECOMMENDATIONS: ADULT CHILD LOW RISK: CHOLESTEROL <200 <170 TRIGLYCERIDE <150 --- HDL >=60 --- LDL <100 <110 BORDERLINE: CHOLESTEROL 200-239 170-199 TRIGLYCERIDE 150-199 --- HDL 40-59 --- LDL 100-159 110-129 HIGH RISK: CHOLESTEROL >=240 >=200 TRIGLYCERIDE >=200 --- HDL <40 --- LDL >=160 >=130 07/27/2022 3:46 PM KEYPUNCHER Bri Mcclain MD LABORATORY Final Result [facility] [address] [place] [address], [place] [phone] * OCCULT BLOOD, FECES (11/12/2021 12:00 AM CDT) Pathologist [facility] OCCULT BLOOD FECAL NEGATIVE 11/12/2021 8:54 AM CDT [facility] STOOL SPECIMEN / Unknown 11/12/2021 Helen Gan MD BODY FLUIDS AND STOOLS ORDERABL ES Final Result Performing Organization Address City/[facility]/ZIP Co de Phone Number [facility] [address] [place] [address], [place] [phone] * HEPATITIS C ANTIBODY (08/18/2021 7:04 PM KEYPUNCHER) HEPATITIS C AB NON-REACTI VE NON-REACT DAISHA 08/18/2021 8:36 PM [facility]CHER [facility] Comment: ANTIBODIES TO HCV NOT DETECTED. DOES NOT EXCLUDE THE POSSIBILITY OF EXPOSURE TO HCV. 08/18/2021 7:04 PM KEYPUNCHER [facility] Final Res ult [facility] [address] [place] [address], [id number] * DILATED EYE EXAM (09/02/2018) us Documents Scanned SCANNING Final Result from Last 3 Months or Most Recently Relevant to Health Maintenance Additional Health Concerns Infection Onset Date Last Indicated MRSA Comment:+ MRSA nares 11/14/2020 (KB) 07/07/21 +MRSA Blood 07/08/21 Nares (SB) 07/11/21 right ankle (SB) 03/08/23 nares (JK) 09/23/24 right pannus 06/04/2017 09/23/2024 Insurance MEDICARE [facility] Advance Directives * Full Code (Latest [...] 11:02 AM 03/19/2023 1:28 PM Care Teams Hr Leader Relationship Specialty Start Date End Date None, Provider, MD PCP - General UNKNOWN PHYSICIAN SPECIALTY 09/22/24 Bri Mcclain MD INTERNAL MEDICINE 12/31/20 Lencho Lopes MD [address] [address] Physician INTERVENTIONAL CARDIOLOGY 08/07/21
--- OUTSIDE RECORDS SUMMARY | 2025-02-23 20:35 | XMS_ITS | Patient Health Record ---
Author Organization [facility] Address [address] [address] Care Team Providers Care Slice Plug Cutter Operator Name Role Phone QuanFelix virgen Primary Care Provider UnavailLeon Hoff Unavailable [phone] Yaneth Rivas Unavailable [phone] Adeel Farias Unavailable [phone] Shantal Mercado Unavailable [phone] Allergies Allergen (clinical drug ingredient) Drug/Non Drug Allergy documented on EMR Reaction Allergy Type Onset Date Status metformin metFORMIN HCl ER GI side effects Drug Allergy Active semaglutide Ozempic (0.25 or 0.5 MG/DOSE) abdominal pain Drug Allergy Active Results Component Value Reference Range Notes Lipid Panel, Fasting Reviewed date:05/17/2024 12:16:21 PM Interpretation:Stable Performing Lab: Notes/Report: Stable HDL Direct 47 DIRECT LDL 75 CHOLESTEROL, TOTAL 150 TRIGLYCERIDES 225 Lipid Panel, Fasting Reviewed date:05/17/2024 12:16:21 PM Interpretation:Stable Performing Lab: Notes/Report: Stable HDL Direct 47 DIRECT LDL 75 CHOLESTEROL, TOTAL 150 TRIGLYCERIDES 225 CMP (Comp Metabolic Panel) Reviewed date:05/17/2024 12:16:33 PM Interpretation:Stable Performing Lab: Notes/Report: Stable CREATININE 0.90 eGFR NON-AFR. ALBANIAN >60 SODIUM 133 POTASSIUM 4.5 ALT 30 AST 38 CALCIUM 9.8 GLUCOSE 289 ALKALINE PHOSPHATASE 69 VITAMIN D, 25-OH (TOTAL D2/D 3) Reviewed date:05/17/2024 12:16:48 PM Interpretation:Normal Performing Lab: Notes/Report: Normal 25-Hydroxy, Vitamin D 86.9 CBC (H/H, RBC, INDICES, WBC, PLT) Reviewed date:09/07/2024 08:38:12 AM Interpretation:mild chronic anemia Performing Lab:[facility], [address] [place], [address] Keven Glynn MD Notes/Report: Received Date: NON-FASTING; [...] date:09/07/2024 08:36:28 AM Interpretation:AST 47 Performing Lab:[facility], [address] [place], [address] Keven Glynn MD Notes/Report: Received Date: [id number] NON-FASTING; NON-FASTING; NON-FASTING; NON-FASTING; NON-FAST PATIENT UNABLE [...] Reviewed date:09/07/2024 08:38:12 AM Interpretation:80 Performing Lab:[facility], [address] [place], [address] Keven Glynn MD Notes/Report: Received Date: [id number] NON-FASTING; NON-FASTING; NON-FASTING; NON-FASTING; NON-FAST PATIENT UNABLE TO VOID; ADVISED TO RETURN FOR COLLECTION. DIRECT LDL 80 <100 mg/dL Desirable range <100 mg/dL for primary prevention; <70 mg/dL for patients with CHD or diabetic patients with > or = 2 CHD risk factors. LDL, Direct Reviewed date:09/07/2024 08:38:12 AM Interpretation:80 Performing Lab:[facility], [address] [place], [address] Keven Glynn MD Notes/Report: Received Date: [id number] NON-FASTING; NON-FASTING; NON-FASTING; NON-FASTING; NON-FAST PATIENT UNABLE TO VOID; ADVISED TO RETURN FOR COLLECTION. DIRECT LDL 80 <100 mg/dL Desirable range <100 mg/dL for primary prevention; <70 mg/dL for patients with CHD or diabetic patients with > or = 2 CHD risk factors. Hemoglobin A1C Reviewed date:09/07/2024 09:36:40 AM Interpretation:9.8 Performing Lab:[facility], [address] [place], [address] Keven Glynn MD Notes/Report: Received Date: [id number] NON-FASTING; NON-FASTING; NON-FASTING; NON-FASTING; NON-FAST PATIENT UNABLE [...] Reviewed date:09/07/2024 09:36:40 AM Interpretation:9.8 Performing Lab:[facility], [address] [place], [address] Keven Glynn MD Notes/Report: Received Date: [id number] NON-FASTING; NON-FASTING; NON-FASTING; NON-FASTING; NON-FAST PATIENT UNABLE [...] A1c for diagnosis of diabetes for children. MICROALBUMIN, RANDOM URINE ( W/CREATININE) Reviewed date:05/17/2024 01:02:14 PM Interpretation:Normal Performing Lab: Notes/Report: Normal Microalbumin, Urine 14.4 Microalb/Creat Ratio 10.1 Creatinine, Urine 143.0 Hemoglobin A1C Reviewed date:05/17/2024 02:06:41 PM Interpretation:8.5 Performing Lab: Notes/Report: 8.5 HEMOGLOBIN A1c 8.5 Hemoglobin A1C Reviewed date:05/17/2024 02:06:41 PM Interpretation:8.5 Performing Lab: Notes/Report: 8.5 HEMOGLOBIN A1c 8.5 Reason For Referral No Information Medications Medication SIG (Take, Route, Frequency, Duration) Notes Start Date End Date Status Tamsulosin HCl 0.4 MG Oral; Duration: 90 Days Active traMADol HCl 50 MG TAKE 1 TABLET BY NIK 4 TIMES DAILY NEEDED FOR PAIN Oral; Duration: 15 Days Active Dexcom G6 Slide Maker - as directed by device Active Famotidine 20 MG 1 tablet at bedtime as needed Orally Twice a day Active Esomeprazole Magnesium 40 MG 1 capsule Orally Once a day; Duration: 30 day(s) Active Mounjaro 5 MG/0.5ML 5 mg Subcutaneous on ce a week new higher dose Active hydrALAZINE HCl 50 MG Oral Active DexBlogHer G6 Sensor - as directed Active dilTIAZem HCl 30 MG 1 tab Orally Three times a day Active Spironolactone 25 MG 1 tablet Oral once daily Active Levothyroxine Sodium 112 MCG 1 tablet in the morning on an empty stomach Orally Once a day; Duration: 30 day(s) Active HumuLIN R U-500 (CONCENTRATED) 500 UNIT/ML up to 350 units via insulin pump daily Active Dexcom G6 Transmitter - as directed by device every 90 days Active Baclofen 10 MG Oral; Duration: 30 Days Active ffk environment Delica Lancets 33G - to test blood sugars by finger stick Three times a day Active Lantus SoloStar 100 UNIT/ML 45 units am and 20 units pm Subcutaneous daily 01/01/2022 Active ffk environment Verio w/Device to test blood sugars In Vitro Three times a day Active ffk environment Verio - as directed In Vitro Three times a day Active Losartan Potassium 25 MG 1 tab(s) orally once a day Active Docusate Sodium 100 MG 1 capsule as need ed Orally Once a day Active Pen Patillas 31G X 6 MM To inject insulin subcutaneously Five times a day Active Metoprolol Tartrate 50 MG 1 tablet with food Orally Twice a day Active Atorvastatin Calcium 80 MG 1 tab(s) orally once a day Active Eliquis 5 MG 1 tablet Orally Twic e a day; Duration: 30 day(s) Active Potassium Chloride 10 MEQ 1 packet with food Orally Twice a day Active Bumetanide 2 MG 1 tab(s) orally once a day Active Immunizations Vaccine Route Administration Date Status Comme nts Pneumovax 23 IM Intramuscular 05/06/2015 Administered Social History Tobacco Use: Social History Observation Description Date Details (start date - stop date) Former Smoker NA - NA Tobacco Control (Standard) Question Answer Notes Additional Findings: Tobacco user Light cigarett e smoker (1-9 cigs/day) Tobacco use: Former smoker Tobacco Use Question Answer Notes Tobacco use: Nonsmoker Problems Problem Type SNOMED Code ICD Code Onset Dates Problem Status W/U Status Risk Notes Problem Hyperglycemia due to type 2 diabetes mellitus (895093383183691) Type 2 diabetes mellitus with hyperglycemia (E11.65) Active confirmed Problem Mixed hyperlipidemia (717719919) Mixed hyperlipidemia (E78.2) Active confirmed Problem Polyneuropathy due to type 2 diabetes mellitus (354856339) Type 2 diabetes mellitus with diabetic polyneuropathy (E11.42) Active confirmed Problem Essential hypertension (70980401) Essential (primary) hypertension (I10) Active confirmed Problem Morbid obesity (disorder) (253043554) Morbid (severe) obesity due to excess calories (E66.01) Active confirmed Problem Long-term current use of insulin (467665786) long term care social worker (current) use of insulin (Z79.4) Active confirmed Problem Body mass index 40+ - severely obese (364873844) BMI 45.0-49.9, adult (Z68.42) Active confirmed Problem Insulin pump present (finding) (282905531) Insulin pump status (Z96.41) Active confirmed Problem Diabetic neuropathic arthropathy (665846439) Charcot's arthropathy associated with type 2 diabetes mellitus (E11.610) Active confirmed Problem Male hypogonadism (50270881) Hypogonadism male (E29.1) Active confirmed Vital Signs Blood pressure diastolic 68 mm Hg 02/13/2025 Height 73 in 02/13/2025 Blood pressure systolic 140 mm Hg 02/13/2025 Encounters Encounter Location Date Provider Diagnosis [facility] [address] [place] [address] 02/13/2025 Adeel Farias Type 2 diabetes mellitus with hyperglycemia E11.65 ; Type 2 diabetes mellitus with diabetic polyneuropathy E11.42 ; Essential (primary) hypertension I10 ; Mixed hyperlipidemia E78.2 ; Charcot's arthropathy associated with type 2 diabetes mellitus E11.610 ; Morbid (severe) obesity due to excess calories E66.01 ; long term care social worker (current) use of insulin Z79.4 ; Insulin pump status Z96.41 ; BMI 45.0-49.9, adult Z68.42 and Hypogonadism male E29.1 [facility] [address] [address] 05/15/2024 Leonlindsay Harriseyad Type 2 diabetes mellitus with hyperglycemia E11.65 ; Type 2 diabetes mellitus with diabetic polyneuropathy E11.42 ; Essential (primary) hypertension I10 ; Mixed hyperlipidemia E78.2 ; Charcot's arthropathy associated with type 2 diabetes mellitus E11.610 ; Morbid (severe) obesity due to excess calories E66.01 ; alf (current) use of insulin Z79.4 ; Insulin pump status Z96.41 ; BMI 45.0-49.9, adult Z68.42 and Hypogonadism male E29.1 [facility] [address] [address] 09/06/2024 Yaneth Naceanceno Type 2 diabetes mellitus with hyperglycemia E11.65 ; Type 2 diabetes mellitus with diabetic polyneuropathy E11.42 ; Essential (primary) hypertension I10 ; Mixed hyperlipidemia E78.2 ; Charcot's arthropathy associated with type 2 diabetes mellitus E11.610 ; Morbid (severe) obesity due to excess calories E66.01 ; long term care social worker (current) use of insulin Z79.4 ; Insulin pump status Z96.41 ; BMI 45.0-49.9, adult Z68.42 and Hypogonadism male E29.1 [facility] [address] [address] 11/01/2024 Yaneth Naceanceno Type 2 diabetes mellitus with hyperglycemia E11.65 ; Type 2 diabetes mellitus with diabetic polyneuropathy E11.42 ; Essential (primary) hypertension I10 ; Mixed hyperlipidemia E78.2 ; Charcot's arthropathy associated with type 2 diabetes mellitus E11.610 ; Morbid (severe) obesity due to excess calories E66.01 ; long term care social worker (current) use of insulin Z79.4 ; Insulin pump status Z96.41 ; BMI 45.0-49.9, adult Z68.42 and Hypogonadism male E29.1 [facility] [address] [address] 05/15/2024 Leonlindsay Peoples Type 2 diabetes mellitus with hyperglycemia E11.65 [facility] [address] [address] 05/24/2024 [facility] [address] [address] 06/06/2024 [facility] [address] [address] 09/06/[address] [facility] [address] [address] 09/07/2024 [facility] [address] [address] 10/11/2024 Leon Raju Type 2 diabetes mellitus with hyperglycemia E11.65 [facility] [address] [address] 11/01/2024 [facility] [address] [address] 01/01/2025 Leon Shelton Type 2 diabetes mellitus with hyperglycemia E11.65 [facility] [address] [address] 02/05/2025 Leonlindsay Peoples Type 2 diabetes mellitus with hyperglycemia E11.65 Assessments Encounter Date Diagnosis (ICD Code) Assessment Notes Treatment Notes Treatment Clinical Notes Section Notes 05/15/2024 Type 2 diabetes mellitus with hyperglycemia [...] - - - -Dena Salcido of : [id number] ed at: May 15, 2024 5:33 PM CDTReporting period: WedFeb 11, 2024 - WedMay 10, 2024- - - - - - - - - - - - - - -Glucose DetailsAverage glucose: 255 mg/dLStandard deviation: 64 mg/dLGMI: 9.4%- - - - - - - - - - - - - - -Time in RangeVery High: 52%High: 35%In Range: 13%Low: 0%Very Low: 0% Target Amrbg36-479 mg/dL - - - - - - - - - - - - - - -CGM DetailsSensor usage: 100%Days with CGM data: Old records reviewed Apr [...] - - - -Dena Salcido of : [id number] ed at: Sep 06, 2024 3:00 PM CSTReporting period: WedJun 04, 2024 - WedSep 01, 2024- - - - - - - - - - - - - - -Glucose DetailsAverage glucose: 314 mg/dLStandard deviation: 85 mg/dLGMI: 10.8%- - - - - - - - - - - - - - -Time in RangeVery High: 78%High: 12%In Range: 10%Low: 0%Very Low: <1%Target Nwzmq46-077 mg/dL - - - - - - - - - - - - - - -CGM DetailsSensor usage: 94%Days with CGM data: 85/90 Old records reviewed Apr 2024: Advised to [...] 39% Low: 1% Very Low: <1% Target Hlega40-209 mg/dL - - - - - - [...] mg weekly No changes to pump settings 01/01/2025 Type 2 diabetes mellitus with hyperglycemia (ICD-10 - E11.65) 02/05/2025 Type 2 diabetes mellitus with hyperglycemia (ICD-10 - E11.65) 02/13/2025 Type 2 diabetes mellitus with hyperglycemia (ICD-10 - E11.65) Old records reviewed Apr 2024: Advised to [...] mg weekly No changes to pump settings January 2025: [employer] reviewed/Pt forgot Dexcom device Got A1c with PCP Karen Mounjaro 5 mg weekly Has open wound on L leg and sores in perianal area. SNF has been treatiing it. Still looks unhealed. Recc IV antbx at Hospital. 02/13/2025 Type 2 diabetes mellitus with diabetic polyneuropathy (ICD-10 - E11.42) Stable, foot care instructions given 11/01/2024 Type 2 diabetes mellitus with diabetic polyneuropathy (ICD-10 - E11.42) Stable, foot care instructions given 09/06/2024 Type 2 diabetes mellitus with diabetic polyneuropathy (ICD-10 - E11.42) Stable, foot care instructions given 05/15/2024 Type 2 diabetes mellitus with diabetic polyneuropathy (ICD-10 - E11.42) Stable, foot care instructions given 05/15/2024 Essential (primary) hypertension (ICD-10 - I10) controlled. 2 g sodium diet. Blood pressure goal less than 130/80. 09/06/2024 Essential (primary) hypertension (ICD-10 - I10) controlled. 2 g sodium diet. Blood pressure goal less than 130/80. 11/01/2024 Essential (primary) hypertension (ICD-10 - I10) controlled. 2 g sodium diet. Blood pressure goal less than 130/80. 02/13/2025 Essential (primary) hypertension (ICD-10 - I10) controlled. 2 g sodium diet. Blood pressure goal less than 130/80. 02/13/2025 Mixed hyperlipidemia (ICD-10 - E78.2) COntrolled. LDL goal < 100. 11/01/2024 Mixed hyperlipidemia (ICD-10 - E78.2) COntrolled. LDL goal < 100. 09/06/2024 Mixed hyperlipidemia (ICD-10 - E78.2) COntrolled. LDL goal < 100. 05/15/2024 Mixed hyperlipidemia (ICD-10 - E78.2) COntrolled. LDL goal < 100. 05/15/2024 Charcot's arthropathy associated with type 2 diabetes mellitus (ICD-10 - E11.610) Patient scheduled to have surgery for Charcots foot. 09/06/2024 Charcot's arthropathy associated with type 2 diabetes mellitus (ICD-10 - E11.610) s/p surgery for Charcots foot 11/01/2024 Charcot's arthropathy associated with type 2 diabetes mellitus (ICD-10 - E11.610) s/p surgery for Charcots foot 02/13/2025 Charcot's arthropathy associated with type 2 diabetes mellitus (ICD-10 - E11.610) s/p surgery for Charcots foot 02/13/2025 Morbid (severe) obesity due to excess calories (ICD-10 - E66.01) Patient was advised to take to take 500-1000 fewer calories every day to lose 1 pound per week. 11/01/2024 Morbid (severe) obesity due to excess [...] 40 #s Wants to lose another 100#s 05/15/2024 alf (current) use of insulin (ICD-10 - Z79.4) 09/06/2024 alf (current) use of insulin (ICD-10 - Z79.4) 11/01/2024 alf (current) use of insulin (ICD-10 - Z79.4) 02/13/2025 alf (current) use of insulin (ICD-10 - Z79.4) 11/01/2024 Insulin pump status (ICD-10 - Z96.41) [employer] 09/06/2024 Insulin pump status (ICD-10 - Z96.41) [employer] 02/13/2025 Insulin pump status (ICD-10 - Z96.41) [employer] 05/15/2024 Insulin pump status (ICD-10 - Z96.41) [employer] 05/15/2024 BMI 45.0-49.9, adult (ICD-10 - Z68.42) 09/06/2024 BMI 45.0-49.9, adult (ICD-10 - Z68.42) 11/01/2024 BMI 45.0-49.9, adult (ICD-10 - Z68.42) 02/13/2025 BMI 45.0-49.9, adult (ICD-10 - Z68.42) 02/13/2025 Hypogonadism male (ICD-10 - E29.1) 11/01/2024 Hypogonadism male (ICD-10 - E29.1) 09/06/2024 Hypogonadism male (ICD-10 - E29.1) 05/15/2024 Hypogonadism male (ICD-10 - E29.1) Plan Of Treatment Pending Test Test Name Order Date MICROALBUMIN, RANDOM URINE (W/CREATININE ) 09/06/2024 Next Appt Details Provider Name:Leon Peoples, 05/21/2025 10:30:00 AM, [address], [facility] [address], [place], [address], Insurance Providers Payer Name Payer Address Payer Phone Subscriber Number Group Number Insured Name Patient Relationship to Insured Coverage Start Date Coverage End Date MEDIC[place] [address] [address] [place] [address] [phone] [id number] DENA HOANG Self - patient is the insured 7 [facility] [address] [place] [address] [id number] DENA HOANG Self - patient is the insured 7 Medical (General) History Medical History History ICD Code T2DM Insulin Pump Glaucoma Messed up leg Surgical History Surgery Date(Month/Year) Gall bladder Neck Back SX L and right Hospitalization History Reason Date(Month/Year) sepsis also had covid 05/2021-01/2022 stomach and c diff
--- OUTSIDE RECORDS SUMMARY | 2025-02-23 20:35 | XMS_ITS | Patient Health Record ---
Author Organization [facility] Address [address] [place], [place] [address] Care Team Providers Care Chemical Operator Name Role Phone SINDY CONLEY Unavailable [phone] Abraham Dwyer Unavailable Unavailable Reason For Referral No Information Plan Of Treatment No Information Insurance Providers Payer Name Payer Address Payer Phone Subscriber Number Group Number Insured Name Patient Relationship to Insured Coverage Start Date Coverage End Date Medicare Part B [place] [address] [place] [phone] [id number] DENA VARMA Self - patient is the insured [facility] ([facility]) ATTN CLAIMS [address] [place] [address] [id number] DENA VARMA Self - patient is the insured
--- OUTSIDE RECORDS SUMMARY | 2025-02-23 20:35 | XMS_ITS | Encounter Summary ---
Author Organization [facility] Address [address] [place] [address] Care Team Providers Care Key Account Coordinator Name Role Phone Bri Mcclain MD Primary Care Provider + [phone] Bri Mcclain MD Primary Care Provider + [phone] Bri Mcclain MD Unavailable [phone] Regina Liu RN Unavailable [phone] Lencho Lopes MD Unavailable [phone] Abraham Dwyer DO Unavailable Sakina Zamarripa READY TO WEAR DEPARTMENT MANAGER Unavailable Mindy Barragan READY TO WEAR DEPARTMENT MANAGER Unavailable [phone] Kayla Judd RN Unavailable [phone] Kayla Judd RN Unavailable [phone] Mark Pierre MD Primary Care Provider [phone] None, Provider Primary Care Provider Unavaila ble Encounter Details Date Type Department Care Team (Latest Contact Info) Description 05/15/2018 Abstract [facility] [place] [address] [place] [address] Social History Tobacco Use Types Packs/Day Years Used Date Smoking Tobacco: Never Assessed Sex and Gender Information Value Date Recorded Sex Assigned at Male 09/22/2024 5:17 PM 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 difficile 12/31/2020 12/31/2020 07/09/2021 3:59 PM BEER COIL CLEANER COVID-19 Rule Out 08/05/2021 08/06/2021 08/06/2021 11:00 AM BEER COIL CLEANER COVID-19 Rule Out 08/22/2021 08/22/2021 08/22/2021 10:37 AM BEER COIL CLEANER COVID-19 Rule Out 09/05/2021 09/05/2021 09/05/2021 7:59 AM BEER COIL CLEANER COVID-19 Confirmed Comment:In collaboration with Dr. Goodwin patient cleared from COVID-19 isolation per HS guidelines (SB) 09/05/2021 09/05/2021 09/16/2021 10:57 AM BEER COIL CLEANER documented as of this encounter Care Teams Key Account Coordinator Relationship Specialty Start Date End Date Bri Mcclain MD PCP - General INTERNAL MEDICINE 06/08/18 12/30/20 Bri Mcclain MD PCP - General INTERNAL MEDICINE 12/31/20 10/12/22 [place] [address] [place] [address] PCP - General FAMILY PRACTICE 10/13/22 05/25/23 None, Provider, PCP - General UNKNOWN PHYSICIAN SPECIALTY 09/22/24 Bri Mcclain MD INTERNAL MEDICINE 12/31/20 Regina Liu RN [address] [place], [place] [phone] Ditching Machine Engineer (Ambulatory) REGISTERED NURSE 07/08/21 11/17/21 Lencho Lopes MD [address], [address] [place] [phone] Physician INTERVENTIONAL CARDIOLOGY 08/07/21 Abraham Dwyer DO [address], [address] [phone] Consulting Physician INTERNAL MEDICINE 09/17/21 2 Sakina Zamarripa NP [address], [address] [place] [address] [phone] Nurse Practitioner Nurse Practitioner [facility] 09/17/21 01/04/22 Mindy Barragan, QUENTIN [address], [address] [place] [address] [phone] Nurse Practitioner NURSE PRACTITIONER 09/17/21 01/04/22 Kayla Judd RN [address] [place], [place] [phone] Ditching Machine Engineer (Ambulatory) REGISTERED NURSE 11/10/21 11/17/21 Kayla Judd RN [address] [place], [place] [id number] Ditching Machine Engineer (Ambulatory) REGISTERED NURSE 11/18/21 01/28/22 documented as of this encounter
--- OUTSIDE RECORDS SUMMARY | 2025-02-23 20:35 | XMS_ITS | Encounter Summary ---
Author Organization [facility] Address [address] [place] [address] Care Team Providers Care Capability Lead Name Role Phone Bri Mcclain MD Primary Care Provider + [phone] Bri Mcclain MD Primary Care Provider + [phone] Bri Mcclain MD Unavailable [phone] Regina Liu RN Unavailable [phone] Lencho Lopes MD Unavailable [phone] Abraham Dwyer DO Unavailable Sakina Zamarripa DATA CAPTURE SPECIALIST Unavailable Mindy Barragan DATA CAPTURE SPECIALIST Unavailable [phone] Kayla Judd RN Unavailable [phone] Kayla Judd RN Unavailable [phone] Mark Pierre MD Primary Care Provider [phone] None, Provider Primary Care Provider Unavaila ble Encounter Details Date Type Department Care Team (Late st Contact Info) Description 06/26/2017 Abstract [place] [address] , Generic Conversion, Social History Tobacco Use Types Packs/Day Years Used Date Smoking Tobacco: Never Assessed Sex and Gender Information Value Date Recorded Sex Assigned at Male 09/22/2024 5:17 PM 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 difficile 12/31/2020 12/31/2020 07/09/2021 3:59 PM CENTRAL STERILE TECH COVID-19 Rule Out 08/05/2021 08/06/2021 08/06/2021 11:00 AM CENTRAL STERILE TECH COVID-19 Rule Out 08/22/2021 08/22/2021 08/22/2021 10:37 AM CENTRAL STERILE TECH COVID-19 Rule Out 09/05/2021 09/05/2021 09/05/2021 7:59 AM CENTRAL STERILE TECH COVID-19 Confirmed Comment:In collaboration with Dr. Goodwin patient cleared from COVID-19 isolation per [facility] guidelines ([place]) 09/05/2021 09/05/2021 09/16/2021 10:57 AM CENTRAL STERILE TECH documented as of this encounter Care Teams Capability Lead Relationship Specialty Start Date End Date Bri Mcclain MD PCP - General INTERNAL MEDICINE 06/08/18 12/30/20 Bri Mcclain MD PCP - General INTERNAL MEDICINE 12/31/20 10/12/22 [place] [address] [place] [address] PCP - General FAMILY PRACTICE 10/13/22 05/25/23 None, Provider, PCP - General UNKNOWN PHYSICIAN SPECIALTY 09/22/24 Bri Mcclain MD INTERNAL MEDICINE 12/31/20 Regina Liu, RN [address] [place] [address] Basket Turner (Ambulatory) REGISTERED NURSE 07/08/21 11/17/21 Lencho Lopes MD [address], [address] [place], [place] [address] Physician INTERVENTIONAL CARDIOLOGY 08/07/21 Abraham Dwyer DO [address], [address] [id number] Consulting Physician INTERNAL MEDICINE 09/17/21 2 Sakina Zamarripa NP [address], [address] [phone] Nurse Practitioner Nurse Practitioner Family 09/17/21 01/04/22 Mindy Barragan NP [address], [address] [phone] Nurse Practitioner NURSE PRACTITIONER 09/17/21 01/04/22 Kayla Judd, RN [address] [place], [place] [address] Basket Turner (Ambulatory) REGISTERED NURSE 11/10/21 11/17/21 Kayla Judd, RN [address] [place] [address] Basket Turner (Ambulatory) REGISTERED NURSE 11/18/21 01/28/22 documented as of this encounter
--- OUTSIDE RECORDS SUMMARY | 2025-02-23 20:35 | XMS_ITS ---
Author Organization [facility] Address [address] [address] Care Team Providers Care Railroad Signal Operator Name Role Phone Vickeyerica Felix Primary Care Provider Leon Washburn Unavailable [phone] Adeel Farias Unavailable [phone] Allergies Allergen (clinical drug ingredient) Drug/Non Drug [...] 0.4 MG Oral; Duration: 90 Days Active Dexcom G6 Equipment Worker - as directed by device Active Dexcom G6 Transmitter - as directed by device every 90 days Active Dexcom G6 Sensor - as directed Active Potassium Chloride 10 MEQ 1 packet with food Orally Twice a day Active Famotidine 20 MG 1 tablet at bedtime as needed Orally Twice a day Active Esomeprazole Magnesium 40 MG 1 capsule Orally Once a day; Duration: 30 day(s) Active hydrALAZINE HCl 50 MG Oral Active Levothyroxine Sodium 112 MCG 1 tablet in the morning on an empty stomach Orally Once a day; Duration: 30 day(s) Active Eliquis 5 MG 1 tablet Orally Twic a day; Duration: 30 day(s) Active Mounjaro 5 MG/0.5ML 5 mg Subcutaneous on ce a week new higher dose Active Baclofen 10 MG Oral; Duration: 30 Days Active Spironolactone 25 MG 1 tablet Oral once daily Active HumuLIN R U-500 (CONCENTRATED) 500 UNIT/ML up to 350 units via insulin pump daily Active Docusate Sodium 100 MG 1 capsule as need ed Orally Once a day Active dilTIAZem HCl 30 MG 1 tab Orally Three times a day Active Losartan Potassium 25 MG 1 tab(s) orally once a day Active Metoprolol Tartrate 50 MG 1 tablet with food Orally Twice a day Active Atorvastatin Calcium 80 MG 1 tab(s) orally once a day Active Bumetanide 2 MG 1 tab(s) orally once a day Active traMADol HCl 50 MG TAKE 1 TABLET BY NIK TH 4 TIMES DAILY NEEDED FOR PAIN Oral; Duration: 15 Days Active Strutta Delica Lancets 33G - to test blood sugars by finger stick Three times a day Active Strutta Verio w/Device to test blood sugars In Vitro Three times a day Active BUILDuch Verio - as directed In Vitro Three times a day Active Pen [place] 31G X 6 MM To inject insulin subcutaneously Five times a day Active Lantus SoloStar 100 UNIT/ML 45 units am and 20 units pm Subcutaneous daily 01/01/2022 Active Social History Tobacco Use: Social History Observation Description Date Details (start date - stop date) Former Smoker NA - NA Tobacco Control (Standard) Question Answer Notes Tobacco use: Former smoker Additional Findings: Tobacco user Light cigarett e smoker (1-9 cigs/day) Tobacco Use Question Answer Notes Tobacco use: Nonsmoker Vital Signs Blood pressure systolic 140 mm Hg 02/14/20 25 Blood pressure diastolic 68 mm Hg 025 Height 73 in 02/13/2025 Encounters Encounter Location Date Provider Diagnosis [facility] [address] [place] [address] 02/13/2025 Adeel Farias Type 2 diabetes mellitus with hyperglycemia E11.65 ; Type 2 diabetes mellitus with diabetic polyneuropathy E11.42 ; Essential (primary) hypertension I10 ; Mixed hyperlipidemia E78.2 ; Charcot's arthropathy associated with type 2 diabetes mellitus E11.610 ; Morbid (severe) obesity due to excess calories E66.01 ; assisted (current) use of insulin Z79.4 ; Insulin pump status Z96.41 ; BMI 45.0-49.9, adult Z68.42 and Hypogonadism male E29.1 Assessments Encounter Date Diagnosis (ICD Code) Assessment Notes Treatment Notes Treatment Clinical Notes Section Notes 02/13/2025 Type 2 diabetes mellitus with hyperglycemia (ICD-10 - E11.65) Old records reviewed Apr 2024: Advised to take insulin 1 hr before meals. Has PP hyperglycemia. Dexcom reviewed GMI 9.9 Increase Bolus 15 units AC Start Metformin 1-4 tabs a day as tolerated Aug 2024: did not tolerate Ozempic or Metformin due to GI side effects,discusse d increase bolus to 20 units for some [...] - E11.42) Stable, foot care instructions given 02/13/2025 Essential (primary) hypertension (ICD-10 - I10) controlled. 2 g sodium diet. Blood pressure goal less than 130/80. 02/13/2025 Mixed hyperlipidemia (ICD-10 - E78.2) COntrolled. LDL goal < 100. 02/13/2025 Charcot's arthropathy associated with type 2 diabetes mellitus (ICD-10 - E11.610) s/p surgery for Charcots foot 02/13/2025 Morbid (severe) obesity due to excess calories (ICD-10 - E66.01) Patient was advised to take to take 500-1000 fewer calories every day to lose 1 pound per week. 02/13/2025 assisted (current) use of insulin (ICD-10 - Z79.4) 02/13/2025 Insulin pump status (ICD-10 - Z96.41) Medtronic 02/13/2025 BMI 45.0-49.9, adult (ICD-10 - Z68.42) 02/13/2025 Hypogonadism male (ICD-10 - E29.1) Plan Of Treatment Medication Medication Name Sig Start Date Stop Date Notes Dexcom G6 Equipment Worker - as directed by device Dexcom G6 Transmitter - as directed by brittani gutierrez every 90 days Dexcom G6 Sensor - as directed Mounjaro 5 MG/0.5ML 5 mg Subcutaneous on ce a week new higher dose Spironolactone 25 MG 1 tablet Oral once daily HumuLIN R U-500 (CONCENTRATED) 500 UNIT/ML up to 350 units via insulin pump daily dilTIAZem HCl 30 MG 1 tab Orally Three t imes a day Losartan Potassium 25 MG 1 tab(s) orally once a day Metoprolol Tartrate 50 MG 1 tablet with food Orally Twice a day Atorvastatin Calcium 80 MG 1 tab(s) orally once a day Bumetanide 2 MG 1 tab(s) orally once a day OneTouch Delica Lancets 33G - to test blood sugars by finger stick Three times a day OneTouch Verio w/Device to test blood madsen gars In Vitro Three times a day OneTouch Verio - as directed In Vitro Three times a day Pen [place] 31G X 6 MM To inject insulin subcutaneously Five times a day Lantus SoloStar 100 UNIT/ML 45 units am and 20 units pm Subcutaneous daily 01/01/2022 Next Appt Details Follow Up: 3M,Yaneth, Reason: Provider Name:Leon Peoples, 05/21/2025 10:30:00 AM, [address], [address], [address], Progress Notes * AVANIJASONNY NDOB:1955 (69 yo M)Acc No.[id number]:02/13/2025 [facility] Patient: DENA VARGAS N Provider: Beatrice Farias PA-C :1955 A ge:69 Y S ex:Male Date:02/13/2025 Address:[address] [place] [address] [facility] Pcp:Felix Jones Subjective: * Chief Complaints: * 1 . Medtronic/ Dexcom on phone. 2. Diabetes Type II. * HPI: I nterim History: Stable. Denies : Tests/Studies:. Denies : Consultations. Denies : Hospitalizations. Denies : Emergency Department visits. Denies : Medication changes. Denies : History since last visit. Denies : Changes in PMH S alley 0 11/01/2024. D iabetes: c/o Diabetes D uration 2 0-30 yrs C urrent Treatment I nsulin, Insulin Pump January 2025:Mounjaro 5 mg weekly (was off it for last 5 weeks due to SNF losing it)U500 in pump, Basal 12 am 0.2 u/hr. [...] progress notes) y es. * Medical History: T 2DM, Insulin Pump, Glaucoma, Messed up leg. * Surgical History: G all bladder , Neck , Back SX , L and right . * Hospitalization/Major Diagno stic Procedure: s tomach and c diff , sepsis also had covid 05/2021-01/2022. * Family History: F ather: diagnosed with [facility]. unknown. * Social History: T obacco Use: T obacco Control (Standard) T obacco use: F ormer smoker A dditional Findings: Tobacco user L ight cigarette smoker (1-9 cigs/day) T obacco Use: T obacco Use T obacco use: N onsmoker * Medications: T aking Atorvastatin Calcium 80 MG Tablet 1 tab(s) orally once a day , Taking Baclofen 10 MG Tablet Oral , Taking Bumetanide 2 MG Tablet 1 tab(s) orally once a day , Taking Dexcom G6 Equipment Worker - Device as directed by device , Taking Dexcom G6 Sensor - Miscellaneous as directed , Taking Dexcom G6 Transmitter - Miscellaneous as directed by device every 90 days , Taking dilTIAZem HCl 30 MG Tablet 1 tab Orally Three times a day , Taking Docusate Sodium 100 MG Capsule 1 capsule as needed Orally Once a day , Taking Eliquis 5 MG Tablet 1 tablet Orally Twice a day , Taking Esomeprazole Magnesium 40 MG Capsule Delayed Release 1 capsule Orally Once a day , Taking Famotidine 20 MG Tablet 1 tablet at bedtime as needed Orally Twice a day , Taking HumuLIN R U-500 (CONCENTRATED) 500 UNIT/ML Solution up to 350 units via insulin pump daily , Taking hydrALAZINE HCl 50 MG Tablet Oral , Taking Lantus SoloStar 100 UNIT/ML Solution Pen-injector 45 units am and 20 units pm Subcutaneous daily , Taking Levothyroxine Sodium 112 MCG Tablet 1 tablet in the morning on an empty stomach Orally Once a day , Taking Losartan Potassium 25 MG Tablet 1 tab(s) orally once a day , Taking Metoprolol Tartrate 50 MG Tablet 1 tablet with food Orally Twice a day , Taking Mounjaro 5 MG/0.5ML Solution Auto-injector 5 mg Subcutaneous once a week , Notes to Pharmacist: new higher dose, Taking OneTouch Delica Lancets 33G - Miscellaneous to test blood sugars by finger stick Three times a day , Taking OneTouch Verio - Strip as directed In Vitro Three times a day , Taking OneTouch Verio w/Device Kit to test blood sugars In Vitro Three times a day , Taking Pen [place] 31G X 6 MM Miscellaneous To inject insulin subcutaneously Five times a day , Taking Potassium Chloride 10 MEQ Packet 1 packet with food Orally Twice a day , Taking Spironolactone 25 MG Tablet 1 tablet Oral once daily , Taking Tamsulosin HCl 0.4 MG Capsule Oral , Taking traMADol HCl 50 MG Tablet TAKE 1 TABLET BY MOUTH 4 TIMES DAILY NEEDED FOR PAIN Oral , Medication List reviewed and reconciled with the patient * Allergies: O zempic (0.25 or 0.5 MG/DOSE): abdominal pain - Side Effects, metFORMIN HCl ER: GI side effects - Side Effects. Objective: * Vitals: W t: Not Taken - Declined by Patient, BMI: Not Taken - Declined by Patient, Ht: 73 in, BP:140/68mm Hg, HR: 68 /min. * Examination: G eneral Examination: General [...] xam Performed : Yes D ate: 0 02/13/2025 N ails N ormal S kin N ormal P ulses N ormal V ibration R educed M onofilament N ormal F ootwear Evaluation Performed Y es I mages 0 02/13/2025 right foot swollen s/p 3 surgeriesleft foot missing 1 toe s/p amputation Opthamology Referral R etinal Screening Performed: Y es F indings of Diabetic Eye Exam: n o retinopathy S pecialty of provider who performed eye exam?Peanut Picker P kay Performed: N o D iabetic [...] 1 tablet with food, Orally, Twice a day; C ontinue Bumetanide Tablet, 2 MG, 1 tab(s), orally, once a day; C ontinue dilTIAZem HCl Tablet, 30 MG, 1 tab, Orally, Three times a day; C ontinue Spironolactone Tablet, 25 MG, 1 tablet, Oral, once daily. Clinical Notes: controlled. 2 g sodium diet. [...] week. 7. I nsulin pump status Clinical Notes:BarkBoxtronic * Preventive Medicine: Counseling: C ounseling BMI Management Y es Above Normal BMI [...] RECOMMENDATION: H ypertension education * Follow Up: 3 MYaneth * Billing Information: * Visit Code: 00472 Office Visit with Modifier. Modifiers: 25 29921 CGMS I&R. * Procedure Codes: Care Plan Details* * Electronic signature of Lowell Espinosa on 02/23/2025 at 08:35 PM CDT Sign off status: Pending * Provider: Beatrice Farias PA-C Date: 0 02/13/2025 Generated for Robert arnett/Anabell/eTransmitting on: 0 02/23/2025 08:35 PM CDT History and Physical Notes * HPI (History of Present Illness) Category Sub-Category Detail Notes Category Not es Interim History Tests/Studies: Consultations Hospitalizations Emergency Department visits Changes in PMH Since 11/01/2024 History since last visit Medication changes Diabetes Diabetes Duration: 20-30 yrs Current Treatment: Insulin, Insulin Pump January 2025: Mounjaro 5 mg weekly (was off it for last 5 weeks due to SNF losing it) U500 in pump, Basal 12 am 0.2 [...] Inspection: Exam Perfo rmed : Yes Date:: 02/13/2025 Nails: Normal Skin: Normal Pulses: Normal Vibration: Reduced Monofilament: Normal Footwear Evaluation Performed: Yes Images: 02/13/2025 right foot swollen s/p 3 surgeries left foot missing 1 toe s/p amputation Opthamology Referral Retinal Screening Performed :: Yes Findings of Diabetic Eye Exam:: no retin opathy Specialty of provider who pe rformed eye exam: Peanut Picker Procedure Performed:: No Diabetic Retinopathy Screening: Yes Procedure Performed: Yes Date: Advised to check jo-ann wade
--- OUTSIDE RECORDS SUMMARY | 2025-02-23 20:35 | XMS_ITS | Encounter Summary ---
Author Organization [facility] Address [address] [place] [address] Care Team Providers Care Curing Supervisor Name Role Phone Bri Mcclain MD Primary Care Provider + [phone] Bri Mcclain MD Primary Care Provider + [phone] Bri Mcclain MD Unavailable [phone] Regina Liu RN Unavailable [phone] Lencho Lopes MD Unavailable [phone] Abraham Dwyer DO Unavailable Sakina Zamarripa FISH AGENT Unavailable Mindy Barragan FISH AGENT Unavailable [phone] Kayla Judd RN Unavailable [phone] Kayla Judd RN Unavailable [phone] Mark Pierre MD Primary Care Provider [phone] None, Provider Primary Care Provider Unavaila ble Encounter Details Date Type Department Care Team (Late st Contact Info) Description 02/16/2014 Abstract [facility] CONVERSION [address] [place] [address] , Generic Conversion, Social History Tobacco Use Types Packs/Day Years Used Date Smoking Tobacco: Never Assessed Sex and Gender Information Value Date Recorded Sex Assigned at Male 09/22/2024 5:17 PM AMPOULE EXAMINER Legal Sex Male 6:34 PM CDT Gender [...] C. difficile 12/31/2020 12/31/2020 07/09/2021 3:59 PM AMPOULE EXAMINER COVID-19 Rule Out 08/05/2021 08/06/2021 08/06/2021 11:00 AM AMPOULE EXAMINER COVID-19 Rule Out 08/22/2021 08/22/2021 08/22/2021 10:37 AM AMPOULE EXAMINER COVID-19 Rule Out 09/05/2021 09/05/2021 09/05/2021 7:59 AM AMPOULE EXAMINER COVID-19 Confirmed Comment:In collaboration with Dr. Goodwin patient cleared from COVID-19 isolation per [facility] guidelines ([place]) 09/05/2021 09/05/2021 09/16/2021 10:57 AM AMPOULE EXAMINER documented as of this encounter Care Teams Curing Supervisor Relationship Specialty Start Date End Date Bri Mcclain MD PCP - General INTERNAL MEDICINE 06/08/18 12/30/20 Bri Mcclain MD PCP - General INTERNAL MEDICINE 12/31/20 10/12/22 [place] [address] [place] [address] PCP - General FAMILY PRACTICE 10/13/22 05/25/23 None, Provider, PCP - General UNKNOWN PHYSICIAN SPECIALTY 09/22/24 Bri Mcclain MD INTERNAL MEDICINE 12/31/20 Regina Liu, RN [address] [place] [address] Manufacturing Assistant (Ambulatory) REGISTERED NURSE 07/08/21 11/17/21 Lencho Lopes MD [address], [address] [place] [address] Physician INTERVENTIONAL CARDIOLOGY 08/07/21 Abraham Dwyer DO [address], [address] [address] Consulting Physician INTERNAL MEDICINE 09/17/21 2 Sakina Zamarripa NP [address], [address] [place], [place] [id number] Nurse Practitioner Nurse Practitioner [facility] 09/17/21 01/04/22 Mindy Barragan NP [address], [address] [place] [phone] Nurse Practitioner NURSE PRACTITIONER 09/17/21 01/04/22 Kayla Judd RN [address] [place] [address] Manufacturing Assistant (Ambulatory) REGISTERED NURSE 11/10/21 11/17/21 Kayla Judd RN [address] [place] [address] Manufacturing Assistant (Ambulatory) REGISTERED NURSE 11/18/21 01/28/22 documented as of this encounter
--- OUTSIDE RECORDS SUMMARY | 2025-02-23 20:35 | XMS_ITS | Encounter Summary ---
Author Organization [facility] Address [address] [place] [address] Care Team Providers Care Operations Advisor Name Role Phone Bri Mcclain MD Primary Care Provider + [phone] Bri Mcclain MD Primary Care Provider + [phone] Bri Mcclain MD Unavailable [phone] Regina Liu RN Unavailable [phone] Lencho Lopes MD Unavailable [phone] Abraham Dwyer DO Unavailable Sakina Zamarripa LEATHER FINISHER Unavailable Mindy Barragan LEATHER FINISHER Unavailable [phone] Kayla Judd RN Unavailable [phone] Kayla Judd RN Unavailable [phone] Mark Pierre MD Primary Care Provider [phone] None, Provider Primary Care Provider Unavaila ble Reason for Visit * Reason Onset Date Comments Follow Up Call 11/28/2020 Encounter Details Date Type Department Care Team (Late st Contact Info) Description 11/28/2020 Telephone [facility] Med/Surg [address] [place] [address] Alida Becker RN Follow Up [...] week 11/15/2020 How often do you attend [facility] or druze services? Patient declined 11/15/2020 Do you belong to any clubs o r organizations such as gnosticism groups, unions, fraternal or athletic groups, or [...] move on to questions 3-9 0 05/15/2020 [facility] [place] of Occupat ional Health - Occupational Stress [...] Sex Assigned at Male 09/22/2024 5:17 PM BLOWER INSTALLER Legal Sex Male 6:34 PM CDT Gender [...] C. difficile 12/31/2020 12/31/2020 07/09/2021 3:59 PM BLOWER INSTALLER COVID-19 Rule Out 08/05/2021 08/06/2021 08/06/2021 11:00 AM BLOWER INSTALLER COVID-19 Rule Out 08/22/2021 08/22/2021 08/22/2021 10:37 AM BLOWER INSTALLER COVID-19 Rule Out 09/05/2021 09/05/2021 09/05/2021 7:59 AM BLOWER INSTALLER COVID-19 Confirmed Comment:In collaboration with Dr. Goodwin patient cleared from COVID-19 isolation per [facility] guidelines ([place]) 09/05/2021 09/05/2021 09/16/2021 10:57 AM BLOWER INSTALLER documented as of this encounter Care Teams Operations Advisor Relationship Specialty Start Date End Date Bri Mcclain MD PCP - General INTERNAL MEDICINE 06/08/18 12/30/20 Bri Mcclain MD PCP - General INTERNAL MEDICINE 12/31/20 10/12/22 [place] [address] [place] [address] PCP - General FAMILY PRACTICE 10/13/22 05/25/23 None, MD Shay PCP - General UNKNOWN PHYSICIAN SPECIALTY 09/22/24 Bri Mcclain MD INTERNAL MEDICINE 12/31/20 Regina Liu, RN [address] [place], [place] [phone] Motor Power Connector (Ambulatory) REGISTERED NURSE 07/08/21 11/17/21 Lencho Lopes MD [address] [place] [address] Physician INTERVENTIONAL CARDIOLOGY 08/07/21 Abraham Dwyer DO [address] [place] [address] [phone] Consulting Physician INTERNAL MEDICINE 09/17/21 2 Sakina Zamarripa NP [address] [place] [phone] Nurse Practitioner Nurse Practitioner Family 09/17/21 01/04/22 Mindy Barragan NP [address] [facility] [address] [place], [place] [address] Nurse Practitioner NURSE PRACTITIONER 09/17/21 01/04/22 Kayla Judd RN [address] [place], [place] [address] Motor Power Connector (Ambulatory) REGISTERED NURSE 11/10/21 11/17/21 Kayla Judd RN [address] [place], [place] [id number] Motor Power Connector (Ambulatory) REGISTERED NURSE 11/18/21 01/28/22 documented as of this encounter
--- OUTSIDE RECORDS SUMMARY | 2025-02-23 20:35 | XMS_ITS ---
Author Organization [facility] Address [address] [facility] [address] [place] [address] Care Team Providers Care Senior Drupal Developer Name Role Phone Felix Jones Primary Care Provider UnavailLeon Hoff Unavailable [phone] Yaneth Rivas Unavailable [phone] REASON FOR VISIT Medtronic/Dexcom Encounters Encounter Location Date Provider Diagnosis [facility] [address] [place] [address] 02/01/2025 Yaneth Rivas Plan Of Treatment Next Appt Details Provider Name:Leon Shelton, 05/21/2025 10:30:00 AM, [address], [address], [place], [address], Progress Notes * AVANIJASONNY NDOB:1955 (69 yo M)Acc No.[id number]:02/01/2025 [facility] Patient: DENA VARGAS Jeison Provider: Danielle Rivas PA-C :1955 A ge:69 Y S ex:Male Date:02/01/2025 [address] [facility] Pcp:Felix Jones Subjective: * Chief Complaints: * 1 . Medtronic/Dexcom. * Medical History: Objective: * Vitals: * Physical Examination: Assessment: Plan: * Treatment: * Billing Information: * Visit Code: * Procedure Codes: Care Plan Details* * Electronic signature of Joe Rivas PA-C on 02/23/2025 at 08:34 PM CDT Sign off status: Pending * Provider: Danielle Rivas PA-C Date: 0 02/01/2025 Generated for Robert arnett/Anabell/Connor on: 0 02/23/2025 08:34 PM CDT
--- OUTSIDE RECORDS SUMMARY | 2025-02-23 20:35 | XMS_ITS | Continuity of Care Document ---
Author Organization [facility] Address [id number] [place] [address] [address] [place] [address] Phone Care Team Providers Care Biometrician Name Role Phone July De Los Santos [...] Copied on Encounter Office/outpat ient Visit, Est [facility], [address] [place] [address] [address], [place], [place], [id number], [place] tel:[phone] [facility] No Information 2-201 0 Magali Corrales [address] , [address], [place], [address], [place]. tel:[phone] [facility], [address], [place], [place], [id number], [place] tel:[phone] [facility] No Information Ricco-0 1-201 0 Magali Corrales [address] , [address], [place], [place], [facility], [place]. tel:[phone] [facility] Eye [facility], [address], [place], [place], [address], [place] tel:[phone] [facility] No Information December-0 4-201 0 Magali Corrales [address] , [address], [place], [facility], [place]. tel:[phone] [facility] Eye [facility], [address], [place], [place], [address], [place] tel:[phone] [facility] No Information 7-201 0 Magali Corrales [address] , [address], [place], [facility], . tel:[phone] Office/outpat ient Visit, [facility], [address] [place] [address] [address], [place], [place], [address], [place] tel:[phone] [facility] No Information 6-201 0 Magali Corrales [address] , [address], [place], [facility], [place]. tel:[phone] [facility], [address], [place], [place], [address], [place] tel:[phone] [facility] No Information 6-200 9 Magali Corrales [address] , [address], [place], [facility], [place]. tel:[phone] Referring Provider: July Shane, [address], [place], [facility]. tel:[phone] Office/outpat ient Visit, [facility] Eye [facility], [address] [place] [address] [address], [place], [place], [address], [place] tel:[phone] [facility] No Information 9 Magali Mcdowell. [address] , [address], [place], [facility], . tel:[phone] Referring Provider: Juyl Shane, [address], [place], [facility]. tel:[phone] Office/outpat ient Visit, [facility], [address] [place] [address] [address], [place], [place], [address], [place] tel:[phone] [facility] No Information 6 8 Magali Mcdowell. [address] , [address], [place], [facility], [place]. tel:[phone] [facility], [address], [place], [place], [address], [place] tel:[phone] [place] [address] No Information 8 Magali Mcdowell. [address] [facility] , [address], [place], [facility], [place]. tel:[phone] Referring Provider: July Shane, [address], [place], [facility]. tel:[phone] Office/outpat ient Visit, [facility], [address] [place] [address] [address], [place], [place], [address], [place] tel:[phone] [place] [address] No Information 200 7 Magali [address]. [address] , [address], [place], [facility], [place]. tel:[phone] Referring Provider: July Shane, [address], [place], [facility]. tel:[phone] Office/outpat ient Visit, [facility], [address], [place], [place], [address], [place] tel:[phone] [facility] No Information 7 Magali Pradon. [address] , [address], [place], [address], [place]. tel:[phone] Family History Family Member Type Diagnosis Age At Onset No Information Payers Payer name Insurance type Covered republican ID Authorfranky tapia(s) [facility] CI [id number] Social History Type Description Quantity Date Captured [...]
[2025-02-23 20:54] LABS: Hematocrit 28.9 % (42.0-52.0); Hemoglobin 9.2 g/dL (14.0-18.0); Immature Granulocyte Percent A 0.4 % (0-0.5); Lymphocytes Absolute Auto 1.55 K/mm3 (0.9-3.2); Mean Corpuscular HGB Conc 31.8 g/dl (32-36); Mean Corpuscular Hemoglobin 28.6 pg (26-34); Mean Corpuscular Volume 89.8 fl (80-100); Nucleated Red Blood Cells Absolute Auto 0.000 K/mm3 (0.0-0.012); Nucleated Red Blood Cells Perc 0.0 % (0.0-0.2); Platelet Count Result 195 k/mm3 (150-375); Red Blood Count 3.22 M/mm3 (4.6-6.20); White Blood Count 7.5 K/mm3 (4.5-10.0)
[2025-02-23 21:09] LABS: INR 1.1; Prothrombin Time 14.8 Seconds (11.1-14.7)
[2025-02-23 21:10] LABS: Alanine Aminotransferase 16 U/L (6-50); Albumin Level 3.7 g/dL (3.5-5.1); Alkaline Phosphatase 66 U/L (38-126); Anion Gap 9 mmol/L (4-12); Aspartate Amino Transferase 25 U/L (17-59); Bilirubin,Total 0.4 mg/dL (0.2-1.3); Blood Urea Nitrogen 32 mg/dL (9-20); Calcium 9.0 mg/dL (8.4-10.2); Carbon Dioxide 28 mmol/L (22-30); Chloride 99 mmol/L (98-107); Estimated CRCL calculation 90 ml/min; Estimated Glomerular Filt Rate > 60; Glucose 119 mg/dL (65-110); Partial Thromboplastin Time 30.5 Seconds (22.3-36.8); Potassium 3.4 mmol/L (3.4-5.0); Sodium 136 mmol/L (137-145); Total Protein 7.0 g/dL (6.3-8.2)
[2025-02-23] MEDS: HYDROmorphone HCL INJ (*CRX) 2 MG/ML VIAL 0.5 MG IV PUSH (21:17)
== END 2025-02-23 22:39 | disposition home or self-care (01) ==
PROVIDERS: Emergency Provider Student in an Organized Health Care Education/Training Program; PCP Internal Medicine
DX: M25.551 Pain in right hip (principal); M54.31 Sciatica, right side; E11.9 Type 2 diabetes mellitus without complications; I10 Essential (primary) hypertension; E78.5 Hyperlipidemia, unspecified; Z79.4 Long term (current) use of insulin; Z96.41 Presence of insulin pump (external) (internal); E55.9 Vitamin D deficiency, unspecified; E03.9 Hypothyroidism, unspecified; I48.20 Chronic atrial fibrillation, unspecified; E66.01 Morbid (severe) obesity due to excess calories; Z68.42 Body mass index [BMI] 45.0-49.9, adult
CPT/HCPCS: 36415; 73502; 73700; 80053; 82948; 85025; 85610; 85730; 86850; 86900; 86901; 96372; 96374; 99284; A9270; J1171

== ENCOUNTER 2025-03-04 14:40 | Emergency (ER) | payer MEDICARE, SELFPAY ==
--- NOTE | ~2025-03-04 | CT_ITS ---
CT abdomen pelvis w con Ordering provider: Almaz Pastrana PA-C History: 69 years Male with . R lower back, diffuse abd pain . Comparison: February 23, 2025 Technique: CT abdomen and pelvis with IV and without oral contrast. Automated exposure control and it erative reconstruction technique were employed. The dose-length product was 1693.21 mGy-cm. 100 ML Om nipaque 350 was given IV. Findings: VISUALIZED LOWER CHEST: Dependent atelectatic changes. UPPER ABDOMINAL ORGANS: Liver: Hepatomegaly. Gallbladder: Status post cholecystectomy. Spleen: Normal. Stomach/duodenum: Normal. Pancreas: Normal. Adrenals: Normal. Kidneys: Right kidney stone measuring 1.2 cm is noted. PELVIC ORGANS: The bladder is underfilled with thickened irregular wall. Evaluation for cystitis advi sed. BOWEL AND MESENTERY: Colon: No evidence of diverticulitis. The colon is loaded with fecal material. Thickened wall of the rectum is seen suggestive of proctitis.. Appendix is not demonstrated. Small Bowel: Normal. No obstruction. Peritoneum/mesentery: No free air or free fluid. No mesenteric lymphadenopathy. RETROPERITONEUM: Mild atheromatous disease of the abdominal aorta. No retroperitoneal lymphadenopat hy. MUSCULOSKELETAL: Superficial soft tissues: Small fat-containing umbilical hernia. Otherwise, The superficial soft tiss ues are normal. Bones: Age appropriate degenerative changes of the spine. End of fracture in the left iliac bone. Gage ateral sacroiliacs. Bilateral hip osteoarthritic changes. IMPRESSION: 1. Stone in the right kidney. 2. Thickened irregular wall of the urinary bladder suggestive of cystitis. Clinical evaluation advis ed. 3. No evidence of appendicitis, diverticulitis or intestinal obstruction. 4. Constipation. Possible proctitis. Clinical evaluation advised. 5. Small fat-containing umbilical hernia. 6. Hepatomegaly Reviewed, dictated and finalized at location A. IMPRESSION: 1. Stone in the right kidney. 2. Thickened irregular wall of the urinary bladder suggestive of cystitis. Cli nical evaluation advised. 3. No evidence of appendicitis, diverticulitis or intestinal obstruction. 4. Constipation. Possible proctitis. Clinical evaluation advised. 5. Small fat-containing umbilical hernia. 6. Hepatomegaly
[2025-03-04 14:41] VITALS: BP 145/125; PULSE 88; TEMP 36.8; O2SAT 99
--- OUTSIDE RECORDS SUMMARY | 2025-03-04 14:54 | XMS_ITS | Encounter Summary ---
Author Organization [facility] Address [address] [place] [address] Care Team Providers Care Emergency Communications Operator Name Role Phone Bri Mcclain MD Primary Care Provider + [phone] Bri Mcclain MD Primary Care Provider + [phone] Bri Mcclain MD Unavailable [phone] Regina Liu RN Unavailable [phone] Lencho Lopes MD Unavailable [phone] Abraham Dwyer DO Unavailable Sakina Zamarripa COAL CUTTER Unavailable Mindy Barragan COAL CUTTER Unavailable [phone] Kayla Judd RN Unavailable [phone] Kayla Judd RN Unavailable [phone] Mark Pierre MD Primary Care Provider [phone] None, Provider Primary Care Provider Unavaila ble Encounter Details Date Type Department Care Team (Late st Contact Info) Description 02/16/2014 Abstract [facility] CONVERSION [address] [place] [address] , Generic Conversion, Social History Tobacco Use Types Packs/Day Years Used Date Smoking Tobacco: Never Assessed Sex and Gender Information Value Date Recorded Sex Assigned at Male 09/22/2024 5:17 PM LIP CUTTER AND SCORER Legal Sex Male 6:34 PM CDT Gender [...] C. difficile 12/31/2020 12/31/2020 07/09/2021 3:59 PM LIP CUTTER AND SCORER COVID-19 Rule Out 08/05/2021 08/06/2021 08/06/2021 11:00 AM LIP CUTTER AND SCORER COVID-19 Rule Out 08/22/2021 08/22/2021 08/22/2021 10:37 AM LIP CUTTER AND SCORER COVID-19 Rule Out 09/05/2021 09/05/2021 09/05/2021 7:59 AM LIP CUTTER AND SCORER COVID-19 Confirmed Comment:In collaboration with Dr. Goodwin patient cleared from COVID-19 isolation per [facility] guidelines ([place]) 09/05/2021 09/05/2021 09/16/2021 10:57 AM LIP CUTTER AND SCORER documented as of this encounter Care Teams Emergency Communications Operator Relationship Specialty Start Date End Date Bri Mcclain MD PCP - General INTERNAL MEDICINE 06/08/18 12/30/20 Bri Mcclain MD PCP - General INTERNAL MEDICINE 12/31/20 10/12/22 [place] [address] [place] [address] PCP - General FAMILY PRACTICE 10/13/22 05/25/23 None, Provider, PCP - General UNKNOWN PHYSICIAN SPECIALTY 09/22/24 Bri Mcclain MD INTERNAL MEDICINE 12/31/20 Regina Liu, RN [address] [place] [address] Fill Manager (Ambulatory) REGISTERED NURSE 07/08/21 11/17/21 Lencho Lopes MD [address], [address] [place] [address] Physician INTERVENTIONAL CARDIOLOGY 08/07/21 Abraham Dwyer DO [address], [address] [address] Consulting Physician INTERNAL MEDICINE 09/17/21 2 Sakina Zamarripa NP [address], [address] [place], [place] [id number] Nurse Practitioner Nurse Practitioner [facility] 09/17/21 01/04/22 Mindy Barragan NP [address], [address] [place] [id number] Nurse Practitioner NURSE PRACTITIONER 09/17/21 01/04/22 Kayla Judd RN [address] [place] [address] Fill Manager (Ambulatory) REGISTERED NURSE 11/10/21 11/17/21 Kayla Judd RN [address] [place] [address] Fill Manager (Ambulatory) REGISTERED NURSE 11/18/21 01/28/22 documented as of this encounter
--- OUTSIDE RECORDS SUMMARY | 2025-03-04 14:54 | XMS_ITS ---
Author Organization [facility] Address [address] [facility] [address] [place] [address] Care Team Providers Care Respiratory Support Technician Name Role Phone Felix Jones Primary Care Provider UnavailLeon Hoff Unavailable [phone] Yaneth Rivas Unavailable [phone] REASON FOR VISIT Medtronic/Dexcom Encounters Encounter Location Date Provider Diagnosis [facility] [address] [place] [address] 02/01/2025 Yaneth Rivas Plan Of Treatment Next Appt Details Provider Name:Leon Shelton, 05/21/2025 10:30:00 AM, [address], [place], [address], Progress Notes * AVANIJASONNY NDOB:1955 (69 yo M)Acc No.[id number]:02/01/2025 [facility] Patient: DENA VARGAS Jeison Provider: Danielle Rivas PA-C :1955 A ge:69 Y S ex:Male Date:02/01/2025 [facility] [facility] [facility] Pcp:Felix Jones Subjective: * Chief Complaints: * 1 . Medtronic/Dexcom. * Medical History: Objective: * Vitals: * Physical Examination: Assessment: Plan: * Treatment: * Billing Information: * Visit Code: * Procedure Codes: Care Plan Details* * Electronic signature of Joe Rivas PA-C on 03/04/2025 at 02:54 PM CDT Sign off status: Pending * Provider: Danielle Rivas PA-C Date: 0 02/01/2025 Generated for Robert arnett/Anabell/Connor on: 0 03/04/2025 02:54 PM CDT
--- OUTSIDE RECORDS SUMMARY | 2025-03-04 14:54 | XMS_ITS | Encounter Summary ---
Author Organization [facility] Address [address] [place] [address] Care Team Providers Care Electric Meter Installer Name Role Phone Bri Mcclain MD Primary Care Provider + [phone] Bri Mcclain MD Primary Care Provider + [phone] Bri Mcclain MD Unavailable [phone] Regina Liu RN Unavailable [phone] Lencho Lopes MD Unavailable [phone] Abraham Dwyer DO Unavailable Sakina Zamarripa HOISTING ENGINE OPERATOR Unavailable Mindy Barragan HOISTING ENGINE OPERATOR Unavailable [phone] Kayla Judd RN Unavailable [phone] Kayla Judd RN Unavailable [phone] Mark Pierre MD Primary Care Provider [phone] None, Provider Primary Care Provider Unavaila ble Encounter Details Date Type Department Care Team (Late st Contact Info) Description 06/26/2017 Abstract [place] [address] , Generic Conversion, Social History Tobacco Use Types Packs/Day Years Used Date Smoking Tobacco: Never Assessed Sex and Gender Information Value Date Recorded Sex Assigned at Male 09/22/2024 5:17 PM 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 difficile 12/31/2020 12/31/2020 07/09/2021 3:59 PM SPRINKLING TRUCK DRIVER COVID-19 Rule Out 08/05/2021 08/06/2021 08/06/2021 11:00 AM SPRINKLING TRUCK DRIVER COVID-19 Rule Out 08/22/2021 08/22/2021 08/22/2021 10:37 AM SPRINKLING TRUCK DRIVER COVID-19 Rule Out 09/05/2021 09/05/2021 09/05/2021 7:59 AM SPRINKLING TRUCK DRIVER COVID-19 Confirmed Comment:In collaboration with Dr. Goodwin patient cleared from COVID-19 isolation per [facility] guidelines ([place]) 09/05/2021 09/05/2021 09/16/2021 10:57 AM SPRINKLING TRUCK DRIVER documented as of this encounter Care Teams Electric Meter Installer Relationship Specialty Start Date End Date Bri Mcclain MD PCP - General INTERNAL MEDICINE 06/08/18 12/30/20 Bri Mcclain MD PCP - General INTERNAL MEDICINE 12/31/20 10/12/22 [place] [address] [place] [address] PCP - General FAMILY PRACTICE 10/13/22 05/25/23 None, Provider, PCP - General UNKNOWN PHYSICIAN SPECIALTY 09/22/24 Bri Mcclain MD INTERNAL MEDICINE 12/31/20 Regina Liu, RN [address] [place] [address] Rubber Compounder (Ambulatory) REGISTERED NURSE 07/08/21 11/17/21 Lencho Lopes MD [address], [address] [place], [place] [address] Physician INTERVENTIONAL CARDIOLOGY 08/07/21 Abraham Dwyer DO [address], [address] [id number] Consulting Physician INTERNAL MEDICINE 09/17/21 2 Sakina Zamarripa NP [address], [address] [id number] Nurse Practitioner Nurse Practitioner Family 09/17/21 01/04/22 Mindy Barragan NP [address], [address] [id number] Nurse Practitioner NURSE PRACTITIONER 09/17/21 01/04/22 Kayla Judd, RN [address] [place], [place] [id number] Rubber Compounder (Ambulatory) REGISTERED NURSE 11/10/21 11/17/21 Kayla Judd, RN [address] [place] [address] Rubber Compounder (Ambulatory) REGISTERED NURSE 11/18/21 01/28/22 documented as of this encounter
--- OUTSIDE RECORDS SUMMARY | 2025-03-04 14:54 | XMS_ITS | Patient Health Record ---
Author Organization [facility] Address [address] [address] Care Team Providers Care Screedman Name Role Phone Felix Jones Primary Care Provider UnavailLeon Hoff Unavailable [phone] Yaneth Rivas Unavailable [phone] Adeel Farias Unavailable [phone] Shantal Mercado Unavailable [phone] Allergies Allergen (clinical drug ingredient) Drug/Non Drug Allergy documented on EMR Reaction Allergy Type Onset Date Status metformin metFORMIN HCl ER GI side effects Drug Allergy Active semaglutide Ozempic (0.25 or 0.5 MG/DOSE) abdominal pain Drug Allergy Active Results Component Value Reference Range Notes Hemoglobin A1C Reviewed date:05/17/2024 02:06:41 PM Interpretation:8.5 Performing Lab: Notes/Report: 8.5 HEMOGLOBIN A1c 8.5 Hemoglobin A1C Reviewed date:05/17/2024 02:06:41 PM Interpretation:8.5 Performing Lab: Notes/Report: 8.5 HEMOGLOBIN A1c 8.5 MICROALBUMIN, RANDOM URINE ( W/CREATININE) Reviewed date:05/17/2024 01:02:14 PM Interpretation:Normal Performing Lab: Notes/Report: Normal Microalbumin, Urine 14.4 Microalb/Creat Ratio 10.1 Creatinine, Urine 143.0 Hemoglobin A1C Reviewed date:09/07/2024 09:36:40 AM Interpretation:9.8 Performing Lab:[facility], [facility], [address] [place], [address] Keven Glynn MD Notes/Report: Received Date: [id number] NON-FASTING; NON-FASTING; NON-FASTING; NON-FASTING; NON-FAST PATIENT UNABLE [...] Reviewed date:09/07/2024 09:36:40 AM Interpretation:9.8 Performing Lab:[facility], [address] [place], [address] Keven Glynn MD Notes/Report: Received Date: [id number] NON-FASTING; NON-FASTING; NON-FASTING; NON-FASTING; NON-FAST PATIENT UNABLE [...] A1c for diagnosis of diabetes for children. LDL, Direct Reviewed date:09/07/2024 08:38:12 AM Interpretation:80 Performing Lab:[facility], [address] [place], [address] Keven Glynn MD Notes/Report: Received Date: [id number] NON-FASTING; NON-FASTING; NON-FASTING; NON-FASTING; NON-FAST PATIENT UNABLE TO VOID; ADVISED TO RETURN FOR COLLECTION. DIRECT LDL 80 <100 mg/dL Desirable range <100 mg/dL for primary prevention; <70 mg/dL for patients with CHD or diabetic patients with > or = 2 CHD risk factors. LDL, Direct Reviewed date:09/07/2024 08:38:12 AM Interpretation:80 Performing Lab:[place], [facility], [address] [place], [address] Keven Glynn MD Notes/Report: Received Date: [id number] NON-FASTING; NON-FASTING; NON-FASTING; NON-FASTING; NON-FAST PATIENT UNABLE TO VOID; ADVISED TO RETURN FOR COLLECTION. DIRECT LDL 80 <100 mg/dL Desirable range <100 mg/dL for primary prevention; <70 mg/dL for patients with CHD or diabetic patients with > or = 2 CHD risk factors. CMP (Comp Metabolic Panel) Reviewed date:09/07/2024 08:36:28 AM Interpretation:AST 47 Performing Lab:[facility], [address] [place], [address] Keven Glynn MD Notes/Report: Received Date: [id number] NON-FASTING; NON-FASTING; NON-FASTING; NON-FASTING; NON-FAST PATIENT UNABLE [...] 47 10-35 U/L ALT 35 9-46 U/L CBC (H/H, RBC, INDICES, WBC, PLT) Reviewed date:09/07/2024 08:38:12 AM Interpretation:mild chronic anemia Performing Lab:[place], [facility], [address] [facility], [place], [address] Keven Glynn MD Notes/Report: Received Date: [id number] NON-FASTING; NON-FASTING; NON-FASTING; NON-FASTING; NON-FAST PATIENT UNABLE [...] 185 140-400 Thousand/uL MPV 11.0 7.5-12.5 fL VITAMIN D, 25-OH (TOTAL D2/D 3) Reviewed date:05/17/2024 12:16:48 PM Interpretation:Normal Performing Lab: Notes/Report: Normal 25-Hydroxy, Vitamin D 86.9 CMP (Comp Metabolic Panel) Reviewed date:05/17/2024 12:16:33 PM Interpretation:Stable Performing Lab: Notes/Report: Stable CREATININE 0.90 eGFR NON-AFR. FAROESE >60 SODIUM 133 POTASSIUM 4.5 ALT 30 AST 38 CALCIUM 9.8 GLUCOSE 289 ALKALINE PHOSPHATASE 69 Lipid Panel, Fasting Reviewed date:05/17/2024 12:16:21 PM Interpretation:Stable Performing Lab: Notes/Report: Stable HDL Direct 47 DIRECT LDL 75 CHOLESTEROL, TOTAL 150 TRIGLYCERIDES 225 Lipid Panel, Fasting Reviewed date:05/17/2024 12:16:21 PM Interpretation:Stable Performing Lab: Notes/Report: Stable HDL Direct 47 DIRECT LDL 75 CHOLESTEROL, TOTAL 150 TRIGLYCERIDES 225 Reason For Referral No Information Medications Medication SIG (Take, Route, Frequency, Duration) Notes Start Date End Date Status Tamsulosin HCl 0.4 MG Oral; Duration: 90 Days Active traMADol HCl 50 MG TAKE 1 TABLET BY NIK 4 TIMES DAILY NEEDED FOR PAIN Oral; Duration: 15 Days Active Dexcom G6 Exterior Designer - as directed by device Active Famotidine 20 MG 1 tablet at bedtime as needed Orally Twice a day Active Esomeprazole Magnesium 40 MG 1 capsule Orally Once a day; Duration: 30 day(s) Active Mounjaro 5 MG/0.5ML 5 mg Subcutaneous on ce a week new higher dose Active hydrALAZINE HCl 50 MG Oral Active DexWaizy G6 Sensor - as directed Active dilTIAZem [...] 10 MG Oral; Duration: 30 Days Active MPOWER Mobile Delica Lancets 33G - to test blood sugars by finger stick Three times a day Active Lantus SoloStar 100 UNIT/ML 45 units am and 20 units pm Subcutaneous daily 01/01/2022 Active MPOWER Mobile Verio w/Device to test blood sugars In Vitro Three times a day Active MPOWER Mobile Verio - as directed In Vitro Three times a day Active Losartan Potassium 25 MG 1 tab(s) orally once a day Active Docusate Sodium 100 MG 1 capsule as need ed Orally Once a day Active Pen Waka 31G X 6 MM To inject insulin [...] Hyperglycemia due to type 2 diabetes mellitus (214091917281636) Type 2 diabetes mellitus with hyperglycemia (E11.65) Active confirmed Problem Mixed hyperlipidemia (066334823) Mixed hyperlipidemia (E78.2) Active confirmed Problem Polyneuropathy due to type 2 diabetes mellitus (039627030) Type 2 diabetes mellitus with diabetic polyneuropathy (E11.42) Active confirmed Problem Essential hypertension (63857996) Essential (primary) hypertension (I10) Active confirmed Problem Morbid obesity (disorder) (052546993) Morbid (severe) obesity due to excess calories (E66.01) Active confirmed Problem Long-term current use of insulin (827483805) exterminator helper (current) use of insulin (Z79.4) Active confirmed Problem Body mass index 40+ - severely obese (313237153) BMI 45.0-49.9, adult (Z68.42) Active confirmed Problem Insulin pump present (finding) (842315148) Insulin pump status (Z96.41) Active confirmed Problem Diabetic neuropathic arthropathy (342326564) Charcot's arthropathy associated with type 2 diabetes mellitus (E11.610) Active confirmed Problem Male hypogonadism (53864981) Hypogonadism male (E29.1) Active confirmed Vital Signs Blood pressure diastolic 68 mm Hg 02/13/2025 Height 73 in 02/13/2025 Blood pressure systolic 140 mm Hg 02/13/2025 Encounters Encounter Location Date Provider Diagnosis [facility] [address] [place] [address] 02/13/2025 Adeel Farias Type 2 diabetes mellitus with hyperglycemia E11.65 ; Type 2 diabetes mellitus with diabetic polyneuropathy E11.42 ; Essential (primary) hypertension I10 ; Mixed hyperlipidemia E78.2 ; Charcot's arthropathy associated with type 2 diabetes mellitus E11.610 ; Morbid (severe) obesity due to excess calories E66.01 ; residential (current) use of insulin Z79.4 ; Insulin pump status Z96.41 ; BMI 45.0-49.9, adult Z68.42 and Hypogonadism male E29.1 [facility] [address] [address] 05/15/2024 Leonlindsay Harriseyad Type 2 diabetes mellitus with hyperglycemia E11.65 ; Type 2 diabetes mellitus with diabetic polyneuropathy E11.42 ; Essential (primary) hypertension I10 ; Mixed hyperlipidemia E78.2 ; Charcot's arthropathy associated with type 2 diabetes mellitus E11.610 ; Morbid (severe) obesity due to excess calories E66.01 ; residential (current) use of insulin Z79.4 ; Insulin pump status Z96.41 ; BMI 45.0-49.9, adult Z68.42 and Hypogonadism male E29.1 [facility] [address] [address] 09/06/2024 Yaneth Naceanceno Type 2 diabetes mellitus with hyperglycemia E11.65 ; Type 2 diabetes mellitus with diabetic polyneuropathy E11.42 ; Essential (primary) hypertension I10 ; Mixed hyperlipidemia E78.2 ; Charcot's arthropathy associated with type 2 diabetes mellitus E11.610 ; Morbid (severe) obesity due to excess calories E66.01 ; residential (current) use of insulin Z79.4 ; Insulin pump status Z96.41 ; BMI 45.0-49.9, adult Z68.42 and Hypogonadism male E29.1 [facility] [address] [address] 11/01/2024 Yaneth Naceanceno Type 2 diabetes mellitus [...] 45.0-49.9, adult Z68.42 and Hypogonadism male E29.1 [facility] [address] [address] 05/15/2024 Leonlindsay Peoples Type 2 diabetes mellitus with hyperglycemia E11.65 [facility] [address] [address] 05/24/2024 [facility] [address] [address] 06/06/2024 [facility] [address] [address] 09/06/20[facility] [address] [address] [facility]/07[facility] [address] [address] 10/11/2024 Leon Raju Type 2 diabetes mellitus with hyperglycemia E11.65 [facility] [address] [address] 11/01/2024 [facility] [address] [address] 01/01/2025 Leon Shelton Type 2 diabetes mellitus with hyperglycemia E11.65 [facility] [address] [address] 02/05/2025 Leonlindsay Peoples Type 2 diabetes mellitus [...] - - - -Dena Salcido of : 5130-04-73Lyxinla ed at: May 15, 2024 5:33 PM CDTReporting period: WedFeb 11, 2024 - WedMay 10, 2024- - - - - - - - - - - - - - -Glucose DetailsAverage glucose: 255 mg/dLStandard deviation: 64 mg/dLGMI: 9.4%- - - - - - - - - - - - - - -Time in RangeVery High: 52%High: 35%In Range: 13%Low: 0%Very Low: 0% Target Btxut85-786 mg/dL - - - - - - [...] - - - -Dena Salcido of : 2061-12-85Ynjbuen ed at: Sep 06, 2024 3:00 PM CSTReporting period: WedJun 04, 2024 - WedSep 01, 2024- - - - - - - - - - - - - - -Glucose DetailsAverage glucose: 314 mg/dLStandard deviation: 85 mg/dLGMI: 10.8%- - - - - - - - - - - - - - -Time in RangeVery High: 78%High: 12%In Range: 10%Low: 0%Very Low: <1%Target Wwugq32-970 mg/dL - - - - - - [...] 39% Low: 1% Very Low: <1% Target Hnpmp63-705 mg/dL - - - - - - [...] #s Wants to lose another 100#s 05/15/2024 residential (current) use of insulin (ICD-10 - Z79.4) 09/06/2024 exterminator helper (current) use of insulin (ICD-10 - Z79.4) 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 (ICD-10 - Z79.4) 02/13/2025 residential (current) use of insulin (ICD-10 - Z79.4) [...] Details Provider Name:Leon Peoples, 05/21/2025 10:30:00 AM, [address], [facility], [place], [address], Insurance Providers Payer Name Payer Address Payer Phone Subscriber Number Group Number Insured Name Patient Relationship to Insured Coverage Start Date Coverage End Date [place]IC[place] [address] [address] [place] [address] [id number] DENA HOANG Self - patient is the insured 7 [facility] [address] [place] [address] [id number] DENA HOANG Self - patient is the insured 7 Medical (General) History Medical History History ICD Code T2DM Insulin Pump Glaucoma Messed up leg Surgical History Surgery Date(Month/Year) Gall bladder Neck Back SX L and right Hospitalization History Reason Date(Month/Year) sepsis also had covid 05/2021-01/2022 stomach and c diff
--- OUTSIDE RECORDS SUMMARY | 2025-03-04 14:54 | XMS_ITS | Encounter Summary ---
Author Organization [facility] Address [address] [place] [address] Care Team Providers Care Counselor Manager Name Role Phone Bri Mcclain MD Primary Care Provider + [phone] Bri Mcclain MD Primary Care Provider + [phone] Bri Mcclain MD Unavailable [phone] Regina Liu RN Unavailable [phone] Lencho Lopes MD Unavailable [phone] Abraham Dwyer DO Unavailable Sakina Zamarripa CUSTOMER OPERATIONS REPRESENTATIVE Unavailable Mindy Barragan CUSTOMER OPERATIONS REPRESENTATIVE Unavailable [phone] Kayla Judd RN Unavailable [phone] Kayla Judd RN Unavailable [phone] Mark Pierre MD Primary Care Provider [phone] None, Provider Primary Care Provider Unavaila ble Reason for Visit * Reason Onset Date Comments Follow Up Call 11/28/2020 Encounter Details Date Type Department Care Team (Late st Contact Info) Description 11/28/2020 Telephone [facility] Med/Surg [address] [place] [address] Alida Becker RN Follow Up [...] week 11/15/2020 How often do you attend [facility] or religion services? 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 difficile 12/31/2020 12/31/2020 07/09/2021 3:59 PM MULTI SENSOR OPERATOR COVID-19 Rule Out 08/05/2021 08/06/2021 08/06/2021 11:00 AM MULTI SENSOR OPERATOR COVID-19 Rule Out 08/22/2021 08/22/2021 08/22/2021 10:37 AM MULTI SENSOR OPERATOR COVID-19 Rule Out 09/05/2021 09/05/2021 09/05/2021 7:59 AM MULTI SENSOR OPERATOR COVID-19 Confirmed Comment:In collaboration with Dr. Goodwin patient cleared from COVID-19 isolation per [facility] guidelines ([place]) 09/05/2021 09/05/2021 09/16/2021 10:57 AM MULTI SENSOR OPERATOR documented as of this encounter Care Teams Counselor Manager Relationship Specialty Start Date End Date Bri Mcclain MD PCP - General INTERNAL MEDICINE 06/08/18 12/30/20 Bri Mcclain MD PCP - General INTERNAL MEDICINE 12/31/20 10/12/22 [place] [address] [place] [address] PCP - General FAMILY PRACTICE 10/13/22 05/25/23 None, MD Shay PCP - General UNKNOWN PHYSICIAN SPECIALTY 09/22/24 Bri Mcclain MD INTERNAL MEDICINE 12/31/20 Regina Liu, RN [address] [place], [place] [address] Smt Operator (Ambulatory) REGISTERED NURSE 07/08/21 11/17/21 Lencho Lopes MD [address] [place] [address] Physician INTERVENTIONAL CARDIOLOGY 08/07/21 Abraham Dwyer DO [address] [place] [address] [phone] Consulting Physician INTERNAL MEDICINE 09/17/21 2 Sakina Zamarripa NP [address] [place] [address] [phone] Nurse Practitioner Nurse Practitioner Family 09/17/21 01/04/22 Mindy Barragan NP [address] [facility] [address] [place], [place] [address] Nurse Practitioner NURSE PRACTITIONER 09/17/21 01/04/22 Kayla Judd RN [address] [place], [place] [address] Smt Operator (Ambulatory) REGISTERED NURSE 11/10/21 11/17/21 Kayla Judd RN [address] [place], [place] [id number] Smt Operator (Ambulatory) REGISTERED NURSE 11/18/21 01/28/22 documented as of this encounter
--- OUTSIDE RECORDS SUMMARY | 2025-03-04 14:54 | XMS_ITS | Patient Health Record ---
Author Organization [facility] Address [address] [place], [place] [address] Care Team Providers Care Thiokol Operator Name Role Phone SINDY CONLEY Unavailable [phone] Abraham Dwyer Unavailable Unavailable Reason For Referral No Information Plan Of Treatment No Information Insurance Providers Payer Name Payer Address Payer Phone Subscriber Number Group Number Insured Name Patient Relationship to Insured Coverage Start Date Coverage End Date Medicare Part B [place] [address] [place] [address] [id number] DENA VARMA Self - patient is the insured [facility] ATTN CLAIMS [address] [place] [address] [id number] DENA VARMA Self - patient is the insured
--- OUTSIDE RECORDS SUMMARY | 2025-03-04 14:55 | XMS_ITS | Continuity of Care Document ---
Author Organization [facility] Address [address] [place] [address] [address] [place] [address] Phone Care Team Providers Care Preparatory Technician Name Role Phone July De Los Santos [...] Copied on Encounter Office/outpat ient Visit, Est [facility], [address] [place] [address] [address], [place], [place], [address], [place] tel:[phone] [facility] No Information 2-201 0 Magali Corrales [address] , [address], [place], [address], [place]. tel:[phone] [facility], [address], [place], [place], [address], [place] tel:[phone] [facility] No Information Ricco-0 1-201 0 Magali Cor[address] , [address], [place], [place], [facility], [place]. tel:[phone] [facility], [address], [place], [place], [address], [place] tel:[phone] [facility] No Information December-0 4-201 0 Magali Cor[address] , [address], [place], [place], [facility], [place]. tel:[phone] [facility], [address], [place], [place], [address], [place] tel:[phone] [facility] No Information 7-201 0 Magali Cor[address], [place], [place], [facility], . tel:[phone] Office/outpat ient Visit, [facility], [address] [place] [address] [address], [place], [place], [address], [place] tel:[phone] [facility] No Information 6-201 0 Magali [address] , [address], [place], [place], [facility], [place]. tel:[phone] [facility], [address], [place], [place], [address], [place] tel:[phone] [facility] No Information 6-200 9 Magali [address] , [address], [place], [place], [facility], [place]. tel:[phone] Referring Provider: July Shane, [address], [place], [facility]. tel:[phone] Office/outpat ient Visit, [facility], [address] [place] [address] [address], [place], [place], [address], [place] tel:[phone] [facility] No Information 9 Magali M[address]. [address] , [address], [place], [facility], . tel:[phone] Referring Provider: July Shane, [address], [place], [facility]. tel:[phone] Office/outpat ient Visit, [facility], [address] [place] [address] [address], [place], [place], [address], [place] tel:[phone] [facility] No Information 6 8 Magali M[address]. [address] , [address], [place], [facility], [place]. tel:[phone] [facility], [address], [place], [place], [address], [place] tel:[phone] [place] [address] No Information 8 Magali Mcdowell. [address] [facility] , [address], [place], [facility], [place]. tel:[phone] Referring Provider: July Shane, [address], [place], [facility]. tel:[phone] Office/outpat ient Visit, [facility], [address] [place] [address] [address], [place], [place], [address], [place] tel:[phone] [place] [address] No Information 200 7 Magali Mcdowell. [address] , [address], [place], [facility], [place]. tel:[phone] Referring Provider: July Shane, [address], [place], [facility]. tel:[phone] Office/outpat ient Visit, [facility], [address], [place], [place], [address], [place] tel:[phone] [facility] No Information 7 Magali [address]. [address] , [address], [place], [address], [place]. tel:[phone] Family History Family Member Type Diagnosis Age At Onset No Information Payers Payer name Insurance type Covered libertarian ID Authorfranky tapia(s) [facility] CI [id number] Social History Type Description Quantity Date Captured [...]
--- OUTSIDE RECORDS SUMMARY | 2025-03-04 14:55 | XMS_ITS | Encounter Summary ---
Author Organization [facility] Address [address] [place] [address] Care Team Providers Care Funeral Service Practitioner/Embalmer Name Role Phone Bri Mcclain MD Primary Care Provider + [phone] Bri Mcclain MD Primary Care Provider + [phone] Bri Mcclain MD Unavailable [phone] Regina Liu RN Unavailable [phone] Lencho Lopes MD Unavailable [phone] Abraham Dwyer DO Unavailable Sakina Zamarripa FLIGHT CREW TIME CLERK Unavailable Mindy Barragan FLIGHT CREW TIME CLERK Unavailable [phone] Kayla Judd RN Unavailable [phone] Kayla Judd RN Unavailable [phone] Mark Pierre MD Primary Care Provider [phone] None, Provider Primary Care Provider Unavaila ble Encounter Details Date Type Department Care Team (Latest Contact Info) Description 05/15/2018 Abstract [facility] [place] [address] [place] [address] Social History Tobacco Use Types Packs/Day Years Used Date Smoking Tobacco: Never Assessed Sex and Gender Information Value Date Recorded Sex Assigned at Male 09/22/2024 5:17 PM WEATHER ANALYST Legal Sex Male 6:34 PM CDT Gender [...] C. difficile 12/31/2020 12/31/2020 07/09/2021 3:59 PM WEATHER ANALYST COVID-19 Rule Out 08/05/2021 08/06/2021 08/06/2021 11:00 AM WEATHER ANALYST COVID-19 Rule Out 08/22/2021 08/22/2021 08/22/2021 10:37 AM WEATHER ANALYST COVID-19 Rule Out 09/05/2021 09/05/2021 09/05/2021 7:59 AM WEATHER ANALYST COVID-19 Confirmed Comment:In collaboration with Dr. Goodwin patient cleared from COVID-19 isolation per HS guidelines (SB) 09/05/2021 09/05/2021 09/16/2021 10:57 AM WEATHER ANALYST documented as of this encounter Care Teams Funeral Service Practitioner/Embalmer Relationship Specialty Start Date End Date Bri Mcclain MD PCP - General INTERNAL MEDICINE 06/08/18 12/30/20 Bri Mcclain MD PCP - General INTERNAL MEDICINE 12/31/20 10/12/22 [place] [address] [place] [address] PCP - General FAMILY PRACTICE 10/13/22 05/25/23 None, Provider, PCP - General UNKNOWN PHYSICIAN SPECIALTY 09/22/24 Bri Mcclain MD INTERNAL MEDICINE 12/31/20 Regina Liu RN [address] [place], [place] [phone] Learning Strategist (Ambulatory) REGISTERED NURSE 07/08/21 11/17/21 Lencho Lopes MD [address], [place] [address] [place] [place] [address] [phone] Physician INTERVENTIONAL CARDIOLOGY 08/07/21 Abraham Dwyer DO [address], [address] [phone] Consulting Physician INTERNAL MEDICINE 09/17/21 2 Sakina Zamarripa NP [address], [place] [address] [place] [place] [address] [phone] Nurse Practitioner Nurse Practitioner [facility] 09/17/21 01/04/22 Mindy Barragan, QUENTIN [address], [place] [address] [place] [place] [address] [phone] Nurse Practitioner NURSE PRACTITIONER 09/17/21 01/04/22 Kayla Judd RN [address] [place], [place] [phone] Learning Strategist (Ambulatory) REGISTERED NURSE 11/10/21 11/17/21 Kayla Judd RN [address] [place], [place] [phone] Learning Strategist (Ambulatory) REGISTERED NURSE 11/18/21 01/28/22 documented as of this encounter
--- OUTSIDE RECORDS SUMMARY | 2025-03-04 14:55 | XMS_ITS | Clinical Summary ---
Author Organization [facility] Address [place] [address] Care Team Providers Care Cost Estimating Manager Name Role Phone Bri Mcclain MD Unavailable [phone] Lencho Lopes MD Unavailable [phone] None, Provider MD Primary Care Provider Unavaila [...] Noted Date Diagnosed Date Panniculitis 09/22/2024 Osteomyelitis ([facility]) 11/07/2021 Encephalopathy acute 07/28/2021 Delirium 07/28/2021 Subacute osteomyelitis of right foot ([facility]) 07/28/2021 Hyperglycemia due to diabetes mellitus ([facility]) 07/28/2021 Acute respiratory failure with hypoxia ([facility]) 07/28/2021 Sepsis ([facility]) 07/07/2021 Clostridium difficile colitis 12/31/2020 Scrotal infection 11/18/2020 Cellulitis 11/14/2020 Polyneuropathy associated with underlying diseas e ([facility]) 12/06/2018 Muscle strain, shoulder region 04/12/2018 Chronic osteomyelitis of right ankle ([facility]) 10/02/2017 Overview (06/30/2018): Impression - [id number] Bri Mcclain: surgery 04/08, probe to bone then after surgial removal of hardware 08/28/17 Deep tiss Cx MRSA on vanc per PICC line & ID Dr Crenshaw. SILVIA on CPAP 08/09/2017 Edema of extremities 06/02/2017 MRSA infection 06/02/2017 Enlarged prostate with lower urinary tract sympt oms (LUTS) 10/13/2016 Charcot foot due to diabetes mellitus ([facility]) 09/05/2016 Numbness in both hands 07/08/2016 Chronic pain of right ankle 04/15/2016 Lumbago 12/10/2014 Hypothyroidism 10/10/2014 Generalized osteoarthritis of multiple sites Glaucoma, bilateral 09/17/2014 Hyperlipidemia 09/17/2014 Essential hypertension 09/17/2014 Testosterone deficiency 09/17/2014 Diabetic ulcer of lower extremity ([facility]) 06/21/2014 Diabetic peripheral neuropathy ([facility]) 05/10/2014 Sciatica 02/14/2013 Immunizations Immunization Administration Dates Next Due Fluzone High Dose - >Age 65 (Prefilled Syringe) 05/11/2019 Influenza (Generic) 06/26/2013,06/01/2012 Influenza Adult (Generic) 05/11/2019,04/12/2018, 08/18/2017 Pneumococcal (Pneumovax 23) 05/15/2018, 5 Pneumococcal (Prevnar 13) 12/06/2018 Shingrix 07/07/2018, 8,04/12/2018,2017 Td (Tenivac) preservative free 05/31/2018 Zoster (Zostavax) [address]30 Unt/0.65Ml 07/07/2017,,07/02/2017 Family History Medical History Relation [...] materials from doctor or pharmacy Never 05/11/2023 [facility] Utilities Answer Date Recorded In the past 12 months has e [employer] oil, or water [employer] threatened to shut off services in your [...] often do you attend chur ch or orthodoxy services? Patient declined 11/15/2020 Do you belong to any clubs o r organizations such as jewish groups, unions, fraternal or athletic groups, or [...] move on to questions 3-9 0 04/14/2022 [facility] - Occupational [...] place to sleep or slept in a mcc (including now)? No 03/22/2023 Housing Stability Vital Sign Answer Brien e Recorded In the last 12 months, was t here a time when you were not able to pay the mortgage or rent on time? No 09/24/2024 In the past 12 months, how m any times have you moved where you were living? 0 09/24/2024 At any time in the past 12 [facility], were you homeless or living in a mcc (including now)? No 09/24/2024 Sex and Gender Information Value Date Recorded Sex Assigned at Male 09/22/2024 5:17 PM AUTOMOBILE MECHANIC HELPER Legal Sex Male 6:34 PM CDT Gender Identity Not on file Sexual Orientation Straight 11/15/2020 1: 16 AM CDT Last Filed Vital Signs Vital Sign Reading Time Taken Comments Blood Pressure 124/53 09/27/2024 7:21 AM AUTOMOBILE MECHANIC HELPER Pulse 69 09/27/2024 7:21 AM AUTOMOBILE MECHANIC HELPER Temperature 36.2 C (97.2 F) 09/27/2024 7:21 AM AUTOMOBILE MECHANIC HELPER Respiratory Rate 19 09/27/2024 7:21 AM AUTOMOBILE MECHANIC HELPER Oxygen Saturation 95% 09/27/2024 7:21 AM AUTOMOBILE MECHANIC HELPER Inhaled Oxygen Concentration - - Weight 164.3 kg (362 lb 3.5 oz) 09/27/2024 4:10 AM AUTOMOBILE MECHANIC HELPER Height 188 cm (6' 2) 09/22/2024 5:05 PM AUTOMOBILE MECHANIC HELPER Body Mass Index 46.51 09/22/2024 5:05 PM AUTOMOBILE MECHANIC HELPER Plan of Treatment Health Maintenance Due Date [...] COVID-19 Vaccine ( season) 2024 PHQ-2 (Physician [place]) 08/23/2024 Zoster Vaccines Completed 07/07/2018, 06/23, 04/12/2018, [...] and discharge planning Lifestyle No Aminta Blackwood, RIVET HOLE MACHINE OPERATOR Procedures Procedure Name Priority Date/Time Associated Diagnosis Comments CT ABD+PEL W CON STAT 09/22/2024 6:59 PM AUTOMOBILE MECHANIC HELPER OUTSIDE LAB (SCAN ORDER) Routine 05/25/2023 LIPID PANEL Routine 07/27/2022 3:46 PM AUTOMOBILE MECHANIC HELPER Mixed hyperlipidemia OCCULT BLOOD, FECES Routine 11/12/2021 12:00 AM CDT HEPATITIS C ANTIBODY Routine 08/18/2021 7:04 PM AUTOMOBILE MECHANIC HELPER DILATED EYE EXAM (SCAN) Routine 09/02/2018 from Last 3 Months or Most Recently Relevant to Health Maintenance Results * CT ABD+PEL W IV CON ONLY (09/22/2024 6:59 PM AUTOMOBILE MECHANIC HELPER) Anatomical Region Laterality Modality Abdomen Computed Tomogra phy 09/22/2024 7:03 PM AUTOMOBILE MECHANIC HELPER Impressions 09/22/2024 7:11 PM AUTOMOBILE MECHANIC HELPER IMPRESSION: 1. No CT evidence of bowel [...] 09/22/2024 7:03 PM Narrative 09/22/2024 7:11 PM AUTOMOBILE MECHANIC HELPER [address] [address] PROCEDURE: CT ABD+PEL W CON HISTORY: Abdominal [...] Procedure Note Kira Jacobson MD - 09/22/[address] [address] PROCEDURE: CT ABD+PEL W CON HISTORY: Abdominal [...] ONBASE * LIPID PANEL (07/27/2022 3:46 PM AUTOMOBILE MECHANIC HELPER) CHOLESTEROL 154 <200.0 MG/DL 07/27/2022 8:11 PM AUTOMOBILE MECHANIC HELPER [facility] TRIGLYCERIDES 97 <150 MG/DL 07/27/2022 8:11 PM AUTOMOBILE MECHANIC HELPER [facility] HDL 52 >40.0 MG/DL 07/27/2022 8:11 PM AUTOMOBILE MECHANIC HELPER [facility] LDL (CALCULATED) 83 <100 MG/DL 07/27/20 8:11 PM AUTOMOBILE MECHANIC HELPER [facility] NON HDL CHOLESTEROL 102 <130 MG/DL 07/27 8:11 PM [facility] CHOL/HDL RATIO 3.0 0.0 - 4.5 07/27/2022 8:11 PM [facility] VLDL CALCULATION 19 5 - 55 MG/DL 07/27/2022 8:11 PM [facility] LIPID INTERPRETATION 07/27/2022 8:11 PM [facility] Comment: NIH CONCENSUS REPORT RECOMMENDATIONS: ADULT CHILD LOW RISK: CHOLESTEROL <200 <170 TRIGLYCERIDE <150 --- HDL >=60 --- LDL <100 <110 BORDERLINE: CHOLESTEROL 200-239 170-199 TRIGLYCERIDE 150-199 --- HDL 40-59 --- LDL 100-159 110-129 HIGH RISK: CHOLESTEROL >=240 >=200 TRIGLYCERIDE >=200 --- HDL <40 --- LDL >=160 >=130 07/27/2022 3:46 PM AUTOMOBILE MECHANIC HELPER Bri Mcclain MD LABORATORY Final Result [facility] [address] [place] [address], [place] [phone] * OCCULT BLOOD, FECES (11/12/2021 12:00 AM CDT) Pathologist [facility] OCCULT BLOOD FECAL NEGATIVE 11/12/2021 8:54 AM CDT [facility] STOOL SPECIMEN / Unknown 11/12/2021 Helen Gan MD BODY FLUIDS AND STOOLS ORDERABL ES Final Result Performing Organization Address City/[facility]/ZIP Co de Phone Number [facility] [address] [place] [address], [place] [phone] * HEPATITIS C ANTIBODY (08/18/2021 7:04 PM AUTOMOBILE MECHANIC HELPER) HEPATITIS C AB NON-REACTI VE NON-REACT DAISHA 08/18/2021 8:36 PM AUTOMOBILE MECHANIC HELPER [facility] Comment: ANTIBODIES TO HCV NOT DETECTED. DOES NOT EXCLUDE THE POSSIBILITY OF EXPOSURE TO HCV. 08/18/2021 7:04 PM AUTOMOBILE MECHANIC HELPER [facility] Final Res ult [facility] [address] [place] [address], [id number] * DILATED EYE EXAM (09/02/2018) us Documents Scanned SCANNING Final Result from Last 3 Months or Most Recently Relevant to Health Maintenance Additional Health Concerns Infection Onset Date Last Indicated MRSA Comment:+ MRSA nares 11/14/2020 (KB) 07/07/21 +MRSA Blood 07/08/21 Nares (SB) 07/11/21 right ankle (SB) 03/08/23 nares (JK) 09/23/24 right pannus 06/04/2017 09/23/2024 Insurance MEDICARE [facility] Advance Directives * Full Code [...] 11:02 AM 03/19/2023 1:28 PM Care Teams Cost Estimating Manager Relationship Specialty Start Date End Date None, Provider, MD PCP - General UNKNOWN PHYSICIAN SPECIALTY 09/22/24 Bri Mcclain MD INTERNAL MEDICINE 12/31/20 Lencho Lopes MD [address] [address] Physician INTERVENTIONAL CARDIOLOGY 08/07/21
--- OUTSIDE RECORDS SUMMARY | 2025-03-04 14:55 | XMS_ITS ---
Author Organization [facility] Address [address] [address] Care Team Providers Care Patient Coordinator Front Desk Name Role Phone Vickeyerica Felix Primary Care Provider Leon Washburn Unavailable [phone] Adeel Farias Unavailable [phone] Allergies Allergen (clinical drug ingredient) Drug/Non Drug [...] Oral; Duration: 90 Days Active Dexcom G6 Swimming Pool Servicer - as directed by device Active Dexcom [...] FOR PAIN Oral; Duration: 15 Days Active Kingnet Delica Lancets 33G - to test blood sugars by finger stick Three times a day Active Kingnet Verio w/Device to test blood sugars In Vitro Three times a day Active Yecurisuch Verio - as directed In Vitro Three times a day Active Pen Ransom 31G X 6 MM To inject insulin [...] 02/13/2025 Encounters Encounter Location Date Provider Diagnosis [facility] [address] [place] [address] 02/13/2025 Adeel Farias Type 2 diabetes mellitus [...] to lose 1 pound per week. 02/13/2025 [facility] (current) use of insulin (ICD-10 - Z79.4) 02/13/2025 Insulin pump status (ICD-10 - Z96.41) Medtronic 02/13/2025 BMI 45.0-49.9, adult (ICD-10 - Z68.42) 02/13/2025 Hypogonadism male (ICD-10 - E29.1) Plan Of Treatment Medication Medication Name Sig Start Date Stop Date Notes Dexcom G6 Swimming Pool Servicer - as directed by device Dexcom G6 [...] In Vitro Three times a day Pen Ransom 31G X 6 MM To inject insulin subcutaneously Five times a day Lantus SoloStar 100 UNIT/ML 45 units am and 20 units pm Subcutaneous daily 01/01/2022 Next Appt Details Follow Up: 3M,Yaneth, Reason: Provider Name:Leon Peoples, 05/21/2025 10:30:00 AM, [address], [address], [address], Progress Notes * AVANIJASONNY NDOB:1955 (69 yo M)Acc No.[id number]:02/13/2025 [facility] Patient: DENA VARGAS N Provider: Beatrice Farias PA-C :1955 A ge:69 Y S ex:Male Date:02/13/2025 Address:[address] [place] [address] [facility] Pcp:Felix Jones Subjective: * Chief Complaints: * [...] Family History: F ather: diagnosed with CONDITN [facility]. unknown. * Social History: T [...] once a day , Taking Dexcom G6 Swimming Pool Servicer - Device as directed by device , [...] Three times a day , Taking Pen Ransom 31G X 6 MM Miscellaneous To inject [...] S pecialty of provider who performed eye exam?Restorative Care Technician P kay Performed: N o D iabetic [...] week. 7. I nsulin pump status Clinical Notes:Appformatronic * Preventive Medicine: Counseling: C ounseling BMI [...] MYaneth * Billing Information: * Visit Code: 82723 Office Visit with Modifier. Modifiers: [phone] [phone] CGMS I&R. * Procedure Codes: Care Plan Details* * Electronic signature of Lowell Espinosa on 03/04/2025 at 02:54 PM CDT Sign off status: Pending * Provider: Beatrice Farias PA-C Date: 0 02/13/2025 Generated for Robert arnett/Anabell/eTransmitting on: 0 03/04/2025 02:54 PM CDT History and Physical Notes * [...] of provider who pe rformed eye exam: Restorative Care Technician Procedure Performed:: No Diabetic Retinopathy Screening: Yes Procedure Performed: Yes Date: Advised to check jo-ann wade
--- NOTE | 2025-03-04 15:06 | ED.ABDPAIN ---
HPI - Abdominal Pain General Chief Complaint: Abdominal Pain Stated Complaint: abd pain Time Seen by Provider: 03/04/25 14:46 Source: patient Mode of arrival: EMS Limitations: no limitations History of Present Illness HPI narrative: Patient is a 69 y/o male who presents to the ED via EMS with report of right lower back and abdominal pain. Patient is resident of [facility]. He has history of Charcot foot and is chronically debilitated/nonambulatory at the prison. Patient reports pain began yesterday, but became significantly worse today. Present throughout his right lower back, does radiate slightly down his right leg to his knee. Pain diffusely throughout his abdomen. Also reports pain throughout his right groin and into the tip of his penis. Reports difficulty urinating today, states he feels as though he needs to urinate. Denies hematuria. Patient reports he was recently seen in the ED here for similar pain (02/23) and was diagnosed with sciatica. Pain was controlled in the ED and patient was discharged with pain medication for prison. Patient received 8 mg of morphine EN route to the ED by EMS. He is complaining of severe pain. Denies numbness, saddle anesthesia, incontinence. Denies history of kidney stones. Related Data Home Medications ?Medication ?Instructions ?Recorded ?Confirmed ?Last Taken ?Type multivit with minerals-iron 18 1 tablet PO DAILY 01/26/23 03/01/25 Unknown History mg-folic ac 400 mcg-vit K 25 mcg tablet (Adults Multivitamin) bimatoprost 0.01 % eye drops 1 drp EACH EYE DAILY 05/25/23 03/01/25 Unknown History blood-glucose meter (OneTouch 05/25/23 03/01/25 Unknown History Verio Flex Meter) insulin syringe-needle U-100 1 mL 05/25/23 03/01/25 Unknown History 31 gauge x 5/16 (BD Insulin Syringe Ultra-Fine) docusate sodium 100 mg capsule 100 mg PO BID PRN Constipation 10/28/23 03/01/25 Unknown History losartan 25 mg tablet 25 mg PO DAILY 10/29/23 03/01/25 Unknown History blood-glucose sensor (Dexcom G6 06/08/24 03/01/25 Unknown History Sensor device) insulin regular hum U-500 conc 500 350 unit subcut .via insulin pump 06/08/24 03/01/25 Unknown History unit/mL subcutaneous soln (Humulin QD R U-500 (Concentrated) Insulin) lancets 33 gauge 06/08/24 03/01/25 Unknown History acetaminophen 500 mg capsule 500 mg PO Q6H Pain, Moderate 02/20/25 03/01/25 Unknown History Allergies Allergy/AdvReac Type Severity Reaction Status Date / Time metformin Allergy Mild Rash Verified 03/01/25 11:47 Review of Systems Review of Systems: All systems reviewed & are unremarkable except as noted in HPI. All systems reviewed & are unremarkable except as noted in HPI and below [facility] Past Medical History Medical History Right shoulder pain Muscle spasm UTI (urinary tract infection) Prostate cancer screening Encounter for routine adult health examination without abnormal findings Iron deficiency anemia Unsteady gait Venous stasis Follow up Chronic cough Vitamin D deficiency Encounter for Medicare annual wellness exam Hypokalemia Impaired functional mobility, balance, gait, and endurance Epistaxis DJD (degenerative joint disease), multiple sites Morbid obesity DJD (degenerative joint disease) Lymphedema Mild reactive airways disease PVD (peripheral vascular disease) Pedal edema Rash Essential hypertension Hypothyroidism (acquired) Decubitus ulcer Hypersomnolence Encounter to establish care 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 Postoperative wound dehiscence Pain due to internal orthopedic prosthetic devices, implants and grafts, initial encounter (08/26/17) Non-pressure chronic ulcer of other part of right foot limited to breakdown of skin Right foot pain Other chronic pain Fungal infection right foot Obesity, morbid, BMI 40.0-49.9 Occult blood in stools Acute on chronic anemia Chronic anemia Hyperlipidemia Pneumonia BPH (benign prostatic hyperplasia) Obstructive sleep apnea Glaucoma Chronic a-fib Right knee DJD Left knee DJD Type 2 diabetes mellitus with diabetic neuropathy, unspecified Venous stasis of both lower extremities BMI greater than 40 Degenerative joint disease of knee Vision abnormalities Diabetes 1.5, managed as type 2 Left knee pain Surgical History Surgical History History of skin graft History of arthroplasty of left knee Hx of cholecystectomy H/O cataract extraction History of foot surgery Family History Family History Mother Breast cancer Dementia Father Diabetes mellitus Malignant neoplasm of prostate Dementia Other Family history of malignant neoplasm Social History Social History Social History: the patient lives with his and they have no children. He is retired from [employer]. Code status full code Smoking status: Never smoker Alcohol intake: never Substance use: never Substance use type: does not use Lack of Transportation: No Lack of Food: Never True Current Housing: I Have Housing Concerned About Future Housing: Decline to Answer Difficulty Paying Gas/Electric Bills: Decline to Answer Difficulty Paying for Meds: Decline to Answer Currently Unemployed: Decline to Answer Education: Decline to Answer Difficulty w/ Childcare or Family Care: Decline to Answer Gender identity (if verbalized by the patient): Male Spiritual care concerns: No Exam Narrative: GENERAL: Chronically ill-appearing, morbidly obese with BMI of 47.5, uncomfortable appearing/in mild acute distress d/t pain. HEAD: Normocephalic, atraumatic. RESPIRATORY: Airway patent, respirations nonlabored. Clear to auscultation bilaterally, no rales, rhonchi, wheezing. CARDIOVASCULAR: Regular rate and rhythm without murmurs, rubs, or gallops. ABDOMINAL: Abdomen is somewhat distended, diffuse tender throughout lower abdomen/RLQ. Mildly hyperactive BS. MUSCULOSKELETAL: Moves all extremities. Diffuse tenderness throughout R lumbar region. Charcot deformities to yaneth feet with chronic venous stasis changes/skin hyperpigmentation to BLE. SKIN: Warm, dry, normal color. NEURO: A&O X3. Speech clear. No ataxic movements. PSYCHIATRIC: Appropriate mood and affect. Normal interaction. Course Vital Signs Vital signs: Vital Signs Temperature 98.2 F 03/04/25 14:41 Pulse Rate 88 03/04/25 14:41 Blood Pressure 145/125 H 03/04/25 14:41 Pulse Oximetry 99 03/04/25 14:41 Temperature 98.2 F 03/04/25 14:41 Pulse Rate 76 03/04/25 20:51 Respiratory Rate 18 03/04/25 20:51 Blood Pressure 112/76 03/04/25 20:51 Pulse Oximetry 99 03/04/25 20:51 MDM - Abdominal Pain MDM Narrative Medical decision making narrative: Patient presented to ED with right back pain, diffuse abdominal pain. Pain began yesterday, worsening today. Patient uncomfortable appearing upon my evaluation. Was recently seen in the ED last week for similar pain, thought to be related to sciatica. States this pain feels different. No evidence of cord compression or cauda equina. Cbc with blood cell count of 11. Chronic anemia, consistent with previous records. CMP fairly unremarkable. Kidney function is stable. Blood glucose is elevated to 254. Fairly consistent with previous records. Normal LFTs and lipase. Patient was found to have greater than 1000 mL of urine in his bladder on bladder scan. Hernandez catheter was placed for acute retention. UA obtained and concerning for infection, 3+ leuk esterase, greater than 100 WBC, 4+ urine bacteria. Sent for culture. Will treat. Given dose of Rocephin in the ED. CT scan of abdomen/pelvis was obtained and showing cystitis changes, constipation. No other significant concerning features. Patient updated on lab and imaging findings. He is feeling improved with supportive therapy in the ED. Advise safe for discharge back to prison with antibiotics for urinary tract infection, will refer to Urology for further catheter management/removal. Discussed constipation management. Will also prescribe short course of muscle relaxers for home as patient seemed to respond to these today. Given return precautions. Patient in agreement with plan. Discharged in stable condition. Medical Records Attestation: I reviewed the patient's medical records. Lab Data Attestation: I reviewed the patient's lab results. 03/04/25 15:29 03/04/25 15:29 Labs: Lab Results 03/04/25 03/04/25 Range/Units 15:29 15:40 WBC 11.0 H (4.5-10.0) K/mm3 RBC 3.62 L (4.6-6.20) M/mm3 Hgb 10.5 L (14.0-18.0) g/dL Hct 32.9 L (42.0-52.0) % MCV 90.9 (80-100) fl MCH 29.0 (26-34) pg MCHC 31.9 L (32-36) g/dl RDW 15.9 H (11.5-14.5) % Plt Count 238 (150-375) k/mm3 MPV 9.7 (7.4-10.4) fl Immature Gran % (Auto) 0.5 (0-0.5) % Neut % (Auto) 80.3 H (45.5-73.1) % Lymph % (Auto) 11.8 L (18.3-44.2) % [place] % (Auto) 5.4 (2.6-8.5) % Eos % (Auto) 1.6 (0-4.4) % Baso % (Auto) 0.4 (0.2-1.2) % Lymph # (Auto) 1.29 (0.9-3.2) K/mm3 [place] # (Auto) 0.6 (0.1-0.6) K/mm3 Eos # (Auto) 0.2 (0-0.3) K/mm3 Baso # (Auto) 0.0 (0.0-0.1) K/mm3 Abs Immat Gran (auto) 0.05 H (0.00-0.031) K/mm3 Absolute Neuts (auto) 8.8 H (1.3-6.7) K/mm3 Absolute Nucleated RBC 0.000 (0.0-0.012) K/mm3 Nucleated RBC % 0.0 (0.0-0.2) % Sodium 137 (137-145) mmol/L Potassium 4.2 (3.4-5.0) mmol/L Chloride 101 (98-107) mmol/L Carbon Dioxide 26 (22-30) mmol/L Anion Gap 10 (4-12) mmol/L BUN 28 H (9-20) mg/dL Creatinine 0.96 (0.7-1.3) mg/dL Estim Creat Clear Calc 102 ml/min Estimated GFR > 60 (59 - ) Glucose 254 H (65-110) mg/dL Calcium 9.3 (8.4-10.2) mg/dL Total Bilirubin 0.6 (0.2-1.3) mg/dL AST 23 (17-59) U/L ALT 19 (6-50) U/L Alkaline Phosphatase 78 (38-126) U/L Total Protein 8.0 (6.3-8.2) g/dL Albumin 4.1 (3.5-5.1) g/dL Lipase 68 (23-300) U/L Urine Color Yellow (Yellow) Urine Appearance Turbid H (Clear) Urine pH 8.0 (5.0-9.0) Ur Specific [place] 1.009 (1.001-1.035) Urine Protein 1+ H (Negative) mg/dL Urine Glucose (UA) Negative (Negative) mg/dL Urine Ketones Negative (Negative) mg/dL Ur Blood (Man) Trace (Negative) Urine Nitrate Negative (Negative) Urine Bilirubin Negative (Negative) Urine Urobilinogen 0.2 (<2.0) mg/dL Leukocyte Esterase Rfl 3+ H (Negative) ZAIDA/UL Urine RBC 3-5 H (0-2) /hpf Urine WBC >100 H (0-3) /hpf Ur Squamous Epith Cells None seen (Few) /hpf Urine Bacteria 4+ H /hpf Urine Casts 0-2 Imaging Data Attestation: I personally reviewed and interpreted this imaging study as follows: Radiologist's impression: ITS Impressions Abdomen/Pelvis CT 03/04/25 18:50 IMPRESSION: 1. Stone in the right kidney. 2. Thickened irregular wall of the urinary bladder suggestive of cystitis. Clinical evaluation advised. 3. No evidence of appendicitis, diverticulitis or intestinal obstruction. 4. Constipation. Possible proctitis. Clinical evaluation advised. 5. Small fat-containing umbilical hernia. 6. Hepatomegaly Discharge Plan Discharge Clinical Impression: Acute urinary retention UTI (urinary tract infection) Qualifiers: Urinary tract infection type: acute cystitis Hematuria presence: with hematuria Qualified Code(s): N30.01 - Acute cystitis with hematuria Constipation Qualifiers: Constipation type: unspecified constipation type Qualified Code(s): K59.00 - Constipation, unspecified Abdominal pain Qualifiers: Abdominal location: unspecified location Qualified Code(s): R10.9 - Unspecified abdominal pain Patient Disposition: [place] Usp/Asst Living Condition: Stable Instructions: Antibiotic Form, Constipation (ED), Urinary Retention in Men (ED), Urinary Tract Infection in Men (ED), High Fiber Diet (ED), Abdominal Pain (ED) Additional Instructions: Take antibiotics as prescribed for urinary tract infection. Patient had a Hernandez catheter placed today for urinary retention. He will need to follow up with Urology in 1 week for removal of this. Call office to make appointment. Patient can continue Tylenol, methocarbamol as needed for further abdominal/back pain. Recommend MiraLax, Dulcolax up to twice daily as needed over the next 1 week for constipation management. Recommend encouraging plenty of fluids, high-fiber diet. Return to the ED if patient experiences worsening or severe pain, unable to keep down food or drink, blood in urine, catheter not draining, fevers, numbness, rectal bleeding, dark black stools, or any other symptoms of concern. Patient Language: Tamazight Prescriptions: New cephalexin 500 mg capsule 500 mg PO Q6H 7 Days Qty: 28 0RF methocarbamol 750 mg tablet 750 mg PO TID PRN (Reason: muscle pain) Qty: 10 0RF No Action bimatoprost 0.01 % drops 1 drp EACH EYE DAILY (DME) insulin syringe-needle U-100 [BD Insulin Syringe Ultra-Fine] 1 mL 31 gauge x 5/16 syringe See Rx Instructions .Route Rx Instructions: As directed (DME) blood-glucose meter [[employer]uch Verio Flex meter] [facility] See Rx Instructions .Route Rx Instructions: As directed nystatin-triamcinolone 100,000-0.1 unit/g-% cream 1 applic topical TID Qty: 60 5RF metoprolol succinate 50 mg tablet extended release 24 hr 75 mg .ROUTE .COMPLEX Qty: 145 1RF Rx Instructions: Take 1 tab in the AM and 1/2 tab in the PM by oral route. Please D/C the Diltiazem spironolactone 25 mg tablet See Rx Instructions .ROUTE .COMPLEX Qty: 90 1RF Dose Instruction: Take 1 tablet by mouth twice daily Rx Instructions: Take 1 tablet by mouth once daily docusate sodium 100 mg capsule 100 mg PO BID PRN (Reason: Constipation) nystatin 100,000 unit/gram powder 1 applic topical TID Qty: 60 3RF acetaminophen 500 mg capsule 500 mg PO Q6H (DME) [facility] See Rx Instructions .Route Qty: 144 5RF Rx Instructions: As directed Adults Multivitamin 18 mg iron-400 mcg-25 mcg Tablet 1 tablet PO DAILY nystatin 100,000 unit/gram powder 1 applic topical BID Qty: 30 0RF tramadol 50 mg tablet 50 mg PO Q6H PRN (Reason: pain) Qty: 14 0RF diclofenac sodium 1 % gel 2 g topical QID Qty: 50 0RF Rx Instructions: apply to single elbow, wrist or hand; for hand includes palm/fingers/back of hand cholecalciferol (vitamin D3) 50 mcg (2,000 unit) capsule 50 mcg PO DAILY Qty: 30 2RF bumetanide 2 mg tablet 2 mg PO BID Qty: 180 0RF fluticasone propionate 220 mcg/actuation HFA aerosol inhaler 2 puff INHALATION Q12H Qty: 12 2RF losartan 25 mg tablet 25 mg PO DAILY brimonidine 0.2 % drops 1 drp EACH EYE Q12H Qty: 5 0RF dorzolamide-timolol 22.3-6.8 mg/mL drops 1 drp EACH EYE Q12H Qty: 10 0RF Rx Instructions: 30 day supply (DME) Wheelchair XL See Rx Instructions .Route .MEDSUPPLY Qty: 1 0RF Rx Instructions: As directed atorvastatin 40 mg tablet 40 mg PO DAILY Qty: 90 0RF tamsulosin 0.4 mg capsule See Rx Instructions .ROUTE .COMPLEX Qty: 90 1RF Dose Instruction: Take 1 capsule by mouth once daily Rx Instructions: Take 1 capsule by mouth once daily Eliquis 5 mg tablet 5 mg PO BID Qty: 180 2RF (DME) Electric Wheel Chair See Rx Instructions .Route .MEDSUPPLY Qty: 1 0RF Rx Instructions: Electric Wheel Chair for Indoor Use hydralazine 50 mg tablet 50 mg PO TID Qty: 90 4RF levothyroxine 112 mcg tablet See Rx Instructions .ROUTE .COMPLEX Qty: 30 2RF Dose Instruction: Take 1 tablet by mouth once daily Rx Instructions: Take 1 tablet by mouth once daily (DME) Dexcom G6 Sensor Device See Rx Instructions .Route Rx Instructions: As directed Humulin R U-500 (Conc) Insulin 500 unit/mL solution 350 unit subcut .via insulin pump QD (DME) lancets 33 gauge misc See Rx Instructions .Route Patient Comments: One Touch Delica Rx Instructions: As directed benzonatate 200 mg capsule 200 mg PO TID PRN (Reason: cough) Qty: 50 0RF potassium chloride 10 mEq capsule, extended release See Rx Instructions .ROUTE .COMPLEX Qty: 90 0RF Dose Instruction: Take 1 capsule by mouth once daily Rx Instructions: Take 1 capsule by mouth once daily famotidine 20 mg tablet See Rx Instructions .ROUTE .COMPLEX Qty: 90 0RF Dose Instruction: Take 1 tablet by mouth twice daily Rx Instructions: Take 1 tablet by mouth twice daily hydroxyzine HCl 25 mg tablet See Rx Instructions .ROUTE .COMPLEX Qty: 90 0RF Dose Instruction: TAKE 1 TABLET BY MOUTH 4 TIMES DAILY NEEDED FOR ITCHING Rx Instructions: TAKE 1 TABLET BY MOUTH 4 TIMES DAILY NEEDED FOR ITCHING gabapentin 100 mg capsule 100 mg PO TID Qty: 90 3RF lidocaine 4 % cream 1 applic topical QID PRN (Reason: pain) Qty: 119 0RF baclofen 15 mg tablet 15 mg PO TID Qty: 90 0RF Follow-up/Referrals: Rolando Diaz MD [Physician] - (UROLOGY) Felix Jones MD [Primary Care Provider] - Time of Disposition: 20:01
[2025-03-04] MEDS: HYDROmorphone HCL INJ (*CRX) 2 MG/ML VIAL 0.5 MG IV PUSH ×2 (15:21→18:15)
[2025-03-04] MEDS: ACETAMINOPHEN 500 MG TABLET 1000 MG PO (15:22)
[2025-03-04 15:34] VITALS: BP 123/62; PULSE 85; RESP 16; O2SAT 97
[2025-03-04 15:35] LABS: Hematocrit 32.9 % (42.0-52.0); Hemoglobin 10.5 g/dL (14.0-18.0); Immature Granulocyte Percent A 0.5 % (0-0.5); Lymphocytes Absolute Auto 1.29 K/mm3 (0.9-3.2); Mean Corpuscular HGB Conc 31.9 g/dl (32-36); Mean Corpuscular Hemoglobin 29.0 pg (26-34); Mean Corpuscular Volume 90.9 fl (80-100); Nucleated Red Blood Cells Absolute Auto 0.000 K/mm3 (0.0-0.012); Nucleated Red Blood Cells Perc 0.0 % (0.0-0.2); Platelet Count Result 238 k/mm3 (150-375); Red Blood Count 3.62 M/mm3 (4.6-6.20); White Blood Count 11.0 K/mm3 (4.5-10.0)
[2025-03-04 15:52] LABS: Alanine Aminotransferase 19 U/L (6-50); Albumin Level 4.1 g/dL (3.5-5.1); Alkaline Phosphatase 78 U/L (38-126); Anion Gap 10 mmol/L (4-12); Aspartate Amino Transferase 23 U/L (17-59); Bilirubin,Total 0.6 mg/dL (0.2-1.3); Blood Urea Nitrogen 28 mg/dL (9-20); Calcium 9.3 mg/dL (8.4-10.2); Carbon Dioxide 26 mmol/L (22-30); Chloride 101 mmol/L (98-107); Estimated CRCL calculation 102 ml/min; Estimated Glomerular Filt Rate > 60; Glucose 254 mg/dL (65-110); Lipase 68 U/L (23-300); Potassium 4.2 mmol/L (3.4-5.0); Sodium 137 mmol/L (137-145); Total Protein 8.0 g/dL (6.3-8.2)
[2025-03-04 16:08] LABS: Add Urine Microscopic? YES; Appearance Urine Turbid (Clear); Glucose Urine UA Negative (Negative); Leukocyte Esterase Ur 3+ LEU/UL (Negative); Nitrate Urine Negative (Negative); Non Pathogenic Casts 0-2; Specific Grav Ur 1.009 (1.001-1.035)
[2025-03-04] MEDS: cefTRIAXone 1 GM in SODIUM CHLORIDE 0.9% IV 50 ML 100 ML IVPB (16:41)
[2025-03-04 16:49] VITALS: BP 131/62; PULSE 78; RESP 18; O2SAT 98
[2025-03-04 18:20] VITALS: BP 119/65; PULSE 80; RESP 20; O2SAT 100
[2025-03-04 20:51] VITALS: BP 112/76; PULSE 76; RESP 18; O2SAT 99
== END 2025-03-04 20:52 ==
PROVIDERS: Emergency Medicine; Emergency Provider Physician Assistant; PCP Internal Medicine
DX: N30.01 Acute cystitis with hematuria (principal); K59.00 Constipation, unspecified; N40.1 Benign prostatic hyperplasia with lower urinary tract symptoms; R33.8 Other retention of urine; R10.31 Right lower quadrant pain; I48.20 Chronic atrial fibrillation, unspecified; I10 Essential (primary) hypertension; I89.0 Lymphedema, not elsewhere classified; E13.42 Other specified diabetes mellitus with diabetic polyneuropathy; E13.40 Other specified diabetes mellitus with diabetic neuropathy, unspecified; E13.51 Other specified diabetes mellitus with diabetic peripheral angiopathy without gangrene; I73.9 Peripheral vascular disease, unspecified; E55.9 Vitamin D deficiency, unspecified; E78.5 Hyperlipidemia, unspecified; E03.9 Hypothyroidism, unspecified; E66.01 Morbid (severe) obesity due to excess calories; Z68.42 Body mass index [BMI] 45.0-49.9, adult; J45.909 Unspecified asthma, uncomplicated; D50.9 Iron deficiency anemia, unspecified; D64.9 Anemia, unspecified; M17.0 Bilateral primary osteoarthritis of knee; G47.33 Obstructive sleep apnea (adult) (pediatric); Z96.652 Presence of left artificial knee joint; Z87.01 Personal history of pneumonia (recurrent); Z98.49 Cataract extraction status, unspecified eye; N20.0 Calculus of kidney; R16.0 Hepatomegaly, not elsewhere classified; K42.9 Umbilical hernia without obstruction or gangrene; Z79.01 Long term (current) use of anticoagulants; Z79.4 Long term (current) use of insulin; Z79.899 Other long term (current) drug therapy
CPT/HCPCS: 36415; 51702; 74177; 80053; 81001; 83690; 85025; 87086; 96365; 96375; 96376; 99284; A9270; J0696; J1171; Q9967

== ENCOUNTER 2025-03-12 22:19 | Emergency (ER) | payer MEDICARE, SELFPAY ==
--- NOTE | ~2025-03-12 | XR_ITS ---
XR shoulder RT min 2V 03/13/2025 00:27 Indication: Possible shoulder dislocation Procedure: 3 views right shoulder Comparison: 03/12/2025 Findings: There is severe glenohumeral joint osteoarthritis with posterior subluxation on the Y view, although with normal appearance of the glenohumeral joint on the axillary view. This is likely due t o hypertrophic changes. No acute fracture. Acromioclavicular joint intact. Impression: 1: No acute fracture. No definite dislocation. 2: Severe osteoarthritis of the right glenohumeral joint with hypertrophic changes. Reviewed, dictated and finalized at location A. Impression: 1: No acute fracture. No definite dislocation. 2: Severe osteoarthritis of the right glenohumeral joint with hypertrophic mcginnis ges.
--- NOTE | ~2025-03-12 | XR_ITS ---
EXAM: XR knee RT 3V DATE: 03/12/2025 23:16 HISTORY: fall . COMPARISON: None available. FINDINGS: Normal mineralization. No fracture or dislocation. No lytic or blastic lesion. Tricompartm ental knee osteoarthritis, severe in the medial compartment. Quadriceps enthesopathy. No erosion or p eriosteal change. Vascular calcifications. IMPRESSION: No acute osseous finding in the right knee. Reviewed, dictated and finalized at location K.
--- NOTE | ~2025-03-12 | XR_ITS ---
EXAM: XR pelvis 1-2V DATE: 03/12/2025 23:16 HISTORY: fall . COMPARISON: X-ray pelvis and right hip 02/23/2025; CT abdomen pelvis 03/04/2025. FINDINGS: Limited by leftward rotation and body habitus. Degenerative changes in the lumbar spine, bi lateral SI joints, hips, and pubic symphysis. Vascular calcifications. Scattered phleboliths. Rounded hyperdensity projecting over the right medial iliac bone, likely superficial artifact. No acute frac ture or dislocation. Chronic ossific fragment adjacent to the right initial tuberosity. IMPRESSION: No acute osseous finding detected within the limitations noted above. Reviewed, dictated and finalized at [facility] K. IMPRESSION: No acute osseous finding detected within the limitations noted paramjit lozoya
--- NOTE | ~2025-03-12 | XR_ITS ---
EXAM: XR shoulder RT min 2V DATE: 03/12/2025 23:16 HISTORY: fall . COMPARISON: Multiple prior chest radiographs. FINDINGS: Decreased mineralization. No fracture. The humeral head appears to be posteriorly displace d in the scapular Y view. Moderate degenerative change at the AC joint with chronic inferior displace ment of the distal clavicle. Moderate-severe glenohumeral arthritic changes. No lytic or blastic lesi on. No erosion or periosteal change. Soft tissues within normal limits. IMPRESSION: Question of posterior right shoulder dislocation. If this is clinically consistent, consi maile additional radiographs (repeat scapular Y view with the addition of an axillary view if the patie nt is able) or CT of the shoulder for further evaluation. Reviewed, dictated and finalized at location K. IMPRESSION: Question of posterior right shoulder dislocation. If this is clinic ally consistent, consider additional radiographs (repeat scapular Y view with t he addition of an axillary view if the patient is able) or CT of the shoulder f or further evaluation.
[2025-03-12 22:15] VITALS: BP 115/59; PULSE 81; RESP 20; TEMP 36.5; O2SAT 99
--- OUTSIDE RECORDS SUMMARY | 2025-03-12 22:38 | XMS_ITS | Continuity of Care Document ---
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 tel:[phone] [facility], [address], [place], [place], [address], [place] tel:[phone] [facility] No Information Ricco-0 1-201 0 Magali Corrales [address] , [address], [place], [place], [facility], [place]. tel:[phone] [facility], [address], [place], [place], [id number], [place] tel:[phone] [facility] No Information December-0 4-201 0 Magali Corrales [address] , [address], [place], [place], [facility], [place]. tel:[phone] [facility], [address], [place], [place], [address], [place] tel:[phone] [facility] No Information 7-201 0 Magali Corrales [address] , [address], [place], [place], [facility], . tel:[phone] Office/outpat ient Visit, [facility], [address] [place] [address] [address], [place], [place], [address], [place] tel:[phone] [facility] No Information 6-201 0 Magali Cor[address]es [address] , [address], [place], [place], [facility], [place]. tel:[phone] [facility], [address], [place], [place], [address], [place] tel:[phone] [facility] No Information 6-200 9 Magali Cor[address]es [address] , [address], [place], [place], [facility], [place]. tel:[phone] Referring Provider: July Shane, [address], [place], [place], [facility]. tel:[phone] Office/outpat ient Visit, [facility], [address] [place] [address] [address], [place], [place], [id number], [place] tel:[phone] [facility] No Information 9 Magali M[address]owell. [address] , [address], [place], [place], [facility], . tel:[phone] Referring Provider: July Shane, [address], [place], [facility]. tel:[phone] Office/outpat ient Visit, [facility], [address] [place] [address] [address], [place], [place], [id number], [place] tel:[phone] [facility] No Information 6 8 Magali M[address]. [address] , [address], [place], [facility], [place]. tel:[phone] [facility], [address], [place], [place], [address], [place] tel:[phone] [place] [address] No Information 8 [address]. [address] [facility] , [address], [place], [facility], [place]. tel:[phone] Referring Provider: July Shane, [address], [place], [facility]. tel:[phone] Office/outpat ient Visit, [facility], [address] [place] [address] [address], [place], [place], [id number], [place] tel:[phone] [place] [address] No Information 200 7 Magali M[address]owell. [address] , [address], [place], [facility], [place]. tel:[phone] Referring Provider: July Shane, [address], [place], [facility]. tel:[phone] Office/outpat ient Visit, [facility], [address], [place], [place], [address], [place] tel:[phone] [facility] No Information 7 [address]. [address] , [address], [place], [address], [place]. tel:[phone] Family History Family Member Type Diagnosis Age At Onset No Information Payers Payer name Insurance type Covered alliance party ID Authorfranky tapia(s) [facility] CI [id number] Social History Type Description Quantity Date Captured [...]
--- OUTSIDE RECORDS SUMMARY | 2025-03-12 22:38 | XMS_ITS | Patient Health Record ---
Author Organization [facility] Address [address] [address] [address] Care Team Providers Care Piped Pocket Machine Operator Name Role Phone QuanFelix virgen Primary Care Provider UnavailLeon Hoff Unavailable [phone] Yaneth Rivas Unavailable [phone] Adeel Farias Unavailable [phone] Shantal Mercado Unavailable [phone] Allergies Allergen (clinical drug ingredient) Drug/Non Drug Allergy documented on EMR Reaction Allergy Type Onset Date Status metformin metFORMIN HCl ER GI side effects Drug Allergy Active semaglutide Ozempic (0.25 or 0.5 MG/DOSE) abdominal pain Drug Allergy Active Results Component Value Reference Range Notes MICROALBUMIN, RANDOM URINE ( W/CREATININE) Reviewed date:05/17/2024 01:02:14 PM Interpretation:Normal Performing Lab: Notes/Report: Normal Microalbumin, Urine 14.4 Microalb/Creat Ratio 10.1 Creatinine, Urine 143.0 Hemoglobin A1C Reviewed date:05/17/2024 02:06:41 PM Interpretation:8.5 Performing Lab: Notes/Report: 8.5 HEMOGLOBIN A1c 8.5 Hemoglobin A1C Reviewed date:05/17/2024 02:06:41 PM Interpretation:8.5 Performing Lab: Notes/Report: 8.5 HEMOGLOBIN A1c 8.5 Hemoglobin A1C Reviewed date:09/07/2024 09:36:40 AM Interpretation:9.8 Performing Lab:[facility], [facility], [address] [place], [address] Keven Glynn MD Notes/Report: PATIENT UNABLE TO VOID; ADVISED TO RETURN FOR COLLECTION. NON-FASTING; NON-FASTING; NON-FASTING; NON-FASTING; NON-FAST Received Date: HEMOGLOBIN A1c 9.8 <5.7 % of total [...] Reviewed date:09/07/2024 09:36:40 AM Interpretation:9.8 Performing Lab:[facility], [address] [place], [address] Keven Glynn MD Notes/Report: Received Date: NON-FASTING; [...] Reviewed date:09/07/2024 08:38:12 AM Interpretation:80 Performing Lab:[facility], [address] [place], [address] Keven Glynn MD Notes/Report: Received Date: NON-FASTING; NON-FASTING; NON-FASTING; NON-FASTING; NON-FAST PATIENT UNABLE TO VOID; ADVISED TO RETURN FOR COLLECTION. DIRECT LDL 80 <100 mg/dL Desirable range <100 mg/dL for primary prevention; <70 mg/dL for patients with CHD or diabetic patients with > or = 2 CHD risk factors. LDL, Direct Reviewed date:09/07/2024 08:38:12 AM Interpretation:80 Performing Lab:[place], [facility], [address] [place], [address] Keven Glynn MD Notes/Report: Received Date: [id number] NON-FASTING; NON-FASTING; NON-FASTING; NON-FASTING; NON-FAST PATIENT UNABLE TO VOID; ADVISED TO RETURN FOR COLLECTION. DIRECT LDL 80 <100 mg/dL Desirable range <100 mg/dL for primary prevention; <70 mg/dL for patients with CHD or diabetic patients with > or = 2 CHD risk factors. CMP (Comp Metabolic Panel) Reviewed date:09/07/2024 08:36:28 AM Interpretation:AST 47 Performing Lab:[place] [facility], [address] [place], [address] Keven Glynn MD Notes/Report: Received Date: [id number] NON-FASTING; NON-FASTING; NON-FASTING; NON-FASTING; NON-FAST PATIENT UNABLE [...] date:09/07/2024 08:38:12 AM Interpretation:mild chronic anemia Performing Lab:[place], [facility], [address] [facility], [place], [address] Keven Glynn MD Notes/Report: Received Date: [id number] NON-FASTING; NON-FASTING; NON-FASTING; NON-FASTING; NON-FAST PATIENT UNABLE [...] Lab: Notes/Report: Stable CREATININE 0.90 eGFR NON-AFR. VIET[place]ESE >60 SODIUM 133 POTASSIUM 4.5 ALT 30 [...] Oral; Duration: 15 Days Active Dexcom G6 Marketing Reporting Analyst - as directed by device Active Famotidine 20 MG 1 tablet at bedtime as needed Orally Twice a day Active Esomeprazole Magnesium 40 MG 1 capsule Orally Once a day; Duration: 30 day(s) Active Mounjaro 5 MG/0.5ML 5 mg Subcutaneous on ce a week new higher dose Active hydrALAZINE HCl 50 MG Oral Active DexPar-Trans Marketing G6 Sensor - as directed Active dilTIAZem [...] 10 MG Oral; Duration: 30 Days Active 51 Auto Delica Lancets 33G - to test blood sugars by finger stick Three times a day Active Lantus SoloStar 100 UNIT/ML 45 units am and 20 units pm Subcutaneous daily 01/01/2022 Active 51 Auto Verio w/Device to test blood sugars In Vitro Three times a day Active 51 Auto Verio - as directed In Vitro Three times a day Active Losartan Potassium 25 MG 1 tab(s) orally once a day Active Docusate Sodium 100 MG 1 capsule as need ed Orally Once a day Active Pen [place] 31G X 6 MM To inject insulin [...] Hyperglycemia due to type 2 diabetes mellitus (786486992153470) Type 2 diabetes mellitus with hyperglycemia (E11.65) Active confirmed Problem Mixed hyperlipidemia (048767857) Mixed hyperlipidemia (E78.2) Active confirmed Problem Polyneuropathy due to type 2 diabetes mellitus (237380821) Type 2 diabetes mellitus with diabetic polyneuropathy (E11.42) Active confirmed Problem Essential hypertension (84126967) Essential (primary) hypertension (I10) Active confirmed Problem Morbid obesity (disorder) (581818256) Morbid (severe) obesity due to excess calories (E66.01) Active confirmed Problem Long-term current use of insulin (597054959) 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 service 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 (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) use of insulin (Z79.4) Active confirmed Problem Body mass index 40+ - severely obese (382298957) BMI 45.0-49.9, adult (Z68.42) Active confirmed Problem Insulin pump present (finding) (563048858) Insulin pump status (Z96.41) Active confirmed Problem Diabetic neuropathic arthropathy (562655132) Charcot's arthropathy associated with type 2 diabetes mellitus (E11.610) Active confirmed Problem Male hypogonadism (01876969) Hypogonadism male (E29.1) Active confirmed Vital Signs Blood pressure diastolic 68 mm Hg 02/13/2025 Height 73 in 02/13/2025 Blood pressure systolic 140 mm Hg 02/13/2025 Encounters Encounter Location Date Provider Diagnosis [facility] [address] [place] [address] 05/15/2024 Leon Peoples Type 2 diabetes mellitus with hyperglycemia E11.65 ; Type 2 diabetes mellitus with diabetic polyneuropathy E11.42 ; Essential (primary) hypertension I10 ; Mixed hyperlipidemia E78.2 ; Charcot's arthropathy associated with type 2 diabetes mellitus E11.610 ; Morbid (severe) obesity due to excess calories E66.01 ; penitentiary (current) use of insulin Z79.4 ; Insulin pump status Z96.41 ; BMI 45.0-49.9, adult Z68.42 and Hypogonadism male E29.1 [facility] [address] [address] 09/06/2024 Yaneth Naceanceno Type 2 diabetes mellitus with hyperglycemia E11.65 ; Type 2 diabetes mellitus with diabetic polyneuropathy E11.42 ; Essential (primary) hypertension I10 ; Mixed hyperlipidemia E78.2 ; Charcot's arthropathy associated with type 2 diabetes mellitus E11.610 ; Morbid (severe) obesity due to excess calories E66.01 ; 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 service 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 (current) use of insulin Z79.4 ; Insulin pump status Z96.41 ; BMI 45.0-49.9, adult Z68.42 and Hypogonadism male E29.1 [facility] [address] [address] 11/01/2024 Yaneth Naceanceno Type 2 diabetes mellitus with hyperglycemia E11.65 ; Type 2 diabetes mellitus with diabetic polyneuropathy E11.42 ; Essential (primary) hypertension I10 ; Mixed hyperlipidemia E78.2 ; Charcot's arthropathy associated with type 2 diabetes mellitus E11.610 ; Morbid (severe) obesity due to excess calories E66.01 ; 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 service 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 (current) use of insulin Z79.4 ; Insulin pump status Z96.41 ; BMI 45.0-49.9, adult Z68.42 and Hypogonadism male E29.1 [facility] [address] [address] 02/13/2025 Adeel Farias Type 2 diabetes mellitus with hyperglycemia E11.65 ; Type 2 diabetes mellitus with diabetic polyneuropathy E11.42 ; Essential (primary) hypertension I10 ; Mixed hyperlipidemia E78.2 ; Charcot's arthropathy associated with type 2 diabetes mellitus E11.610 ; Morbid (severe) obesity due to excess calories E66.01 ; 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 service 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 (current) use of insulin Z79.4 ; Insulin pump status Z96.41 ; BMI 45.0-49.9, adult Z68.42 and Hypogonadism male E29.1 [facility] [address] [address] 05/15/2024 Leonlindsay Peoples Type 2 diabetes mellitus with hyperglycemia E11.65 [facility] [address] [address] 05/24/2024 [facility] [address] [address] 06/06/2024 [facility] [address] [address] [facility] [address] [address] 09/07/[facility] [address] [address] 10/11/2024 Leon Raju Type 2 diabetes mellitus with hyperglycemia E11.65 [facility] [address] [address] 11/01/2024 [facility] [address] [address] 01/01/2025 Leon Shelton Type 2 diabetes mellitus with hyperglycemia E11.65 [facility] [address] [address] 02/05/2025 Leonlindsay Peoples Type 2 diabetes mellitus [...] - - - -Dena Salcido of : [id number] ed at: May 15, 2024 5:33 PM CDTReporting period: WedFeb 11, 2024 - WedMay 10, 2024- - - - - - - - - - - - - - -Glucose DetailsAverage glucose: 255 mg/dLStandard deviation: 64 mg/dLGMI: 9.4%- - - - - - - - - - - - - - -Time in RangeVery High: 52%High: 35%In Range: 13%Low: 0%Very Low: 0% Target Uthxa22-453 mg/dL - - - - - - [...] - - - -Dena Salcido of : 1485-06-05Texmirz ed at: Sep 06, 2024 3:00 PM CSTReporting period: WedJun 04, 2024 - WedSep 01, 2024- - - - - - - - - - - - - - -Glucose DetailsAverage glucose: 314 mg/dLStandard deviation: 85 mg/dLGMI: 10.8%- - - - - - - - - - - - - - -Time in RangeVery High: 78%High: 12%In Range: 10%Low: 0%Very Low: <1%Target Xgkwx54-380 mg/dL - - - - - - [...] 39% Low: 1% Very Low: <1% Target Lutmq78-634 mg/dL - - - - - - [...] #s Wants to lose another 100#s 05/15/2024 penitentiary (current) use of insulin (ICD-10 - Z79.4) 09/06/2024 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 service 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 (current) use of insulin (ICD-10 - Z79.4) 11/01/2024 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 service 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 (current) use of insulin (ICD-10 - Z79.4) 02/13/2025 penitentiary (current) use of insulin (ICD-10 - Z79.4) [...] Details Provider Name:Leon Peoples, 05/21/2025 10:30:00 AM, [address], [facility] [address], [place], [address], Insurance Providers Payer Name Payer Address Payer Phone Subscriber Number Group Number Insured Name Patient Relationship to Insured Coverage Start Date Coverage End Date MEDICARE PART B [place] [address] [address] [place] [address] [id number] DENA HOANG Self - patient is the insured 7 [facility] [address] [place] [address] [id number] DENA HOANG Self - patient is the insured 7 Medical (General) History Medical History History ICD Code T2DM Insulin Pump Glaucoma Messed up leg Surgical History Surgery Date(Month/Year) Gall bladder Neck Back SX L and right Hospitalization History Reason Date(Month/Year) sepsis also had covid 05/2021-01/2022 stomach and c diff
--- OUTSIDE RECORDS SUMMARY | 2025-03-12 22:38 | XMS_ITS | Encounter Summary ---
Author Organization [facility] Address [address] [place] [address] Care Team Providers Care Industrial Chemistry Teacher Name Role Phone Bri Mcclain MD Primary Care Provider + [phone] Bri Mcclain MD Primary Care Provider + [phone] Bri Mcclain MD Unavailable [phone] Regina Liu RN Unavailable [phone] Lencho Lopes MD Unavailable [phone] Abraham Dwyer DO Unavailable Sakina Zamarripa SCRAP BREAKER Unavailable Mindy Barragan SCRAP BREAKER Unavailable [phone] Kayla Judd RN Unavailable [phone] Kayla Judd RN Unavailable [phone] Mark Pierre MD Primary Care Provider [phone] None, Provider Primary Care Provider Unavaila ble Encounter Details Date Type Department Care Team (Late st Contact Info) Description 02/16/2014 Abstract [facility] CONVERSION [address] [place] [address] , Generic Conversion, Social History Tobacco Use Types Packs/Day Years Used Date Smoking Tobacco: Never Assessed Sex and Gender Information Value Date Recorded Sex Assigned at Male 09/22/2024 5:17 PM TOY CONSULTANT Legal Sex Male 6:34 PM CDT [...] C. difficile 12/31/2020 12/31/2020 07/09/2021 3:59 PM TOY CONSULTANT COVID-19 Rule Out 08/05/2021 08/06/2021 08/06/2021 11:00 AM TOY CONSULTANT COVID-19 Rule Out 08/22/2021 08/22/2021 08/22/2021 10:37 AM TOY CONSULTANT COVID-19 Rule Out 09/05/2021 09/05/2021 09/05/2021 7:59 AM TOY CONSULTANT COVID-19 Confirmed Comment:In collaboration with Dr. Goodwin patient cleared from COVID-19 isolation per [facility] guidelines ([place]) 09/05/2021 09/05/2021 09/16/2021 10:57 AM TOY CONSULTANT documented as of this encounter Care Teams Industrial Chemistry Teacher Relationship Specialty Start Date End Date Bri Mcclain MD PCP - General INTERNAL MEDICINE 06/08/18 12/30/20 Bri Mcclain MD PCP - General INTERNAL MEDICINE 12/31/20 10/12/22 [place] [address] [place] [address] PCP - General FAMILY PRACTICE 10/13/22 05/25/23 None, Provider, PCP - General UNKNOWN PHYSICIAN SPECIALTY 09/22/24 Bri Mcclain MD INTERNAL MEDICINE 12/31/20 Regina Liu, RN [address] [place] [address] Assistant Professor In Family Studies (Ambulatory) REGISTERED NURSE 07/08/21 11/17/21 Lencho Lopes MD [address], [address] [place] [address] Physician INTERVENTIONAL CARDIOLOGY 08/07/21 Abraham Dwyer DO [address], [address] [address] Consulting Physician INTERNAL MEDICINE 09/17/21 2 Sakina Zamarripa NP [address], [address] [place], [place] [phone] Nurse Practitioner Nurse Practitioner [facility] 09/17/21 01/04/22 Mindy Barragan NP [address], [address] [place] [phone] Nurse Practitioner NURSE PRACTITIONER 09/17/21 01/04/22 Kayla Judd RN [address] [place] [address] Assistant Professor In Family Studies (Ambulatory) REGISTERED NURSE 11/10/21 11/17/21 Kayla Judd RN [address] [place] [address] Assistant Professor In Family Studies (Ambulatory) REGISTERED NURSE 11/18/21 01/28/22 documented as of this encounter
--- OUTSIDE RECORDS SUMMARY | 2025-03-12 22:38 | XMS_ITS | Encounter Summary ---
Author Organization [facility] Address [address] [place] [address] Care Team Providers Care Heel Finisher Name Role Phone Bri Mcclain MD Primary Care Provider + [phone] Bri Mcclain MD Primary Care Provider + [phone] Bri Mcclain MD Unavailable [phone] Regina Liu RN Unavailable [phone] Lencho Lopes MD Unavailable [phone] Abraham Dwyer DO Unavailable Sakina Zamarripa WEED SPRAYER Unavailable Mindy Barragan WEED SPRAYER Unavailable [phone] Kayla Judd RN Unavailable [phone] Kayla Judd RN Unavailable [phone] Mark Pierre MD Primary Care Provider [phone] None, Provider Primary Care Provider Unavaila ble Encounter Details Date Type Department Care Team (Late st Contact Info) Description 06/26/2017 Abstract [place] [address] , Generic Conversion, Social History Tobacco Use Types Packs/Day Years Used Date Smoking Tobacco: Never Assessed Sex and Gender Information Value Date Recorded Sex Assigned at Male 09/22/2024 5:17 PM AUTO CRANE DRIVER Legal Sex Male 6:34 PM CDT [...] C. difficile 12/31/2020 12/31/2020 07/09/2021 3:59 PM AUTO CRANE DRIVER COVID-19 Rule Out 08/05/2021 08/06/2021 08/06/2021 11:00 AM AUTO CRANE DRIVER COVID-19 Rule Out 08/22/2021 08/22/2021 08/22/2021 10:37 AM AUTO CRANE DRIVER COVID-19 Rule Out 09/05/2021 09/05/2021 09/05/2021 7:59 AM AUTO CRANE DRIVER COVID-19 Confirmed Comment:In collaboration with Dr. Goodwin patient cleared from COVID-19 isolation per [facility] guidelines ([place]) 09/05/2021 09/05/2021 09/16/2021 10:57 AM AUTO CRANE DRIVER documented as of this encounter Care Teams Heel Finisher Relationship Specialty Start Date End Date Bri Mcclain MD PCP - General INTERNAL MEDICINE 06/08/18 12/30/20 Bri Mcclain MD PCP - General INTERNAL MEDICINE 12/31/20 10/12/22 [place] [address] [place] [address] PCP - General FAMILY PRACTICE 10/13/22 05/25/23 None, Provider, PCP - General UNKNOWN PHYSICIAN SPECIALTY 09/22/24 Bri Mcclain MD INTERNAL MEDICINE 12/31/20 Regina Liu, RN [address] [place] [address] Emanations Analysis Technician (Ambulatory) REGISTERED NURSE 07/08/21 11/17/21 Lencho Lopes MD [address], [address] [place], [place] [address] Physician INTERVENTIONAL CARDIOLOGY 08/07/21 Abraham Dwyer DO [address], [address] [phone] Consulting Physician INTERNAL MEDICINE 09/17/21 2 Sakina Zamarripa NP [address], [address] [phone] Nurse Practitioner Nurse Practitioner Family 09/17/21 01/04/22 Mindy Barragan NP [address], [address] [phone] Nurse Practitioner NURSE PRACTITIONER 09/17/21 01/04/22 Kayla Judd, RN [address] [place], [place] [address] Emanations Analysis Technician (Ambulatory) REGISTERED NURSE 11/10/21 11/17/21 Kayla Judd, RN [address] [place] [address] Emanations Analysis Technician (Ambulatory) REGISTERED NURSE 11/18/21 01/28/22 documented as of this encounter
--- OUTSIDE RECORDS SUMMARY | 2025-03-12 22:38 | XMS_ITS | Encounter Summary ---
Author Organization [facility] Address [address] [place] [address] Care Team Providers Care Separator Inserter Name Role Phone Bri Mcclain MD Primary Care Provider + [phone] Bri Mcclain MD Primary Care Provider + [phone] Bri Mcclain MD Unavailable [phone] Regina Liu RN Unavailable [phone] Lencho Lopes MD Unavailable [phone] Abraham Dwyer DO Unavailable Sakina Zamarripa TRADE SPECIALIST Unavailable Mindy Barragan TRADE SPECIALIST Unavailable [phone] Kayla Judd RN Unavailable [phone] Kayla Judd RN Unavailable [phone] Mark Pierre MD Primary Care Provider [phone] None, Provider Primary Care Provider Unavaila ble Reason for Visit * Reason Onset Date Comments Follow Up Call 11/28/2020 Encounter Details Date Type Department Care Team (Late st Contact Info) Description 11/28/2020 Telephone [facility] Med/Surg [address] [place] [address] Alida Becker RN Follow Up [...] week 11/15/2020 How often do you attend [facility] or jew services? Patient declined 11/15/2020 Do you belong to any clubs o r organizations such as temple groups, unions, fraternal or athletic groups, or [...] move on to questions 3-9 0 05/15/2020 [facility] [place] of Occupat ional Health - Occupational Stress [...] Sex Assigned at Male 09/22/2024 5:17 PM LOG RIDER Legal Sex Male 6:34 PM CDT Gender [...] C. difficile 12/31/2020 12/31/2020 07/09/2021 3:59 PM LOG RIDER COVID-19 Rule Out 08/05/2021 08/06/2021 08/06/2021 11:00 AM LOG RIDER COVID-19 Rule Out 08/22/2021 08/22/2021 08/22/2021 10:37 AM LOG RIDER COVID-19 Rule Out 09/05/2021 09/05/2021 09/05/2021 7:59 AM LOG RIDER COVID-19 Confirmed Comment:In collaboration with Dr. Goodwin patient cleared from COVID-19 isolation per [facility] guidelines ([place]) 09/05/2021 09/05/2021 09/16/2021 10:57 AM LOG RIDER documented as of this encounter Care Teams Separator Inserter Relationship Specialty Start Date End Date Bri Mcclain MD PCP - General INTERNAL MEDICINE 06/08/18 12/30/20 Bri Mcclain MD PCP - General INTERNAL MEDICINE 12/31/20 10/12/22 [place] [address] [place] [address] PCP - General FAMILY PRACTICE 10/13/22 05/25/23 None, MD Shay PCP - General UNKNOWN PHYSICIAN SPECIALTY 09/22/24 Bri Mcclain MD INTERNAL MEDICINE 12/31/20 Regina Liu, RN [address] [place], [place] [address] Radiator Tester (Ambulatory) REGISTERED NURSE 07/08/21 11/17/21 Lencho Lopes MD [address] [place] [address] Physician INTERVENTIONAL CARDIOLOGY 08/07/21 Abraham Dwyer DO [address] [place] [address] [phone] Consulting Physician INTERNAL MEDICINE 09/17/21 2 Sakina Zamarripa NP [address] [place] [address] [phone] Nurse Practitioner Nurse Practitioner Family 09/17/21 01/04/22 Mindy Barragan NP [address] [facility] [address] [place], [place] [address] Nurse Practitioner NURSE PRACTITIONER 09/17/21 01/04/22 Kayla Judd RN [address] [place], [place] [address] Radiator Tester (Ambulatory) REGISTERED NURSE 11/10/21 11/17/21 Kayla Judd RN [address] [place], [place] [phone] Radiator Tester (Ambulatory) REGISTERED NURSE 11/18/21 01/28/22 documented as of this encounter
--- OUTSIDE RECORDS SUMMARY | 2025-03-12 22:38 | XMS_ITS ---
Author Organization [facility] Address [address] [facility] [address] [place] [address] Care Team Providers Care Poultry Barn Manager Name Role Phone Felix Jones Primary Care Provider UnavailLeon Hoff Unavailable [phone] Yaneth Rivas Unavailable [phone] REASON FOR VISIT Medtronic/Dexcom Encounters Encounter Location Date Provider Diagnosis [facility] [address] [place] [address] 02/01/2025 Yaneth Rivas Plan Of Treatment Next Appt Details Provider Name:Leon Shelton, 05/21/2025 10:30:00 AM, [address], [address], [place], [address], Progress Notes * AVANIJASONNY NDOB:1955 (69 yo M)Acc No.[id number]:02/01/2025 [facility] Patient: DENA VARGAS Jeison Provider: Danielle Rivas PA-C :1955 A ge:69 Y S ex:Male Date:02/01/2025 Address:[place] [address] [facility] Pcp:Felix Jones Subjective: * Chief Complaints: * 1 . Medtronic/Dexcom. * Medical History: Objective: * Vitals: * Physical Examination: Assessment: Plan: * Treatment: * Billing Information: * Visit Code: * Procedure Codes: Care Plan Details* * Electronic signature of Joe Rivas PA-C on 03/12/2025 at 10:37 PM CDT Sign off status: Pending * Provider: Danielle Rivas PA-C Date: 0 02/01/2025 Generated for Robert arnett/Anabell/Connor on: 0 03/12/2025 10:37 PM CDT
--- OUTSIDE RECORDS SUMMARY | 2025-03-12 22:38 | XMS_ITS | Patient Health Record ---
Author Organization [facility] Address [address] [place], [place] [address] Care Team Providers Care Workforce Management Analyst Name Role Phone SINDY CONLEY Unavailable [phone] Abraham Dwyer Unavailable Unavailable Reason For Referral No Information Plan Of Treatment No Information Insurance Providers Payer Name Payer Address Payer Phone Subscriber Number Group Number Insured Name Patient Relationship to Insured Coverage Start Date Coverage End Date Medicare Part B [place] [address] [place] [phone] [id number] DENA VARMA Self - patient is the insured [facility] ATTN CLAIMS [address] [place] [address] [id number] DENA VARMA Self - patient is the insured
--- OUTSIDE RECORDS SUMMARY | 2025-03-12 22:38 | XMS_ITS | Clinical Summary ---
Author Organization [facility] Address [facility] [place] [address] Care Team Providers Care Cruller Maker Name Role Phone Bri Mcclain MD Unavailable [phone] Lencho Lopes MD Unavailable [phone] None, Provider MD Primary Care Provider Unavaila [...] Noted Date Diagnosed Date Panniculitis 09/22/2024 Osteomyelitis ([facility]) 11/07/2021 Encephalopathy acute 07/28/2021 Delirium 07/28/2021 Subacute osteomyelitis of right foot ([facility]) 07/28/2021 Hyperglycemia due to diabetes mellitus ([facility]) 07/28/2021 Acute respiratory failure with hypoxia ([facility]) 07/28/2021 Sepsis ([facility]) 07/07/2021 Clostridium difficile colitis 12/31/2020 Scrotal infection 11/18/2020 Cellulitis 11/14/2020 Polyneuropathy associated with underlying diseas e ([facility]) 12/06/2018 Muscle strain, shoulder region 04/12/2018 Chronic osteomyelitis of right ankle ([facility]) 10/02/2017 Overview (06/30/2018): Impression - [id number] Bri Mcclain: surgery 04/08, probe to bone then after surgial removal of hardware 08/28/17 Deep tiss Cx MRSA on vanc per PICC line & ID Dr Crenshaw. SILVIA on CPAP 08/09/2017 Edema of extremities 06/02/2017 MRSA infection 06/02/2017 Enlarged prostate with lower urinary tract sympt oms (LUTS) 10/13/2016 Charcot foot due to diabetes mellitus ([facility]) 09/05/2016 Numbness in both hands 07/08/2016 Chronic pain of right ankle 04/15/2016 Lumbago 12/10/2014 Hypothyroidism 10/10/2014 Generalized osteoarthritis of multiple sites Glaucoma, bilateral 09/17/2014 Hyperlipidemia 09/17/2014 Essential hypertension 09/17/2014 Testosterone deficiency 09/17/2014 Diabetic ulcer of lower extremity ([facility]) 06/21/2014 Diabetic peripheral neuropathy ([facility]) 05/10/2014 Sciatica 02/14/2013 Immunizations Immunization Administration Dates Next Due Fluzone High Dose - >Age 65 (Prefilled Syringe) 05/11/2019 Influenza (Generic) 06/26/2013,06/01/2012 Influenza Adult (Generic) 05/11/2019,04/12/2018, 08/18/2017 Pneumococcal (Pneumovax 23) 05/15/2018, 5 Pneumococcal (Prevnar 13) 12/06/2018 Shingrix 07/07/2018, 8,04/12/2018,2017 Td (Tenivac) preservative free 05/31/2018 Zoster (Zostavax) 53404 Unt/0.65Ml 07/07/2017,,07/02/2017 Family History Medical History Relation [...] materials from doctor or pharmacy Never 05/11/2023 [facility] Utilities Answer Date Recorded In the past 12 months has e [employer], oil, or water [employer] threatened to shut off services in your [...] often do you attend chur ch or roman catholic services? Patient declined 11/15/2020 Do you belong to any clubs o r organizations such as hoahaoism groups, unions, fraternal or athletic groups, or [...] move on to questions 3-9 0 04/14/2022 [facility] - Occupational [...] place to sleep or slept in a senior care (including now)? No 03/22/2023 Housing Stability Vital Sign Answer Brien e Recorded In the last 12 months, was t here a time when you were not able to pay the mortgage or rent on time? No 09/24/2024 In the past 12 months, how m any times have you moved where you were living? 0 09/24/2024 At any time in the past 12 m [facility], were you homeless or living in a senior care (including now)? No 09/24/2024 Sex and Gender Information Value Date Recorded Sex Assigned at Male 09/22/2024 5:17 PM FITTER TYPE BAR AND SEGMENT Legal Sex Male 6:34 PM CDT Gender Identity Not on file Sexual Orientation Straight 11/15/2020 1: 16 AM CDT Last Filed Vital Signs Vital Sign Reading Time Taken Comments Blood Pressure 124/53 09/27/2024 7:21 AM FITTER [employer] SEGMENT Pulse 69 09/27/2024 7:21 AM FITTER [employer] SEGMENT Temperature 36.2 C (97.2 F) 09/27/2024 7:21 AM FITTER TYPE BAR AND SEGMENT Respiratory Rate 19 09/27/2024 7:21 AM FITTER TYPE BAR AND SEGMENT Oxygen Saturation 95% 09/27/2024 7:21 AM FITTER TYPE BAR AND SEGMENT Inhaled Oxygen Concentration - - Weight 164.3 kg (362 lb 3.5 oz) 09/27/2024 4:10 AM FITTER TYPE BAR AND SEGMENT Height 188 cm (6' 2) 09/22/2024 5:05 PM FITTER TYPE BAR [employer] SEGMENT Body Mass Index 46.51 09/22/2024 5:05 PM FITTER TYPE BAR AND SEGMENT Plan of Treatment Health Maintenance Due Date [...] COVID-19 Vaccine ( season) 2024 PHQ-2 (Physician [place]) 08/23/2024 Zoster Vaccines Completed 07/07/2018, 06/23, 04/12/2018, [...] and discharge planning Lifestyle No Aminta Blackwood, PHYSICAL MEDICINE TEACHER Procedures Procedure Name Priority Date/Time Associated Diagnosis Comments CT ABD+PEL W CON STAT 09/22/2024 6:59 PM FITTER TYPE BAR [employer] SEGMENT OUTSIDE LAB (SCAN ORDER) Routine 05/25/2023 LIPID PANEL Routine 07/27/2022 3:46 PM FITTER TYPE BAR [employer] SEGMENT Mixed hyperlipidemia OCCULT BLOOD, FECES Routine 11/12/2021 12:00 AM CDT HEPATITIS C ANTIBODY Routine 08/18/2021 7:04 PM FITTER TYPE BAR AND SEGMENT DILATED EYE EXAM (SCAN) Routine 09/02/2018 from Last 3 Months or Most Recently Relevant to Health Maintenance Results * CT ABD+PEL W IV CON ONLY (09/22/2024 6:59 PM FITTER TYPE BAR AND SEGMENT) Anatomical Region Laterality Modality Abdomen Computed Tomogra phy 09/22/2024 7:03 PM FITTER TYPE BAR AND SEGMENT Impressions 09/22/2024 7:11 PM FITTER TYPE BAR AND SEGMENT IMPRESSION: 1. No CT evidence of bowel [...] 09/22/2024 7:03 PM Narrative 09/22/2024 7:11 PM FITTER TYPE BAR [employer] SEGMENT [address] [address] PROCEDURE: CT ABD+PEL W CON HISTORY: Abdominal [...] Procedure Note Kira Jacobson MD - 09/22/[address] [address] PROCEDURE: CT ABD+PEL W CON HISTORY: Abdominal [...] ONBASE * LIPID PANEL (07/27/2022 3:46 PM FITTER TYPE BAR [employer] SEGMENT) CHOLESTEROL 154 <200.0 MG/DL 07/27/2022 8:11 PM FITTER TYPE BAR AND SEGMENT [facility] TRIGLYCERIDES 97 <150 MG/DL 07/27/2022 8:11 PM FITTER TYPE BAR AND SEGMENT [facility] HDL 52 >40.0 MG/DL 07/27/2022 8:11 PM FITTER TYPE BAR AND SEGMENT [facility] LDL (CALCULATED) 83 <100 MG/DL 07/27/20 8:11 PM FITTER TYPE BAR AND SEGMENT [facility] NON HDL CHOLESTEROL 102 <130 MG/DL 07/27 8:11 PM [facility] CHOL/HDL RATIO 3.0 0.0 - 4.5 07/27/2022 8:11 PM [facility] VLDL CALCULATION 19 5 - 55 MG/DL 07/27/2022 8:11 PM [facility] LIPID INTERPRETATION 07/27/2022 8:11 PM [facility] Comment: NIH CONCENSUS REPORT RECOMMENDATIONS: ADULT CHILD LOW RISK: CHOLESTEROL <200 <170 TRIGLYCERIDE <150 --- HDL >=60 --- LDL <100 <110 BORDERLINE: CHOLESTEROL 200-239 170-199 TRIGLYCERIDE 150-199 --- HDL 40-59 --- LDL 100-159 110-129 HIGH RISK: CHOLESTEROL >=240 >=200 TRIGLYCERIDE >=200 --- HDL <40 --- LDL >=160 >=130 07/27/2022 3:46 PM FITTER TYPE BAR [employer] SEGMENT Bri Mcclain MD LABORATORY Final Result [facility] [address] [place] [address], [place] [phone] * OCCULT BLOOD, FECES (11/12/2021 12:00 AM CDT) Pathologist [facility] OCCULT BLOOD FECAL NEGATIVE 11/12/2021 8:54 AM CDT [facility] STOOL SPECIMEN / Unknown 11/12/2021 Helen Gan MD BODY FLUIDS AND STOOLS ORDERABL ES Final Result Performing Organization Address City/[facility]/ZIP Co de Phone Number [facility] [address] [place] [address], [place] [phone] * HEPATITIS C ANTIBODY (08/18/2021 7:04 PM FITTER TYPE BAR AND SEGMENT) HEPATITIS C AB NON-REACTI VE NON-REACT DAISHA 08/18/2021 8:36 PM FITTER TYPE BAR AND SEGMENT [facility] Comment: ANTIBODIES TO HCV NOT DETECTED. DOES NOT EXCLUDE THE POSSIBILITY OF EXPOSURE TO HCV. 08/18/2021 7:04 PM FITTER TYPE BAR AND SEGMENT [facility]ia [facility] Final Res ult [facility] [address] [place] [address], [id number] * DILATED EYE EXAM (09/02/2018) us Documents Scanned SCANNING Final Result from Last 3 Months or Most Recently Relevant to Health Maintenance Additional Health Concerns Infection Onset Date Last Indicated MRSA Comment:+ MRSA nares 11/14/2020 (KB) 07/07/21 +MRSA Blood 07/08/21 Nares (SB) 07/11/21 right ankle (SB) 03/08/23 nares (JK) 09/23/24 right pannus 06/04/2017 09/23/2024 Insurance MEDICARE [facility] Advance Directives * Full Code (Latest [...] 11:02 AM 03/19/2023 1:28 PM Care Teams Cruller Maker Relationship Specialty Start Date End Date None, Provider, MD PCP - General UNKNOWN PHYSICIAN SPECIALTY 09/22/24 Bri Mcclain MD INTERNAL MEDICINE 12/31/20 Lencho Lopes MD [address] [address] Physician INTERVENTIONAL CARDIOLOGY 08/07/21
--- OUTSIDE RECORDS SUMMARY | 2025-03-12 22:38 | XMS_ITS | Encounter Summary ---
Author Organization [facility] Address [address] [place] [id number] Care Team Providers Care Immigration Judge Name Role Phone Bri Mcclain MD Primary Care Provider [phone] Bri Mcclain MD Primary Care Provider + [phone] Bri Mcclain MD Unavailable [phone] Regina Liu RN Unavailable [phone] Lencho Lopes MD Unavailable [phone] Abraham Dwyer DO Unavailable Sakina Zamarripa BUSINESS INTELLIGENCE REPORTING ANALYST Unavailable Mindy Barragan BUSINESS INTELLIGENCE REPORTING ANALYST Unavailable [phone] Kayla Judd RN Unavailable [phone] Kayla Judd RN Unavailable [phone] Mark Pierre MD Primary Care Provider [phone] None, Provider Primary Care Provider Unavaila ble Encounter Details Date Type Department Care Team (Latest Contact Info) Description 05/15/2018 Abstract [facility] [place] [address] [place] [address] Social History Tobacco Use Types Packs/Day Years Used Date Smoking Tobacco: Never Assessed Sex and Gender Information Value Date Recorded Sex Assigned at Male 09/22/2024 5:17 PM FELT PAD CUTTER Legal Sex Male 6:34 PM CDT Gender [...] C. difficile 12/31/2020 12/31/2020 07/09/2021 3:59 PM FELT PAD CUTTER COVID-19 Rule Out 08/05/2021 08/06/2021 08/06/2021 11:00 AM FELT PAD CUTTER COVID-19 Rule Out 08/22/2021 08/22/2021 08/22/2021 10:37 AM FELT PAD CUTTER COVID-19 Rule Out 09/05/2021 09/05/2021 09/05/2021 7:59 AM FELT PAD CUTTER COVID-19 Confirmed Comment:In collaboration with Dr. Goodwin patient cleared from COVID-19 isolation per HS guidelines (SB) 09/05/2021 09/05/2021 09/16/2021 10:57 AM FELT PAD CUTTER documented as of this encounter Care Teams Immigration Judge Relationship Specialty Start Date End Date Bri Mcclain MD PCP - General INTERNAL MEDICINE 06/08/18 12/30/20 Bri Mcclain MD PCP - General INTERNAL MEDICINE 12/31/20 10/12/22 [place] [address] [place] [address] PCP - General FAMILY PRACTICE 10/13/22 05/25/23 None, Provider, PCP - General UNKNOWN PHYSICIAN SPECIALTY 09/22/24 Bri Mcclain MD INTERNAL MEDICINE 12/31/20 Regina Liu RN [address] [place], [place] [phone] Manufacturing Tech (Ambulatory) REGISTERED NURSE 07/08/21 11/17/21 Lencho Lopes MD [address], [place] [address] [place] [address] [phone] Physician INTERVENTIONAL CARDIOLOGY 08/07/21 Abraham Dwyer DO [address], [address] [phone] Consulting Physician INTERNAL MEDICINE 09/17/21 2 Sakina Zamarripa NP [address], [place] [address] [place] [address] [phone] Nurse Practitioner Nurse Practitioner [facility] 09/17/21 01/04/22 Mindy Barragan, QUENTIN [address], [place] [address] [place] [address] [phone] Nurse Practitioner NURSE PRACTITIONER 09/17/21 01/04/22 Kayla Judd RN [address] [place], [place] [phone] Manufacturing Tech (Ambulatory) REGISTERED NURSE 11/10/21 11/17/21 Kayla Judd RN [address] [place], [place] [phone] Manufacturing Tech (Ambulatory) REGISTERED NURSE 11/18/21 01/28/22 documented as of this encounter
--- NOTE | 2025-03-12 22:56 | ED_ITS ---
HPI - Fall General Chief Complaint: Fall Stated Complaint: FALL FROM CHAIR, BACK & KNEE PAIN, BEDBOUND Time Seen by Provider: 03/12/25 22:28 History of Present Illness HPI Narrative: 69-year-old male with a past medical history including diabetes, hypertension, hyperlipidemia, muscle spasms, morbid obesity. [facility] and has a Hayley lift for mobility. Patient was sitting in a recliner chair today when he slid out of it fell onto his right side. He states that he has pain in his right shoulder and right knee. Endorses acute on chronic back pain on the right side as well. Has been seen several times for similar musculoskeletal complaints previously. Most recently had orthopedic injection by Dr. Banuelos in his right shoulder with improvement in his arthritis pain. Patient has a history of Charcot foot arthropathy and chronic pain. No head trauma or loss of consciousness. He is mentating appropriately and is neurovascularly intact. Range of motion in the shoulders limited by pain but chronic in nature compared to previous notes. No visible signs of external trauma, deformity or injury. Received fentanyl EN route by EMS but is requesting Dilaudid by name. Related Data Home Medications ?Medication ?Instructions ?Recorded ?Confirmed ?Last Taken ?Type multivit with minerals-iron 18 1 tablet PO DAILY 01/26/23 03/01/25 Unknown History mg-folic ac 400 mcg-vit K 25 mcg tablet (Adults Multivitamin) bimatoprost 0.01 % eye drops 1 drp EACH EYE DAILY 05/25/23 03/01/25 Unknown History blood-glucose meter (OneTouch 05/25/23 03/01/25 Unknown History Verio Flex Meter) insulin syringe-needle U-100 1 mL 05/25/23 03/01/25 Unknown History 31 gauge x 5/16 (BD Insulin Syringe Ultra-Fine) docusate sodium 100 mg capsule 100 mg PO BID PRN Constipation 10/28/23 03/01/25 Unknown History losartan 25 mg tablet 25 mg PO DAILY 10/29/23 03/01/25 Unknown History blood-glucose sensor (Dexcom G6 06/08/24 03/01/25 Unknown History Sensor device) insulin regular hum U-500 conc 500 350 unit subcut .via insulin pump 06/08/24 03/01/25 Unknown History unit/mL subcutaneous soln (Humulin QD R U-500 (Concentrated) Insulin) lancets 33 gauge 06/08/24 03/01/25 Unknown History acetaminophen 500 mg capsule 500 mg PO Q6H Pain, Moderate 02/20/25 03/01/25 Unknown History Allergies Allergy/AdvReac Type Severity Reaction Status Date / Time metformin Allergy Mild Rash Verified 03/01/25 11:47 Review of Systems Review of Systems: As reviewed above in [facility] Past Medical History Medical History Right shoulder pain Muscle spasm UTI (urinary tract infection) Prostate cancer screening Encounter for routine adult health examination without abnormal findings Iron deficiency anemia Unsteady gait Venous stasis Follow up Chronic cough Vitamin D deficiency Encounter for Medicare annual wellness exam Hypokalemia Impaired functional mobility, balance, gait, and endurance Epistaxis DJD (degenerative joint disease), multiple sites Morbid obesity DJD (degenerative joint disease) Lymphedema Mild reactive airways disease PVD (peripheral vascular disease) Pedal edema Rash Essential hypertension Hypothyroidism (acquired) Decubitus ulcer Hypersomnolence Encounter to establish care 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 Postoperative wound dehiscence Pain due to internal orthopedic prosthetic devices, implants and grafts, initial encounter (08/26/17) Non-pressure chronic ulcer of other part of right foot limited to breakdown of skin Right foot pain Other chronic pain Fungal infection right foot Obesity, morbid, BMI 40.0-49.9 Occult blood in stools Acute on chronic anemia Chronic anemia Hyperlipidemia Pneumonia BPH (benign prostatic hyperplasia) Obstructive sleep apnea Glaucoma Chronic a-fib Right knee DJD Left knee DJD Type 2 diabetes mellitus with diabetic neuropathy, unspecified Venous stasis of both lower extremities BMI greater than 40 Degenerative joint disease of knee Vision abnormalities Diabetes 1.5, managed as type 2 Left knee pain Surgical History Surgical History History of skin graft History of arthroplasty of left knee Hx of cholecystectomy H/O cataract extraction History of foot surgery Family History Family History Mother Breast cancer Dementia Father Diabetes mellitus Malignant neoplasm of prostate Dementia Other Family history of malignant neoplasm Social History Social History Social History: the patient lives with his and they have no children. He is retired from [id number]. Code status full code Smoking status: Never smoker Alcohol intake: never Substance use: never Substance use type: does not use Lack of Transportation: No Lack of Food: Never True Current Housing: I Have Housing Concerned About Future Housing: Decline to Answer Difficulty Paying Gas/Electric Bills: Decline to Answer Difficulty Paying for Meds: Decline to Answer Currently Unemployed: Decline to Answer Education: Decline to Answer Difficulty w/ Childcare or Family Care: Decline to Answer Gender identity (if verbalized by the patient): Male Spiritual care concerns: No Exam Narrative: GENERAL: Morbidly obese but overall well-appearing and not in any acute distress, awake alert and cooperative. HEAD: Normocephalic EYES: [PERRLA and EOMI.] ENT: Nares clear, no rhinorrhea or epistaxis. Mucous membranes moist. NECK: Supple. CHEST: [Clear to auscultation. No respiratory distress.] HEART: [Regular rate and rhythm]. No murmur heard. [Normal peripheral pulses.] ABDOMEN: [Soft, nondistended], [nontender], [No rigidity or guarding] EXTREMITIES: Chronic deformities in bilateral lower extremities from Charcot deformity more so in the right leg. Range of motion at the hip and knee are intact with some pain reproducible with flexion at the knee. No obvious step- offs or deformities. Tenderness is reproducible along the anterior lateral right shoulder. Range of motion is restricted with abduction lifting over the head secondary to pain and arthritis. No crepitus or obvious overlying deformity SKIN: Warm, dry, no rash. NEURO: [No focal deficits]. Alert and oriented [x3.] PSYCH: [Normal mood and affect.] Course Vital Signs Vital signs: Vital Signs Temperature 36.5 C 03/12/25 22:15 Pulse Rate 81 03/12/25 22:15 Respiratory Rate 20 03/12/25 22:15 Blood Pressure 115/59 L 03/12/25 22:15 Pulse Oximetry 99 03/12/25 22:15 Oxygen Delivery Room Air 03/12/25 22:15 Temperature 36.5 C 03/12/25 22:15 Pulse Rate 62 03/13/25 01:39 Respiratory Rate 19 03/13/25 01:39 Blood Pressure 152/52 H 03/13/25 01:39 Pulse Oximetry 99 03/13/25 01:39 Oxygen Delivery Room Air 03/12/25 22:15 MDM - Fall MDM Narrative Medical decision making narrative: 69-year-old male with a past medical history including diabetes, hypertension, hyperlipidemia, muscle spasms, morbid obesity. He [facility] and has a [employer] lift for mobility. Patient was sitting in a recliner chair today when he slid out of it fell onto his right side. He states that he has pain in his right shoulder and right knee. Endorses acute on chronic back pain on the right side as well. Has been seen several times for similar musculoskeletal complaints previously. Most recently had orthopedic injection by Dr. Banuelos in his right shoulder with improvement in his arthritis pain. Patient has a history of Charcot foot arthropathy and chronic pain. No head trauma or loss of consciousness. He is mentating appropriately and is neurovascularly intact. Range of motion in the shoulders limited by pain but chronic in nature compared to previous notes. No visible signs of external trauma, deformity or injury. Received fentanyl EN route by EMS but is requesting Dilaudid by name. Chronic deformities in bilateral lower extremities from Charcot deformity more so in the right leg. Range of motion at the hip and knee are intact with some pain reproducible with flexion at the knee. No obvious step-offs or deformitie s. Tenderness is reproducible along the anterior lateral right shoulder. Range of motion is restricted with abduction lifting over the head secondary to pain and arthritis. No crepitus or obvious overlying deformity. Hemodynamically stable, not any acute distress. Injuries appear minor if evident at all as he is well-appearing. Patient provided Dilaudid for analgesia and x-rays of the right shoulder, pelvis and knee were obtained. Initial x-rays had some odd views requiring additional x-ray images to confirm that there is no fracture dislocation. Repeat x-rays were independently review ed with no malalignment. Confirmed by stat read Radiology without any acute fractures or dislocations in the shoulder. Pelvis x-ray with no findings. Knee x-ray without any acute osseous abnormality. Patient had pain controlled after initial pain medicine. Safe for discharge back to his skilled care facility at this time. Will follow-up with orthopedics. Medical Records Attestation: I reviewed the patient's medical records. Imaging Data Attestation: I personally reviewed and interpreted this imaging study as follows: My impression: No acute fractures or dislocations in the right shoulder. No pelvic anomalies or bony injuries. Discharge Plan Discharge Clinical Impression: Accidental fall from chair Patient Disposition: Home Condition: Stable Instructions: Antibiotic Form, Contusion in Adults (ED) Additional Instructions: Your x-rays do not show any fractures dislocations. No bony anomalies identified. Follow-up with your correctional program specialist for continued musculoskeletal pain control similar to recent shoulder injection. You are safe to return to your facility today. Patient Language: Chadian Prescriptions: No Action bimatoprost 0.01 % drops 1 drp EACH EYE DAILY (DME) insulin syringe-needle U-100 [BD Insulin Syringe Ultra-Fine] 1 mL 31 gauge x 5/16 syringe See Rx Instructions .Route Rx Instructions: As directed (DME) blood-glucose meter [[employer] Verio Flex meter] [facility] See Rx Instructions .Route Rx Instructions: As directed nystatin-triamcinolone 100,000-0.1 unit/g-% cream 1 applic topical TID Qty: 60 5RF metoprolol succinate 50 mg tablet extended release 24 hr 75 mg .ROUTE .COMPLEX Qty: 145 1RF Rx Instructions: Take 1 tab in the AM and 1/2 tab in the PM by oral route. Please D/C the Diltiazem spironolactone 25 mg tablet See Rx Instructions .ROUTE .COMPLEX Qty: 90 1RF Dose Instruction: Take 1 tablet by mouth twice daily Rx Instructions: Take 1 tablet by mouth once daily docusate sodium 100 mg capsule 100 mg PO BID PRN (Reason: Constipation) nystatin 100,000 unit/gram powder 1 applic topical TID Qty: 60 3RF acetaminophen 500 mg capsule 500 mg PO Q6H (DME) [facility] See Rx Instructions .Route Qty: 144 5RF Rx Instructions: As directed cephalexin 500 mg capsule 500 mg PO Q6H 7 Days Qty: 28 0RF methocarbamol 750 mg tablet 750 mg PO TID PRN (Reason: muscle pain) Qty: 10 0RF Adults Multivitamin 18 mg iron-400 mcg-25 mcg Tablet 1 tablet PO DAILY nystatin 100,000 unit/gram powder 1 applic topical BID Qty: 30 0RF diclofenac sodium 1 % gel 2 g topical QID Qty: 50 0RF Rx Instructions: apply to single elbow, wrist or hand; for hand includes palm/fingers/back of hand cholecalciferol (vitamin D3) 50 mcg (2,000 unit) capsule 50 mcg PO DAILY Qty: 30 2RF bumetanide 2 mg tablet 2 mg PO BID Qty: 180 0RF fluticasone propionate 220 mcg/actuation HFA aerosol inhaler 2 puff INHALATION Q12H Qty: 12 2RF losartan 25 mg tablet 25 mg PO DAILY brimonidine 0.2 % drops 1 drp EACH EYE Q12H Qty: 5 0RF dorzolamide-timolol 22.3-6.8 mg/mL drops 1 drp EACH EYE Q12H Qty: 10 0RF Rx Instructions: 30 day supply (DME) Wheelchair XL See Rx Instructions .Route .MEDSUPPLY Qty: 1 0RF Rx Instructions: As directed atorvastatin 40 mg tablet 40 mg PO DAILY Qty: 90 0RF tamsulosin 0.4 mg capsule See Rx Instructions .ROUTE .COMPLEX Qty: 90 1RF Dose Instruction: Take 1 capsule by mouth once daily Rx Instructions: Take 1 capsule by mouth once daily Eliquis 5 mg tablet 5 mg PO BID Qty: 180 2RF (DME) Electric Wheel Chair See Rx Instructions .Route .MEDSUPPLY Qty: 1 0RF Rx Instructions: Electric Wheel Chair for Indoor Use hydralazine 50 mg tablet 50 mg PO TID Qty: 90 4RF levothyroxine 112 mcg tablet See Rx Instructions .ROUTE .COMPLEX Qty: 30 2RF Dose Instruction: Take 1 tablet by mouth once daily Rx Instructions: Take 1 tablet by mouth once daily (DME) Dexcom G6 Sensor Device See Rx Instructions .Route Rx Instructions: As directed Humulin R U-500 (Conc) Insulin 500 unit/mL solution 350 unit subcut .via insulin pump QD (DME) lancets 33 gauge misc See Rx Instructions .Route Patient Comments: One Touch Delica Rx Instructions: As directed benzonatate 200 mg capsule 200 mg PO TID PRN (Reason: cough) Qty: 50 0RF potassium chloride 10 mEq capsule, extended release See Rx Instructions .ROUTE .COMPLEX Qty: 90 0RF Dose Instruction: Take 1 capsule by mouth once daily Rx Instructions: Take 1 capsule by mouth once daily famotidine 20 mg tablet See Rx Instructions .ROUTE .COMPLEX Qty: 90 0RF Dose Instruction: Take 1 tablet by mouth twice daily Rx Instructions: Take 1 tablet by mouth twice daily hydroxyzine HCl 25 mg tablet See Rx Instructions .ROUTE .COMPLEX Qty: 90 0RF Dose Instruction: TAKE 1 TABLET BY MOUTH 4 TIMES DAILY NEEDED FOR ITCHING Rx Instructions: TAKE 1 TABLET BY MOUTH 4 TIMES DAILY NEEDED FOR ITCHING gabapentin 100 mg capsule 100 mg PO TID Qty: 90 3RF lidocaine 4 % cream 1 applic topical QID PRN (Reason: pain) Qty: 119 0RF baclofen 15 mg tablet 15 mg PO TID Qty: 90 0RF tramadol 50 mg tablet 50 mg PO Q6H PRN (Reason: pain) Qty: 30 0RF Follow-up/Referrals: Felix Jones MD [Primary Care Provider] - Time of Disposition: 02:42
[2025-03-12] MEDS: HYDROmorphone HCL INJ (*CRX) 2 MG/ML VIAL 1 MG IV PUSH (23:43)
[2025-03-12 23:46] VITALS: BP 133/55; PULSE 81; RESP 15; O2SAT 99
[2025-03-13 01:39] VITALS: BP 152/52; PULSE 62; RESP 19; O2SAT 99
[2025-03-13] MEDS: IBUPROFEN IV 800 MG/200 ML 800 MG/200 ML BAG 400 MG IVPB (03:18)
[2025-03-13] MEDS: BACLOFEN 5 MG TABLET 15 MG PO (06:05)
[2025-03-13] MEDS: GABAPENTIN 100 MG CAPSULE PO (06:05)
[2025-03-13 07:10] VITALS: BP 149/77; PULSE 83; RESP 18; O2SAT 100
--- NOTE | 2025-03-13 07:15 | PC.NURSE ---
This RN went in to meet patient and do bedside report. Patient began yelling stating I cant sit in this bed any longer. Patient was informed of EMS ETA and he states I cant sit here that long. Im in pain. Patient informed that [facility] ETA was 0900 and that they were the only ambulance that takes patient back to private residence and he yelled Well you need to do better because I am in pain. Patient informed that he was just given pain medication and muscle relaxers. He began raising his voice again stating I need you to do more because I cannot sit here any longer. Patient informed that we have done all we can at this moment and patient was assisted to reposition. I informed patient I would update with any new information.
== END 2025-03-13 09:46 | disposition home or self-care (01) ==
PROVIDERS: Emergency Provider Student in an Organized Health Care Education/Training Program; PCP Internal Medicine
DX: M25.511 Pain in right shoulder (principal); M25.561 Pain in right knee; Z87.440 Personal history of urinary (tract) infections; D64.9 Anemia, unspecified; I10 Essential (primary) hypertension; E03.9 Hypothyroidism, unspecified; N40.0 Benign prostatic hyperplasia without lower urinary tract symptoms; G47.30 Sleep apnea, unspecified; I48.91 Unspecified atrial fibrillation; E11.9 Type 2 diabetes mellitus without complications; Z79.4 Long term (current) use of insulin; W07.XXXA Fall from chair, initial encounter
CPT/HCPCS: 72170; 73030; 73562; 82948; 96365; 96375; 99284; A9270; J1171; J1741

== ENCOUNTER 2025-03-28 01:31 | Inpatient (IN) | payer MEDICARE, SELFPAY ==
[2025-03-28] VITALS (7 sets, daily range): BP systolic 99–135; BP diastolic 47–89; PULSE 95–106; RESP 15–22; TEMP 36.2–36.9; O2SAT 95–99; BMI 44.6
--- NOTE | ~2025-03-28 | XR_ITS ---
CHEST RADIOGRAPH CLINICAL HISTORY: r/o Pneumonia . COMPARISON: 11/06/2024 TECHNIQUE: Single portable view of the chest. FINDINGS The cardiomediastinal silhouette is unremarkable. The lungs are clear. IMPRESSION: No focal infiltrate or effusion. Reviewed, dictated and finalized at location A.
--- NOTE | 2025-03-28 02:38 | ED_ITS ---
HPI - General Adult General Chief complaint: Unspecified Stated complaint: Pain/possible UTI/Wants new placement Time Seen by Provider: 03/28/25 02:16 Source: patient and RN notes reviewed Mode of arrival: EMS History of Present Illness HPI narrative: Patient presents with report of pain, initially described as at his urethra with indwelling Hernandez catheter but also denotes pain or R scrotum , shoulder pain, and generalized pain everywhere. concern for UTI by facility, patient. Hernandez had just been changed out but it does not seem currently being treated for a UTI. RN to RN report had noted he had been refusing meds and more confused. Denies hematuria. Patient complaining of a fork being in his bed. A remote from facility had been found in bed. No other objects identified upon moving patient/rolling patient. Related Data Home Medications ?Medication ?Instructions ?Recorded ?Confirmed ?Last Taken ?Type blood-glucose meter (OneTouch 05/25/23 03/28/25 Unknown History Verio Flex Meter) insulin syringe-needle U-100 1 mL 05/25/23 03/28/25 Unknown History 31 gauge x 5/16 (BD Insulin Syringe Ultra-Fine) docusate sodium 100 mg capsule 100 mg PO BID PRN Constipation 10/28/23 03/28/25 Unknown History losartan 25 mg tablet 25 mg PO DAILY 10/29/23 03/28/25 Unknown History blood-glucose sensor (Dexcom G6 06/08/24 03/28/25 Unknown History Sensor device) insulin regular hum U-500 conc 500 350 unit subcut .via insulin pump 06/08/24 03/28/25 Unknown History unit/mL subcutaneous soln (Humulin QD R U-500 (Concentrated) Insulin) lancets 33 gauge 06/08/24 03/28/25 Unknown History acetaminophen 500 mg capsule 1,000 mg PO Q6H PRN mild pain 02/20/25 03/28/25 03/26/25 05:25 History (scale score 1-4) apixaban 5 mg tablet (Eliquis) 5 mg PO Q12H 03/28/25 03/28/25 03/27/25 History baclofen 15 mg tablet 15 mg PO DAILY 03/28/25 03/28/25 03/28/25 History bisacodyl 5 mg tablet,delayed 5 mg PO BID PRN constipation 03/28/25 03/28/25 Unknown History release bumetanide 2 mg tablet 2 mg PO DAILY 03/28/25 03/28/25 03/27/25 History calcium carbonate (Antacid 400 mg PO TID PRN dyspepsia 03/28/25 03/28/25 Unknown History (calcium carbonate)) gabapentin 100 mg capsule 300 mg PO TID 03/28/25 03/28/25 Unknown History hydrocodone 5 mg-acetaminophen 325 1 tablet PO Q6H PRN pain (scale 03/28/25 03/28/25 Unknown History mg tablet score 4-6) hydroxyzine HCl 25 mg tablet 25 mg PO Q6H PRN itching, anxiety 03/28/25 03/28/25 Unknown History insulin glargine 100 unit/mL (3 13 unit subcut BID 03/28/25 03/28/25 Unknown History mL) subcutaneous pen (Lantus Solostar U-100 Insulin) insulin regular human 100 unit/mL 20 unit subcut TIDWM 03/28/25 03/28/25 Unknown History injection solution (Humulin R Regular U-100 Insulin) metoprolol succinate 50 mg 50 mg PO DAILY 03/28/25 03/28/25 Unknown History tablet,extended release 24 hr olanzapine 15 mg tablet 15 mg PO DAILY 03/28/25 03/28/25 Unknown History polyethylene glycol 3350 17 17 g PO DAILY PRN constipation 03/28/25 03/28/25 Unknown History gram/dose oral powder (ClearLax) spironolactone 25 mg tablet 50 mg PO DAILY 03/28/25 03/28/25 Unknown History tirzepatide 5 mg/0.5 mL 2.5 mg subcut WEEKLY 03/28/25 03/28/25 03/23/25 History subcutaneous pen injector (Mounjaro) Allergies Allergy/AdvReac Type Severity Reaction Status Date / Time metformin Allergy Mild Rash Verified 03/28/25 11:55 [facility] Past Medical History Medical History Right shoulder pain Muscle spasm UTI (urinary tract infection) Prostate cancer screening Encounter for routine adult health examination without abnormal findings Iron deficiency anemia Unsteady gait Venous stasis Follow up Chronic cough Vitamin D deficiency Encounter for Medicare annual wellness exam Hypokalemia Impaired functional mobility, balance, gait, and endurance Epistaxis DJD (degenerative joint disease), multiple sites Morbid obesity DJD (degenerative joint disease) Lymphedema Mild reactive airways disease PVD (peripheral vascular disease) Pedal edema Rash Essential hypertension Hypothyroidism (acquired) Decubitus ulcer Hypersomnolence Encounter to establish care 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 Postoperative wound dehiscence Pain due to internal orthopedic prosthetic devices, implants and grafts, initial encounter (08/26/17) Non-pressure chronic ulcer of other part of right foot limited to breakdown of skin Right foot pain Other chronic pain Fungal infection right foot Obesity, morbid, BMI 40.0-49.9 Occult blood in stools Acute on chronic anemia Chronic anemia Hyperlipidemia Pneumonia BPH (benign prostatic hyperplasia) Obstructive sleep apnea Glaucoma Chronic a-fib Right knee DJD Left knee DJD Type 2 diabetes mellitus with diabetic neuropathy, unspecified Venous stasis of both lower extremities BMI greater than 40 Degenerative joint disease of knee Vision abnormalities Diabetes 1.5, managed as type 2 Left knee pain Surgical History Surgical History History of skin graft History of arthroplasty of left knee Hx of cholecystectomy H/O cataract extraction History of foot surgery Family History Family History Mother Breast cancer Dementia Father Diabetes mellitus Malignant neoplasm of prostate Dementia Other Family history of malignant neoplasm Social History Social History (Updated 04/02/25 @ 06:19 by Guerline Ricci MD) Social History: the patient previously lived with his and they have no children. He is retired from [employer]. Code status full code Smoking packs per day: 2.5 Smoking cigarettes per day: 50.0 Years smoked: 10 Smoking pack-years: 25.00 Smoking status: Former smoker Alcohol intake: never Substance use: never Substance use type: does not use Lack of Transportation: No Lack of Food: Never True Current Housing: I Have Housing Concerned About Future Housing: No Difficulty Paying Gas/Electric Bills: No Difficulty Paying for Meds: No Currently Unemployed: No Education: Decline to Answer Difficulty w/ Childcare or Family Care: Decline to Answer Additional living arrangements comments: [facility] [place] Occupation/Education: retired Gender identity (if verbalized by the patient): Male Spiritual care concerns: No Exam 2 Narrative: GENERAL: well-nourished, and in no acute distress. HEAD: Normocephalic, atraumatic. EYES: Non injected, non icteric ENT: Nares clear, no rhinorrhea or epistaxis. Gross auditory acuity intact. NECK: Supple. No meningismus. CHEST: Speaking in full sentences. No respiratory distress. HEART: Tachycardic rate and rhythm. . ABDOMEN: Obese but Soft, nondistended. No rigidity or guarding. Not peritoneal : Hernandez draining yellow urine. Erythema and some skin breakdown with cream applied to right hemiscrotum and inguinal crease. SKIN: Warm, dry, no rash. NEURO: No focal deficits. Alert . Answering questions. Following commands. Normal speech without aphasia or dysarthria. PSYCH: Congruent mood and affect. Frequently yelling. Course Vital Signs Vital signs: Vital Signs Temperature 97.2 F L 03/28/25 01:33 Pulse Rate 104 H 03/28/25 01:33 Respiratory Rate 16 03/28/25 01:33 Blood Pressure 99/58 L 03/28/25 01:33 Pulse Oximetry 97 03/28/25 01:33 Oxygen Delivery Room Air 03/28/25 01:33 Temperature 97.8 F 04/01/25 06:00 Pulse Rate 70 04/01/25 22:00 Respiratory Rate 18 04/01/25 22:00 Blood Pressure 126/66 04/01/25 22:00 Pulse Oximetry 99 04/01/25 22:00 Oxygen Delivery Room Air 04/01/25 08:05 Fraction of Inspired Oxygen 21 04/01/25 08:05 Medical Decision Making [facility] Narrative Medical decision making narrative: 69 yo brought to ED with increasing confusion. Concern for UTI. He is commenting on objects being in the bed that aren't there (although other objects are found such as remote). In the emergency department he is afebrile with vital signs notable for mild tachycardia and hypotension. 1 L IV fluids ordered. Initially mean arterial pressure is greater than 70. Patient asking diclofenac as he states he received that last time, 2 doses and that helped tremendously. Will defer this at present will pursue rest of workup. In the interim will give fentanyl and pyridium. Lactic acid normal. Normocytic anemia, stable from previous. Hyperglycemia is without anion gap or acidosis. Does appear to have urinary tract infection. His catheter had just been changed the day prior. Previous urine culture 03/07 grew Proteus mirabilis that was resistant to to Bactrim, tetracycline, nitrofurantoin, ciprofloxacin, and ampicillin but otherwise sensitive to the others tested. GIven his confusion, will admit. Patient given combination of other analgesics and remains stable for the floor. Vital Signs Vital Signs: Vital Signs Temperature 97.2 F L 03/28/25 01:33 Pulse Rate 104 H 03/28/25 01:33 Respiratory Rate 16 03/28/25 01:33 Blood Pressure 99/58 L 03/28/25 01:33 Pulse Oximetry 97 03/28/25 01:33 Oxygen Delivery Room Air 03/28/25 01:33 Temperature 97.8 F 04/01/25 06:00 Pulse Rate 70 04/01/25 22:00 Respiratory Rate 18 04/01/25 22:00 Blood Pressure 126/66 04/01/25 22:00 Pulse Oximetry 99 04/01/25 22:00 Oxygen Delivery Room Air 04/01/25 08:05 Fraction of Inspired Oxygen 21 04/01/25 08:05 Lab Data Lab results reviewed: Yes I reviewed the patient's lab results. 04/01/25 06:18 04/01/25 06:18 Labs: Lab Results 03/28/25 03/28/25 03/28/25 Range/Units 02:42 02:47 02:48 WBC 8.5 (4.5-10.0) K/mm3 RBC 3.27 L (4.6-6.20) M/mm3 Hgb 9.3 L (14.0-18.0) g/dL Hct 29.0 L (42.0-52.0) % MCV 88.7 (80-100) fl MCH 28.4 (26-34) pg MCHC 32.1 (32-36) g/dl RDW 16.6 H (11.5-14.5) % Plt Count 198 (150-375) k/mm3 MPV 10.0 (7.4-10.4) fl Immature Gran % (Auto) 0.6 H (0-0.5) % Neut % (Auto) 71.1 (45.5-73.1) % Lymph % (Auto) 18.7 (18.3-44.2) % [place] % (Auto) 4.5 (2.6-8.5) % Eos % (Auto) 4.7 H (0-4.4) % Baso % (Auto) 0.4 (0.2-1.2) % Lymph # (Auto) 1.59 (0.9-3.2) K/mm3 [place] # (Auto) 0.4 (0.1-0.6) K/mm3 Eos # (Auto) 0.4 H (0-0.3) K/mm3 Baso # (Auto) 0.0 (0.0-0.1) K/mm3 Abs Immat Gran (auto) 0.05 H (0.00-0.031) K/mm3 Absolute Neuts (auto) 6.0 (1.3-6.7) K/mm3 Absolute Nucleated RBC 0.000 (0.0-0.012) K/mm3 Nucleated RBC % 0.0 (0.0-0.2) % Sodium 130 L (137-145) mmol/L Potassium 4.1 (3.4-5.0) mmol/L Chloride 94 L (98-107) mmol/L Carbon Dioxide 27 (22-30) mmol/L Anion Gap 9 (4-12) mmol/L BUN 24 H (9-20) mg/dL Creatinine 1.03 (0.7-1.3) mg/dL Estim Creat Clear Calc 93 ml/min Estimated GFR > 60 (59 - ) Glucose 255 H (65-110) mg/dL POC Capillary Glucose 241 H (65-105) mg/dl Lactic Acid 1.8 (0.7-2.0) mmol/L Calcium 9.2 (8.4-10.2) mg/dL Magnesium (1.6-2.3) mg/dL Iron (49-181) ug/dL TIBC (265-497) ug/dL % Saturation (20-50) % Ferritin (11.1-264) ng/mL Total Bilirubin 0.6 (0.2-1.3) mg/dL AST 26 (17-59) U/L ALT 19 (6-50) U/L Alkaline Phosphatase 95 (38-126) U/L Total Protein 7.7 (6.3-8.2) g/dL Albumin 3.8 (3.5-5.1) g/dL Beta-Hydroxybutyrate/Acetoacetate 0.28 H (0.02-0.27) mmol/L Urine Color (Yellow) Urine Appearance (Clear) Urine pH (5.0-9.0) Ur Specific [place] (1.001-1.035) Urine Protein (Negative) mg/dL Urine Glucose (UA) (Negative) mg/dL Urine Ketones (Negative) mg/dL Ur Blood (Man) (Negative) Urine Nitrate (Negative) Urine Bilirubin (Negative) Urine Urobilinogen (<2.0) mg/dL Leukocyte Esterase Rfl (Negative) ZAIDA/UL Urine RBC (0-2) /hpf Urine WBC (0-3) /hpf Ur Squamous Epith Cells (Few) /hpf Urine Bacteria /hpf Urine Casts 03/28/25 03/28/25 03/28/25 Range/Units 04:21 08:14 10:11 WBC (4.5-10.0) K/mm3 RBC (4.6-6.20) M/mm3 Hgb (14.0-18.0) g/dL Hct (42.0-52.0) % MCV (80-100) fl MCH (26-34) pg MCHC (32-36) g/dl RDW (11.5-14.5) % Plt Count (150-375) k/mm3 MPV (7.4-10.4) fl Immature Gran % (Auto) (0-0.5) % Neut % (Auto) (45.5-73.1) % Lymph % (Auto) (18.3-44.2) % [place] % (Auto) (2.6-8.5) % Eos % (Auto) (0-4.4) % Baso % (Auto) (0.2-1.2) % Lymph # (Auto) (0.9-3.2) K/mm3 [place] # (Auto) (0.1-0.6) K/mm3 Eos # (Auto) (0-0.3) K/mm3 Baso # (Auto) (0.0-0.1) K/mm3 Abs Immat Gran (auto) (0.00-0.031) K/mm3 Absolute Neuts (auto) (1.3-6.7) K/mm3 Absolute Nucleated RBC (0.0-0.012) K/mm3 Nucleated RBC % (0.0-0.2) % Sodium (137-145) mmol/L Potassium (3.4-5.0) mmol/L Chloride (98-107) mmol/L Carbon Dioxide (22-30) mmol/L Anion Gap (4-12) mmol/L BUN (9-20) mg/dL Creatinine (0.7-1.3) mg/dL Estim Creat Clear Calc ml/min Estimated GFR (59 - ) Glucose (65-110) mg/dL POC Capillary Glucose 252 H (65-105) mg/dl Lactic Acid (0.7-2.0) mmol/L Calcium (8.4-10.2) mg/dL Magnesium (1.6-2.3) mg/dL Iron 37 L (49-181) ug/dL TIBC 273 (265-497) ug/dL % Saturation 14 L (20-50) % Ferritin 58.60 (11.1-264) ng/mL Total Bilirubin (0.2-1.3) mg/dL AST (17-59) U/L ALT (6-50) U/L Alkaline Phosphatase (38-126) U/L Total Protein (6.3-8.2) g/dL Albumin (3.5-5.1) g/dL Beta-Hydroxybutyrate/Acetoacetate (0.02-0.27) mmol/L Urine Color Yellow (Yellow) Urine Appearance Cloudy H (Clear) Urine pH 7.0 (5.0-9.0) Ur Specific [place] 1.019 (1.001-1.035) Urine Protein Trace (Negative) mg/dL Urine Glucose (UA) Negative (Negative) mg/dL Urine Ketones Trace H (Negative) mg/dL Ur Blood (Man) 2+ H (Negative) Urine Nitrate Negative (Negative) Urine Bilirubin Negative (Negative) Urine Urobilinogen 1.0 (<2.0) mg/dL Leukocyte Esterase Rfl 3+ H (Negative) ZAIDA/UL Urine RBC 21-50 H (0-2) /hpf Urine WBC >100 H (0-3) /hpf Ur Squamous Epith Cells None seen (Few) /hpf Urine Bacteria 4+ H /hpf Urine Casts 0-2 03/28/25 03/28/25 03/28/25 Range/Units 11:36 16:45 19:21 WBC (4.5-10.0) K/mm3 RBC (4.6-6.20) M/mm3 Hgb (14.0-18.0) g/dL Hct (42.0-52.0) % MCV (80-100) fl MCH (26-34) pg MCHC (32-36) g/dl RDW (11.5-14.5) % Plt Count (150-375) k/mm3 MPV (7.4-10.4) fl Immature Gran % (Auto) (0-0.5) % Neut % (Auto) (45.5-73.1) % Lymph % (Auto) (18.3-44.2) % [place] % (Auto) (2.6-8.5) % Eos % (Auto) (0-4.4) % Baso % (Auto) (0.2-1.2) % Lymph # (Auto) (0.9-3.2) K/mm3 [place] # (Auto) (0.1-0.6) K/mm3 Eos # (Auto) (0-0.3) K/mm3 Baso # (Auto) (0.0-0.1) K/mm3 Abs Immat Gran (auto) (0.00-0.031) K/mm3 Absolute Neuts (auto) (1.3-6.7) K/mm3 Absolute Nucleated RBC (0.0-0.012) K/mm3 Nucleated RBC % (0.0-0.2) % Sodium (137-145) mmol/L Potassium (3.4-5.0) mmol/L Chloride (98-107) mmol/L Carbon Dioxide (22-30) mmol/L Anion Gap (4-12) mmol/L BUN (9-20) mg/dL Creatinine (0.7-1.3) mg/dL Estim Creat Clear Calc ml/min Estimated GFR (59 - ) Glucose (65-110) mg/dL POC Capillary Glucose 226 H 254 H 273 H (65-105) mg/dl Lactic Acid (0.7-2.0) mmol/L Calcium (8.4-10.2) mg/dL Magnesium (1.6-2.3) mg/dL Iron (49-181) ug/dL TIBC (265-497) ug/dL % Saturation (20-50) % Ferritin (11.1-264) ng/mL Total Bilirubin (0.2-1.3) mg/dL AST (17-59) U/L ALT (6-50) U/L Alkaline Phosphatase (38-126) U/L Total Protein (6.3-8.2) g/dL Albumin (3.5-5.1) g/dL Beta-Hydroxybutyrate/Acetoacetate (0.02-0.27) mmol/L Urine Color (Yellow) Urine Appearance (Clear) Urine pH (5.0-9.0) Ur Specific [place] (1.001-1.035) Urine Protein (Negative) mg/dL Urine Glucose (UA) (Negative) mg/dL Urine Ketones (Negative) mg/dL Ur Blood (Man) (Negative) Urine Nitrate (Negative) Urine Bilirubin (Negative) Urine Urobilinogen (<2.0) mg/dL Leukocyte Esterase Rfl (Negative) ZAIDA/UL Urine RBC (0-2) /hpf Urine WBC (0-3) /hpf Ur Squamous Epith Cells (Few) /hpf Urine Bacteria /hpf Urine Casts 03/29/25 03/29/25 Range/Units 06:02 07:42 WBC 5.8 (4.5-10.0) K/mm3 RBC 3.12 L (4.6-6.20) M/mm3 Hgb 8.8 L (14.0-18.0) g/dL Hct 28.9 L (42.0-52.0) % MCV 92.6 (80-100) fl MCH 28.2 (26-34) pg MCHC 30.4 L (32-36) g/dl RDW 16.8 H (11.5-14.5) % Plt Count 181 (150-375) k/mm3 MPV 10.7 H (7.4-10.4) fl Immature Gran % (Auto) 0.5 (0-0.5) % Neut % (Auto) 70.8 (45.5-73.1) % Lymph % (Auto) 15.3 L (18.3-44.2) % [place] % (Auto) 6.7 (2.6-8.5) % Eos % (Auto) 6.4 H (0-4.4) % Baso % (Auto) 0.3 (0.2-1.2) % Lymph # (Auto) 0.89 L (0.9-3.2) K/mm3 [place] # (Auto) 0.4 (0.1-0.6) K/mm3 Eos # (Auto) 0.4 H (0-0.3) K/mm3 Baso # (Auto) 0.0 (0.0-0.1) K/mm3 Abs Immat Gran (auto) 0.03 (0.00-0.031) K/mm3 Absolute Neuts (auto) 4.1 (1.3-6.7) K/mm3 Absolute Nucleated RBC 0.000 (0.0-0.012) K/mm3 Nucleated RBC % 0.0 (0.0-0.2) % Sodium 133 L (137-145) mmol/L Potassium 4.2 (3.4-5.0) mmol/L Chloride 97 L (98-107) mmol/L Carbon Dioxide 29 (22-30) mmol/L Anion Gap 7 (4-12) mmol/L BUN 19 (9-20) mg/dL Creatinine 0.84 (0.7-1.3) mg/dL Estim Creat Clear Calc 112 ml/min Estimated GFR > 60 (59 - ) Glucose 228 H (65-110) mg/dL POC Capillary Glucose 206 H (65-105) mg/dl Lactic Acid 1.3 (0.7-2.0) mmol/L Calcium 9.1 (8.4-10.2) mg/dL Magnesium 1.7 (1.6-2.3) mg/dL Iron (49-181) ug/dL TIBC (265-497) ug/dL % Saturation (20-50) % Ferritin (11.1-264) ng/mL Total Bilirubin 0.7 (0.2-1.3) mg/dL AST 26 (17-59) U/L ALT 15 (6-50) U/L Alkaline Phosphatase 84 (38-126) U/L Total Protein 7.5 (6.3-8.2) g/dL Albumin 3.6 (3.5-5.1) g/dL Beta-Hydroxybutyrate/Acetoacetate (0.02-0.27) mmol/L Urine Color (Yellow) Urine Appearance (Clear) Urine pH (5.0-9.0) Ur Specific [place] (1.001-1.035) Urine Protein (Negative) mg/dL Urine Glucose (UA) (Negative) mg/dL Urine Ketones (Negative) mg/dL Ur Blood (Man) (Negative) Urine Nitrate (Negative) Urine Bilirubin (Negative) Urine Urobilinogen (<2.0) mg/dL Leukocyte Esterase Rfl (Negative) ZAIDA/UL Urine RBC (0-2) /hpf Urine WBC (0-3) /hpf Ur Squamous Epith Cells (Few) /hpf Urine Bacteria /hpf Urine Casts Discharge Plan Discharge Clinical Impression: Urethritis, Irritation of scrotum, Normocytic anemia, Chronic pain, Hyperglycemia due to diabetes mellitus, Urinary tract infection associated with indwelling urethral catheter Patient Disposition: Still a Patient Condition: Stable Time of Disposition: 06:22
[2025-03-28] MEDS: SODIUM CHLORIDE 0.9% IV 1,000 ML 999 ML IV CONT ×2 (02:42→05:53)
--- OUTSIDE RECORDS SUMMARY | 2025-03-28 02:43 | XMS_ITS | Encounter Summary ---
Author Organization [facility] Address [address] [place] [id number] Care Team Providers Care Watchmaker Apprentice Name Role Phone Bri Mcclain MD Primary Care Provider [phone] Bri Mcclain MD Primary Care Provider + [phone] Bri Mcclain MD Unavailable [phone] Regina Liu RN Unavailable [phone] Lencho Lopes MD Unavailable [phone] Abraham Dwyer DO Unavailable Sakina Zamarripa STYRENE DEHYDRATION REACTOR OPERATOR Unavailable Mindy Barragan STYRENE DEHYDRATION REACTOR OPERATOR Unavailable [phone] Kayla Judd RN Unavailable [phone] Kayla Judd RN Unavailable [phone] Mark Pierre MD Primary Care Provider [phone] None, Provider Primary Care Provider Unavaila ble Reason for Visit * Reason Onset Date Comments Follow Up Call 11/28/2020 Encounter Details Date Type Department Care Team (Late st Contact Info) Description 11/28/2020 Telephone [facility] Med/Surg [address] [place] [address] Alida Becker, RN Follow Up Call Social History Tobacco [...] often do you attend chur ch or zoroastrian services? Patient declined 11/15/2020 Do you belong to any clubs o r organizations such as congregational groups, unions, fraternal or athletic groups, or [...] move on to questions 3-9 0 05/15/2020 [facility] [place] of Occupat ional Health - Occupational Stress [...] Sex Assigned at Male 09/22/2024 5:17 PM TUBE FILLER Legal Sex Male 6:34 PM CDT Gender [...] Author Status No 11/27/2020 10:13 AM CDT lAida Becker RN Active documented in this encounter [...] C. difficile 12/31/2020 12/31/2020 07/09/2021 3:59 PM TUBE FILLER COVID-19 Rule Out 08/05/2021 08/06/2021 08/06/2021 11:00 AM TUBE FILLER COVID-19 Rule Out 08/22/2021 08/22/2021 08/22/2021 10:37 AM TUBE FILLER COVID-19 Rule Out 09/05/2021 09/05/2021 09/05/2021 7:59 AM TUBE FILLER COVID-19 Confirmed Comment:In collaboration with Dr. Goodwin patient cleared from COVID-19 isolation per [facility] guidelines ([place]) 09/05/2021 09/05/2021 09/16/2021 10:57 AM TUBE FILLER documented as of this encounter Care Teams Watchmaker Apprentice Relationship Specialty Start Date End Date Bri Mcclain MD PCP - General INTERNAL MEDICINE 06/08/18 12/30/20 Bri Mcclain MD PCP - General INTERNAL MEDICINE 12/31/20 10/12/22 [place] [address] [place] [address] PCP - General FAMILY PRACTICE 10/13/22 05/25/23 None, MD Shay PCP - General UNKNOWN PHYSICIAN SPECIALTY 09/22/24 Bri Mcclain MD INTERNAL MEDICINE 12/31/20 Regina Liu, RN [address] [place], [place] [id number] [facility] (Ambulatory) REGISTERED NURSE 07/08/21 11/17/21 Lencho Lopes MD [address] , [facility] [address] [address] Physician INTERVENTIONAL CARDIOLOGY 08/07/21 Abraham Dwyer DO [address], [place] [address] [id number] Consulting Physician INTERNAL MEDICINE 09/17/21 2 Sakina Zamarripa NP [address], [place] [address] [place], [place] [id number] Nurse Practitioner Nurse Practitioner Family 09/17/21 01/04/22 Mindy Barragan NP [address] [facility] [address] [place] [address] Nurse Practitioner NURSE PRACTITIONER 09/17/21 01/04/22 Kayla Judd RN [address] [place], [place] [id number] [place] [facility] (Ambulatory) REGISTERED NURSE 11/10/21 11/17/21 Kayla Judd RN [address] [place] [address] [place] [facility] (Ambulatory) REGISTERED NURSE 11/18/21 01/28/22 documented as of this encounter
--- OUTSIDE RECORDS SUMMARY | 2025-03-28 02:43 | XMS_ITS | Encounter Summary ---
Author Organization [facility] Address [address] [place] [address] Care Team Providers Care Manager Research Development Name Role Phone Bri Mcclain MD Primary Care Provider + [phone] Bri Mcclain MD Primary Care Provider [phone] Bri Mcclain MD Unavailable [phone] Regina Liu RN Unavailable [phone] Lencho Lopes MD Unavailable [phone] Abraham Dwyer DO Unavailable Sakina Zamarripa MEDICAL EDUCATOR Unavailable Mindy Barragan MEDICAL EDUCATOR Unavailable [phone] Kayla Judd RN Unavailable [phone] Kayla Judd RN Unavailable [phone] Mark Pierre MD Primary Care Provider [phone] None, Provider Primary Care Provider Unavaila ble Encounter Details Date Type Department Care Team (Late st Contact Info) Description 06/26/2017 Abstract [place] [address] , Generic Conversion, Social History Tobacco Use Types Packs/Day Years Used Date Smoking Tobacco: Never Assessed Sex and Gender Information Value Date Recorded Sex Assigned at Male 09/22/2024 5:17 PM BODY SHOP MECHANIC Legal Sex Male 6:34 PM CDT [...] C. difficile 12/31/2020 12/31/2020 07/09/2021 3:59 PM BODY SHOP MECHANIC COVID-19 Rule Out 08/05/2021 08/06/2021 08/06/2021 11:00 AM BODY SHOP MECHANIC COVID-19 Rule Out 08/22/2021 08/22/2021 08/22/2021 10:37 AM BODY SHOP MECHANIC COVID-19 Rule Out 09/05/2021 09/05/2021 09/05/2021 7:59 AM BODY SHOP MECHANIC COVID-19 Confirmed Comment:In collaboration with Dr. Goodwin patient cleared from COVID-19 isolation per [facility] guidelines ([place]) 09/05/2021 09/05/2021 09/16/2021 10:57 AM BODY SHOP MECHANIC documented as of this encounter Care Teams Manager Research Development Relationship Specialty Start Date End Date Bri Mcclain MD PCP - General INTERNAL MEDICINE 06/08/18 12/30/20 Bri Mcclain MD PCP - General INTERNAL MEDICINE 12/31/20 10/12/22 [place] [address] [place] [address] PCP - General FAMILY PRACTICE 10/13/22 05/25/23 None, Shay, PCP - General UNKNOWN PHYSICIAN SPECIALTY 09/22/24 Bri Mcclain MD INTERNAL MEDICINE 12/31/20 Regina Liu RN [address] [place], [place] [id number] Fire [employer] [facility] (Ambulatory) REGISTERED NURSE 07/08/21 11/17/21 Lencho Lopes MD [address], [place] [address] [phone] Physician INTERVENTIONAL CARDIOLOGY 08/07/21 Abraham Dwyer DO [address], [place] [address] [place] [address] [phone] Consulting Physician INTERNAL MEDICINE 09/17/21 2 Sakina Zamarripa NP [address], [place] [address] [place] [id number] Nurse Practitioner Nurse Practitioner Family 09/17/21 01/04/22 Mindy Barragan NP [address], [place] [address] [place] [address] [phone] Nurse Practitioner NURSE PRACTITIONER 09/17/21 01/04/22 Kayla Judd RN [address] [place], [place] [phone] [employer] [facility] (Ambulatory) REGISTERED NURSE 11/10/21 11/17/21 Kayla Judd RN [address] [place], [place] [phone] [employer] [facility] (Ambulatory) REGISTERED NURSE 11/18/21 01/28/22 documented as of this encounter
--- OUTSIDE RECORDS SUMMARY | 2025-03-28 02:43 | XMS_ITS | Continuity of Care Document ---
Author Organization [facility] Address [address] [place] [address] [address] [place] [address] Phone Care Team Providers Care Center Manager Name Role Phone July De Los Santos [...] Copied on Encounter Office/outpat ient Visit, Est [facility], [address] [place] [address] [address], [place], [place], [address], [place] tel:[phone] [facility] No Information 2-201 0 Magali Corrales [address] , [address], [place], [address], [place]. tel:[phone] [facility], [address], [place], [place], [address], [place] tel:[phone] [facility] No Information Ricco-0 1-201 0 Magail Corrales [address] , [address], [place], [place], [facility], [place]. tel:[phone] [facility], [address], [place], [place], [address], [place] tel:[phone] [facility] No Information December-0 4-201 0 Magali Corrales [address] , [address], [place], [place], [facility], [place]. tel:[phone] [facility], [address], [place], [place], [address], [place] tel:[phone] [facility] No Information 7-201 0 Magali Corrales [address] , [address], [place], [place], [facility], . tel:[phone] Office/outpat ient Visit, [facility], [address] [place] [address] [address], [place], [place], [address], [place] tel:[phone] [facility] No Information 6-201 0 Magali Corrales [address] , [address], [place], [place], [facility], [place]. tel:[phone] [facility], [address], [place], [place], [address], [place] tel:[phone] [facility] No Information 6-200 9 Magali Corrales [address] , [address], [place], [place], [facility], [place]. tel:[phone] Referring Provider: July Shane, [address], [place], [facility]. tel:[phone] Office/outpat ient Visit, [facility], [address] [place] [address] [address], [place], [place], [address], [place] tel:[phone] [facility] No Information 9 Magali Mcdowell. [address], [place], [facility], . tel:[phone] Referring Provider: July Shane, [address], [place], [facility]. tel:[phone] Office/outpat ient Visit, [facility], [address] [place] [address] [address], [place], [place], [address], [place] tel:[phone] [facility] No Information 6 8 Magali Mcdowell. [address], [place], [facility], [place]. tel:[phone] [facility], [address], [place], [place], [address], [place] tel:[phone] [place] [address] No Information 8 Magali Mcdowell. [address] , [address], [place], [facility], [place]. tel:[phone] Referring Provider: July Shane, [address], [place], [facility]. tel:[phone] Office/outpat ient Visit, [facility], [address] [place] [address] [address], [place], [place], [address], [place] tel:[phone] [place] [address] No Information 200 7 Magali Mcdowell. [address], [place], [facility], [place]. tel:[phone] Referring Provider: July Shane, [address], [place], [facility]. tel:[phone] Office/outpat ient Visit, [facility], [address], [place], [place], [address], [place] tel:[phone] [facility] No Information 7 Magali Pradon. [address] , [address], [place], [address], [place]. tel:[phone] Family History Family Member Type Diagnosis Age At Onset No Information Payers Payer name Insurance type Covered republican ID Authorfranky tapia(s) [facility] CI [id number] Social History Type Description Quantity Date Captured [...]
--- OUTSIDE RECORDS SUMMARY | 2025-03-28 02:43 | XMS_ITS | Encounter Summary ---
Author Organization [facility] Address [address] [place] [address] Care Team Providers Care Kitchen Assistant Name Role Phone Bri Mcclain MD Primary Care Provider + [phone] Bri Mcclain MD Primary Care Provider + [phone] Bri Mcclain MD Unavailable [phone] Regina Liu RN Unavailable [phone] Lencho Lopes MD Unavailable [phone] Abraham Dwyer DO Unavailable Sakina Zamarripa VARSITY BASEBALL COACH Unavailable Mindy Barragan VARSITY BASEBALL COACH Unavailable [phone] Kayla Judd RN Unavailable [phone] Kayla Judd RN Unavailable [phone] Mark Pierre MD Primary Care Provider [phone] None, Provider MD Primary Care Provider Unavaila ble Encounter Details Date Type Department Care Team (Late st Contact Info) Description 02/16/2014 Abstract [facility] CONVERSION [address] [place] [address] , Generic Conversion, Social History Tobacco Use Types Packs/Day Years Used Date Smoking Tobacco: Never Assessed Sex and Gender Information Value Date Recorded Sex Assigned at Male 09/22/2024 5:17 PM SHEET METAL SHOP SUPERVISOR Legal Sex Male 6:34 PM CDT Gender [...] C. difficile 12/31/2020 12/31/2020 07/09/2021 3:59 PM SHEET METAL SHOP SUPERVISOR COVID-19 Rule Out 08/05/2021 08/06/2021 08/06/2021 11:00 AM SHEET METAL SHOP SUPERVISOR COVID-19 Rule Out 08/22/2021 08/22/2021 08/22/2021 10:37 AM SHEET METAL SHOP SUPERVISOR COVID-19 Rule Out 09/05/2021 09/05/2021 09/05/2021 7:59 AM SHEET METAL SHOP SUPERVISOR COVID-19 Confirmed Comment:In collaboration with Dr. Goodwin patient cleared from COVID-19 isolation per [facility] guidelines (SB) 09/05/2021 09/05/2021 09/16/2021 10:57 AM SHEET METAL SHOP SUPERVISOR documented as of this encounter Care Teams Kitchen Assistant Relationship Specialty Start Date End Date Bri Mcclain MD PCP - General INTERNAL MEDICINE 06/08/18 12/30/20 Bri Mcclain MD PCP - General INTERNAL MEDICINE 12/31/20 10/12/22 [place] [address] [place] [address] PCP - General FAMILY PRACTICE 10/13/22 05/25/23 None, Provider, PCP - General UNKNOWN PHYSICIAN SPECIALTY 09/22/24 Bri Mcclain MD INTERNAL MEDICINE 12/31/20 Regina Liu RN [address] [place], [place] [address] Preparation Operator (Ambulatory) REGISTERED NURSE 07/08/21 11/17/21 Lencho Lopes MD [address], [address] [phone] Physician INTERVENTIONAL CARDIOLOGY 08/07/21 Abraham Dwyer DO [address], [address] [place] [address] [phone] Consulting Physician INTERNAL MEDICINE 09/17/21 2 Sakina Zamarripa NP [address], [address] [phone] Nurse Practitioner Nurse Practitioner [facility] 09/17/21 01/04/22 Mindy Barragan NP [address], [address] [place] [address] [phone] Nurse Practitioner NURSE PRACTITIONER 09/17/21 01/04/22 Kayla Judd RN [address] [place], [place] [phone] Preparation Operator (Ambulatory) REGISTERED NURSE 11/10/21 11/17/21 Kayla Judd RN [address] [place], [place] [address] Preparation Operator (Ambulatory) REGISTERED NURSE 11/18/21 01/28/22 documented as of this encounter
--- OUTSIDE RECORDS SUMMARY | 2025-03-28 02:43 | XMS_ITS | Encounter Summary ---
Author Organization [facility] Address [facility] [place] [address] Care Team Providers Care Employee Benefits Attorney Name Role Phone Bri Mcclain MD Primary Care Provider + [phone] Bri Mcclain MD Primary Care Provider + [phone] Bri Mcclain MD Unavailable [phone] Regina Liu RN Unavailable [phone] Lencho Lopes MD Unavailable [phone] Abraham Dwyer DO Unavailable Sakina Zamarripa OUTSIDE SALES MANAGER Unavailable Mindy Barragan OUTSIDE SALES MANAGER Unavailable [phone] Kayla Judd RN Unavailable [phone] Kayla Judd RN Unavailable [phone] Mark Pierre MD Primary Care Provider [phone] None, Provider Primary Care Provider Unavaila ble Encounter Details Date Type Department Care Team (Latest Contact Info) Description 05/15/2018 Abstract [facility] [place] [address] [place] [address] Social History Tobacco Use Types Packs/Day Years Used Date Smoking Tobacco: Never Assessed Sex and Gender Information Value Date Recorded Sex Assigned at Male 09/22/2024 5:17 PM VENDOR REPRESENTATIVES Legal Sex Male 6:34 PM CDT Gender [...] C. difficile 12/31/2020 12/31/2020 07/09/2021 3:59 PM VENDOR REPRESENTATIVES COVID-19 Rule Out 08/05/2021 08/06/2021 08/06/2021 11:00 AM VENDOR REPRESENTATIVES COVID-19 Rule Out 08/22/2021 08/22/2021 08/22/2021 10:37 AM VENDOR REPRESENTATIVES COVID-19 Rule Out 09/05/2021 09/05/2021 09/05/2021 7:59 AM VENDOR REPRESENTATIVES COVID-19 Confirmed Comment:In collaboration with Dr. Goodwin patient cleared from COVID-19 isolation per [facility] guidelines (SB) 09/05/2021 09/05/2021 09/16/2021 10:57 AM VENDOR REPRESENTATIVES documented as of this encounter Care Teams Employee Benefits Attorney Relationship Specialty Start Date End Date Bri Mcclain MD PCP - General INTERNAL MEDICINE 06/08/18 12/30/20 Bri Mcclain MD PCP - General INTERNAL MEDICINE 12/31/20 10/12/22 [place] [address] [place] [address] PCP - General FAMILY PRACTICE 10/13/22 05/25/23 None, Provider, PCP - General UNKNOWN PHYSICIAN SPECIALTY 09/22/24 Bri Mcclain MD INTERNAL MEDICINE 12/31/20 Regina Liu RN [address] [place], [place] [phone] Head Boys Tennis Coach (Ambulatory) REGISTERED NURSE 07/08/21 11/17/21 Lencho Lopes MD [address], [address] [phone] Physician INTERVENTIONAL CARDIOLOGY 08/07/21 Abraham Dwyer DO [address], [address] [id number] Consulting Physician INTERNAL MEDICINE 09/17/21 2 Sakina Zamarripa NP [address], [address] [phone] Nurse Practitioner Nurse Practitioner Family 09/17/21 01/04/22 Mindy Barragan NP [address], [address] [phone] Nurse Practitioner NURSE PRACTITIONER 09/17/21 01/04/22 Kayla Judd RN [address] [place], [place] [phone] Head Boys Tennis Coach (Ambulatory) REGISTERED NURSE 11/10/21 11/17/21 Kayla Judd RN [address] [place], [place] [phone] Head Boys Tennis Coach (Ambulatory) REGISTERED NURSE 11/18/21 01/28/22 documented as of this encounter
--- OUTSIDE RECORDS SUMMARY | 2025-03-28 02:43 | XMS_ITS | Patient Health Record ---
Author Organization [facility] Address [address] [place], [place] [address] Care Team Providers Care Forming Machine Upkeep Mechanic Helper Name Role Phone SINDY CONLEY Unavailable [phone] Abraham Dwyer Unavailable Unavailable Reason For Referral No Information Plan Of Treatment No Information Insurance Providers Payer Name Payer Address Payer Phone Subscriber Number Group Number Insured Name Patient Relationship to Insured Coverage Start Date Coverage End Date Medicare Part B [place] [address] [place] [phone] [id number] DENA VARMA Self - patient is the insured [facility] ATTN CLAIMS [address] [place] [address] [id number] DENA VARMA Self - patient is the insured
--- OUTSIDE RECORDS SUMMARY | 2025-03-28 02:43 | XMS_ITS | Patient Health Record ---
Author Organization [facility] Address [address] [address] Care Team Providers Care Salesperson [employer] Name Role Phone QuanFelix virgen Primary Care Provider UnavailLeon Hoff Unavailable [phone] Yaneth Rivas Unavailable [phone] Adeel Farias Unavailable [phone] Shantal Mercado Unavailable [phone] Allergies Allergen (clinical drug ingredient) Drug/Non Drug [...] Lab: Notes/Report: Stable CREATININE 0.90 eGFR NON-AFR. UGANDAN >60 SODIUM 133 POTASSIUM 4.5 ALT 30 AST 38 CALCIUM 9.8 GLUCOSE 289 ALKALINE PHOSPHATASE 69 VITAMIN D, 25-OH (TOTAL D2/D 3) Reviewed date:05/17/2024 12:16:48 PM Interpretation:Normal Performing Lab: Notes/Report: Normal 25-Hydroxy, Vitamin D 86.9 Hemoglobin A1C Reviewed date:05/17/2024 02:06:41 PM Interpretation:8.5 Performing Lab: Notes/Report: 8.5 HEMOGLOBIN A1c 8.5 Hemoglobin A1C Reviewed date:09/07/2024 09:36:40 AM Interpretation:9.8 Performing Lab:[facility], [address] [place], [id number] Keven Glynn MD Notes/Report: PATIENT UNABLE TO [...] Reviewed date:09/07/2024 08:38:12 AM Interpretation:80 Performing Lab:[facility], [address] [place], [address] Keven Glynn MD Notes/Report: Received Date: [id number] NON-FASTING; NON-FASTING; NON-FASTING; NON-FASTING; NON-FAST PATIENT UNABLE TO VOID; ADVISED TO RETURN FOR COLLECTION. DIRECT LDL 80 <100 mg/dL Desirable range <100 mg/dL for primary prevention; <70 mg/dL for patients with CHD or diabetic patients with > or = 2 CHD risk factors. CMP (Comp Metabolic Panel) Reviewed date:09/07/2024 08:36:28 AM Interpretation:AST 47 Performing Lab:[facility], [address] [place], [address] Keven Glynn MD Notes/Report: Received Date: NON-FASTING; [...] 08:38:12 AM Interpretation:mild chronic anemia Performing Lab:[facility], [address] [place], [address] Keven Glynn MD Notes/Report: Received Date: NON-FASTING; [...] 185 140-400 Thousand/uL MPV 11.0 7.5-12.5 fL Hemoglobin A1C Reviewed date:09/07/2024 09:36:40 AM Interpretation:9.8 Performing Lab:[facility], [address] [place], [address] Keven Glynn MD Notes/Report: Received Date: [id number] NON-FASTING; NON-FASTING; NON-FASTING; NON-FASTING; NON-FAST PATIENT UNABLE [...] Reviewed date:09/07/2024 08:38:12 AM Interpretation:80 Performing Lab:[facility], [address] [place], [address] Keven Glynn MD Notes/Report: Received Date: [id number] NON-FASTING; NON-FASTING; NON-FASTING; NON-FASTING; NON-FAST PATIENT UNABLE TO VOID; ADVISED TO RETURN FOR COLLECTION. DIRECT LDL 80 <100 mg/dL Desirable range <100 mg/dL for primary prevention; <70 mg/dL for patients with CHD or diabetic patients with > or = 2 CHD risk factors. Reason For Referral No Information Medications Medication SIG (Take, Route, Frequency, Duration) Notes Start Date End Date Status Tamsulosin HCl 0.4 MG Oral; Duration: 90 Days Active traMADol HCl 50 MG TAKE 1 TABLET BY NIK 4 TIMES DAILY NEEDED FOR PAIN Oral; Duration: 15 Days Active DexQuantum Secure G6 Hydroelectric Machinery Mechanic - as directed by device Active Famotidine 20 MG 1 tablet at bedtime as needed Orally Twice a day Active Esomeprazole Magnesium 40 MG 1 capsule Orally Once a day; Duration: 30 day(s) Active Mounjaro 5 MG/0.5ML 5 mg Subcutaneous on ce a week new higher dose Active hydrALAZINE HCl 50 MG Oral Active [employer] G6 Sensor - as directed Active dilTIAZem HCl 30 MG 1 tab Orally Three times a day Active Spironolactone 25 MG 1 tablet Oral once daily Active Levothyroxine Sodium 112 MCG 1 tablet in the morning on an empty stomach Orally Once a day; Duration: 30 day(s) Active HumuLIN R U-500 (CONCENTRATED) 500 UNIT/ML up to 350 units via insulin pump daily Active TriOvizcom G6 Transmitter - as directed by device every 90 days Active Baclofen 10 MG Oral; Duration: 30 Days Active [facility] Delica Lancets 33G - to test blood sugars by finger stick Three times a day Active Lantus SoloStar 100 UNIT/ML 45 units am and 20 units pm Subcutaneous daily 01/01/2022 Active [facility] Verio w/Device to test blood sugars In Vitro Three times a day Active [facility] Verio - as directed In Vitro Three times a day Active Losartan Potassium 25 MG 1 tab(s) orally once a day Active Docusate Sodium 100 MG 1 capsule as need ed Orally Once a day Active Pen Fernley 31G X 6 MM To inject insulin [...] Hyperglycemia due to type 2 diabetes mellitus (271263801990483) Type 2 diabetes mellitus with hyperglycemia (E11.65) Active confirmed Problem Mixed hyperlipidemia (795953277) Mixed hyperlipidemia (E78.2) Active confirmed Problem Polyneuropathy due to type 2 diabetes mellitus (595821225) Type 2 diabetes mellitus with diabetic polyneuropathy (E11.42) Active confirmed Problem Essential hypertension (01840255) Essential (primary) hypertension (I10) Active confirmed Problem Morbid obesity (disorder) (084490004) Morbid (severe) obesity due to excess calories (E66.01) Active confirmed Problem Long-term current use of insulin (066866298) detention (current) use of insulin (Z79.4) Active confirmed Problem Body mass index 40+ - severely obese (836473936) BMI 45.0-49.9, adult (Z68.42) Active confirmed Problem Insulin pump present (finding) (055721424) Insulin pump status (Z96.41) Active confirmed Problem Diabetic neuropathic arthropathy (353512606) Charcot's arthropathy associated with type 2 diabetes mellitus (E11.610) Active confirmed Problem Male hypogonadism (07501868) Hypogonadism male (E29.1) Active confirmed Vital Signs Blood pressure diastolic 68 mm Hg 02/13/2025 Height 73 in 02/13/2025 Blood pressure systolic 140 mm Hg 02/13/2025 Encounters Encounter Location Date Provider Diagnosis [facility] [address] [place] [address] 05/15/2024 Leon Peoples Type 2 diabetes mellitus with hyperglycemia E11.65 ; Type 2 diabetes mellitus with diabetic polyneuropathy E11.42 ; Essential (primary) hypertension I10 ; Mixed hyperlipidemia E78.2 ; Charcot's arthropathy associated with type 2 diabetes mellitus E11.610 ; Morbid (severe) obesity due to excess calories E66.01 ; intermodal customer service (current) use of insulin Z79.4 ; Insulin pump status Z96.41 ; BMI 45.0-49.9, adult Z68.42 and Hypogonadism male E29.1 [facility] [address] [address] 09/06/2024 Yaneth Naceanceno Type 2 diabetes mellitus with hyperglycemia E11.65 ; Type 2 diabetes mellitus with diabetic polyneuropathy E11.42 ; Essential (primary) hypertension I10 ; Mixed hyperlipidemia E78.2 ; Charcot's arthropathy associated with type 2 diabetes mellitus E11.610 ; Morbid (severe) obesity due to excess calories E66.01 ; detention (current) use of insulin Z79.4 ; Insulin pump status Z96.41 ; BMI 45.0-49.9, adult Z68.42 and Hypogonadism male E29.1 [facility] [address] [address] 11/01/2024 Yaneth Naceanceno Type 2 diabetes mellitus with hyperglycemia E11.65 ; Type 2 diabetes mellitus with diabetic polyneuropathy E11.42 ; Essential (primary) hypertension I10 ; Mixed hyperlipidemia E78.2 ; Charcot's arthropathy associated with type 2 diabetes mellitus E11.610 ; Morbid (severe) obesity due to excess calories E66.01 ; detention (current) use of insulin Z79.4 ; Insulin pump status Z96.41 ; BMI 45.0-49.9, adult Z68.42 and Hypogonadism male E29.1 [facility] [address] [address] 02/13/2025 Adeel Farias Type 2 diabetes mellitus with hyperglycemia E11.65 ; Type 2 diabetes mellitus with diabetic polyneuropathy E11.42 ; Essential (primary) hypertension I10 ; Mixed hyperlipidemia E78.2 ; Charcot's arthropathy associated with type 2 diabetes mellitus E11.610 ; Morbid (severe) obesity due to excess calories E66.01 ; intermodal customer service (current) use of insulin Z79.4 ; Insulin pump status Z96.41 ; BMI 45.0-49.9, adult Z68.42 and Hypogonadism male E29.1 [facility] [address] [facility] [address] 05/15/2024 Leon Raju Type 2 diabetes mellitus with hyperglycemia E11.65 [facility] [address] [address] 05/24/2024 Leon Raju [facility] [address] [address] 06/06/2024 Leon Raju [facility] [address] [address] 09/06/2024 Leon Raju [facility] [address] [address] 09/07/2024 Leon Raju [facility] [address] [address] 10/11/2024 Leon Raju Type 2 diabetes mellitus with hyperglycemia E11.65 [facility] [address] [address] 11/01/2024 Leon Raju [facility] [address] [address] 01/01/2025 Leon Raju Type 2 diabetes mellitus with hyperglycemia E11.65 [facility] [address] [address] 02/05/2025 Leon Raju Type 2 diabetes mellitus with hyperglycemia E11.65 [facility] [address] [address] 03/20/2025 Leon Raju [facility] [address] [address] 03/20/2025 Leon Raju Assessments Encounter Date Diagnosis (ICD [...] - - - -Dena Salcido of : [id number] ed at: May 15, 2024 5:33 PM CDTReporting period: WedFeb 11, 2024 - WedMay 10, 2024- - - - - - - - - - - - - - -Glucose DetailsAverage glucose: 255 mg/dLStandard deviation: 64 mg/dLGMI: 9.4%- - - - - - - - - - - - - - -Time in RangeVery High: 52%High: 35%In Range: 13%Low: 0%Very Low: 0% Target Nsscl62-679 mg/dL - - - - - - [...] - - - -Dena Salcido of : [id number] ed at: Sep 06, 2024 3:00 PM CSTReporting period: WedJun 04, 2024 - WedSep 01, 2024- - - - - - - - - - - - - - -Glucose DetailsAverage glucose: 314 mg/dLStandard deviation: 85 mg/dLGMI: 10.8%- - - - - - - - - - - - - - -Time in RangeVery High: 78%High: 12%In Range: 10%Low: 0%Very Low: <1%Target Dtqvc87-789 mg/dL - - - - - - [...] - - - - - - -Dena Natalya Date of : 1955 Generated at: Nov [...] 39% Low: 1% Very Low: <1% Target Obaek57-723 mg/dL - - - - - - [...] #s Wants to lose another 100#s 05/15/2024 detention (current) use of insulin (ICD-10 - Z79.4) 09/06/2024 intermodal customer service (current) use of insulin (ICD-10 - Z79.4) 11/01/2024 detention (current) use of insulin (ICD-10 - Z79.4) 02/13/2025 detention (current) use of insulin (ICD-10 - Z79.4) [...] ) 09/06/2024 Next Appt Details Provider Name:Leon Harriseyad, 05/21/2025 10:30:00 AM, [address], [place], [address], Insurance Providers Payer Name Payer Address Payer Phone Subscriber Number Group Number Insured Name Patient Relationship to Insured Coverage Start Date Coverage End Date MEDICARE PART [place] [address] [address] [place] [address] [id number] NATALYA DENA Self - patient is the insured 7 [facility]ANK[facility] [address] [place] [address] [id number] DENA VARMA Self - patient is the insured 7 Medical (General) History Medical History History ICD Code T2DM Insulin Pump Glaucoma Messed up leg Surgical History Surgery Date(Month/Year) Gall bladder Neck Back SX L and right Hospitalization History Reason Date(Month/Year) sepsis also had covid 05/2021-01/2022 stomach and c diff
--- OUTSIDE RECORDS SUMMARY | 2025-03-28 02:43 | XMS_ITS | Clinical Summary ---
Author Organization [facility] Address Formerly [facility] [place] [address] Care Team Providers Care Template Storage Clerk Name Role Phone Bri Mcclain MD Unavailable [phone] Lencho Lopes MD Unavailable [phone] None, Provider MD Primary Care Provider Unavaila ble Allergies No known active allergies Medications brimonidine (ALPHAGAN) 0.2 % ophthalmic solutionIndicat ions:Glaucoma [...] CAPSULE BY MOUTH DAILY 90 capsule 1 08/05/20 Active Additional Information Patient taking differently: 0.4 mg Oral Daily, Indications: Urinary Retention, Reported on 03/13/2025 atorvastatin (LIPITOR) 40 MG tabletIndicatio ns:Hyperlipidem ia Take 1 tablet (40 mg total) by mouth nightly at bedtime. 90 tablet 1 08/06/20 Active apixaban (ELIQUIS) 5 MG tabletIndicatio ns:Deep Vein Thrombosis Prophylaxis Take 1 tablet (5 mg total) by mouth 2 (two) times daily. 180 tablet 1 11/19/19 Active levothyroxine (SYNTHROID) 112 MCG tabletIndicatio ns:Hypothyroidi sm Take 1 tablet (112 mcg total) by mouth every morning. 90 tablet 1 12/03/19 Active Additional Information Patient taking differently:112 mcg OralDaily (levothyroxine), Indications: Hypothyroidism, Reported on 03/13/2025 famotidine (PEPCID) 20 MG tabletIndicatio ns:Gastroesopha geal reflux disease (GERD), poorly controlled Take 1 tablet (20 mg total) by mouth 2 (two) times daily. 180 tablet 1 12/03/19 Active acetaminophen (TYLENOL) 500 MG tabletIndicatio ns:Pain Take 2 tablets (1,000 mg total) by mouth every 6 (six) hours as needed for Pain or Fever. Indications: Pain 02/21/20 Active metoprolol succinate ER (TOPROL-XL) 50 MG 24 hr tabletIndicatio ns:Atrial fibrillation, chronic (CMS/HCC HHS/HCC) TAKE 1 TABLET BY MOUTH DAILY. INDICATIONS: HIGH BLOOD PRESSURE DISORDER 90 tablet 06/08/20 Active Additional Information Patient taking differently: 50 mg Oral Daily, Reported on 03/13/2025 traMADol (ULTRAM) 50 MG tablet Take 1 tablet (50 mg total) by mouth every 6 (six) hours as needed for Pain. 09/20/19 Active hydrOXYzine (ATARAX) 25 MG tablet Take 1 tablet (25 mg total) by mouth every 6 (six) hours as needed for Itching or Anxiety. 09/15/19 Active potassium chloride CR (MICRO-K) 10 MEQ CR capsule Take 1 capsule (10 mEq total) by mouth daily. 09/15/19 25 Active MOUNJARO 2.5 MG/0.5ML injection Inject 2.5 mg into the skin every 7 days. Fridays09/08/19 Active losartan (COZAAR) 25 MG tablet Take 1 tablet (25 mg total) by mouth daily. Active hydrALAZINE (APRESOLINE) 50 MG tablet Take 1 tablet (50 mg total) by mouth 3 (three) times daily. Active calcium carbonate (TUMS) 500 MG chewable tablet Chew 2 tablets (1,000 mg total) by mouth 3 (three) times daily as needed for Heartburn. Active Baclofen 15 MG Tab Take 1 tablet by mouth nightly at bedtime. 02/22/20 25 Active bumetanide (BUMEX) 2 MG tablet Take 1 tablet (2 mg total) by mouth daily. 02/16/20 25 Active gabapentin (NEURONTIN) 100 MG capsule Take 3 capsules (300 mg total) by mouth 3 (three) times daily. 02/25/20 25 Active latanoprost (XALATAN) 0.005 % ophthalmic solution Place 1 drop into both eyes nightly at bedtime. 02/26/20 25 Active LORazepam (ATIVAN) 0.5 MG tablet Take 1 tablet (0.5 mg total) by mouth every 8 (eight) hours as needed for Anxiety. 03/05/20 25 Active methocarbamol (ROBAXIN) 750 MG Tab Take 1 tablet (750 mg total) by mouth 3 (three) times daily as needed (pain). 03/05/20 25 Active OLANZapine (ZYPREXA) 5 MG tablet Take 3 tablets (15 mg total) by mouth nightly at bedtime. 03/05/20 25 Active Dorzolamide HCl-Timolol Mal PF 2-0.5 % Solution Place 1 drop into both eyes 2 (two) times a day. 02/17/20 25 Active spironolactone (ALDACTONE) 50 MG tablet Take 1 tablet (50 mg total) by mouth daily. 02/16/20 25 Active vitamin B-12 (CYANOCOBALAMIN ) 500 MCG tablet Take 1 tablet (500 mcg total) by mouth daily. Active ferrous sulfate EC 324 (65 Fe) MG tabletIndicatio ns:Iron Deficiency Take 1 tablet (324 mg total) by mouth daily with breakfast. 90 tablet 01/28/20 22 025 Discontin ued(Error ) multi vitamin/mineral s tabletIndicatio ns:Vitamin Deficiency Take 1 tablet by mouth daily. 90 tablet 01/28/20 22 025 Discontin ued(Error ) vitamin B-12 500 MCG tabletIndicatio ns:Vitamin B Deficiency Take 1 tablet (500 mcg total) by mouth daily. 90 tablet 01/28/20 22 025 Discontin ued(Error ) Insulin Syringe-Needle U-100 (INSULIN SYRINGE 1CC/31GX5/16) 31G X 5/16 1 ML MiscIndications :Diabetes Mellitus Use as directed with Lantus 100 each 3 01/30/20 22 025 Discontin ued(Error ) dorzolamide-tash olol (COSOPT) 22.3-6.8 MG/ML SolutionIndicat ions:Glaucoma Place 1 drop into both eyes 2 (two) times daily. 20 mL 08/12/20 22 025 Discontin ued(Error ) dilTIAZem (CARDIZEM) 30 MG tabletIndicatio ns:Congestive Heart Failure Take 1 tablet (30 mg total) by mouth 3 (three) times daily. 270 tablet 1 12/03/19 23 025 Discontin ued(Error ) bimatoprost (LUMIGAN) 0.01 % SolutionIndicat ions:Eye and/or Vision Signs and Symptoms Place 1 drop into both eyes nightly at bedtime. 7.5 mL 1 03/22/20 23 025 Discontin ued(Error ) L-Methylfolate- B6-B12 (FOLTANX) 3-35-2 MG Tab Take 1 tablet by mouth daily. 05/24/20 24 025 Discontin ued(Error ) metFORMIN ER (GLUCOPHAGE-XR) 500 MG 24 hr tablet Take 2 tablets (1,000 mg total) by mouth 2 (two) times daily with meals. 05/16/20 24 025 Discontin ued(Error ) Misc Natural Products (NEURIVA OR) Take 2 each by mouth daily. 025 Discontin ued(Error ) spironolactone (ALDACTONE) 25 MG tablet Take 1 tablet (25 mg total) by mouth 2 (two) times a day. 025 Discontin ued(Error ) Active Problems Problem Noted Date Diagnosed Date Physical deconditioning 03/13/2025 Panniculitis 09/22/2024 Osteomyelitis ([facility]) 11/07/2021 Encephalopathy acute 07/28/2021 Delirium 07/28/2021 Subacute osteomyelitis of right foot ([facility]) 07/28/2021 Hyperglycemia due to diabetes mellitus ([facility]) 07/28/2021 Acute respiratory failure with hypoxia ([facility]) 07/28/2021 Sepsis ([facility]) 07/07/2021 Clostridium difficile colitis 12/31/2020 Scrotal infection 11/18/2020 Cellulitis 11/14/2020 Polyneuropathy associated with underlying diseas e ([facility]) 12/06/2018 Muscle strain, shoulder region 04/12/2018 Chronic osteomyelitis of right ankle ([facility]) 10/02/2017 Overview (06/30/2018): Impression - [id number] Bri Mcclain: surgery 04/08, probe to bone then after surgial removal of hardware 08/28/17 Deep tiss Cx MRSA on vanc per PICC line & ID Dr Crenshaw. SILVIA on CPAP 08/09/2017 Edema of extremities 06/02/2017 MRSA infection 06/02/2017 Enlarged prostate with lower urinary tract sympt oms (LUTS) 10/13/2016 Charcot foot due to diabetes mellitus ([facility]) 09/05/2016 Numbness in both hands 07/08/2016 Chronic pain of right ankle 04/15/2016 Lumbago 12/10/2014 Hypothyroidism 10/10/2014 Generalized osteoarthritis of multiple sites Glaucoma, bilateral 09/17/2014 Hyperlipidemia 09/17/2014 Essential hypertension 09/17/2014 Testosterone deficiency 09/17/2014 Diabetic ulcer of lower extremity ([facility]) 06/21/2014 Diabetic peripheral neuropathy ([facility]) 05/10/2014 Sciatica 02/14/2013 Encounters Date Type Department Care Team Description 03/13/2025 3:04 PM CDT - 03/15/2025 4:38 PM CDT Hospital Encounter [facility] Med/Surg [address] [place] [address] Mohsen Underwood, Robert Romero MD Brubaker, Jon Elliott Dale, MD Back Pain (/) Discharge Disposition: [facility] Facility 03/13/2025 Travel from Last 3 Months Immunizations Immunization Administration Dates Next Due Fluzone High Dose - >Age 65 (Prefilled Syringe) 05/11/2019 Influenza (Generic) 06/26/2013,06/01/2012 Influenza Adult (Generic) 05/11/2019,04/12/2018, 08/18/2017 Pneumococcal (Pneumovax 23) 05/15/2018, 5 Pneumococcal (Prevnar 13) 12/06/2018 Shingrix 07/07/2018, 8,04/12/2018,2017 Td (Tenivac) preservative free 05/31/2018 Zoster (Zostavax) 71301 Unt/0.65Ml 07/07/2017,,07/02/2017 Family History Medical History Relation [...] materials from doctor or pharmacy Never 05/11/2023 [facility] Utilities Answer Date Recorded In the past 12 months has th e [employer], or water [employer] threatened to shut off services in your home? No 03/14/2025 Humiliation, Afraid, Rape, and Kick questionnair e Answer Date Recorded Within the last year, have y ou been afraid of your partner or ex-partner? No 03/14/2025 Within the last year, have y ou been humiliated or emotionally abused in other ways by your partner or ex-partner? No Within the last year, have y ou been kicked, hit, slapped, or otherwise physically hurt by your partner or ex-partner? No 03/14/2025 Within the last year, have y ou been raped or forced to have any kind of sexual activity by your partner or ex-partner? No 03/14/2025 Social Connection and Isolat ion Panel [NHANES] Answer Date Recorded In a typical week, how many times do you talk on the phone with family, friends, or neighbors? More than three times a week 11/15/2020 How often do you get togethe r with friends or relatives? Once a week 11/15/2020 How often do you attend chur or church services? Patient declined 11/15/2020 Do you belong to any clubs o r organizations such as religious groups, unions, fraternal or athletic groups, or [...] care, and heating? Not hard at all 03/14/2025 PHQ-2 Answer Date Recorded PHQ-2 Score - If the patient scores above 3, please move on to questions 3-9 0 04/14/2022 [facility] Answer Date Recorded [...] the money to buy more. Never true 03/14/20 25 Within the past 12 months, t he food you bought just didn't last and you didn't have money to get more. Never true 03/14/2025 PRAPARE - Transportation Answer Date Re corded In the past 12 months, has l ack of transportation kept you from medical appointments or from getting medications? No 02/21 In the past 12 months, has l ack of transportation kept you from meetings, work, or from getting things needed for daily living? No 03/14/2025 Housing Stability Vital Sign Answer Brien e [...] place to sleep or slept in a longterm (including now)? No 03/22/2023 Housing Stability Vital Sign Answer Brien e Recorded In the last 12 months, was t here a time when you were not able to pay the mortgage or rent on time? No 03/14/2025 In the past 12 months, how m any times have you moved where you were living? 0 03/14/2025 At any time in the past 12 m [facility], were you homeless or living in a longterm (including now)? No 03/14/2025 Sex and Gender Information Value Date Recorded Sex Assigned at Male 09/22/2024 5:17 PM FORK OPERATOR Legal Sex Male 6:34 PM CDT Gender Identity Not on file Sexual Orientation Straight 11/15/2020 1: 16 AM CDT Last Filed Vital Signs Vital Sign Reading Time Taken Comments Blood Pressure 120/62 03/15/2025 1:00 PM CDT Pulse 76 03/15/2025 1:00 PM CDT Temperature 36.8 C (98.3 F) 03/15/2025 1:00 PM CDT Respiratory Rate 16 03/15/2025 1:00 PM CDT Oxygen Saturation 100% 03/15/2025 1:00 PM CDT Inhaled Oxygen Concentration - - Weight 160.6 kg (354 lb 0.9 oz) 03/15/2025 2:30 AM CDT Height 188 cm (6' 2) 03/13/2025 10:53 PM CDT Body Mass Index 45.46 03/13/2025 10:53 PM CDT Plan of Treatment Health Maintenance Due Date [...] COVID-19 Vaccine ( season) 2024 PHQ-2 ([facility]) 08/23/2024 Zoster Vaccines Completed 07/07/2018, 06/23, 04/12/2018, [...] and discharge planning Lifestyle No Aminta Blackwood, METAPHYSICS TEACHER Patient will return to prior living situation and remain independent in ADLs upon discharge from hospital Lifestyle No Daina Mulligan, director workers compensation Procedure Name Priority Date/Time Associated Diagnosis Comments POCT GLUCOSE - DOCKED DEVICE Routine 03/15/2025 11:23 AM CDT BASIC METABOLIC PANEL Routine 03/15/2025 6:30 AM CDT CBC W/DIFF AUTOMATED Routine 03/15/2025 6:30 AM CDT POCT GLUCOSE - DOCKED DEVICE Routine 03/15/2025 5:56 AM CDT POCT GLUCOSE - DOCKED DEVICE Routine 03/14/2025 9:14 PM CDT XR SHOULDER RT MIN 2V Today 03/14/2025 1:13 PM CDT POCT GLUCOSE - DOCKED DEVICE Routine 03/14/2025 12:15 PM CDT BASIC METABOLIC PANEL Routine 03/14/2025 7:04 AM CDT CBC W/DIFF AUTOMATED Routine 03/14/2025 7:04 AM CDT POCT GLUCOSE - DOCKED DEVICE Routine 03/14/2025 6:06 AM CDT ECG 12-LEAD Routine 03/14/2025 12:12 AM CDT POCT GLUCOSE - DOCKED DEVICE Routine 03/13/2025 11:58 PM CDT POCT GLUCOSE - DOCKED DEVICE Routine 03/13/2025 10:55 PM CDT BASIC METABOLIC PANEL STAT 03/13/2025 7:16 PM CDT CBC W/DIFF AUTOMATED STAT 03/13/2025 7:16 PM CDT XR LUMB SPINE AP 1V STAT 03/13/2025 4:31 PM CDT XR KNEE RT 2V STAT 03/13/2025 4:31 PM CDT XR PELVIS AP+RT HIP 2V STAT 03/13/2025 4:[address] FACIAL BONES WO CON STAT 03/13/2025 4:[address] CERV SPINE WO CON STAT 03/13/2025 4:[address] HEAD WO CON STAT 03/13/2025 4:[address] ABD+PEL W CON STAT 09/22/2024 6:59 PM FORK OPERATOR OUTSIDE LAB (SCAN ORDER) Routine 05/25/2023 LIPID PANEL Routine 07/27/2022 3:46 PM FORK OPERATOR Mixed hyperlipidemia OCCULT BLOOD, FECES Routine 11/12/2021 12:00 AM CDT HEPATITIS C ANTIBODY Routine 08/18/2021 7:04 PM FORK OPERATOR DILATED EYE EXAM (SCAN) Routine 09/02/2018 from Last 3 Months or Most Recently Relevant to Health Maintenance Results * (ABNORMAL) POCT glucose (03/15/2025 11:23 AM CDT) Only the most recent of7 resultswithin the time period is included. GLUCOSE POC 258(H) 70 - 99 mg/dL 03/15/2025 11:26 AM CDT [facility] 03/15/2025 11:2 3 AM CDT us Duane Moore MD POCT ORDERABLES - D EVICE Final Result [facility] [address] [place] [address], [place] [phone] * (ABNORMAL) BASIC METABOLIC PANEL (03/15/2025 6:30 AM CDT) Only the most recent of3 resultswithin the time period is included. [facility] GLUCOSE 266(H) 70 - 99 MG/DL 03/15/2025 7:22 AM CDT [facility] BUN 27(H) 7 - 18 MG/DL 03/15/2025 7:22 AM T [facility] CREATININE S/P/B 1.21 0.7 - 1.3 MG/DL 03/15/2025 7:22 AM T [facility] SODIUM S/P/B 135(L) 136 - 145 MMOL/L 03/15/2025 7:22 AM CDT [facility] POTASSIUM S/P/B 3.9 3.5 - 5.1 MMOL/L 03/15/2025 7:22 AM T [facility] CHLORIDE S/P/B 101 97 - 115 MMOL/L 03/15/2025 7:22 AM T [facility] CO2 29.5 21 - 32 MMOL/L 03/15/2025 7:22 AM T [facility] CALCIUM S/P/B 9.4 8.5 - 10.1 MG/DL 03/15/2025 7:22 AM T [facility] ANION GAP 4.5 2 - 10 MMOL/L 03/15/2025 7:22 AM T [facility] BUN CREATININE RATIO 22.3 6 - 26 03/15/2025 7:22 AM T [facility] GFR ESTIMATE 64(L) >90 ML/MIN/1.7 3 M2 03/15/2025 7:22 AM T [facility] Comment: NOTE: eGFR is not calculated for patients <18 years of age or gender unknown. This is an estimated GFR calculation using the new CKD EPI creatinine equation without race and so does not require a correction factor for race. This estimated GFR should not be used for calculating drug doses. 03/15/2025 6:30 AM CDT Faisal Leahy DO LABORATORY Final Result [facility] [address] [place] [address], * (ABNORMAL) CBC W/DIFF AUTOMATED (03/15/2025 6:30 AM CDT) Only the most recent of3 resultswithin the time period is included. WBC 5.40 4.5 - 11.0 x10'3/uL 03/15/2025 7:01 AM CDT [facility] RBC 3.17(L) 4.70 - 6.10 x10'6/uL 03/15/2025 7:01 AM CDT [facility] HGB 9.0(L) 14.0 - 18.0 G/DL 03/15/2025 7:01 AM CDT [facility] HCT 28.2(L) 43.0 - 54.0 % 03/15/2025 7:01 AM CDT [facility] MCV 89.0 80.0 - 94.0 FL 03/15/2025 7:01 AM CDT [facility] MCH 28.4 27.0 - 31.0 PG 03/15/2025 7:01 AM CDT [facility] MCHC 31.9(L) 32.0 - 36.0 G/DL 03/15/2025 7:01 AM CDT [facility] RDW 15.6(H) 11.5 - 14.5 % 03/15/2025 7:01 AM CDT [facility] PLT 243 130 - 400 x10'3/uL 03/15/2025 7:01 AM CDT [facility] MPV 10.2 9.3 - 12.2 FL 03/15/2025 7:01 AM T [facility] DIFFERENTIAL TYPE AUTOMATED DIFFERENTIAL 03/15/2025 7:01 AM T [facility] NEUTROPHILS % 68.2 % 03/15/2025 7:01 AM T [facility] LYMPHOCYTES % 21.1 % 03/15/2025 7:01 AM T [facility] MONOCYTES % 5.6 % 03/15/2025 7:01 AM T [facility] EOSINOPHILS 4.3 % 03/15/2025 7:01 AM T [facility] BASOPHILS 0.4 % 03/15/2025 7:01 AM T [facility] IMMATURE GRANS % 0.4 % 03/15/20 7:01 AM T [facility] ABS. NEUTROPHILS 3.69 1.80 - 7.70 x10'3/uL 03/15/2025 7:01 AM T [facility] ABS. LYMPHOCYTES 1.14 1.00 - 4.80 x10'3/uL 03/15/2025 7:01 AM T [facility] ABS. MONOCYTES 0.30 0.30 - 0.82 x10'3/uL 03/15/2025 7:01 AM T [facility] ABS. EOSINOPHILS 0.23 0.04 - 0.54 x10'3/uL 03/15/2025 7:01 AM T [facility] ABS. BASOPHILS 0.02 0.01 - 0.08 x10'3/uL 03/15/2025 7:01 AM T [facility] ABS. IMMATURE GRANULOCYTES 0.02 0.00 - 0.49 x10'3/uL 03/15/2025 7:01 AM CDT [facility] 03/15/2025 6:30 AM CDT Faisal Pérez Tosin [facility] LABORATORY Final Result [facility] [address] [place] [address], * XR SHOULDER RT MIN 2V (03/14/2025 1:13 PM CDT) Anatomical Region Laterality Modality Shoulder Radiographic Lexie ging 03/14/2025 1:18 PM CDT Impressions 03/14/2025 1:21 PM CDT IMPRESSION: 1. No left shoulder acute osseous radiographic abnormality. 2. Advanced osteoarthritis. 3. Mild heterogeneity and patchy sclerosis humeral head, nonspecific. Ordered By: ARNOLDO BUSH Interpreted By: Marco Patel MD, 03/14/2025 1:18 PM Narrative 03/14/2025 1:21 PM CDT [address] [address] Examination: Right shoulder radiographs Exam date/time: 03/14/2025 12:42 PM Reason For Exam: 69 male. Trauma. Fall yesterday. Right shoulder pain Comparison: None Technique: AP, Grashey, scapular Y view Findings: There is no fracture dislocation injury identified. Alignment is anatomic. Glenohumeral relationship is maintained. Advanced osteoarthritis with severe narrowing of the glenohumeral joint space and bulky particularly inferior joint marginal humeral head and glenoid hypertrophic spurring. Mild AC joint arthritis. No erosive or destructive change. Mild heterogeneity and patchy sclerosis humeral head, nonspecific. No focal lesion. Soft tissues unremarkable Procedure Note Marco Patel MD - 03/14/[address] [address] Examination: Right shoulder radiographs Exam date/time: 03/14/2025 12:42 PM Reason For Exam: 69 male. Trauma. Fall yesterday. Right shoulder pain Comparison: None Technique: AP, Grashey, scapular Y view Findings: There is no fracture dislocation injury identified. Alignment isanatomic. Glenohumeral relationship is maintained. Advanced osteoarthritiswith severe narrowing of the glenohumeral joint space and bulkyparticularly inferior joint marginal humeral head and glenoid hypertrophicspurring. Mild AC joint arthritis. No erosive or destructive change. Mild heterogeneity and patchy sclerosishumeral head, nonspecific. No focal lesion. Soft tissues unremarkable IMPRESSION: 1. No left shoulder acute osseous radiographic abnormality. 2. Advanced osteoarthritis. 3. Mild heterogeneity and patchy sclerosis humeral head, nonspecific. Ordered By: ARNOLDO BUSH Interpreted By: Marco Patel MD, 03/14/2025 1:18 PM Arnoldo Bush MD GENERAL IMAGING Final Result * ECG 12 lead (03/14/2025 12:12 AM CDT) 03/14/2025 12:1 2 AM CDT Narrative [facility] - 03/14/2025 4:31 PM CDT [address] Test Date: 2025-03-14 Pat Name: DENA HOANG Department: 40 Room: A507 Gender: Male Market Development Analyst: JUAN PABLO PATTERSON : 1955 Requested By: ROBERT IBARRA Order Number: [id number] [place] MD: Rory Cardenas Measurements Intervals Grandy Rate: 83 P: 5 ND: 136 QRS: 7 QRSD: 92 T: 16 QT: 373 QTc: 440 Interpretive Statements Poor data quality, interpretation may be adversely affected. SINUS RHYTHM Compared to ECG 09/22/2024 17:34:41 Sinus tachycardia no longer present Procedure Note Rory Cardenas MD - 03/14/[address] Test Date: 2025-03-14 Pat Name: DENA HOANG Department: 40 Room: [facility] Gender: Male Market Development Analyst: JUAN PABLO PATTERSON : 1955 Requested By: ROBERT IBARRA Order Number: [id number] [place] MD: Rory Cardenas Measurements Intervals Grandy Rate: 83 P: 5 ND: 136 QRS: 7 QRSD: 92 T: 16 QT: 373 QTc: 440 Interpretive Statements Poor data quality, interpretation may be adversely affected. SINUS RHYTHM Compared to ECG 09/22/2024 17:34:41 Sinus tachycardia no longer present us Robert Ibarra MD ECG ORDERABLES Final Result [facility] * XR PELVIS AP+RT HIP 2V (03/13/2025 4:31 PM CDT) Anatomical Region Laterality Modality Pelvis, Hip Radiographic Lexie ging 03/13/2025 4:49 PM CDT Impressions 03/13/2025 4:51 PM CDT IMPRESSION: No fracture or other acute osseous radiographic abnormality. Mild hip osteoarthritis Ordered By: MOHSEN UNDERWOOD Interpreted By: Marco Patel MD, 03/13/2025 4:49 PM Narrative 03/13/2025 4:51 PM CDT [address] [address] Examination: Right hip with AP view of the pelvis 2-3 views Exam date/time: 03/13/2025 4:06 PM Reason For Exam: 69 male. Trauma. Fall. Right hip and knee pain Comparison: CT abdomen 08/22/2025 Technique: AP view of the pelvis, AP and frog views of the right hip were obtained. Findings: No fracture or dislocation injury identified. Both femoral heads are well formed and seated within the acetabulum. Mild right hip mild superior joint space narrowing and marginal spurring. Mild osteoarthritis. Normal bone density. No erosive destructive change. Procedure Note Marco Patel MD - 03/13/[address] [address] Examination: Right hip with AP view of the pelvis 2-3 views Exam date/time: 03/13/2025 4:06 PM Reason For Exam: 69 male. Trauma. Fall. Right hip and knee pain Comparison: CT abdomen 08/22/2025 Technique: AP view of the pelvis, AP and frog views of the right hip wereobtained. Findings: No fracture or dislocation injury identified. Both femoral heads are wellformed and seated within the acetabulum. Mild right hip mild superiorjoint space narrowing and marginal spurring. Mild osteoarthritis. Normal bone density. No erosive destructive change. IMPRESSION: No fracture or other acute osseous radiographic abnormality. Mild hip osteoarthritis Ordered By: MOHSEN UNDERWOOD Interpreted By: Marco Patel MD, 03/13/2025 4:49 PM Mohsen RUSSO GENERAL IMAGING Final Resul t * XR LUMB SPINE AP 1V (03/13/2025 4:31 PM CDT) Anatomical Region Laterality Modality Spine Radiographic Lexie ging 03/13/2025 4:51 PM CDT Impressions 03/13/2025 4:52 PM CDT =====IMPRESSION:===== Unremarkable radiographic appearance of the lumbar spine. No fracture or malalignment seen. IMPRESSION: No acute lumbar spine osseous abnormality on this single AP view. Multilevel degenerative change Ordered By: MOHSEN UNDERWOOD Interpreted By: Marco Patel MD, 03/13/2025 4:51 PM Narrative 03/13/2025 4:52 PM CDT [place] [address] Examination: Lumbar Spine AP 1 view Exam date/time: 03/13/2025 4:06 PM Indication: 69 male. Trauma. Fall Comparison: None Views: Single AP view lumbar spine Findings: 5 nonrib-bearing lumbar type vertebral bodies. No scoliosis. Abnormal vertebral body heights on this AP view. Multilevel degenerative spondylosis. Cholecystectomy clips. Procedure Note Marco Patel MD - 03/13/[address] [address] Examination: Lumbar Spine AP 1 view Exam date/time: 03/13/2025 4:06 PM Indication: 69 male. Trauma. Fall Comparison: None Views: Single AP view lumbar spine Findings: 5 nonrib-bearing lumbar type vertebral bodies. No scoliosis. Abnormal vertebral body heights on this AP view. Multilevel degenerative spondylosis. Cholecystectomy clips. =====IMPRESSION:===== Unremarkable radiographic appearance of the lumbar spine. No fracture ormalalignment seen. IMPRESSION: No acute lumbar spine osseous abnormality on this single AP view. Multilevel degenerative change Ordered By: MOHSEN UNDERWOOD Interpreted By: Marco Patel MD, 03/13/2025 4:51 PM [facility] Final Resul t * XR KNEE RT 2V (03/13/2025 4:31 PM CDT) Anatomical Region Laterality Modality Knee Radiographic Lexie ging 03/13/2025 4:46 PM CDT Impressions 03/13/2025 4:49 PM CDT Impression: 1. No convincing right knee acute osseous abnormality. 2. Advanced tricompartmental osteoarthritis. 3. Limited assessment for joint effusion. Ordered By: MOHSEN UNDERWOOD Interpreted By: Marco Patel MD, 03/13/2025 4:46 PM Narrative 03/13/2025 4:49 PM CDT [place] [address] Examination: Right knee 2 views Exam date/time: 03/13/2025 4:06 PM Reason For Exam: 69 male. Back and right knee pain following trauma. Fall Comparison: None Technique: AP and lateral views of the right knee were obtained. Findings: Both AP and lateral views are rotated. There is no convincing acute fracture dislocation injury seen. Advanced tricompartmental osteoarthritis most severe in the medial compartment and greater than patellofemoral compartments. Medial compartment [id number] appearance. Marginal hypertrophic bone spurring Normal bone density. No erosive destructive change. Limited assessment for joint effusion. Procedure Note Marco Patel MD - 03/13/[address] [address] Examination: Right knee 2 views Exam date/time: 03/13/2025 4:06 PM Reason For Exam: 69 male. Back and right knee pain following trauma. Fall Comparison: None Technique: AP and lateral views of the right knee were obtained. Findings: Both AP and lateral views are rotated. There is no convincing acute fracture dislocation injury seen. Advancedtricompartmental osteoarthritis most severe in the medial compartment andgreater than patellofemoral compartments. Medial compartment [id number]. Marginal hypertrophic bone spurring Normal bone density. No erosive destructive change. Limited assessment for joint effusion. Impression: 1. No convincing right knee acute osseous abnormality. 2. Advanced tricompartmental osteoarthritis. 3. Limited assessment for joint effusion. Ordered By: MOHSEN UNDERWOOD Interpreted By: Marco Patel MD, 03/13/2025 4:46 PM [facility] Final Resul t * CT HEAD WO CON (03/13/2025 4:09 PM CDT) Anatomical Region Laterality Modality Head Computed Tomogra phy 03/13/2025 4:23 PM CDT Impressions 03/13/2025 4:27 PM CDT IMPRESSION: 1. No definite CT evidence for acute intracranial abnormality. 2. Chronic senescent changes. Please note that CT has limited sensitivity for the detection of acute ischemia Referred By: Interpreted By: Andrew Orozco MD, 03/13/2025 4:23 PM Narrative 03/13/2025 4:27 PM CDT [address] [address] EXAMINATION: CT of the head CLINICAL HISTORY: Fall, headache COMPARISON: 08/19/2021 TECHNIQUE: CT examination of the head without contrast was performed with axial images obtained. A radiation dose lowering technique was used for this procedure, which may include, but is not limited to, dose reduction technique, automated exposure control, the use of iterative reconstruction, ALARA (As Low As Reasonably Achievable) techniques, and Image Gently techniques. FINDINGS: There is no evidence of acute intracranial hemorrhage, abnormal extra-axial collections, intracranial mass effect, or midline shift. There is mild to moderate volume loss with enlargement of the ventricles and extra-axial/subarachnoid spaces. There are scattered bilateral foci of periventricular and deep white matter hypoattenuation, probably related to chronic small vessel ischemic disease. Atherosclerotic calcifications of the intracranial arterial vasculature are evident. There is no definite CT evidence to suggest acute territorial infarction. The calvarium is unremarkable, without evidence of acute fracture. Lateral basal ganglia calcifications. The visualized mastoid air cells, paranasal sinuses, and orbits are grossly unremarkable. Procedure Note Andrew Orozco MD - 03/13/[address] [address] EXAMINATION: CT of the head CLINICAL HISTORY: Fall, headache COMPARISON: 08/19/2021 TECHNIQUE: CT examination of the head without contrast was performed withaxial images obtained. A radiation dose lowering technique was used forthis procedure, which may include, but is not limited to, dose reductiontechnique, automated exposure control, the use of iterativereconstruction, ALARA (As Low As Reasonably Achievable) techniques, andImage Gently techniques. FINDINGS: There is no evidence of acute intracranial hemorrhage, abnormalextra-axial collections, intracranial mass effect, or midline shift. Thereis mild to moderate volume loss with enlargement of the ventricles andextra-axial/subarachnoid spaces. There are scattered bilateral foci ofperiventricular and deep white matter hypoattenuation, probably related tochronic small vessel ischemic disease. Atherosclerotic calcifications ofthe intracranial arterial vasculature are evident. There is no definite CTevidence to suggest acute territorial infarction. The calvarium isunremarkable, without evidence of acute fracture. Lateral basal gangliacalcifications. The visualized mastoid air cells, paranasal sinuses, andorbits are grossly unremarkable. IMPRESSION: 1. No definite CT evidence for acute intracranial abnormality. 2. Chronic senescent changes. Please note that CT has limited sensitivity for the detection of acuteischemia Referred By: Interpreted By: Andrew Orozco MD, 03/13/2025 4:23 PM us [facility] CT Final Resul t * CT FACIAL BONES WO CON (03/13/2025 4:09 PM CDT) Anatomical Region Laterality Modality Facial Computed Tomogra phy 03/13/2025 4:27 PM CDT Impressions 03/13/2025 4:34 PM CDT IMPRESSION: No acute fracture. Referred By: Interpreted By: Andrew Orozco MD, 03/13/2025 4:27 PM Narrative 03/13/2025 4:34 PM CDT [place] [address] Examination: CT FACIAL BONES WO CON Clinical history: Pain after fall Comparison: None DATE/TIME: 03/13/2025 3:53 PM Technique: Multiplanar CT images of the facial were obtained without IV contrast. Oral contrast: None. A dose lowering technique was used for this procedure, which may include, but is not limited to, dose reduction technique, automated exposure control, the use of iterative reconstruction, and ALARA (As Low As Reasonably Achievable) / Image Gently techniques. Findings: No acute fracture identified. No dislocation of the temporomandibular joints. Multiple dental caries are noted. Sinuses are clear. Orbits are unremarkable. Procedure Note Andrew Orozco MD - 03/13/[address] [address] Examination: CT FACIAL BONES WO CON Clinical history: Pain after fall Comparison: None DATE/TIME: 03/13/2025 3:53 PM Technique: Multiplanar CT images of the facial were obtained without IVcontrast. Oral contrast: None. A dose lowering technique was used forthis procedure, which may include, but is not limited to, dose reductiontechnique, automated exposure control, the use of iterativereconstruction, and ALARA (As Low As Reasonably Achievable) / Image Gentlytechniques. Findings: No acute fracture identified. No dislocation of thetemporomandibular joints. Multiple dental caries are noted. Sinuses areclear. Orbits are unremarkable. IMPRESSION: No acute fracture. Referred By: Interpreted By: Andrew Orozco MD, 03/13/2025 4:[address] Final Resul t * CT CERV SPINE WO CON (03/13/2025 4:09 PM CDT) Anatomical Region Laterality Modality Spine Computed Tomogra phy 03/13/2025 4:34 PM CDT Impressions 03/13/2025 4:38 PM CDT Impression: No acute fracture identified. Degenerative disease, including suspected severe spinal stenosis at C4-C5. Referred By: Interpreted By: Andrew Orozco MD, 03/13/2025 4:34 PM Narrative 03/13/2025 4:38 PM CDT [address] [address] Examination: CT Cervical Spine Without Contrast Clinical History: Pain after fall Comparison: None DATE/TIME: 03/13/2025 3:53 PM Technique: Axial, coronal and sagittal unenhanced imaging of the cervical spine was performed. A dose lowering technique was used for this procedure, which may include, but is not limited to, dose reduction techniques, automated exposure control, the use of a iterative reconstruction, and ALARA (as low as reasonably achievable)/image gently techniques. Findings: Alignment is within normal limits. No acute fracture is identified. Vertebral body heights are maintained. No prevertebral soft tissue swelling. Bilateral carotid arterial calcifications are noted. Significant multilevel degenerative disease, worst at C4-C5 where there is suspected severe spinal canal narrowing. There is significant ligamentum flavum calcification at this level. There is also advanced multilevel bilateral neural foraminal narrowing and possible moderate spinal canal narrowing at other levels. Consider follow-up MRI for further evaluation. Procedure Note Andrew Orozco MD - 03/13/2025 [facility] [address] [place], [place] [address] Examination: CT Cervical Spine Without Contrast Clinical History: Pain after fall Comparison: None DATE/TIME: 03/13/2025 3:53 PM Technique: Axial, coronal and sagittal unenhanced imaging of the cervicalspine was performed. A dose lowering technique was used for thisprocedure, which may include, but is not limited to, dose reductiontechniques, automated exposure control, the use of a iterativereconstruction, and ALARA (as low as reasonably achievable)/image gentlytechniques. Findings: Alignment is within normal limits. No acute fracture is identified.Vertebral body heights are maintained. No prevertebral soft tissueswelling. Bilateral carotid arterial calcifications are noted.Significant multilevel degenerative disease, worst at C4-C5 where there issuspected severe spinal canal narrowing. There is significant ligamentumflavum calcification at this level. There is also advanced multilevelbilateral neural foraminal narrowing and possible moderate spinal canalnarrowing at other levels. Consider follow-up MRI for furtherevaluation. Impression: No acute fracture identified. Degenerative disease, including suspected severe spinal stenosis atC4-C5. Referred By: Interpreted By: Andrew Orozco MD, 03/13/2025 4:[address] Final Resul t * CT ABD+PEL W IV CON ONLY (09/22/2024 6:59 PM FORK OPERATOR) Anatomical Region Laterality Modality Abdomen Computed Tomogra phy 09/22/2024 7:03 PM FORK OPERATOR Impressions 09/22/2024 7:11 PM FORK OPERATOR IMPRESSION: 1. No CT evidence of bowel obstruction or acute appendicitis. 2. Moderate fecal burden within the colon, which can be seen with constipation. 3. CT findings suggestive of mesenteric panniculitis. 4. Status post cholecystectomy. 5. Hepatosplenomegaly of uncertain etiology. Of note, splenomegaly has progressed when compared to prior exam. Ordered By: HARMEETMauro JANELLE Interpreted By: Kira Jacobson MD, 09/22/2024 7:03 PM Narrative 09/22/2024 7:11 PM FORK OPERATOR [address] [address] PROCEDURE: CT ABD+PEL W CON HISTORY: Abdominal [...] Procedure Note Kira Jacobson MD - 09/22/2024 [facility] [address], [place] [address] PROCEDURE: CT ABD+PEL W CON HISTORY: Abdominal [...] LAB (SCAN) (05/25/2023) HGB A1C 6.7 % [facility] 05/25/2023 [facility] Scanned SCANNING Final Resu lt [facility] * LIPID PANEL (07/27/2022 3:46 PM FORK OPERATOR) CHOLESTEROL 154 <200.0 MG/DL 07/27/2022 8:11 PM [facility] TRIGLYCERIDES 97 <150 MG/DL 07/27/2022 8:11 PM [facility] HDL 52 >40.0 MG/DL 07/27/2022 8:11 PM [facility] LDL (CALCULATED) 83 <100 MG/DL 07/27/20 8:11 PM [facility] NON HDL CHOLESTEROL 102 <130 MG/DL 07/27 8:11 PM [facility] CHOL/HDL RATIO 3.0 0.0 - 4.5 07/27/2022 8:11 PM [facility] VLDL CALCULATION 19 5 - 55 MG/DL 07/27/2022 8:11 PM FORK OPERATOR [facility] LIPID INTERPRETATION 07/27/2022 8:11 PM FORK OPERATOR [facility] Comment: [facility] CONCENSUS REPORT RECOMMENDATIONS: ADULT CHILD LOW RISK: CHOLESTEROL <200 <170 TRIGLYCERIDE <150 --- HDL >=60 --- LDL <100 <110 BORDERLINE: CHOLESTEROL 200-239 170-199 TRIGLYCERIDE 150-199 --- HDL 40-59 --- LDL 100-159 110-129 HIGH RISK: CHOLESTEROL >=240 >=200 TRIGLYCERIDE >=200 --- HDL <40 --- LDL >=160 >=130 07/27/2022 3:46 PM FORK OPERATOR Bri Mcclain MD LABORATORY Final Result [facility] [address] [place] [address], [place] [phone] * OCCULT BLOOD, FECES (11/12/2021 12:00 AM CDT) OCCULT BLOOD FECAL NEGATIVE 11/12/2021 8:54 AM CDT [facility] STOOL SPECIMEN / Unknown 11/12/2021 Helen Gan MD BODY FLUIDS AND STOOLS ORDERABL ES Final Result Performing Organization Address City/Va Hospital/ZIP Co de Phone Number [facility] [address] [place] [address], [place] [phone] * HEPATITIS C ANTIBODY (08/18/2021 7:04 PM FORK OPERATOR) HEPATITIS C AB NON-REACTI VE NON-REACT DAISHA 08/18/2021 8:36 PM FORK OPERATOR [facility] Comment: ANTIBODIES TO HCV NOT DETECTED. DOES NOT EXCLUDE THE POSSIBILITY OF EXPOSURE TO HCV. 08/18/2021 7:04 PM FORK OPERATOR us [facility] Final Res ult [facility] [address] [place] [address], [id number] * DILATED EYE EXAM (09/02/2018) us Documents Scanned SCANNING Final Result from Last 3 Months or Most Recently Relevant to Health Maintenance Additional Health Concerns Infection Onset Date Last Indicated MRSA Comment:+ MRSA nares 11/14/2020 (KB) 07/07/21 +MRSA Blood 07/08/21 Nares (SB) 07/11/21 right ankle (SB) 03/08/23 nares (JK) 09/23/24 right pannus 06/04/2017 09/23/2024 Insurance [place] [id number] MEDICARE [facility] Advance Directives * Full Code (Latest Code Status on File) Date Activated Date Inactivated Comments 03/13/2025 8:39 PM 03/15/2025 6:49 PM * Full Code Date Activated Date Inactivated Comments 09/22/2024 9:08 PM 09/27/2024 12:11 PM * Full Code Date Activated Date Inactivated Comments 03/29/2023 11:00 AM 09/22/2024 5:04 PM * Full Code Date Activated Date Inactivated Comments 03/21/2023 11:00 PM 03/23/2023 10:18 PM * Full Code Date Activated Date Inactivated Comments 03/19/2023 1:32 PM 03/19/2023 3:59 PM Care Teams Template Storage Clerk Relationship Specialty Start Date End Date None, Provider, PCP - General UNKNOWN PHYSICIAN SPECIALTY 09/22/24 Bri Mcclain MD INTERNAL MEDICINE 12/31/20 Lencho Lopes MD [address] [address] Physician INTERVENTIONAL CARDIOLOGY 08/07/21
--- OUTSIDE RECORDS SUMMARY | 2025-03-28 02:43 | XMS_ITS ---
Author Organization [facility] Address [address] [place] [address] Care Team Providers Care Manager Msw Name Role Phone Felix Jones Primary Care Provider UnavailLeon Hoff Unavailable [phone] Yaneth Rivas Unavailable [phone] REASON FOR VISIT Medtr[employer]/Dexcom Encounters Encounter Location Date Provider Diagnosis [facility] [address] [place] [address] 02/01/2025 Yaneth Rivas Plan Of Treatment Next Appt Details Provider Name:Leon Shelton, 05/21/2025 10:30:00 AM, [address], [place], [address], Progress Notes * AVANIJASONNY NDOB:1955 (69 yo M)Acc No.[id number]:02/01/2025 [facility] Patient: DENA VARGAS Jeison Provider: Danielle Rivas PA-C :1955 A ge:69 Y S ex:Male Date:02/01/2025 [facility] [id number] Pcp:Felix Jones Subjective: * Chief Complaints: * 1 . Medtronic/Dexcom. * Medical History: Objective: * Vitals: * Physical Examination: Assessment: Plan: * Treatment: * Billing Information: * Visit Code: * Procedure Codes: Care Plan Details* * Electronic signature of Joe Rivas PA-C on 03/28/2025 at 02:43 AM CDT Sign off status: Pending * Provider: Danielle Rivas PA-C Date: 0 02/01/2025 Generated for Robert arnett/Anabell/Connor on: 0 03/28/2025 02:43 AM CDT
[2025-03-28 02:53] LABS: Hematocrit 29.0 % (42.0-52.0); Hemoglobin 9.3 g/dL (14.0-18.0); Immature Granulocyte Percent A 0.6 % (0-0.5); Lymphocytes Absolute Auto 1.59 K/mm3 (0.9-3.2); Mean Corpuscular HGB Conc 32.1 g/dl (32-36); Mean Corpuscular Hemoglobin 28.4 pg (26-34); Mean Corpuscular Volume 88.7 fl (80-100); Nucleated Red Blood Cells Absolute Auto 0.000 K/mm3 (0.0-0.012); Nucleated Red Blood Cells Perc 0.0 % (0.0-0.2); Platelet Count Result 198 k/mm3 (150-375); Red Blood Count 3.27 M/mm3 (4.6-6.20); White Blood Count 8.5 K/mm3 (4.5-10.0)
[2025-03-28 03:14] LABS: Alanine Aminotransferase 19 U/L (6-50); Albumin Level 3.8 g/dL (3.5-5.1); Alkaline Phosphatase 95 U/L (38-126); Anion Gap 9 mmol/L (4-12); Aspartate Amino Transferase 26 U/L (17-59); Bilirubin,Total 0.6 mg/dL (0.2-1.3); Blood Urea Nitrogen 24 mg/dL (9-20); Calcium 9.2 mg/dL (8.4-10.2); Carbon Dioxide 27 mmol/L (22-30); Chloride 94 mmol/L (98-107); Estimated CRCL calculation 93 ml/min; Estimated Glomerular Filt Rate > 60; Glucose 255 mg/dL (65-110); Potassium 4.1 mmol/L (3.4-5.0); Sodium 130 mmol/L (137-145); Total Protein 7.7 g/dL (6.3-8.2)
[2025-03-28] MEDS: PHENAZOPYRIDINE HCL 100 MG TABLET 200 MG PO (03:22)
[2025-03-28] MEDS: fentaNYL CITRATE INJ (*CRX) 100 MCG/2 ML VIAL 50 MCG IV PUSH (03:24)
[2025-03-28 03:39] LABS: Beta-Hydroxybutyrate/Acetoacetate 0.28 mmol/L (0.02-0.27)
--- NOTE | 2025-03-28 04:15 | PC.NURSE ---
Pt repositioned in bed, x2 assist
[2025-03-28] MEDS: ACETAMINOPHEN 500 MG TABLET 1000 MG PO (04:29)
[2025-03-28] MEDS: traMADol HCL (*CRX) 50 MG TABLET PO ×2 (04:31→17:10)
[2025-03-28 04:34] LABS: Add Urine Microscopic? YES; Appearance Urine Cloudy (Clear); Glucose Urine UA Negative (Negative); Leukocyte Esterase Ur 3+ LEU/UL (Negative); Nitrate Urine Negative (Negative); Non Pathogenic Casts 0-2; Specific Grav Ur 1.019 (1.001-1.035)
[2025-03-28] MEDS: DICLOFENAC SOD 75 MG TABLET.EC PO (05:02)
--- NOTE | 2025-03-28 05:54 | ECG_ITS ---
Test Date: 2025-03-28 09:17:10 Measurements Intervals [place] Rate: 87 P: 134 MD: 194 QRS: 170 QRSD: 94 T: 165 QT: 362 QTc: 438 Interpretive Statements SINUS RHYTHM WITH OCCASIONAL SUPRAVENTRICULAR PREMATURE COMPLEXES ARM LEADS REVERSED CONSIDER INFERIOR INFARCT, AGE INDETERMINATE No previous ECG available for comparison BASELINE ARTIFACT- I, II, III, AVR, AVL, AVF, V1-V2 ABNORMAL ECG NO PRIOR ECG FOR COMPARISON Electronically Signed On 03-28-2025 09:51:17 CDT by Jonn Figueredo D.O.
[2025-03-28] MEDS: cefTRIAXone 1 GM in SODIUM CHLORIDE 0.9% IV 50 ML 100 ML IVPB (06:34)
[2025-03-28 11:17] LABS: Iron 37 ug/dL (49-181)
--- NOTE | 2025-03-28 11:22 | ADMGEN ---
This patient, Suleiman Hoang, was admitted to [facility] Surg Room 325-01. Patient/family oriented to hospital policies and general routines including ID bracelet, bed and alarms, visiting hours, pain management, procedures, bathroom and other care routines, personal items, smoking policy, room service/diet, and visiting hours. Information on how to activate the Rapid Response Team has been discussed. Patient/Family are encouraged to report perceived risks to care and to ask questions if they do not understand what they are told or what they should do.
[2025-03-28 11:26] LABS: Percent Iron Saturation 14 % (20-50)
[2025-03-28 11:53] LABS: Ferritin 58.60 ng/mL (11.1-264)
--- NOTE | 2025-03-28 15:56 | P.HP_ITS ---
H&P: HPI History of Present Illness Date/Time: 03/28/25 15:56 Chief Complaint: Dysuria Narrative: 69 yo male with PMH obesity atrial fib on Eliquis, unsteady gait, type 2 diabetes with Charcot feet, peripheral vascular disease, hypertension hypothyroidism, hypersomnolence presented today accompanied painful urination. Patient is poor historian but reported he has been having dysuria x 2 weeks, denies any abd pain, fever, diarrhea, chest pain or SOB ER eval notable for HR 104, RR 16, BP 99/58, Labs notable for Hb 9.3, Isat 14, leukocyte esterase 3+, with pyuria. Started on Rocephin prior to admission Review of Systems Review of Systems: Other systems reviewed and negative except as noted in history above. [facility] Past Medical History Medical History Right shoulder pain Muscle spasm UTI (urinary tract infection) Prostate cancer screening Encounter for routine adult health examination without abnormal findings Iron deficiency anemia Unsteady gait Venous stasis Follow up Chronic cough Vitamin D deficiency Encounter for Medicare annual wellness exam Hypokalemia Impaired functional mobility, balance, gait, and endurance Epistaxis DJD (degenerative joint disease), multiple sites Morbid obesity DJD (degenerative joint disease) Lymphedema Mild reactive airways disease PVD (peripheral vascular disease) Pedal edema Rash Essential hypertension Hypothyroidism (acquired) Decubitus ulcer Hypersomnolence Encounter to establish care On long term care administrator drug therapy Postoperative wound dehiscence Pain due to internal orthopedic prosthetic devices, implants and grafts, initial encounter (08/26/17) Non-pressure chronic ulcer of other part of right foot limited to breakdown of skin Right foot pain Other chronic pain Fungal infection right foot Obesity, morbid, BMI 40.0-49.9 Occult blood in stools Acute on chronic anemia Chronic anemia Hyperlipidemia Pneumonia BPH (benign prostatic hyperplasia) Obstructive sleep apnea Glaucoma Chronic a-fib Right knee DJD Left knee DJD Type 2 diabetes mellitus with diabetic neuropathy, unspecified Venous stasis of both lower extremities BMI greater than 40 Degenerative joint disease of knee Vision abnormalities Diabetes 1.5, managed as type 2 Left knee pain Surgical History Surgical History History of skin graft History of arthroplasty of left knee Hx of cholecystectomy H/O cataract extraction History of foot surgery Family History Family History Mother Breast cancer Dementia Father Diabetes mellitus Malignant neoplasm of prostate Dementia Other Family history of malignant neoplasm Social History Social History Social History: the patient lives with his and they have no children. He is retired from [employer]. Code status full code Smoking packs per day: 2.5 Smoking cigarettes per day: 50.0 Years smoked: 10 Smoking pack-years: 25.00 Smoking status: Former smoker Alcohol intake: never Substance use: never Substance use type: does not use Lack of Transportation: No Lack of Food: Never True Current Housing: I Have Housing Concerned About Future Housing: No Difficulty Paying Gas/Electric Bills: No Difficulty Paying for Meds: No Currently Unemployed: No Education: Decline to Answer Difficulty w/ Childcare or Family Care: Decline to Answer Gender identity (if verbalized by the patient): Male Spiritual care concerns: No Meds Home Medications and Allergies Home Medications ?Medication ?Instructions ?Recorded ?Confirmed ?Type blood-glucose meter (OneTouch 05/25/23 03/01/25 History Verio Flex Meter) insulin syringe-needle U-100 1 mL 05/25/23 03/01/25 History 31 gauge x 5/16 (BD Insulin Syringe Ultra-Fine) fluticasone propionate 220 2 puff inhalation Q12H #12 grams 09/21/23 03/28/25 Rx mcg/actuation HFA aerosol inhaler docusate sodium 100 mg capsule 100 mg PO BID PRN Constipation 10/28/23 03/28/25 History nystatin 100,000 unit/gram topical 1 applic topical TID #60 grams 10/28/23 03/28/25 Rx powder losartan 25 mg tablet 25 mg PO DAILY 10/29/23 03/28/25 History brimonidine 0.2 % eye drops 1 drp EACH EYE Q12H #5 mL 11/12/23 03/28/25 Rx dorzolamide 22.3 mg-timolol 6.8 1 drp EACH EYE Q12H #10 mL 11/12/23 03/28/25 Rx mg/mL eye drops Wheelchair #1 ea 01/21/24 03/01/25 Rx atorvastatin 40 mg tablet 40 mg PO DAILY #90 tabs 01/31/24 03/28/25 Rx tamsulosin 0.4 mg capsule See Rx Instructions .Route 02/04/24 03/28/25 Rx .COMPLEX #90 caps Electric Wheel Chair #1 ea 02/23/24 03/01/25 Rx hydralazine 50 mg tablet 50 mg PO TID #90 tabs 03/09/24 03/01/25 Rx levothyroxine 112 mcg tablet See Rx Instructions .Route 05/02/24 03/28/25 Rx .COMPLEX #30 tabs blood-glucose sensor (Dexcom G6 06/08/24 03/01/25 History Sensor device) insulin regular hum U-500 conc 500 350 unit subcut .via insulin pump 06/08/24 03/28/25 History unit/mL subcutaneous soln (Humulin QD R U-500 (Concentrated) Insulin) lancets 33 gauge 06/08/24 03/01/25 History famotidine 20 mg tablet See Rx Instructions .Route 09/15/24 03/28/25 Rx .COMPLEX #90 tabs potassium chloride 10 mEq See Rx Instructions .Route 09/15/24 03/28/25 Rx capsule,extended release .COMPLEX #90 caps lidocaine 4 % topical cream 1 applic topical QID PRN pain #119 02/08/25 03/28/25 Rx grams nystatin 100,000 unit/gram topical 1 applic topical BID #30 grams 02/13/25 03/28/25 Rx powder acetaminophen 500 mg capsule 1,000 mg PO Q6H PRN mild pain 02/20/25 03/28/25 History (scale score 1-4) catheter ([facility] Male #144 ea 02/20/25 03/01/25 Rx External Catheter) diclofenac sodium 1 % topical gel 2 g topical QID #50 grams 02/23/25 03/28/25 Rx methocarbamol 750 mg tablet 750 mg PO TID PRN muscle pain #10 03/04/25 03/28/25 Rx tabs tramadol 50 mg tablet 50 mg PO Q6H PRN pain #30 tabs 03/12/25 03/28/25 Rx apixaban 5 mg tablet (Eliquis) 5 mg PO Q12H 03/28/25 03/28/25 History baclofen 15 mg tablet 15 mg PO DAILY 03/28/25 03/28/25 History bisacodyl 5 mg tablet,delayed 5 mg PO BID PRN constipation 03/28/25 03/28/25 History release bumetanide 2 mg tablet 2 mg PO DAILY 03/28/25 03/28/25 History calcium carbonate (Antacid 400 mg PO TID PRN dyspepsia 03/28/25 03/28/25 History (calcium carbonate)) gabapentin 100 mg capsule 300 mg PO TID 03/28/25 03/28/25 History hydrocodone 5 mg-acetaminophen 325 1 tablet PO Q6H PRN pain (scale 03/28/25 03/28/25 History mg tablet score 4-6) hydroxyzine HCl 25 mg tablet 25 mg PO Q6H PRN itching, anxiety 03/28/25 03/28/25 History insulin glargine 100 unit/mL (3 13 unit subcut BID 03/28/25 03/28/25 History mL) subcutaneous pen (Lantus Solostar U-100 Insulin) insulin regular human 100 unit/mL 20 unit subcut TIDWM 03/28/25 03/28/25 History injection solution (Humulin R Regular U-100 Insulin) metoprolol succinate 50 mg 50 mg PO DAILY 03/28/25 03/28/25 History tablet,extended release 24 hr olanzapine 15 mg tablet 15 mg PO DAILY 03/28/25 03/28/25 History polyethylene glycol 3350 17 17 g PO DAILY PRN constipation 03/28/25 03/28/25 History gram/dose oral powder (ClearLax) spironolactone 25 mg tablet 50 mg PO DAILY 03/28/25 03/28/25 History tirzepatide 5 mg/0.5 mL 2.5 mg subcut WEEKLY 03/28/25 03/28/25 History subcutaneous pen injector (Mounjaro) Allergies Allergy/AdvReac Type Severity Reaction Status Date / Time metformin Allergy Mild Rash Verified 03/28/25 11:55 Vital Signs Vital Signs - 24 hr 03/28/25 01:33 03/28/25 03:55 03/28/25 05:56 Temperature 97.2 F L Pulse Rate 104 H 105 H 106 H Respiratory Rate 16 15 15 Blood Pressure 99/58 L 110/47 L 126/59 L Pulse Oximetry 97 99 Oxygen Delivery Room Air 03/28/25 14:00 Temperature 97.6 F Pulse Rate 97 Respiratory Rate 22 H Blood Pressure 135/53 L Pulse Oximetry 99 Oxygen Delivery Exam Narrative: General: alert and comfortable, obese Eyes: EOMI, PERRLA ENNT External ears normal, Neck is supple, no masses, Respiratory systems: Clear to auscultation Cardiovascular S1, S2, normal rhythm, no murmur, rub, or gallop; no thrill or palpable murmurs on palpation. Gastrointestinal: soft, non-tender, and non-distended abdomen with no masses; BS present Skin: no rash, lesions, ulcerations, subcutaneous nodules or induration Musculoskeletal: Charcot feet Neurologic: Alert and oriented x3, non focal Mental Status Exam: normal affect H&P: Results Labs Labs: Short CBC 03/28/25 Range/Units 02:47 WBC 8.5 (4.5-10.0) K/mm3 Hgb 9.3 L (14.0-18.0) g/dL Hct 29.0 L (42.0-52.0) % Plt Count 198 (150-375) k/mm3 BMP 03/28/25 02:48 Sodium 130 L Potassium 4.1 Chloride 94 L Carbon Dioxide 27 BUN 24 H Creatinine 1.03 Glucose 255 H Calcium 9.2 Liver Function 03/28/25 Range/Units 02:48 Total Bilirubin 0.6 (0.2-1.3) mg/dL AST 26 (17-59) U/L ALT 19 (6-50) U/L Alkaline Phosphatase 95 (38-126) U/L Albumin 3.8 (3.5-5.1) g/dL Urine 03/28/25 Range/Units 04:21 Urine Color Yellow (Yellow) Urine Appearance Cloudy H (Clear) Urine pH 7.0 (5.0-9.0) Ur Specific Glynn 1.019 (1.001-1.035) Urine Protein Trace (Negative) mg/dL Urine Glucose (UA) Negative (Negative) mg/dL Assessment and Plan Assessment and plan (1) Urinary tract infection associated with indwelling urethral catheter: Code(s): T83.511A - Infection and inflammatory reaction due to indwelling urethral catheter, initial encounter; N39.0 - Urinary tract infection, site not specified Status: Acute Plan CAUTI patient on chronic blandon Exchange catheter F/u cultures and continue Rocephin Afib chronic continue Eliquis and metoprolol DM2 SSI with accucheks, continue home lantus monitor and adjust with clinical course Charcot foot from DM2 PT/OT PVD continue Antiplatelets and Statin Hypothyroidism Continue home Levothyroxine DVT prophylaxis on Eliquis Full code SDM: Bri Hoang Hospitalist [facility] Advance Care Plan I have confirmed that the patient's Advanced Care Plan is present, code status is documented, or surrogate decision maker is listed in patient medical record.: Yes Medication Reconciliation I have utilized all available resources to obtain, update and review the patients current medications (includes all prescriptions, OTC, herbals, cannabis, and nutritional supplements).: Yes
[2025-03-28] MEDS: INSULIN ASPART (*BKC) 100 UNITS/ML SUB-Q (17:08)
[2025-03-28] MEDS: GABAPENTIN 300 MG CAPSULE PO (17:09)
[2025-03-28] MEDS: FLUTICASONE PROP 220 MCG (*SP) 12 GM INHALER 2 PUFF INHALATION (20:51)
[2025-03-28] MEDS: INSULIN GLARGINE (*BKC) 100 UNITS/ML 13 UNITS SUB-Q (21:16)
[2025-03-28] MEDS: DORZOLAMIDE/TIMOLOL OPHTH SOL 10 ML BOTTLE 1 DROP EACH EYE (21:22)
[2025-03-28] MEDS: APIXABAN 5 MG TABLET PO (21:23)
[2025-03-28] MEDS: BRIMONIDINE TARTRATE 0.2% OP SOLN 5 ML BTL 1 DROP EACH EYE (21:23)
[2025-03-29] VITALS (7 sets, daily range): BP systolic 115–143; BP diastolic 52–54; PULSE 74–114; RESP 16–18; TEMP 36.4–36.9; O2SAT 96–98
[2025-03-29] MEDS: traMADol HCL (*CRX) 50 MG TABLET PO ×2 (04:49→17:12)
[2025-03-29] MEDS: CALCIUM CARBONATE (TUMS) 500 MG (200 MG ELEMENTAL) PO ×3 (05:17→23:32)
[2025-03-29] MEDS: LEVOTHYROXINE SODIUM 112 MCG TABLET BY MOUTH (05:17)
[2025-03-29 06:20] LABS: Hematocrit 28.9 % (42.0-52.0); Hemoglobin 8.8 g/dL (14.0-18.0); Immature Granulocyte Percent A 0.5 % (0-0.5); Lymphocytes Absolute Auto 0.89 K/mm3 (0.9-3.2); Mean Corpuscular HGB Conc 30.4 g/dl (32-36); Mean Corpuscular Hemoglobin 28.2 pg (26-34); Mean Corpuscular Volume 92.6 fl (80-100); Nucleated Red Blood Cells Absolute Auto 0.000 K/mm3 (0.0-0.012); Nucleated Red Blood Cells Perc 0.0 % (0.0-0.2); Platelet Count Result 181 k/mm3 (150-375); Red Blood Count 3.12 M/mm3 (4.6-6.20); White Blood Count 5.8 K/mm3 (4.5-10.0)
[2025-03-29] MEDS: cefTRIAXone 1 GM in SODIUM CHLORIDE 0.9% IV 50 ML 100 ML IVPB (06:20)
[2025-03-29 06:45] LABS: Alanine Aminotransferase 15 U/L (6-50); Albumin Level 3.6 g/dL (3.5-5.1); Alkaline Phosphatase 84 U/L (38-126); Anion Gap 7 mmol/L (4-12); Aspartate Amino Transferase 26 U/L (17-59); Bilirubin,Total 0.7 mg/dL (0.2-1.3); Blood Urea Nitrogen 19 mg/dL (9-20); Calcium 9.1 mg/dL (8.4-10.2); Carbon Dioxide 29 mmol/L (22-30); Chloride 97 mmol/L (98-107); Estimated CRCL calculation 112 ml/min; Estimated Glomerular Filt Rate > 60; Glucose 228 mg/dL (65-110); Magnesium 1.7 mg/dL (1.6-2.3); Potassium 4.2 mmol/L (3.4-5.0); Sodium 133 mmol/L (137-145); Total Protein 7.5 g/dL (6.3-8.2)
[2025-03-29] MEDS: FLUTICASONE PROP 220 MCG (*SP) 12 GM INHALER 2 PUFF INHALATION ×2 (08:06→20:17)
[2025-03-29] MEDS: INSULIN ASPART (*BKC) 100 UNITS/ML SUB-Q ×3 (08:45→17:13)
[2025-03-29] MEDS: GABAPENTIN 300 MG CAPSULE PO ×3 (08:45→17:13)
[2025-03-29] MEDS: BUMETANIDE 1 MG TABLET 2 MG PO (08:54)
[2025-03-29] MEDS: METOPROLOL SUCCINATE EXT REL 50 MG TABCR PO (08:54)
[2025-03-29] MEDS: APIXABAN 5 MG TABLET PO ×2 (08:54→20:03)
[2025-03-29] MEDS: BACLOFEN 5 MG TABLET 15 MG PO (08:54)
[2025-03-29] MEDS: INSULIN GLARGINE (*BKC) 100 UNITS/ML 13 UNITS SUB-Q ×2 (08:56→21:11)
[2025-03-29] MEDS: IRON SUCROSE COMPLEX 400 MG, IRON SUCROSE COMPLEX 100 MG in SODIUM CHLORIDE 0.9% IV 250 ML 78.57 MG IVPB (08:57)
[2025-03-29] MEDS: BRIMONIDINE TARTRATE 0.2% OP SOLN 5 ML BTL 1 DROP EACH EYE ×2 (09:00→19:58)
[2025-03-29] MEDS: DORZOLAMIDE/TIMOLOL OPHTH SOL 10 ML BOTTLE 1 DROP EACH EYE ×2 (09:00→19:58)
[2025-03-29] MEDS: HYDROcodone/acetaminophen (*CRX) 5-325 MG TABLET 1 TAB PO ×2 (11:31→19:47)
--- NOTE | 2025-03-29 12:52 | PM.IMPN ---
Progress Note: A&P Assessment and Plan (1) Urinary tract infection associated with indwelling urethral catheter: Code(s): T83.511A - Infection and inflammatory reaction due to indwelling urethral catheter, initial encounter; N39.0 - Urinary tract infection, site not specified Status: Acute Plan CAUTI patient on chronic blandon Exchanged catheter F/u cultures and continue Rocephin Iron deficiency anemia hb 8.8, Isat isat 14 monitor H and H IV Iron 500/1000 Afib chronic continue Eliquis and metoprolol DM2 SSI with accucheks, continue home lantus monitor and adjust with clinical course Charcot foot from DM2 PT/OT PVD continue Antiplatelets and Statin Hypothyroidism Continue home Levothyroxine DVT prophylaxis on Eliquis Full code SDM: Bri Hoang Subjective Date/time seen: 03/29/25 12:52 Interval history: Comfortable at bedside Review of Systems Review of Systems: Other systems reviewed and negative except as noted in history above. Exam Narrative: General: alert and comfortable, obese Eyes: EOMI, PERRLA ENNT External ears normal, Neck is supple, no masses, Respiratory systems: Clear to auscultation Cardiovascular S1, S2, normal rhythm, no murmur, rub, or gallop; no thrill or palpable murmurs on palpation. Gastrointestinal: soft, non-tender, and non-distended abdomen with no masses; BS present Skin: no rash, lesions, ulcerations, subcutaneous nodules or induration Musculoskeletal: Charcot feet Neurologic: Alert and oriented x3, non focal Mental Status Exam: normal affect Objective Data Vital Signs Vital Signs: Vital Signs - 24 hr 03/28/25 14:00 03/28/25 20:52 03/28/25 20:52 Temperature 97.6 F 98.4 F Pulse Rate 97 95 100 Respiratory Rate 22 H 16 16 Blood Pressure 135/53 L 116/89 Pulse Oximetry 99 96 Oxygen Delivery 03/28/25 20:53 03/28/25 21:22 03/29/25 06:00 Temperature 98.4 F Pulse Rate 95 95 114 H Respiratory Rate 16 16 16 Blood Pressure 133/52 L Pulse Oximetry 95 95 98 Oxygen Delivery Room Air Room Air 03/29/25 08:06 03/29/25 08:54 Temperature Pulse Rate 91 98 Respiratory Rate 16 Blood Pressure Pulse Oximetry Oxygen Delivery Intake/Output Intake/Output: Intake & Output 03/26/25 03/27/25 03/28/25 03/29/25 23:59 23:59 23:59 23:59 Intake Total 1994 540 Output Total 1150 1350 Balance 844 -810 Meds/Results Medications: Active Medications Generic Name Dose Route Start Last Admin Trade Name Freq PRN Reason Stop Dose Admin Acetaminophen 650 mg 03/28/25 05:56 Acetaminophen 325 Mg Tablet PO Q4H PRN Mild Pain (1-3) or Fever Hydrocodone Bitart/Acetaminophen 1 tab 03/29/25 10:04 03/29/25 11:31 Hydrocodone/Acetaminophen (*Crx) 5-325 Mg Tablet PO 1 tab Q6H PRN Administration Pain Rated 7-10 Apixaban 5 mg 03/28/25 21:00 03/29/25 08:54 Apixaban 5 Mg Tablet PO 5 mg Q12HR STACIE Administration Atorvastatin Calcium 40 mg 03/29/25 21:00 Atorvastatin 40 Mg Tablet PO HS STACIE Baclofen 15 mg 03/29/25 09:00 03/29/25 08:54 Baclofen 5 Mg Tablet PO 15 mg DAILY STACIE Administration Bisacodyl 5 mg 03/28/25 15:53 Bisacodyl 5 Mg Tablet Ec PO BID PRN constipation Brimonidine Tartrate 1 drop 03/28/25 21:00 03/29/25 09:00 Brimonidine Tartrate 0.2% Op Soln 5 Ml Btl EACH EYE 1 drop Q12HR STACIE Administration Bumetanide 2 mg 03/29/25 09:00 03/29/25 08:54 Bumetanide 1 Mg Tablet PO 2 mg DAILY STACIE Administration Calcium Carbonate 200 mg 03/29/25 05:08 03/29/25 09:00 Calcium Carbonate (Tums) 500 Mg (200 Mg Elemental) PO 200 mg Q2H PRN Administration Indigestion Dextrose 12.5 gm 03/28/25 05:56 Dextrose 50% 25 Gm/50 Ml Syringe IV PUSH PRN PRN Hypoglycemia Protocol Dextrose 12.5 gm 03/28/25 16:07 Dextrose 50% 25 Gm/50 Ml Syringe IV PUSH PRN PRN Hypoglycemia Protocol Dorzolamide/Timolol 1 drop 03/28/25 21:00 03/29/25 09:00 Dorzolamide/Timolol Ophth Linda 10 Ml Bottle EACH EYE 1 drop Q12HR STACIE Administration Fluticasone Propionate 2 puff 03/28/25 20:00 03/29/25 08:06 Fluticasone Prop 220 Mcg (*Sp) 12 Gm Inhaler INHALATION 2 puff Q12HRT STACIE Administration Gabapentin 300 mg 03/28/25 17:00 03/29/25 12:05 Gabapentin 300 Mg Capsule PO 300 mg TID STACIE Administration Glucagon 1 mg 03/28/25 05:56 Glucagon For Inj 1 Mg Vial IM PRN PRN Hypoglycemia Protocol Glucagon 1 mg 03/28/25 16:07 Glucagon For Inj 1 Mg Vial IM PRN PRN Hypoglycemia Protocol Glucose 15 gm 03/28/25 05:56 Glucose Oral Gel 15 Gm Of Glucse In 37.5 Gm Tube PO PRN PRN Hypoglycemia Protocol Glucose 15 gm 03/28/25 16:07 Glucose Oral Gel 15 Gm Of Glucse In 37.5 Gm Tube PO PRN PRN Hypoglycemia Protocol Dextrose 1,000 mls @ 100 mls/hr 03/28/25 05:56 Dextrose 5% 1,000 Ml IVPB PRN PRN Hypoglycemia Protocol Ceftriaxone Sodium 1 gm/ 50 mls @ 100 mls/hr 03/29/25 07:00 03/29/25 06:20 Sodium Chloride IVPB 100 mls/hr Q24H STACIE Administration Dextrose 1,000 mls @ 100 mls/hr 03/28/25 16:07 Dextrose 5% 1,000 Ml IVPB PRN PRN Hypoglycemia Protocol Iron Sucrose 400 mg/ Iron 275 mls @ 78.571 mls/hr 03/29/25 10:00 03/29/25 08:57 Sucrose 100 mg/ Sodium IVPB 03/29/25 13:29 78.57 mls/hr Chloride ONCE ONE Administration Insulin Aspart 2 - 5 units 03/28/25 17:00 03/29/25 12:05 Insulin Aspart (*Bkc) 100 Units/Ml SUB-Q 2 units TIDWM STACIE Administration Protocol Insulin Glargine 13 units 03/28/25 21:00 03/29/25 08:56 Insulin Glargine (*Bkc) 100 Units/Ml SUB-Q 13 units Q12HR STACIE Administration Levothyroxine Sodium 112 mcg 03/29/25 06:30 03/29/25 05:17 Levothyroxine Sodium 112 Mcg Tablet BY MOUTH 112 mcg DAILY@0630 STACIE Administration Metoprolol Succinate 50 mg 03/29/25 09:00 03/29/25 08:54 Metoprolol Succinate Ext Rel 50 Mg Tabcr PO 50 mg DAILY STACIE Administration Ondansetron HCl 4 mg 03/28/25 05:56 Ondansetron Inj 4 Mg/2 Ml Vial IV PUSH Q4H PRN Nausea Tramadol HCl 50 mg 03/28/25 15:53 03/29/25 04:49 Tramadol Hcl (*Crx) 50 Mg Tablet PO 50 mg Q6H PRN Administration pain 4-6 Radiology Results: ITS Impressions Chest X-Ray 03/28/25 16:19 IMPRESSION: No focal infiltrate or effusion. Labs Labs: Laboratory Results - last 24 hr 03/28/25 03/28/25 03/29/25 16:45 19:21 06:02 WBC 5.8 RBC 3.12 L Hgb 8.8 L Hct 28.9 L MCV 92.6 MCH 28.2 MCHC 30.4 L RDW 16.8 H Plt Count 181 MPV 10.7 H Immature Gran % (Auto) 0.5 Neut % (Auto) 70.8 Lymph % (Auto) 15.3 L Dougherty % (Auto) 6.7 Eos % (Auto) 6.4 H Baso % (Auto) 0.3 Lymph # (Auto) 0.89 L Dougherty # (Auto) 0.4 Eos # (Auto) 0.4 H Baso # (Auto) 0.0 Abs Immat Gran (auto) 0.03 Absolute Neuts (auto) 4.1 Absolute Nucleated RBC 0.000 Nucleated RBC % 0.0 Sodium 133 L Potassium 4.2 Chloride 97 L Carbon Dioxide 29 Anion Gap 7 BUN 19 Creatinine 0.84 Estim Creat Clear Calc 112 Estimated GFR > 60 Glucose 228 H POC Capillary Glucose 254 H 273 H Lactic Acid 1.3 Calcium 9.1 Magnesium 1.7 Total Bilirubin 0.7 AST 26 ALT 15 Alkaline Phosphatase 84 Total Protein 7.5 Albumin 3.6 03/29/25 03/29/25 07:42 11:25 WBC RBC Hgb Hct MCV MCH MCHC RDW Plt Count MPV Immature Gran % (Auto) Neut % (Auto) Lymph % (Auto) Dougherty % (Auto) Eos % (Auto) Baso % (Auto) Lymph # (Auto) Dougherty # (Auto) Eos # (Auto) Baso # (Auto) Abs Immat Gran (auto) Absolute Neuts (auto) Absolute Nucleated RBC Nucleated RBC % Sodium Potassium Chloride Carbon Dioxide Anion Gap BUN Creatinine Estim Creat Clear Calc Estimated GFR Glucose POC Capillary Glucose 206 H 223 H Lactic Acid Calcium Magnesium Total Bilirubin AST ALT Alkaline Phosphatase Total Protein Albumin
--- NOTE | 2025-03-29 12:59 | PC.NURSE ---
pt transferred in to [facility] bariatric bed for comfort
[2025-03-29] MEDS: BENZOCAINE/MENTHOL (*BKC) 18 EA LOZENGE 1 LOZENGE PO (14:56)
[2025-03-29] MEDS: ATORVASTATIN 40 MG TABLET PO (20:03)
[2025-03-30] MEDS: HYDROcodone/acetaminophen (*CRX) 5-325 MG TABLET 1 TAB PO (02:23)
[2025-03-30] MEDS: CALCIUM CARBONATE (TUMS) 500 MG (200 MG ELEMENTAL) PO ×3 (02:23→20:39)
[2025-03-30 05:33] VITALS: BP 141/62; PULSE 71; RESP 18; TEMP 36.6; O2SAT 98
[2025-03-30] MEDS: LEVOTHYROXINE SODIUM 112 MCG TABLET BY MOUTH (05:39)
[2025-03-30] MEDS: cefTRIAXone 1 GM in SODIUM CHLORIDE 0.9% IV 50 ML 100 ML IVPB (05:43)
[2025-03-30] MEDS: traMADol HCL (*CRX) 50 MG TABLET PO (05:57)
[2025-03-30 08:45] VITALS: PULSE 70; RESP 16; O2SAT 95
[2025-03-30] MEDS: FLUTICASONE PROP 220 MCG (*SP) 12 GM INHALER 2 PUFF INHALATION ×2 (08:45→20:11)
[2025-03-30 08:49] VITALS: PULSE 69; RESP 16
[2025-03-30] MEDS: APIXABAN 5 MG TABLET PO ×2 (08:59→20:40)
[2025-03-30] MEDS: BACLOFEN 5 MG TABLET 15 MG PO (08:59)
[2025-03-30] MEDS: BUMETANIDE 1 MG TABLET 2 MG PO (08:59)
[2025-03-30] MEDS: GABAPENTIN 300 MG CAPSULE PO ×3 (08:59→17:14)
[2025-03-30] MEDS: METOPROLOL SUCCINATE EXT REL 50 MG TABCR PO (08:59)
[2025-03-30] MEDS: INSULIN ASPART (*BKC) 100 UNITS/ML SUB-Q ×2 (09:06→13:21)
[2025-03-30] MEDS: INSULIN GLARGINE (*BKC) 100 UNITS/ML 13 UNITS SUB-Q ×2 (09:06→22:23)
[2025-03-30] MEDS: BRIMONIDINE TARTRATE 0.2% OP SOLN 5 ML BTL 1 DROP EACH EYE ×2 (09:08→20:41)
[2025-03-30] MEDS: DORZOLAMIDE/TIMOLOL OPHTH SOL 10 ML BOTTLE 1 DROP EACH EYE ×2 (09:08→20:41)
--- NOTE | 2025-03-30 11:51 | PM.IMPN ---
Progress Note: A&P Assessment and Plan (1) Urinary tract infection associated with indwelling urethral catheter: Code(s): T83.511A - Infection and inflammatory reaction due to indwelling urethral catheter, initial encounter; N39.0 - Urinary tract infection, site not specified Status: Acute Plan CAUTI patient on chronic blandon Exchanged catheter F/u cultures and continue Rocephin noted dysuria has resolved awaiting culture results Iron deficiency anemia hb 8.8, Isat isat 14 monitor H and H IV Iron 1000/1000 Afib chronic continue Eliquis and metoprolol DM2 SSI with accucheks, continue home lantus monitor and adjust with clinical course Charcot foot from DM2 PT/OT PVD continue Antiplatelets and Statin Hypothyroidism Continue home Levothyroxine DVT prophylaxis on Eliquis Full code SDM: Bri Hoang Subjective Date/time seen: 03/30/25 11:51 Interval history: Comfortable at bedside Review of Systems Review of Systems: Other systems reviewed and negative except as noted in history above. Exam Narrative: General: alert and comfortable, obese Eyes: EOMI, PERRLA ENNT External ears normal, Neck is supple, no masses, Respiratory systems: Clear to auscultation Cardiovascular S1, S2, normal rhythm, no murmur, rub, or gallop; no thrill or palpable murmurs on palpation. Gastrointestinal: soft, non-tender, and non-distended abdomen with no masses; BS present Skin: no rash, lesions, ulcerations, subcutaneous nodules or induration Musculoskeletal: Charcot feet Neurologic: Alert and oriented x3, non focal Mental Status Exam: normal affect Objective Data Vital Signs Vital Signs: Vital Signs - 24 hr 03/29/25 14:00 03/29/25 20:17 03/29/25 20:18 Temperature 97.6 F Pulse Rate 88 79 Respiratory Rate 18 18 Blood Pressure 115/54 L Pulse Oximetry 98 96 Oxygen Delivery Room Air 03/29/25 22:00 03/30/25 05:33 03/30/25 08:45 Temperature 97.5 F L 98 F Pulse Rate 74 71 Respiratory Rate 18 18 Blood Pressure 143/53 H 141/62 H Pulse Oximetry 96 98 95 Oxygen Delivery Room Air 03/30/25 08:45 03/30/25 08:49 Temperature Pulse Rate 70 69 Respiratory Rate 16 16 Blood Pressure Pulse Oximetry Oxygen Delivery Intake/Output Intake/Output: Intake & Output 03/27/25 03/28/25 03/29/25 03/30/25 23:59 23:59 23:59 23:59 Intake Total 1993 1584 550 Output Total 1149 2645 1300 Balance 584 -525 -965 Meds/Results Medications: Active Medications Generic Name Dose Route Start Last Admin Trade Name Freq PRN Reason Stop Dose Admin Acetaminophen 650 mg 03/28/25 05:56 Acetaminophen 325 Mg Tablet PO Q4H PRN Mild Pain (1-3) or Fever Hydrocodone Bitart/Acetaminophen 1 tab 03/29/25 10:04 03/30/25 02:23 Hydrocodone/Acetaminophen (*Crx) 5-325 Mg Tablet PO 1 tab Q6H PRN Administration Pain Rated 7-10 Apixaban 5 mg 03/28/25 21:00 03/30/25 08:59 Apixaban 5 Mg Tablet PO 5 mg Q12HR STACIE Administration Atorvastatin Calcium 40 mg 03/29/25 21:00 03/29/25 20:03 Atorvastatin 40 Mg Tablet PO 40 mg HS STACIE Administration Baclofen 15 mg 03/29/25 09:00 03/30/25 08:59 Baclofen 5 Mg Tablet PO 15 mg DAILY STACIE Administration Benzocaine 1 lozenge 03/29/25 14:08 03/29/25 14:56 Benzocaine/Menthol (*Bkc) 18 Ea Lozenge PO 1 lozenge PRN PRN Administration Sore Throat Bisacodyl 5 mg 03/28/25 15:53 Bisacodyl 5 Mg Tablet Ec PO BID PRN constipation Brimonidine Tartrate 1 drop 03/28/25 21:00 03/30/25 09:08 Brimonidine Tartrate 0.2% Op Soln 5 Ml Btl EACH EYE 1 drop Q12HR STACIE Administration Bumetanide 2 mg 03/29/25 09:00 03/30/25 08:59 Bumetanide 1 Mg Tablet PO 2 mg DAILY STACIE Administration Calcium Carbonate 200 mg 03/29/25 05:08 03/30/25 05:54 Calcium Carbonate (Tums) 500 Mg (200 Mg Elemental) PO 200 mg Q2H PRN Administration Indigestion Dextrose 12.5 gm 03/28/25 05:56 Dextrose 50% 25 Gm/50 Ml Syringe IV PUSH PRN PRN Hypoglycemia Protocol Dextrose 12.5 gm 03/28/25 16:07 Dextrose 50% 25 Gm/50 Ml Syringe IV PUSH PRN PRN Hypoglycemia Protocol Dorzolamide/Timolol 1 drop 03/28/25 21:00 03/30/25 09:08 Dorzolamide/Timolol Ophth Linda 10 Ml Bottle EACH EYE 1 drop Q12HR STACIE Administration Fluticasone Propionate 2 puff 03/28/25 20:00 03/30/25 08:45 Fluticasone Prop 220 Mcg (*Sp) 12 Gm Inhaler INHALATION 2 puff Q12HRT STACIE Administration Gabapentin 300 mg 03/28/25 17:00 03/30/25 08:59 Gabapentin 300 Mg Capsule PO 300 mg TID STACIE Administration Glucagon 1 mg 03/28/25 05:56 Glucagon For Inj 1 Mg Vial IM PRN PRN Hypoglycemia Protocol Glucagon 1 mg 03/28/25 16:07 Glucagon For Inj 1 Mg Vial IM PRN PRN Hypoglycemia Protocol Glucose 15 gm 03/28/25 05:56 Glucose Oral Gel 15 Gm Of Glucse In 37.5 Gm Tube PO PRN PRN Hypoglycemia Protocol Glucose 15 gm 03/28/25 16:07 Glucose Oral Gel 15 Gm Of Glucse In 37.5 Gm Tube PO PRN PRN Hypoglycemia Protocol Dextrose 1,000 mls @ 100 mls/hr 03/28/25 05:56 Dextrose 5% 1,000 Ml IVPB PRN PRN Hypoglycemia Protocol Ceftriaxone Sodium 1 gm/ 50 mls @ 100 mls/hr 03/29/25 07:00 03/30/25 05:43 Sodium Chloride IVPB 100 mls/hr Q24H STACIE Administration Dextrose 1,000 mls @ 100 mls/hr 03/28/25 16:07 Dextrose 5% 1,000 Ml IVPB PRN PRN Hypoglycemia Protocol Insulin Aspart 2 - 5 units 03/28/25 17:00 03/30/25 09:06 Insulin Aspart (*Bkc) 100 Units/Ml SUB-Q 2 units TIDWM STACIE Administration Protocol Insulin Glargine 13 units 03/28/25 21:00 03/30/25 09:06 Insulin Glargine (*Bkc) 100 Units/Ml SUB-Q 13 units Q12HR STACIE Administration Levothyroxine Sodium 112 mcg 03/29/25 06:30 03/30/25 05:39 Levothyroxine Sodium 112 Mcg Tablet BY MOUTH 112 mcg DAILY@0630 STACIE Administration Metoprolol Succinate 50 mg 03/29/25 09:00 03/30/25 08:59 Metoprolol Succinate Ext Rel 50 Mg Tabcr PO 50 mg DAILY STACIE Administration Ondansetron HCl 4 mg 03/28/25 05:56 Ondansetron Inj 4 Mg/2 Ml Vial IV PUSH Q4H PRN Nausea Tramadol HCl 50 mg 03/28/25 15:53 03/30/25 05:57 Tramadol Hcl (*Crx) 50 Mg Tablet PO 50 mg Q6H PRN Administration pain 4-6 Radiology Results: ITS Impressions Chest X-Ray 03/28/25 16:19 IMPRESSION: No focal infiltrate or effusion. Labs Labs: Laboratory Results - last 24 hr 03/29/25 03/29/25 03/30/25 16:54 20:52 08:06 POC Capillary Glucose 229 H 261 H 222 H
[2025-03-30] MEDS: IRON SUCROSE COMPLEX 400 MG, IRON SUCROSE COMPLEX 100 MG in SODIUM CHLORIDE 0.9% IV 250 ML 78.57 MG IVPB (13:22)
[2025-03-30 14:11] VITALS: BP 134/55; PULSE 70; RESP 16; TEMP 37.1; O2SAT 100
[2025-03-30 20:11] VITALS: BP 129/66; PULSE 73; RESP 16; TEMP 36.5; O2SAT 97
[2025-03-30] MEDS: ATORVASTATIN 40 MG TABLET PO (20:40)
[2025-03-31] MEDS: HYDROcodone/acetaminophen (*CRX) 5-325 MG TABLET 1 TAB PO ×3 (05:01→22:54)
[2025-03-31] MEDS: CALCIUM CARBONATE (TUMS) 500 MG (200 MG ELEMENTAL) PO ×2 (05:03→22:54)
[2025-03-31 05:28] VITALS: BP 104/68; PULSE 90; RESP 18; TEMP 36.5; O2SAT 95
[2025-03-31] MEDS: LEVOTHYROXINE SODIUM 112 MCG TABLET BY MOUTH (06:07)
[2025-03-31] MEDS: cefTRIAXone 1 GM in SODIUM CHLORIDE 0.9% IV 50 ML 100 ML IVPB (06:07)
[2025-03-31 06:26] LABS: IFOB Positive Control Positive; Immunochemical Fecal Occult Bl Negative (N)
[2025-03-31 06:30] LABS: Hematocrit 29.0 % (42.0-52.0); Hemoglobin 9.0 g/dL (14.0-18.0); Immature Granulocyte Percent A 1.3 % (0-0.5); Lymphocytes Absolute Auto 1.09 K/mm3 (0.9-3.2); Mean Corpuscular HGB Conc 31.0 g/dl (32-36); Mean Corpuscular Hemoglobin 28.1 pg (26-34); Mean Corpuscular Volume 90.6 fl (80-100); Nucleated Red Blood Cells Absolute Auto 0.000 K/mm3 (0.0-0.012); Nucleated Red Blood Cells Perc 0.0 % (0.0-0.2); Platelet Count Result 169 k/mm3 (150-375); Red Blood Count 3.20 M/mm3 (4.6-6.20); White Blood Count 7.1 K/mm3 (4.5-10.0)
[2025-03-31 06:54] LABS: Alanine Aminotransferase 16 U/L (6-50); Albumin Level 3.7 g/dL (3.5-5.1); Alkaline Phosphatase 92 U/L (38-126); Anion Gap 6 mmol/L (4-12); Aspartate Amino Transferase 23 U/L (17-59); Bilirubin,Total 0.6 mg/dL (0.2-1.3); Blood Urea Nitrogen 15 mg/dL (9-20); Calcium 9.1 mg/dL (8.4-10.2); Carbon Dioxide 28 mmol/L (22-30); Chloride 95 mmol/L (98-107); Estimated CRCL calculation 98 ml/min; Estimated Glomerular Filt Rate > 60; Glucose 260 mg/dL (65-110); Magnesium 1.5 mg/dL (1.6-2.3); Potassium 4.2 mmol/L (3.4-5.0); Sodium 129 mmol/L (137-145); Total Protein 7.5 g/dL (6.3-8.2)
[2025-03-31] MEDS: FLUTICASONE PROP 220 MCG (*SP) 12 GM INHALER 2 PUFF INHALATION ×2 (08:33→20:45)
[2025-03-31 08:34] VITALS: PULSE 70; RESP 16
[2025-03-31] MEDS: INSULIN ASPART (*BKC) 100 UNITS/ML SUB-Q ×4 (09:19→21:08)
[2025-03-31] MEDS: BUMETANIDE 1 MG TABLET 2 MG PO (09:20)
[2025-03-31] MEDS: GABAPENTIN 300 MG CAPSULE PO ×3 (09:20→16:18)
[2025-03-31] MEDS: BACLOFEN 5 MG TABLET 15 MG PO (09:20)
[2025-03-31] MEDS: METOPROLOL SUCCINATE EXT REL 50 MG TABCR PO (09:20)
[2025-03-31] MEDS: INSULIN GLARGINE (*BKC) 100 UNITS/ML 13 UNITS SUB-Q ×2 (09:21→21:06)
[2025-03-31] MEDS: DORZOLAMIDE/TIMOLOL OPHTH SOL 10 ML BOTTLE 1 DROP EACH EYE ×2 (09:21→21:09)
[2025-03-31] MEDS: BRIMONIDINE TARTRATE 0.2% OP SOLN 5 ML BTL 1 DROP EACH EYE ×2 (09:21→21:09)
[2025-03-31] MEDS: APIXABAN 5 MG TABLET PO ×2 (09:21→21:08)
--- NOTE | 2025-03-31 11:35 | PM.IMPN ---
Progress Note: A&P Assessment and Plan (1) Urinary tract infection associated with indwelling urethral catheter: Code(s): T83.511A - Infection and inflammatory reaction due to indwelling urethral catheter, initial encounter; N39.0 - Urinary tract infection, site not specified Status: Acute Plan CAUTI patient on chronic blandon Exchanged catheter F/u cultures and continue Rocephin noted dysuria has resolved awaiting culture results Iron deficiency anemia hb 8.8, Isat isat 14 monitor H and H IV Iron 1000/1000 Afib chronic continue Eliquis and metoprolol DM2 SSI with accucheks, continue home lantus monitor and adjust with clinical course Charcot foot from DM2 PT/OT PVD continue Antiplatelets and Statin Hypothyroidism Continue home Levothyroxine DVT prophylaxis on Eliquis Full code SDM: Bri Hoang Subjective Date/time seen: 03/31/25 11:35 Interval history: Comfortable at bedside Awaiting Urine culture Review of Systems Review of Systems: Other systems reviewed and negative except as noted in history above. Exam Narrative: General: alert and comfortable, obese Eyes: EOMI, PERRLA ENNT External ears normal, Neck is supple, no masses, Respiratory systems: Clear to auscultation Cardiovascular S1, S2, normal rhythm, no murmur, rub, or gallop; no thrill or palpable murmurs on palpation. Gastrointestinal: soft, non-tender, and non-distended abdomen with no masses; BS present Skin: no rash, lesions, ulcerations, subcutaneous nodules or induration Musculoskeletal: Charcot feet Neurologic: Alert and oriented x3, non focal Mental Status Exam: normal affect Objective Data Vital Signs Vital Signs: Vital Signs - 24 hr 03/30/25 14:11 03/30/25 20:00 03/30/25 20:11 Temperature 98.7 F 97.7 F Pulse Rate 70 73 Respiratory Rate 16 16 Blood Pressure 134/55 L 129/66 Pulse Oximetry 100 97 Oxygen Delivery Room Air 03/31/25 05:28 03/31/25 08:00 03/31/25 08:34 Temperature 97.7 F Pulse Rate 90 70 Respiratory Rate 18 16 Blood Pressure 104/68 Pulse Oximetry 95 Oxygen Delivery Room Air Intake/Output Intake/Output: Intake & Output 03/28/25 03/29/25 03/30/25 03/31/25 23:59 23:59 23:59 23:59 Intake Total 1993 0815 2660 250 Output Total 8245 8813 9506 465 Balance [phone] Meds/Results Medications: Active Medications Generic Name Dose Route Start Last Admin Trade Name Freq PRN Reason Stop Dose Admin Acetaminophen 650 mg 03/28/25 05:56 Acetaminophen 325 Mg Tablet PO Q4H PRN Mild Pain (1-3) or Fever Hydrocodone Bitart/Acetaminophen 1 tab 03/29/25 10:04 03/31/25 05:01 Hydrocodone/Acetaminophen (*Crx) 5-325 Mg Tablet PO 1 tab Q6H PRN Administration Pain Rated 7-10 Apixaban 5 mg 03/28/25 21:00 03/31/25 09:21 Apixaban 5 Mg Tablet PO 5 mg Q12HR STACIE Administration Atorvastatin Calcium 40 mg 03/29/25 21:00 03/30/25 20:40 Atorvastatin 40 Mg Tablet PO 40 mg HS STACIE Administration Baclofen 15 mg 03/29/25 09:00 03/31/25 09:20 Baclofen 5 Mg Tablet PO 15 mg DAILY STACIE Administration Benzocaine 1 lozenge 03/29/25 14:08 03/29/25 14:56 Benzocaine/Menthol (*Bkc) 18 Ea Lozenge PO 1 lozenge PRN PRN Administration Sore Throat Bisacodyl 5 mg 03/28/25 15:53 Bisacodyl 5 Mg Tablet Ec PO BID PRN constipation Brimonidine Tartrate 1 drop 03/28/25 21:00 03/31/25 09:21 Brimonidine Tartrate 0.2% Op Soln 5 Ml Btl EACH EYE 1 drop Q12HR STACIE Administration Bumetanide 2 mg 03/29/25 09:00 03/31/25 09:20 Bumetanide 1 Mg Tablet PO 2 mg DAILY STACIE Administration Calcium Carbonate 200 mg 03/29/25 05:08 03/31/25 05:03 Calcium Carbonate (Tums) 500 Mg (200 Mg Elemental) PO 200 mg Q2H PRN Administration Indigestion Dextrose 12.5 gm 03/28/25 05:56 Dextrose 50% 25 Gm/50 Ml Syringe IV PUSH PRN PRN Hypoglycemia Protocol Dextrose 12.5 gm 03/28/25 16:07 Dextrose 50% 25 Gm/50 Ml Syringe IV PUSH PRN PRN Hypoglycemia Protocol Dorzolamide/Timolol 1 drop 03/28/25 21:00 03/31/25 09:21 Dorzolamide/Timolol Ophth Linda 10 Ml Bottle EACH EYE 1 drop Q12HR STACIE Administration Fluticasone Propionate 2 puff 03/28/25 20:00 03/31/25 08:33 Fluticasone Prop 220 Mcg (*Sp) 12 Gm Inhaler INHALATION 2 puff Q12HRT STACIE Administration Gabapentin 300 mg 03/28/25 17:00 03/31/25 09:20 Gabapentin 300 Mg Capsule PO 300 mg TID STACIE Administration Glucagon 1 mg 03/28/25 05:56 Glucagon For Inj 1 Mg Vial IM PRN PRN Hypoglycemia Protocol Glucagon 1 mg 03/28/25 16:07 Glucagon For Inj 1 Mg Vial IM PRN PRN Hypoglycemia Protocol Glucose 15 gm 03/28/25 05:56 Glucose Oral Gel 15 Gm Of Glucse In 37.5 Gm Tube PO PRN PRN Hypoglycemia Protocol Glucose 15 gm 03/28/25 16:07 Glucose Oral Gel 15 Gm Of Glucse In 37.5 Gm Tube PO PRN PRN Hypoglycemia Protocol Dextrose 1,000 mls @ 100 mls/hr 03/28/25 05:56 Dextrose 5% 1,000 Ml IVPB PRN PRN Hypoglycemia Protocol Ceftriaxone Sodium 1 gm/ 50 mls @ 100 mls/hr 03/29/25 07:00 03/31/25 06:07 Sodium Chloride IVPB 100 mls/hr Q24H STACIE Administration Dextrose 1,000 mls @ 100 mls/hr 03/28/25 16:07 Dextrose 5% 1,000 Ml IVPB PRN PRN Hypoglycemia Protocol Insulin Aspart 2 - 5 units 03/28/25 17:00 03/31/25 09:19 Insulin Aspart (*Bkc) 100 Units/Ml SUB-Q 2 units TIDWM STACIE Administration Protocol Insulin Glargine 13 units 03/28/25 21:00 03/31/25 09:21 Insulin Glargine (*Bkc) 100 Units/Ml SUB-Q 13 units Q12HR STACIE Administration Levothyroxine Sodium 112 mcg 03/29/25 06:30 03/31/25 06:07 Levothyroxine Sodium 112 Mcg Tablet BY MOUTH 112 mcg DAILY@0630 STACIE Administration Metoprolol Succinate 50 mg 03/29/25 09:00 03/31/25 09:20 Metoprolol Succinate Ext Rel 50 Mg Tabcr PO 50 mg DAILY STACIE Administration Ondansetron HCl 4 mg 03/28/25 05:56 Ondansetron Inj 4 Mg/2 Ml Vial IV PUSH Q4H PRN Nausea Tramadol HCl 50 mg 03/28/25 15:53 03/30/25 05:57 Tramadol Hcl (*Crx) 50 Mg Tablet PO 50 mg Q6H PRN Administration pain 4-6 Radiology Results: ITS Impressions Chest X-Ray 03/28/25 16:19 IMPRESSION: No focal infiltrate or effusion. Labs Labs: Laboratory Results - last 24 hr 03/30/25 03/30/25 03/30/25 12:04 17:13 20:16 WBC RBC Hgb Hct MCV MCH MCHC RDW Plt Count MPV Immature Gran % (Auto) Neut % (Auto) Lymph % (Auto) [place] % (Auto) Eos % (Auto) Baso % (Auto) Lymph # (Auto) [place] # (Auto) Eos # (Auto) Baso # (Auto) Abs Immat Gran (auto) Absolute Neuts (auto) Absolute Nucleated RBC Nucleated RBC % Sodium Potassium Chloride Carbon Dioxide Anion Gap BUN Creatinine Estim Creat Clear Calc Estimated GFR Glucose POC Capillary Glucose 252 H 218 H 250 H Calcium Magnesium Total Bilirubin AST ALT Alkaline Phosphatase Total Protein Albumin Stl Occult Blood (IFOB) 03/31/25 03/31/25 03/31/25 02:36 06:21 07:48 WBC 7.1 RBC 3.20 L Hgb 9.0 L Hct 29.0 L MCV 90.6 MCH 28.1 MCHC 31.0 L RDW 16.5 H Plt Count 169 MPV 9.4 Immature Gran % (Auto) 1.3 H Neut % (Auto) 71.1 Lymph % (Auto) 15.3 L [place] % (Auto) 5.6 Eos % (Auto) 6.3 H Baso % (Auto) 0.4 Lymph # (Auto) 1.09 [place] # (Auto) 0.4 Eos # (Auto) 0.5 H Baso # (Auto) 0.0 Abs Immat Gran (auto) 0.09 H Absolute Neuts (auto) 5.1 Absolute Nucleated RBC 0.000 Nucleated RBC % 0.0 Sodium 129 L Potassium 4.2 Chloride 95 L Carbon Dioxide 28 Anion Gap 6 BUN 15 Creatinine 0.97 Estim Creat Clear Calc 98 Estimated GFR > 60 Glucose 260 H POC Capillary Glucose 233 H Calcium 9.1 Magnesium 1.5 L Total Bilirubin 0.6 AST 23 ALT 16 Alkaline Phosphatase 92 Total Protein 7.5 Albumin 3.7 Stl Occult Blood (IFOB) Negative 03/31/25 11:10 WBC RBC Hgb Hct MCV MCH MCHC RDW Plt Count MPV Immature Gran % (Auto) Neut % (Auto) Lymph % (Auto) [place] % (Auto) Eos % (Auto) Baso % (Auto) Lymph # (Auto) [place] # (Auto) Eos # (Auto) Baso # (Auto) Abs Immat Gran (auto) Absolute Neuts (auto) Absolute Nucleated RBC Nucleated RBC % Sodium Potassium Chloride Carbon Dioxide Anion Gap BUN Creatinine Estim Creat Clear Calc Estimated GFR Glucose POC Capillary Glucose 250 H Calcium Magnesium Total Bilirubin AST ALT Alkaline Phosphatase Total Protein Albumin Stl Occult Blood (IFOB)
[2025-03-31 13:48] VITALS: BP 112/88; PULSE 71; RESP 18; TEMP 36.4; O2SAT 99
[2025-03-31 20:45] VITALS: PULSE 80; RESP 20
[2025-03-31 20:48] VITALS: PULSE 80; RESP 20; O2SAT 95
[2025-03-31] MEDS: traMADol HCL (*CRX) 50 MG TABLET PO (21:08)
[2025-03-31] MEDS: ATORVASTATIN 40 MG TABLET PO (21:08)
[2025-03-31 22:00] VITALS: BP 118/56; PULSE 91; RESP 16; TEMP 36; O2SAT 100
[2025-04-01] MEDS: HYDROcodone/acetaminophen (*CRX) 5-325 MG TABLET 1 TAB PO ×2 (04:58→23:37)
[2025-04-01 06:00] VITALS: BP 113/42; PULSE 68; RESP 16; TEMP 36.6; O2SAT 100
[2025-04-01 06:37] LABS: Hematocrit 28.6 % (42.0-52.0); Hemoglobin 9.0 g/dL (14.0-18.0); Immature Granulocyte Percent A 1.4 % (0-0.5); Lymphocytes Absolute Auto 1.05 K/mm3 (0.9-3.2); Mean Corpuscular HGB Conc 31.5 g/dl (32-36); Mean Corpuscular Hemoglobin 28.4 pg (26-34); Mean Corpuscular Volume 90.2 fl (80-100); Nucleated Red Blood Cells Absolute Auto 0.000 K/mm3 (0.0-0.012); Nucleated Red Blood Cells Perc 0.0 % (0.0-0.2); Platelet Count Result 153 k/mm3 (150-375); Red Blood Count 3.17 M/mm3 (4.6-6.20); White Blood Count 5.8 K/mm3 (4.5-10.0)
[2025-04-01] MEDS: LEVOTHYROXINE SODIUM 112 MCG TABLET BY MOUTH (06:41)
[2025-04-01] MEDS: cefTRIAXone 1 GM in SODIUM CHLORIDE 0.9% IV 50 ML 100 ML IVPB (06:41)
[2025-04-01 06:47] LABS: Alanine Aminotransferase 17 U/L (6-50); Albumin Level 3.6 g/dL (3.5-5.1); Alkaline Phosphatase 92 U/L (38-126); Anion Gap 9 mmol/L (4-12); Aspartate Amino Transferase 24 U/L (17-59); Bilirubin,Total 0.4 mg/dL (0.2-1.3); Blood Urea Nitrogen 15 mg/dL (9-20); Calcium 9.2 mg/dL (8.4-10.2); Carbon Dioxide 26 mmol/L (22-30); Chloride 99 mmol/L (98-107); Estimated CRCL calculation 104 ml/min; Estimated Glomerular Filt Rate > 60; Glucose 276 mg/dL (65-110); Magnesium 1.5 mg/dL (1.6-2.3); Potassium 3.9 mmol/L (3.4-5.0); Sodium 134 mmol/L (137-145); Total Protein 7.3 g/dL (6.3-8.2)
[2025-04-01] MEDS: FLUTICASONE PROP 220 MCG (*SP) 12 GM INHALER 2 PUFF INHALATION ×2 (08:00→20:06)
[2025-04-01 08:05] VITALS: PULSE 65; RESP 20; O2SAT 95
[2025-04-01] MEDS: BUMETANIDE 1 MG TABLET 2 MG PO (08:46)
[2025-04-01] MEDS: APIXABAN 5 MG TABLET PO ×2 (08:46→21:04)
[2025-04-01] MEDS: GABAPENTIN 300 MG CAPSULE PO ×3 (08:46→17:37)
[2025-04-01] MEDS: BACLOFEN 5 MG TABLET 15 MG PO (08:47)
[2025-04-01] MEDS: INSULIN GLARGINE (*BKC) 100 UNITS/ML 13 UNITS SUB-Q ×2 (08:47→20:58)
[2025-04-01] MEDS: INSULIN ASPART (*BKC) 100 UNITS/ML SUB-Q ×3 (08:48→17:38)
[2025-04-01 08:50] VITALS: PULSE 60
[2025-04-01] MEDS: METOPROLOL SUCCINATE EXT REL 50 MG TABCR PO (08:50)
[2025-04-01] MEDS: BRIMONIDINE TARTRATE 0.2% OP SOLN 5 ML BTL 1 DROP EACH EYE ×2 (08:51→21:05)
[2025-04-01] MEDS: DORZOLAMIDE/TIMOLOL OPHTH SOL 10 ML BOTTLE 1 DROP EACH EYE ×2 (08:51→21:05)
[2025-04-01] MEDS: MAGNESIUM SULF 2 GM/WATER 50ML 2 GM/50 ML BAG IVPB (12:13)
--- NOTE | 2025-04-01 13:22 | P.DS_ITS ---
DS: Admitting Diagnosis Discharge Date 04/01/25 Admitting Diagnosis Dysuria DS: Discharge Diagnosis Discharge Diagnosis (1) Urinary tract infection associated with indwelling urethral catheter: Code(s): T83.511A - Infection and inflammatory reaction due to indwelling urethral catheter, initial encounter; N39.0 - Urinary tract infection, site not specified Status: Acute DS: Summary Hospital Course Hospital Course: 69-year-old male with a history of obesity, atrial fibrillation on Eliquis, unsteady gait, type 2 diabetes with Charcot feet, peripheral vascular disease, hypertension, hypothyroidism, and hypersomnolence, presented with two weeks of d ysuria. The patient, a poor historian, reported painful urination for two weeks. He denied abdominal pain, fever, diarrhea, chest pain, or shortness of breath. He is chronically catheterized with a Hernandez. ER Evaluation: * HR: 104 * RR: 16 * BP: 99/58 * Labs: Hb 9.3, Isat 14, leukocyte esterase 3+, pyuria * Started on Rocephin prior to admission Topical management * Catheter-Associated Urinary Tract Infection (CAUTI): * Chronic Hernandez catheter in place. * Catheter was exchanged. * Treated with Rocephin. * Dysuria resolved during admission. * Awaiting final urine culture results at discharge, due to delayed urine culture result whcih is common since we move from [facility] to [facility]. Patient noted his symptoms has resolved, thus he is discharged on Cefdinir x 10 days * will follow up on urine culture * Iron Deficiency Anemia: * Hb 8.8, Isat 14. * Monitored H/H. * Received IV iron 1000 mg. * Atrial Fibrillation: * Chronic, rate controlled. * Continued Eliquis and metoprolol. * Type 2 Diabetes Mellitus with Charcot Foot: * Managed with sliding scale insulin and home Lantus. * PT/OT consulted for Charcot foot and unsteady gait. * Glucose monitored and regimen adjusted as needed. * Peripheral Vascular Disease: * Continued antiplatelet therapy and statin. * Hypertension: * Continued home antihypertensives. * Hypothyroidism: * Continued home levothyroxine. * DVT Prophylaxis: * On Eliquis. * Code Status: * Full code * Surrogate decision maker: , Bri Hoang Follow-Up: * Primary care in 3-5 days * PT/OT for Charcot foot and gait * Monitor for recurrent UTI symptoms, anemia, and glycemic control Time Spent with Patient Time attestation: Total time spent providing and/or coordinating discharge services: DS: Data Data Completed and Pending Labs on day of discharge: Labs from last 24 hours 04/01/25 04/01/25 04/01/25 11:37 07:40 06:18 WBC 5.8 RBC 3.17 L Hgb 9.0 L Hct 28.6 L MCV 90.2 MCH 28.4 MCHC 31.5 L RDW 16.4 H Plt Count 153 MPV 9.9 Immature Gran % (Auto) 1.4 H Neut % (Auto) 68.5 Lymph % (Auto) 18.2 L [place] % (Auto) 5.5 Eos % (Auto) 5.9 H Baso % (Auto) 0.5 Lymph # (Auto) 1.05 [place] # (Auto) 0.3 Eos # (Auto) 0.3 Baso # (Auto) 0.0 Abs Immat Gran (auto) 0.08 H Absolute Neuts (auto) 4.0 Absolute Nucleated RBC 0.000 Nucleated RBC % 0.0 Sodium 134 L Potassium 3.9 Chloride 99 Carbon Dioxide 26 Anion Gap 9 BUN 15 Creatinine 0.91 Estim Creat Clear Calc 104 Estimated GFR > 60 Glucose 276 H POC Capillary Glucose 298 H 275 H Calcium 9.2 Magnesium 1.5 L Total Bilirubin 0.4 AST 24 ALT 17 Alkaline Phosphatase 92 Total Protein 7.3 Albumin 3.6 03/31/25 03/31/25 19:32 16:09 WBC RBC Hgb Hct MCV MCH MCHC RDW Plt Count MPV Immature Gran % (Auto) Neut % (Auto) Lymph % (Auto) [place] % (Auto) Eos % (Auto) Baso % (Auto) Lymph # (Auto) [place] # (Auto) Eos # (Auto) Baso # (Auto) Abs Immat Gran (auto) Absolute Neuts (auto) Absolute Nucleated RBC Nucleated RBC % Sodium Potassium Chloride Carbon Dioxide Anion Gap BUN Creatinine Estim Creat Clear Calc Estimated GFR Glucose POC Capillary Glucose 353 H 264 H Calcium Magnesium Total Bilirubin AST ALT Alkaline Phosphatase Total Protein Albumin Preliminary micro results at discharge 03/28/25 02:47 Blood Culture - Preliminary Blood 03/28/25 02:47 Blood Culture - Preliminary Blood 03/28/25 04:21 - Preliminary Unspecified Urine Discharge Plan Discharge Attending physician on discharge: Keira Jaimes Discharging Clinician: Keira Jaimes Anticipated Discharge Date/Time: 04/01/25 13:14 Patient Disposition: NH Half-Way/Asst Living Activity: as tolerated Diet: as tolerated and diabetic Patient Instructions: Antibiotic Form, Apixaban (By mouth), Pain Management in Older Adults (DC) Patient Language: Divehi Stand Alone Forms: General Discharge Information Follow-up/Referrals: Felix Jones MD [Primary Care Provider] - (F/u with PCP in 3-5 days ) Discharge Medications: New cefdinir 300 mg capsule 300 mg PO Q12H 10 Days Qty: 20 0RF Continued (DME) insulin syringe-needle U-100 [BD Insulin Syringe Ultra-Fine] 1 mL 31 gauge x 5/16 syringe See Rx Instructions .Route Rx Instructions: As directed (DME) blood-glucose meter [OneTouch Verio Flex meter] [facility] See Rx Instructions .Route Rx Instructions: As directed docusate sodium 100 mg capsule 100 mg PO BID PRN (Reason: Constipation) nystatin 100,000 unit/gram powder 1 applic topical TID Qty: 60 3RF acetaminophen 500 mg capsule 1,000 mg PO Q6H PRN (Reason: mild pain (scale score 1-4)) (DME) [facility] External Cath [facility] See Rx Instructions .Route Qty: 144 5RF Rx Instructions: As directed methocarbamol 750 mg tablet 750 mg PO TID PRN (Reason: muscle pain) Qty: 10 0RF nystatin 100,000 unit/gram powder 1 applic topical BID Qty: 30 0RF diclofenac sodium 1 % gel 2 g topical QID Qty: 50 0RF Rx Instructions: apply to single elbow, wrist or hand; for hand includes palm/fingers/back of hand hydrocodone-acetaminophen 5-325 mg tablet 1 tablet PO Q6H PRN (Reason: pain (scale score 4-6)) Mounjaro 5 mg/0.5 mL pen injector 2.5 mg SUBCUT WEEKLY Patient Comments: takes on Wednesday polyethylene glycol 3350 [ClearLax] 17 gram/dose powder 17 g PO DAILY PRN (Reason: constipation) olanzapine 15 mg tablet 15 mg PO DAILY bisacodyl 5 mg tablet,delayed release (DR/EC) 5 mg PO BID PRN (Reason: constipation) Patient Comments: use if miralax ineffective calcium carbonate [Antacid (calcium carbonate)] 200 mg calcium (500 mg) tablet,chewable 400 mg PO TID PRN (Reason: dyspepsia) Humulin R Regular U-100 Insuln 100 unit/mL solution 20 unit subcut TIDWM insulin glargine [Lantus Solostar U-100 Insulin] 100 unit/mL (3 mL) insulin pen 13 unit subcut BID bumetanide 2 mg tablet 2 mg PO DAILY metoprolol succinate 50 mg tablet extended release 24 hr 50 mg PO DAILY spironolactone 25 mg tablet 50 mg PO DAILY hydroxyzine HCl 25 mg tablet 25 mg PO Q6H PRN (Reason: itching, anxiety) gabapentin 100 mg capsule 300 mg PO TID Eliquis 5 mg tablet 5 mg PO Q12H baclofen 15 mg tablet 15 mg PO DAILY fluticasone propionate 220 mcg/actuation HFA aerosol inhaler 2 puff INHALATION Q12H Qty: 12 2RF losartan 25 mg tablet 25 mg PO DAILY brimonidine 0.2 % drops 1 drp EACH EYE Q12H Qty: 5 0RF dorzolamide-timolol 22.3-6.8 mg/mL drops 1 drp EACH EYE Q12H Qty: 10 0RF Rx Instructions: 30 day supply atorvastatin 40 mg tablet 40 mg PO DAILY Qty: 90 0RF tamsulosin 0.4 mg capsule See Rx Instructions .ROUTE .COMPLEX Qty: 90 1RF Dose Instruction: Take 1 capsule by mouth once daily Rx Instructions: Take 1 capsule by mouth once daily hydralazine 50 mg tablet 50 mg PO TID Qty: 90 4RF levothyroxine 112 mcg tablet See Rx Instructions .ROUTE .COMPLEX Qty: 30 2RF Dose Instruction: Take 1 tablet by mouth once daily Rx Instructions: Take 1 tablet by mouth once daily (DME) [employer] G6 Sensor Device See Rx Instructions .Route Rx Instructions: As directed Humulin R U-500 (Conc) Insulin 500 unit/mL solution 350 unit subcut .via insulin pump QD (DME) lancets 33 gauge misc See Rx Instructions .Route Patient Comments: One Touch Delica Rx Instructions: As directed potassium chloride 10 mEq capsule, extended release See Rx Instructions .ROUTE .COMPLEX Qty: 90 0RF Dose Instruction: Take 1 capsule by mouth once daily Rx Instructions: Take 1 capsule by mouth once daily famotidine 20 mg tablet See Rx Instructions .ROUTE .COMPLEX Qty: 90 0RF Dose Instruction: Take 1 tablet by mouth twice daily Rx Instructions: Take 1 tablet by mouth twice daily lidocaine 4 % cream 1 applic topical QID PRN (Reason: pain) Qty: 119 0RF tramadol 50 mg tablet 50 mg PO Q6H PRN (Reason: pain) Qty: 30 0RF Date of admission: 03/29/25 10:30 Primary Care Provider: Felix Jones Admitting Provider: Yenny Ballesteros Attending physician on admission: Yenny Ballesteros Condition: Stable
[2025-04-01 14:00] VITALS: BP 125/85; PULSE 98; RESP 18; O2SAT 100
[2025-04-01 20:07] VITALS: PULSE 68; RESP 20
[2025-04-01] MEDS: ATORVASTATIN 40 MG TABLET PO (21:04)
[2025-04-01 22:00] VITALS: BP 126/66; PULSE 70; RESP 18; O2SAT 99
[2025-04-02] MEDS: traMADol HCL (*CRX) 50 MG TABLET PO (02:32)
[2025-04-02 06:00] VITALS: BP 122/69; PULSE 72; RESP 16; TEMP 36.6; O2SAT 97
[2025-04-02] MEDS: LEVOTHYROXINE SODIUM 112 MCG TABLET BY MOUTH (06:01)
[2025-04-02] MEDS: HYDROcodone/acetaminophen (*CRX) 5-325 MG TABLET 1 TAB PO (06:01)
[2025-04-02] MEDS: cefTRIAXone 1 GM in SODIUM CHLORIDE 0.9% IV 50 ML 100 ML IVPB (06:02)
[2025-04-02 08:00] VITALS: O2SAT 98
[2025-04-02] MEDS: FLUTICASONE PROP 220 MCG (*SP) 12 GM INHALER 2 PUFF INHALATION (08:34)
[2025-04-02 08:35] VITALS: PULSE 73; RESP 20
[2025-04-02 08:38] VITALS: PULSE 73; O2SAT 98
[2025-04-02] MEDS: INSULIN GLARGINE (*BKC) 100 UNITS/ML 13 UNITS SUB-Q (09:08)
[2025-04-02] MEDS: INSULIN ASPART (*BKC) 100 UNITS/ML SUB-Q (09:08)
[2025-04-02] MEDS: BUMETANIDE 1 MG TABLET 2 MG PO (09:09)
[2025-04-02] MEDS: BACLOFEN 5 MG TABLET 15 MG PO (09:09)
[2025-04-02 09:10] VITALS: PULSE 85
[2025-04-02] MEDS: APIXABAN 5 MG TABLET PO (09:10)
[2025-04-02] MEDS: GABAPENTIN 300 MG CAPSULE PO (09:10)
[2025-04-02] MEDS: METOPROLOL SUCCINATE EXT REL 50 MG TABCR PO (09:10)
[2025-04-02] MEDS: DORZOLAMIDE/TIMOLOL OPHTH SOL 10 ML BOTTLE 1 DROP EACH EYE (09:11)
[2025-04-02] MEDS: BRIMONIDINE TARTRATE 0.2% OP SOLN 5 ML BTL 1 DROP EACH EYE (09:11)
== END 2025-04-02 09:33 | DRG 699 ==
LOC: ANHED 06:22 → ANH3MEDSUR 06:54
PROVIDERS: Admitting Provider Internal Medicine; Emergency Provider Student in an Organized Health Care Education/Training Program; PCP Internal Medicine; Visit Provider Internal Medicine
DX: T83.511A Infection and inflammatory reaction due to indwelling urethral catheter, initial encounter (principal); I48.20 Chronic atrial fibrillation, unspecified; I10 Essential (primary) hypertension; I87.8 Other specified disorders of veins; J45.909 Unspecified asthma, uncomplicated; D50.9 Iron deficiency anemia, unspecified; E11.610 Type 2 diabetes mellitus with diabetic neuropathic arthropathy; E11.40 Type 2 diabetes mellitus with diabetic neuropathy, unspecified; E11.51 Type 2 diabetes mellitus with diabetic peripheral angiopathy without gangrene; E55.9 Vitamin D deficiency, unspecified; E03.9 Hypothyroidism, unspecified; E78.5 Hyperlipidemia, unspecified; E66.01 Morbid (severe) obesity due to excess calories; N40.0 Benign prostatic hyperplasia without lower urinary tract symptoms; R26.9 Unspecified abnormalities of gait and mobility; M17.0 Bilateral primary osteoarthritis of knee; H40.9 Unspecified glaucoma; G47.33 Obstructive sleep apnea (adult) (pediatric); G89.29 Other chronic pain; Z79.899 Other long term (current) drug therapy; Z79.01 Long term (current) use of anticoagulants; Z79.4 Long term (current) use of insulin; Z87.891 Personal history of nicotine dependence
CPT/HCPCS: 36415; 71045; 80053; 81001; 82010; 82274; 82728; 82948; 83540; 83550; 83605; 83735; 85025; 87040; 87086; 93005; 94640; 96361; 96365; 96366; 96367; 96375; 99285; A9270; G0378; J0696; J1756; J1815; J3010; J3475; J7030; J7050